=== PATIENT | female | born 1945 | race Caucasian/White ===

== ENCOUNTER 2017-01-17 09:53 | Outpatient (POV) | payer MEDICARE, SELFPAY | END 2017-01-17 15:20 | disposition home or self-care (01) | PROVIDERS: Visit Provider Podiatrist | DX: E11.9 Type 2 diabetes mellitus without complications (principal) | CPT/HCPCS: 99212; G0127 ==

== ENCOUNTER 2017-02-05 14:05 | Emergency (ER) | payer MEDICARE, SELFPAY | END 2017-02-05 15:45 | disposition home or self-care (01) | PROVIDERS: Emergency Provider Emergency Medicine; Family Provider Internal Medicine Adolescent Medicine; Visit Provider Emergency Medicine | DX: S60.222A Contusion of left hand, initial encounter (principal); S51.812A Laceration without foreign body of left forearm, initial encounter; W10.9XXA Fall (on) (from) unspecified stairs and steps, initial encounter; Y93.9 Activity, unspecified; J44.9 Chronic obstructive pulmonary disease, unspecified; E03.9 Hypothyroidism, unspecified; E11.9 Type 2 diabetes mellitus without complications; Y92.9 Unspecified place or not applicable; Z79.01 Long term (current) use of anticoagulants; Z79.02 Long term (current) use of antithrombotics/antiplatelets; Z79.4 Long term (current) use of insulin; Z79.891 Long term (current) use of opiate analgesic; Z79.899 Other long term (current) drug therapy; Z23 Encounter for immunization; Z90.710 Acquired absence of both cervix and uterus; I25.2 Old myocardial infarction; E78.5 Hyperlipidemia, unspecified; Z86.718 Personal history of other venous thrombosis and embolism | CPT/HCPCS: 73090; 73110; 73130; 90471; 90715; 99283 ==

== ENCOUNTER 2017-03-21 20:44 | Observation (INO) | payer MEDICARE, SELFPAY ==
[2017-03-21 20:45] VITALS: BP 171/89; PULSE 81; RESP 18; TEMP 37.1; O2SAT 89; BMI 40.3
--- NOTE | 2017-03-21 20:58 | XR_ITS ---
XR chest AP HISTORY: Shortness of air ITS.REASON: ABD PAIN ORDERING PHYSICIAN: Raj Salamanca MD PATIENT AGE: 71 years COMPARISON: 01/23/2017 FINDINGS: There are low lung volumes. There is cardiomegaly with pulmonary venous congestion consistent with CHF. The appearance of this is likely accentuated by the low lung volumes. Upright PA and lateral chest may be of further value. The right hilum appears prominent. Cannot exclude underlying pneumonia or edema.. Recommend upright PA and lateral chest when patient can tolerate IMPRESSION: Poor inspiration. CHF with possible edema or pneumonia Prominent right hilum. Recommend upright PA and lateral chest with better inspiration when patient can tolerate.
--- NOTE | 2017-03-21 20:58 | CT_ITS ---
CT abdomen pelvis wo con CLINICAL INDICATION: Generalized abdominal pain ITS.REASON: ABD PAIN ORDERING PHYSICIAN: Raj Salamanca MD PATIENT AGE: 71 years COMPARISON: None TECHNIQUE: Axial images obtained with sagittal and coronal reformats. PROCEDURE: Oral Contrast: None IV Contrast: None . FINDINGS: Images of the lung bases show cardiomegaly with coronary artery calcification in the dependent changes in the lung bases. Prior cholecystectomy without ductal dilatation. No focal liver lesion. The spleen, adrenal glands, pancreas and kidneys have an unremarkable unenhanced appearance. There is an IVC filter present with the superior tip below the level the renal veins. There is a small umbilical hernia containing fat. No evidence of appendicitis or diverticulitis. There are some scattered colonic diverticula. There is a moderate amount retained colonic feces in the ascending, transverse, and proximal ascending colon with abrupt transition from the stool filled colon to decompressed colon in the mid descending colon region without obvious lesion. No acute bony anomalies. IMPRESSION: 1. No acute abdomen apparent. 2. There is a moderate amount retained colonic feces in the ascending, transverse, and proximal ascending colon with abrupt transition from the stool filled colon to decompressed colon in the mid descending colon region without obvious lesion. Consider colonoscopy for further evaluation 3. Colonic diverticulosis without diverticulitis. 4. Cardiomegaly with coronary artery disease
[2017-03-21 21:25] LABS: Microscopic, Urine URINE MICROSCOPIC (MICROSCOPIC)
[2017-03-21 21:28] LABS: Appearance,Urine CLEAR (Clear); Bilirubin,Urine Negative (Negative); Blood, Urine Negative (Negative); Color,Urine YELLOW (Yellow); Glucose,Urine (UA) Negative (Negative); Ketones,Urine Negative (Negative); Leukocyte Esterase,Urine Negative (Negative); Nitrate,Urine Negative (Negative); PH,Urine 5.5 (5.0-8.5); Protein,Urine 1+ (Negative); Specific Gravity, Urine 1.025 (1.005-1.030)
[2017-03-21 21:50] LABS: Basophils % 0.4 % (0.1-2.0); Eosinophils # 0.1 K/mm3 (0.0-0.4); Eosinophils % 1.7 % (0.1-12.0); Hematocrit 32.9 % (37.0-47.0); Hemoglobin 10.3 g/dL (12.2-16.2); Lymphocytes # 0.5 K/mm3 (0.7-4.5); Lymphocytes % 6.6 K/mm3 (10-50); Mean Corpuscular HGB Conc 31.3 g/dL (31.8-35.4); Mean Corpuscular Hemoglobin 33.1 pg (27.0-31.2); Mean Corpuscular Volume 105.7 fl (81-99); Mean Platelet Volume 7.8 fl (7.4-10.4); Monocytes # 0.1 K/mm3 (0.1-1.0); Monocytes % 1.6 % (1.7-9.3); Neutrophils # 7.4 K/mm3 (1.8-7.8); Neutrophils % 89.7 % (37.0-80.0); Platelet Count 165 K/mm3 (142-424); Red Blood Count 3.11 M/mm3 (4.20-5.40); Red Cell Distribution Width 14.8 % (11.5-17.5); White Blood Count 8.2 K/mm3 (4.8-10.8)
[2017-03-21 21:57] LABS: MANUAL DIFFERENTIAL MANUAL DIFFERENTIAL (MANUAL DIFF)
[2017-03-21 22:01] LABS: Bacteria,Urine 3+ /lpf; Squamous Epithelial Cell,Urine Occasional #/hpf (0-5)
[2017-03-21 22:05] LABS: Lactic Acid 2.1 mmol/L (0.4-2.0)
[2017-03-21 22:10] VITALS: BP 121/51; PULSE 60; RESP 16; O2SAT 95
--- NOTE | 2017-03-21 22:23 | HMH.EDGENADL ---
ED Disposition Clinical Impression: Abdominal pain in female patient, Renal insufficiency Disposition: Admitted as Observation Condition on Discharge: Good Referrals: Raj Salamanca MD [Primary Care Provider] - - Critical Care Critical Care Time: No Attestation: On 03/21/17, the high probability of a clinically significant, sudden or life threatening deterioration of the following system(s) required my full and direct attention, intervention and personal management. The time I documented below is in addition to time spent performing reported procedures but includes the following listed in this critical care notation. Medical Decision Making Vital Signs: 03/21/17 20:45 03/21/17 22:10 03/21/17 23:02 Temperature 98.8 F Temperature Source Oral Pulse Rate [Right Brachial] 81 60 64 Respiratory Rate 18 16 14 Blood Pressure [Right Arm] 171/89 121/51 119/73 Blood Pressure Mean [Right Arm] 116 74 88 Blood Pressure Source [Right Arm] Automatic Cuff Automatic Cuff Automatic Cuff Blood Pressure Position [Right Arm] Supine Supine Supine 02 Sat by Pulse Oximetry 89 L 95 97 Oxygen Delivery Method Room Air Nasal Cannula Nasal Cannula Oxygen Flow Rate (LPM) 2 - Lab Data Lab results reviewed: Yes: I reviewed the patient's lab results. Lab Results 03/21/17 21:15: Urine Color Yellow, Urine Appearance Clear, Urine pH 5.5, Ur Specific [place] 1.025, Urine Protein 1+, Urine Glucose (UA) Negative, Urine Ketones Negative, Urine Blood Negative, Urine Nitrate Negative, Urine Bilirubin Negative, Urine Urobilinogen 1.0, Ur Leukocyte Esterase Negative, Urine RBC None, Urine WBC 3-5, Ur Squamous Epith Cells Occasional, Urine Bacteria 3+ 03/21/17 21:40: WBC 8.2, RBC 3.11 L, Hgb 10.3 L, Hct 32.9 L, MCV 105.7 H, MCH 33.1 H, MCHC 31.3 L, RDW 14.8, Plt Count 165, MPV 7.8, Neut % (Auto) 89.7 H, Lymph % (Auto) 6.6 L, [place] % (Auto) 1.6 L, Eos % (Auto) 1.7, Baso % (Auto) 0.4, Neut # (Auto) 7.4, Lymph # (Auto) 0.5 L, [place] # (Auto) 0.1, Eos # (Auto) 0.1, Baso # (Auto) 0.0 03/21/17 21:40: Sodium 136, Potassium 4.3, Chloride 102, Carbon Dioxide 26, Anion Gap 12.3, BUN 25 H, Creatinine 1.11 H, Estimated Creat Clear 86, Estimated GFR 49 L, Est GFR ( Amer) 59, Glucose 190 H, Calcium 9.1, Total Bilirubin 1.6 H, AST 26, ALT 36, Alkaline Phosphatase 220 H, Total Creatine Kinase 49, CK-MB (CK-2) < 0.5, CK-MB (CK-2) Rel Index 1.0, Troponin I 0.04, Total Protein 7.4, Albumin 2.8 L, Globulin 4.6 H, Albumin/Globulin Ratio 0.6 L, Amylase 91, Lipase 86 03/21/17 21:40: Lactic Acid 2.1 H Result diagrams: 03/21/17 21:40 03/21/17 21:40 Orders (Tests/Meds): ED MEDICATIONS Discontinued Medications Generic Name Dose Route Start Last Admin Trade Name Freq PRN Reason Stop Dose Admin Butorphanol Tartrate 1 mg 03/21/17 21:18 03/21/17 21:20 Stadol 1mg/1ml Vial IV 03/21/17 21:19 1 mg ONCE ONE Administration ORDERS Category Date Time Status CT abdomen pelvis wo con Stat Cat Scan 03/21/17 20:58 Taken XR chest AP Stat Exams 03/21/17 20:58 Taken Complete Blood Count Auto Diff Stat Lab 03/21/17 21:40 Results Blood Culture Stat Micro 03/21/17 21:10 Received Urine Culture Stat Micro 03/21/17 21:15 Received - Radiology Data #1 Image(s): Chest Image Reviewed: Yes I reviewed the patient's radiology image Preliminary Findings: Abnormal - CT Data CT Scan: Abdomen, Pelvis Time Received: 00:[address] Reviewed: Yes: I have viewed the radiologist's interpretation Preliminary Findings: Abnormal - ECG Data Tracing #1 I reviewed this ECG and interpreted as documented below: Arrhythmias present: afib Ischemic changes: non-specific ST-T wave changes - Physician Consults Physician Consulted: cherelle Reason -: Pt condition - [place]it Inquiry Pt receiving controlled substance: No General Adult HPI - General Chief complaint: PAIN Stated complaint: N/V ABD PAIN Time Seen by Provider: 03/21/17 22:23 Mode of Arrival:
[2017-03-21 22:58] LABS: Alanine Aminotransferase 36 U/L (12-78); Albumin Level 2.8 gm/dL (3.4-5.0); Albumin/Globulin Ratio 0.6 (1.1-1.8); Alkaline Phosphatase 220 U/L (46-116); Amylase 91 U/L (25-125); Anion Gap 12.3 mEq/L (5-15); Aspartate Amino Transferase 26 U/L (15-37); Bilirubin,Total 1.6 mg/dL (0.2-1.0); Blood Urea Nitrogen 25 mg/dL (7-18); Calcium 9.1 mg/dL (8.5-10.1); Carbon Dioxide 26 mmol/L (21.0-32.0); Chloride 102 mmol/L (98-107); Creatine Kinase 49 U/L (26-192); Creatine Kinase MB < 0.5 mg/ml (0.0-3.6); Creatinine Clearance Estimated 86 mL/min (0-300); Creatinine,Serum 1.11 mg/dL (0.55-1.02); Estimated Glomerular Filt Rate 49 ml/min (>60); GFR (African American) 59 ML/MIN (>60); Globulin 4.6 gm/dl (1.3-3.2); Glucose 190 mg/dL (74-106); Lipase 86 u/L (73-393); Potassium 4.3 mmoL/L (3.5-5.1); Sodium 136 mmol/L (136-145); Total Protein,Serum 7.4 gm/dL (6.4-8.2); Troponin I 0.04 ng/ml (0.00-0.06)
[2017-03-21 23:02] VITALS: BP 119/73; PULSE 64; RESP 14; O2SAT 97
--- NOTE | 2017-03-21 23:12 | PC.NURSE ---
ON THE PHONE WITH AT THIS TIME
--- NOTE | 2017-03-21 23:15 | PC.NURSE ---
dr german speaking with dr villarreal
[2017-03-21 23:20] VITALS: BP 134/64; PULSE 72; RESP 16; O2SAT 98
[2017-03-21 23:20] LABS: Anisocytosis 1+; Eosinophils % 3 % (0-3); Hypochromasia 1+; Lymphocytes % 8 % (10-50); Monocytes % 1 % (2-9); Neutrophils % 81 % (42-76); Platelet Estimate Normal; Poikilocytosis 1+; Total Cells Counted 100
--- NOTE | 2017-03-21 23:32 | PC.NURSE ---
REPORT GIVEN TO NIRAJ FOR ADMISSION TO THE MED SURGE UNIT
[2017-03-22 00:37] LABS: Reflex Lactic Add Lactic Reflex
[2017-03-22 00:45] VITALS: BP 148/66; PULSE 79; RESP 22; TEMP 36.8; O2SAT 97; BMI 48.6
[2017-03-22 01:05] VITALS: O2SAT 2
[2017-03-22 01:50] LABS: POC Glucose,Bedside 196 mg/dL
[2017-03-22 02:34] LABS: Lactic Acid Follow Up (RFLX 1) 1.7 (0.4-2.0)
[2017-03-22 04:00] VITALS: BP 135/66; PULSE 76; RESP 20; TEMP 36.7; O2SAT 99
--- NOTE | 2017-03-22 04:56 | PC.NURSE ---
A 71 YEAR OLD WHITE FEMALE ADMITTED THIS SHIFT WITH ABDOMINAL PAIN. WAS LETHARGIC LIKE WHEN ENTERED FLOOR, ONLY MOANED AND GRIMACED. SPOUSE ANSWERED QUESTIONS. ABDOMEN VERY FIRM AND DISTENDED, BOWEL SOUNDS HYPOACTIVE. SPOUSE STATES HAS A BM YESTERDAY, IT WAS HARD, ( WAS ONE BIG BALL). STATES SPOUSE HAS HAD PRESSURE LIKE NEEDS TO HAVE BM. SAYS HAS DONE THIS BEFORE. LUNGS ARE CLEAR, RESP EVEN AND NONLABORED. NO EDEMA. HAS NOT RESPONDED TO STAFF, ONLY TO . NONVERBAL. WILL GIVE PAIN MEDICATION AGAIN SOON ABLE. BED LOCKED IN LOW POSITION, SIDERALES UP X 2. CALL STORM WITHIN REACH. ENCOURAGED TO CALL OUT IF NEEDS.
[2017-03-22 06:59] LABS: POC Glucose,Bedside 225 mg/dL
[2017-03-22 07:02] LABS: Basophils % 0.3 % (0.1-2.0); Eosinophils % 0.3 % (0.1-12.0); Hematocrit 32.7 % (37.0-47.0); Hemoglobin 10.2 g/dL (12.2-16.2); Lymphocytes # 1.5 K/mm3 (0.7-4.5); Lymphocytes % 16.8 K/mm3 (10-50); Mean Corpuscular HGB Conc 31.3 g/dL (31.8-35.4); Mean Corpuscular Hemoglobin 33.7 pg (27.0-31.2); Mean Corpuscular Volume 107.4 fl (81-99); Mean Platelet Volume 8.2 fl (7.4-10.4); Monocytes # 0.3 K/mm3 (0.1-1.0); Monocytes % 3.8 % (1.7-9.3); Neutrophils # 6.8 K/mm3 (1.8-7.8); Neutrophils % 78.7 % (37.0-80.0); Platelet Count 160 K/mm3 (142-424); Red Blood Count 3.04 M/mm3 (4.20-5.40); White Blood Count 8.7 K/mm3 (4.8-10.8)
--- NOTE | 2017-03-22 07:24 | P.CONPHA_ITS ---
[facility] Pharmacy VTE Monitoring - Patient Demographics Admission date: 03/22/17 Report Date: 03/22/17 Time: 07:24 Allergies/Adverse Reactions: Patient Allergies codeine [CODEINE] Allergy (Intermediate, Verified 03/21/17 21:10) I-RASH Height: 1.57 m Weight: 120.684 kg Patient Problems: Current Active Problems Abdominal pain in female patient (Acute) Renal insufficiency (Acute) - VTE Risk Labs: VTE Related Lab Results Hgb 10.2 g/dL (12.2-16.2) L 03/22/17 06:25 Hct 32.7 % (37.0-47.0) L 03/22/17 06:25 Plt Count 160 K/mm3 (142-424) 03/22/17 06:25 BUN 25 mg/dL (7-18) H 03/21/17 21:40 Creatinine 1.11 mg/dL (0.55-1.02) H 03/21/17 21:40 Estimated Creat Clear 86 mL/min (0-300) 03/21/17 21:40 Was VTE Risk Assessment Performed: Yes VTE Score: 7 VTE Risk Level: Moderate Risk Clinical Trial Participant: No - Prophylaxis VTE Prophylaxis Ordered?: Yes Types of VTE Prophylaxis: TEDS Knee High
[2017-03-22 07:44] LABS: Anion Gap 15.1 mEq/L (5-15); Blood Urea Nitrogen 33 mg/dL (7-18); Carbon Dioxide 23 mmol/L (21.0-32.0); Chloride 104 mmol/L (98-107); Creatinine Clearance Estimated 32 mL/min (0-300); Creatinine,Serum 1.33 mg/dL (0.55-1.02); Estimated Glomerular Filt Rate 40 ml/min (>60); GFR (African American) 48 ML/MIN (>60); Glucose 236 mg/dL (74-106); Sodium 137 mmol/L (136-145)
[2017-03-22 07:47] LABS: Potassium 5.1 mmoL/L (3.5-5.1)
[2017-03-22 08:00] VITALS: BP 130/78; PULSE 69; RESP 20; TEMP 36.6; O2SAT 97
--- NOTE | 2017-03-22 08:20 | FL_ITS ---
FL enema w gastrografin CLINICAL INDICATION: Constipation, possible obstructing lesion seen on CT scan ITS.REASON: ? colonic obstruction ORDERING PHYSICIAN: Raj Salamanca MD PATIENT AGE: 71 years COMPARISON: The scan of the same day FINDINGS: Gastrografin enema is performed with some difficulty due to patient inability to be properly positioned. [employer] And Sustainability Manager exam showed mild gaseous distention of the colon. Study is performed on prepped and therefore there is a moderate amount retained colonic feces Gastrografin enema performed without complications. There is diverticulosis of the sigmoid colon. Mild distention of the ascending and transverse colon and proximal descending colon with normal caliber distal descending colon and sigmoid colon. However, no obstructing lesion is evident. No annular constricting lesion apparent. There is a moderate amount retained colonic feces therefore, one cannot exclude an underlying polypoid lesions. Contrast flowed retrograde into the distal ileum. IMPRESSION: 1. No obstructing lesions evident. 2. Sigmoid diverticulosis. 3. Limited study with retained colonic feces. Cannot exclude polyps or other subtle abnormalities
--- NOTE | 2017-03-22 08:23 | HMH.HP ---
*Admission Date: 03/22/17 *Chief complaint: Abdominal Pain *History of present illness: 71-year-old white female with multiple medical problems including chronic atrial fibrillation, coronary atherosclerosis and diastolic CHF who has been fairly well-maintained on her cardiac meds over the past several years. She has had increasing problems with constipation over the past week with bowel movements of hard, small stools every 2-3 days over the past couple of weeks and increasing abdominal swelling that was very noticeable yesterday morning when she woke up. She did not get any relief with drinking water, or attempts to use the restroom, and her pain accelerated. Came to the emergency department for workup revealed essentially normal labs with no leukocytosis, her baseline anemia and a slight renal insufficiency which is really at her baseline. CT scan revealed evidence of colonic obstruction, and she was admitted to hospital for IV fluids and surgical consultation. This morning she has no shortness of air or chest pain but feels like her abdomen is swollen and is in moderate discomfort. [facility] History Medical History: Reports:: Atrial Fibrillation, Chronic Obstructive Pulmonary Disease (COPD), Coronary Artery Disease, Diabetes Mellitus Type 2, Hyperlipidemia, Hypertension, Peripheral Artery Disease Denies:: Cancer, MRSA Other Medical History: Reports: Anemia, Arthritis, Thyroid Disease Laterality Cases: Right: Total Knee Replacement, Bilateral: Cataract Other Surgeries: Yes: EGD, Hysterectomy-Total Amputation: No Fractures: No - *Social History Educational Level: Attended High School Smoking Status: Never smoker Alcohol Intake: never Occupational Status: retired Housing: house Household Members: spouse - Psychiatric History Expresses thoughts of harming self/others: None Suicide Plan Description: No Plan *Family Hx:: Cancer, Coronary Artery Disease, Diabetes, Heart Attack, Hyperlipidemia, Hypertension, Kidney Disease Review of Systems - Review of Systems Review of systems:: unable to obtain, other, pertinent systems reviewed and negative unless documented below - Constitutional Reports fatigue - *Cardiovascular Denies chest pain, Denies chest pain at rest, Denies chest pain with activity, Denies shortness of breath - *Respiratory Denies change in phlegm color, Denies chest congestion, Denies cough - *Gastrointestinal Reports abdominal pain, Reports belching, Reports change in bowel habits, Reports change in stools, Reports constipation, Reports cramping, Reports feeling full early, Reports nausea, Denies coffee ground vomit, Denies loose stools, Denies heartburn, Denies difficulty swallowing, Denies excessive passing of gas, Denies incontinent of stools, Denies vomiting blood, Denies loose stools, Denies black, tarry stools - *Neurologic Denies seizure-like activity Meds Home Medications Medication Instructions Recorded Confirmed Type aspirin 81 mg tablet,delayed 81 mg PO DAILY 02/20/17 03/22/17 History release atorvastatin 40 mg tablet 40 mg PO DAILY 02/20/17 03/22/17 History bimatoprost 0.03 % drops with 1 applic TOPICAL QHS 02/20/17 03/22/17 History applicator, eyelash base budesonide-formoterol HFA 160 2 puff INHALATION Q12H 02/20/17 03/22/17 History mcg-4.5 mcg/actuation aerosol inhaler carvedilol 25 mg tablet 25 mg PO BID 02/20/17 03/22/17 History cholecalciferol (vitamin D3) 1,000 1,000 unit PO DAILY 02/20/17 03/22/17 History unit capsule clopidogrel 75 mg tablet 75 mg PO DAILY 02/20/17 03/22/17 History cyanocobalamin (vit B-12) 1,000 1,000 mcg IM QMONTH 02/20/17 03/22/17 History mcg/mL injection solution ferrous sulfate 325 mg (65 mg 325 mg PO TID tab 02/20/17 03/22/17 History iron) tablet furosemide 40 mg tablet 40 mg PO ONCE 02/20/17 03/22/17 History hydrocodone 5 mg-acetaminophen 325 1 tab PO Q4H PRN 02/20/17 03/22/17 History mg tablet insulin glargine 100 unit/mL (3 24 unit VAZQUEZ
--- NOTE | 2017-03-22 08:26 | P.HP_ITS ---
*Admission Date: 03/22/17 *Chief complaint: Abdominal Pain *History of present illness: 71-year-old white female with multiple medical problems including chronic atrial fibrillation, coronary atherosclerosis and diastolic CHF who has been fairly well-maintained on her cardiac meds over the past several years. She has had increasing problems with constipation over the past week with bowel movements of hard, small stools every 2-3 days over the past couple of weeks and increasing abdominal swelling that was very noticeable yesterday morning when she woke up. She did not get any relief with drinking water, or attempts to use the restroom, and her pain accelerated. Came to the emergency department for workup revealed essentially normal labs with no leukocytosis, her baseline anemia and a slight renal insufficiency which is really at her baseline. CT scan revealed evidence of colonic obstruction, and she was admitted to hospital for IV fluids and surgical consultation. This morning she has no shortness of air or chest pain but feels like her abdomen is swollen and is in moderate discomfort. [facility] History Medical History: Reports:: Atrial Fibrillation, Chronic Obstructive Pulmonary Disease (COPD), Coronary Artery Disease, Diabetes Mellitus Type 2, Hyperlipidemia, Hypertension, Peripheral Artery Disease Denies:: Cancer, MRSA Other Medical History: Reports: Anemia, Arthritis, Thyroid Disease Laterality Cases: Right: Total Knee Replacement, Bilateral: Cataract Other Surgeries: Yes: EGD, Hysterectomy-Total Amputation: No Fractures: No - *Social History Educational Level: Attended High School Smoking Status: Never smoker Alcohol Intake: never Occupational Status: retired Housing: house Household Members: spouse - Psychiatric History Expresses thoughts of harming self/others: None Suicide Plan Description: No Plan *Family Hx:: Cancer, Coronary Artery Disease, Diabetes, Heart Attack, Hyperlipidemia, Hypertension, Kidney Disease Review of Systems - Review of Systems Review of systems:: unable to obtain, other, pertinent systems reviewed and negative unless documented below - Constitutional Reports fatigue - *Cardiovascular Denies chest pain, Denies chest pain at rest, Denies chest pain with activity, Denies shortness of breath - *Respiratory Denies change in phlegm color, Denies chest congestion, Denies cough - *Gastrointestinal Reports abdominal pain, Reports belching, Reports change in bowel habits, Reports change in stools, Reports constipation, Reports cramping, Reports feeling full early, Reports nausea, Denies coffee ground vomit, Denies loose stools, Denies heartburn, Denies difficulty swallowing, Denies excessive passing of gas, Denies incontinent of stools, Denies vomiting blood, Denies loose stools, Denies black, tarry stools - *Neurologic Denies seizure-like activity Meds Home Medications Medication Instructions Recorded Confirmed Type aspirin 81 mg tablet,delayed 81 mg PO DAILY 02/20/17 03/22/17 History release atorvastatin 40 mg tablet 40 mg PO DAILY 02/20/17 03/22/17 History bimatoprost 0.03 % drops with 1 applic TOPICAL QHS 02/20/17 03/22/17 History applicator, eyelash base budesonide-formoterol HFA 160 2 puff INHALATION Q12H 02/20/17 03/22/17 History mcg-4.5 mcg/actuation aerosol inhaler carvedilol 25 mg tablet 25 mg PO BID 02/20/17 03/22/17 History cholecalciferol (vitamin D3) 1,000 1,000 unit PO DAILY 02/20/17 03/22/17 History unit capsule clopidogrel 75 mg tab
--- NOTE | 2017-03-22 10:52 | HMH.GSCON ---
*Admission Date: 03/22/17 *Chief complaint: Abdominal pain *History of present illness: Patient is a 71-year-old white female with numerous medical comorbidities including diabetes, morbid obesity (BMI 49), coronary atherosclerosis, congestive heart failure, history of DVT with vena caval filter. She has had some constipation with passage of large hard stool balls over the past week. Yesterday she had abdominal distention and pain. Due to the severity she presented to the emergency department late yesterday evening. She underwent CT scan which revealed findings suggestive of possible transition point in the descending colon as a possible large bowel obstruction. Patient was admitted for inpatient management and surgical consultation was obtained. Prior to official consultation recommendations based on the imaging were for gastro-enema. Of note, the patient did undergo reportedly normal colonoscopy 2 years ago. Review of Systems - Review of Systems Review of systems:: pertinent systems reviewed and negative unless documented below - *Neurologic Denies seizure-like activity [facility] History Medical History: Reports:: Atrial Fibrillation, Chronic Obstructive Pulmonary Disease (COPD), Coronary Artery Disease, Diabetes Mellitus Type 2, Hyperlipidemia, Hypertension, Peripheral Artery Disease Denies:: Cancer, MRSA Other Medical History: Reports: Anemia, Arthritis, Thyroid Disease Laterality Cases: Right: Total Knee Replacement, Bilateral: Cataract Other Surgeries: Yes: EGD, Hysterectomy-Total Amputation: No Fractures: No - *Social History Educational Level: Attended High School Smoking Status: Never smoker Alcohol Intake: never Occupational Status: retired Housing: house Household Members: spouse - Psychiatric History Expresses thoughts of harming self/others: None Suicide Plan Description: No Plan *Family Hx:: Cancer, Coronary Artery Disease, Diabetes, Heart Attack, Hyperlipidemia, Hypertension, Kidney Disease Meds Home Medications Medication Instructions Recorded Confirmed Type aspirin 81 mg tablet,delayed 81 mg PO DAILY 02/20/17 03/22/17 History release atorvastatin 40 mg tablet 40 mg PO DAILY 02/20/17 03/22/17 History bimatoprost 0.03 % drops with 1 applic TOPICAL QHS 02/20/17 03/22/17 History applicator, eyelash base budesonide-formoterol HFA 160 2 puff INHALATION Q12H 02/20/17 03/22/17 History mcg-4.5 mcg/actuation aerosol inhaler carvedilol 25 mg tablet 25 mg PO BID 02/20/17 03/22/17 History cholecalciferol (vitamin D3) 1,000 1,000 unit PO DAILY 02/20/17 03/22/17 History unit capsule clopidogrel 75 mg tablet 75 mg PO DAILY 02/20/17 03/22/17 History cyanocobalamin (vit B-12) 1,000 1,000 mcg IM QMONTH 02/20/17 03/22/17 History mcg/mL injection solution ferrous sulfate 325 mg (65 mg 325 mg PO TID tab 02/20/17 03/22/17 History iron) tablet furosemide 40 mg tablet 40 mg PO ONCE 02/20/17 03/22/17 History hydrocodone 5 mg-acetaminophen 325 1 tab PO Q4H PRN 02/20/17 03/22/17 History mg tablet insulin glargine 100 unit/mL (3 24 unit SUB-Q QDAY 02/20/17 03/22/17 History mL) subcutaneous pen levothyroxine 88 mcg capsule 88 mg PO DAILY cap 02/20/17 03/22/17 History nitroglycerin 0.4 mg sublingual 0.4 mg SUBLINGUAL Q5M PRN 02/20/17 03/21/17 History tablet omeprazole 40 mg capsule,delayed 40 mg PO DAILY 02/20/17 03/22/17 History release oxybutynin chloride 5 mg tablet 5 mg PO BID 02/20/17 03/22/17 History pyridoxine (vitamin B6) 50 mg 50 mg PO DAILY 02/20/17 03/22/17 History capsule rivaroxaban 15 mg tablet 15 mg PO DAILY 02/20/17 03/22/17 History Lisinopril [Lisinopril 2.5mg Tab] 2.5 each PO DAILY 03/22/17 03/22/17 History Sitagliptin Phosphate [Januvia] 100 each PO DAILY 03/22/17 03/22/17 History dilTIAZem HCl [Cartia Xt] 240 mg PO DAILY 03/22/17 03/22/17 History Allergies Allergy/AdvReac Type Severity Reaction Status Date / Time codeine [CODEINE] Allergy Intermediate I-RASH Verified
--- NOTE | 2017-03-22 10:55 | P.CONS_ITS ---
*Admission Date: 03/22/17 *Chief complaint: Abdominal pain *History of present illness: Patient is a 71-year-old white female with numerous medical comorbidities including diabetes, morbid obesity (BMI 49), coronary atherosclerosis, congestive heart failure, history of DVT with vena caval filter. She has had some constipation with passage of large hard stool balls over the past week. Yesterday she had abdominal distention and pain. Due to the severity she presented to the emergency department late yesterday evening. She underwent CT scan which revealed findings suggestive of possible transition point in the descending colon as a possible large bowel obstruction. Patient was admitted for inpatient management and surgical consultation was obtained. Prior to official consultation recommendations based on the imaging were for gastro- enema. Of note, the patient did undergo reportedly normal colonoscopy 2 years ago. Review of Systems - Review of Systems Review of systems:: pertinent systems reviewed and negative unless documented below - *Neurologic Denies seizure-like activity [facility] History Medical History: Reports:: Atrial Fibrillation, Chronic Obstructive Pulmonary Disease (COPD), Coronary Artery Disease, Diabetes Mellitus Type 2, Hyperlipidemia, Hypertension, Peripheral Artery Disease Denies:: Cancer, MRSA Other Medical History: Reports: Anemia, Arthritis, Thyroid Disease Laterality Cases: Right: Total Knee Replacement, Bilateral: Cataract Other Surgeries: Yes: EGD, Hysterectomy-Total Amputation: No Fractures: No - *Social History Educational Level: Attended High School Smoking Status: Never smoker Alcohol Intake: never Occupational Status: retired Housing: house Household Members: spouse - Psychiatric History Expresses thoughts of harming self/others: None Suicide Plan Description: No Plan *Family Hx:: Cancer, Coronary Artery Disease, Diabetes, Heart Attack, Hyperlipidemia, Hypertension, Kidney Disease Meds Home Medications Medication Instructions Recorded Confirmed Type aspirin 81 mg tablet,delayed 81 mg PO DAILY 02/20/17 03/22/17 History release atorvastatin 40 mg tablet 40 mg PO DAILY 02/20/17 03/22/17 History bimatoprost 0.03 % drops with 1 applic TOPICAL QHS 02/20/17 03/22/17 History applicator, eyelash base budesonide-formoterol HFA 160 2 puff INHALATION Q12H 02/20/17 03/22/17 History mcg-4.5 mcg/actuation aerosol inhaler carvedilol 25 mg tablet 25 mg PO BID 02/20/17 03/22/17 History cholecalciferol (vitamin D3) 1,000 1,000 unit PO DAILY 02/20/17 03/22/17 History unit capsule clopidogrel 75 mg tablet 75 mg PO DAILY 02/20/17 03/22/17 History cyanocobalamin (vit B-12) 1,000 1,000 mcg IM QMONTH 02/20/17 03/22/17 History mcg/mL injection solution ferrous sulfate 325 mg (65 mg 325 mg PO TID tab 02/20/17 03/22/17 History iron) tablet furosemide 40 mg tablet 40 mg PO ONCE 02/20/17 03/22/17 History hydrocodone 5 mg-acetaminophen 325 1 tab PO Q4H PRN 02/20/17 03/22/17 History mg tablet insulin glargine 100 unit/mL (3 24 unit SUB-Q QDAY 02/20/17 03/22/17 History mL) subcutaneous pen levothyroxine 88 mcg capsule 88 mg PO DAILY cap 02/20/17 03/22/17 History nitroglycerin 0.4 mg sublingual 0.4 mg SUBLINGUAL Q5M PRN 02/20/17 03/21/17 History tablet omeprazole 40 mg capsule,delayed 40 mg PO DAILY 02/20/17 03/22/17 History release oxybutynin chloride 5 mg tablet 5 mg PO BID 02/20/17 03/22/17 His
[2017-03-22 13:20] LABS: POC Glucose,Bedside 227 mg/dL
--- NOTE | 2017-03-22 15:10 | HMH.CARDCON2 ---
History of Present Illness Consult date: 03/22/17 Requesting physician: Raj Salamanca Consult reason: pre-op evaluation Chief complaint: Abdominal Pain, Constipation History of present illness: 71-year-old white female with history of coronary disease status post previous multivessel stenting, chronic atrial fibrillation on Xarelto therapy, history of anemia, hypertension, diabetes and carotid artery stenosis was admitted for increasing abdominal pain associated with constipation. Surgery consulted for possible surgical intervention and cardiology asked to see for preop evaluation. Patient denies any recent exertional chest pain or shortness of breath. Her last coronary intervention was in July 2015 with stents placed to her cervix and LAD. Cardiac function at that time was normal. Patient is a non-smoker. She has been a diabetic for more than 20 years. She does have carotid artery stenosis of moderate degree on the left and mild to moderate on the right per ultrasound April 2016. She denies any recent TIA or CVA type symptoms. EKG shows atrial depression with controlled response with poor R-wave progression anteriorly. Review of Systems - Constitutional Reports weight gain - *Cardiovascular Reports shortness of breath with activity, Denies chest pain - *Respiratory Reports shortness of breath with activity - *Gastrointestinal Reports abdominal pain, Reports change in stools, Reports constipation - *Musculoskeletal Reports back pain - *Neurologic Denies seizure-like activity [facility] History Medical History: Reports:: Atrial Fibrillation, Chronic Obstructive Pulmonary Disease (COPD), Coronary Artery Disease, Diabetes Mellitus Type 2, Hyperlipidemia, Hypertension, Peripheral Artery Disease Denies:: Cancer, MRSA Other Medical History: Reports: Anemia, Arthritis, Thyroid Disease Laterality Cases: Right: Total Knee Replacement, Bilateral: Cataract Other Surgeries: Yes: EGD, Hysterectomy-Total Amputation: No Fractures: No - *Social History Educational Level: Attended High School Smoking Status: Never smoker Alcohol Intake: never Occupational Status: retired Housing: house Household Members: spouse - Psychiatric History Expresses thoughts of harming self/others: None Suicide Plan Description: No Plan *Family Hx:: Cancer, Coronary Artery Disease, Diabetes, Heart Attack, Hyperlipidemia, Hypertension, Kidney Disease Meds Home Medications Medication Instructions Recorded Confirmed Type aspirin 81 mg tablet,delayed 81 mg PO DAILY 02/20/17 03/22/17 History release atorvastatin 40 mg tablet 40 mg PO DAILY 02/20/17 03/22/17 History bimatoprost 0.03 % drops with 1 applic TOPICAL QHS 02/20/17 03/22/17 History applicator, eyelash base budesonide-formoterol HFA 160 2 puff INHALATION Q12H 02/20/17 03/22/17 History mcg-4.5 mcg/actuation aerosol inhaler carvedilol 25 mg tablet 25 mg PO BID 02/20/17 03/22/17 History cholecalciferol (vitamin D3) 1,000 1,000 unit PO DAILY 02/20/17 03/22/17 History unit capsule clopidogrel 75 mg tablet 75 mg PO DAILY 02/20/17 03/22/17 History cyanocobalamin (vit B-12) 1,000 1,000 mcg IM QMONTH 02/20/17 03/22/17 History mcg/mL injection solution ferrous sulfate 325 mg (65 mg 325 mg PO TID tab 02/20/17 03/22/17 History iron) tablet furosemide 40 mg tablet 40 mg PO ONCE 02/20/17 03/22/17 History hydrocodone 5 mg-acetaminophen 325 1 tab PO Q4H PRN 02/20/17 03/22/17 History mg tablet insulin glargine 100 unit/mL (3 24 unit SUB-Q QDAY 02/20/17 03/22/17 History mL) subcutaneous pen levothyroxine 88 mcg capsule 88 mg PO DAILY cap 02/20/17 03/22/17 History nitroglycerin 0.4 mg sublingual 0.4 mg SUBLINGUAL Q5M PRN 02/20/17 03/21/17 History tablet omeprazole 40 mg capsule,delayed 40 mg PO DAILY 02/20/17 03/22/17 History release oxybutynin chloride 5 mg tablet 5 mg PO BID 02/20/17 03/22/17 History pyridoxine (vitamin B6) 50 mg 50 mg PO DAILY 02/20/17 03/22/17 History
--- NOTE | 2017-03-22 15:13 | P.CONS_ITS ---
History of Present Illness Consult date: 03/22/17 Requesting physician: Raj Salamanca Consult reason: pre-op evaluation Chief complaint: Abdominal Pain, Constipation History of present illness: 71-year-old white female with history of coronary disease status post previous multivessel stenting, chronic atrial fibrillation on Xarelto therapy, history of anemia, hypertension, diabetes and carotid artery stenosis was admitted for increasing abdominal pain associated with constipation. Surgery consulted for possible surgical intervention and cardiology asked to see for preop evaluation. Patient denies any recent exertional chest pain or shortness of breath. Her last coronary intervention was in July 2015 with stents placed to her cervix and LAD. Cardiac function at that time was normal. Patient is a non -smoker. She has been a diabetic for more than 20 years. She does have carotid artery stenosis of moderate degree on the left and mild to moderate on the right per ultrasound April 2016. She denies any recent TIA or CVA type symptoms. EKG shows atrial depression with controlled response with poor R- wave progression anteriorly. Review of Systems - Constitutional Reports weight gain - *Cardiovascular Reports shortness of breath with activity, Denies chest pain - *Respiratory Reports shortness of breath with activity - *Gastrointestinal Reports abdominal pain, Reports change in stools, Reports constipation - *Musculoskeletal Reports back pain - *Neurologic Denies seizure-like activity [facility] History Medical History: Reports:: Atrial Fibrillation, Chronic Obstructive Pulmonary Disease (COPD), Coronary Artery Disease, Diabetes Mellitus Type 2, Hyperlipidemia, Hypertension, Peripheral Artery Disease Denies:: Cancer, MRSA Other Medical History: Reports: Anemia, Arthritis, Thyroid Disease Laterality Cases: Right: Total Knee Replacement, Bilateral: Cataract Other Surgeries: Yes: EGD, Hysterectomy-Total Amputation: No Fractures: No - *Social History Educational Level: Attended High School Smoking Status: Never smoker Alcohol Intake: never Occupational Status: retired Housing: house Household Members: spouse - Psychiatric History Expresses thoughts of harming self/others: None Suicide Plan Description: No Plan *Family Hx:: Cancer, Coronary Artery Disease, Diabetes, Heart Attack, Hyperlipidemia, Hypertension, Kidney Disease Meds Home Medications Medication Instructions Recorded Confirmed Type aspirin 81 mg tablet,delayed 81 mg PO DAILY 02/20/17 03/22/17 History release atorvastatin 40 mg tablet 40 mg PO DAILY 02/20/17 03/22/17 History bimatoprost 0.03 % drops with 1 applic TOPICAL QHS 02/20/17 03/22/17 History applicator, eyelash base budesonide-formoterol HFA 160 2 puff INHALATION Q12H 02/20/17 03/22/17 History mcg-4.5 mcg/actuation aerosol inhaler carvedilol 25 mg tablet 25 mg PO BID 02/20/17 03/22/17 History cholecalciferol (vitamin D3) 1,000 1,000 unit PO DAILY 02/20/17 03/22/17 History unit capsule clopidogrel 75 mg tablet 75 mg PO DAILY 02/20/17 03/22/17 History cyanocobalamin (vit B-12) 1,000 1,000 mcg IM QMONTH 02/20/17 03/22/17 History mcg/mL injection solution ferrous sulfate 325 mg (65 mg 325 mg PO TID tab 02/20/17 03/22/17 History iron) tablet furosemide 40 mg tablet 40 mg PO ONCE 02/20/17 03/22/17 History hydrocodone 5 mg-acetaminophen 325 1 tab PO Q4H PRN 02/20/17 03/22/17 History mg tablet ins
[2017-03-22 15:25] VITALS: BMI 48.9
[2017-03-22 16:22] VITALS: BP 119/45; PULSE 69; RESP 20; TEMP 36.9; O2SAT 99
--- NOTE | 2017-03-22 18:52 | PC.NURSE ---
pt has had several watery stools this shift. pt ambulated to bathroom this shift. no changes from previous assessment. pt has stated some pain this shift and prn med was given. iv fluids running and iv patent. call light in reach. will continue to monitor pt condition. report to be given to oncoming nurse.
--- NOTE | 2017-03-22 18:54 | PC.NURSE ---
at 1735 md was making rounds and verbally ordered one bottle of mag citrate and fleet enema to be given now. order was placed and meds given.
[2017-03-22 19:13] LABS: POC Glucose,Bedside 216 mg/dL
[2017-03-22 20:00] VITALS: BP 153/58; PULSE 71; RESP 18; TEMP 36.9; O2SAT 99
[2017-03-23 01:23] LABS: POC Glucose,Bedside 198 mg/dL
[2017-03-23 04:00] VITALS: BP 149/69; PULSE 85; RESP 18; TEMP 37.2; O2SAT 96
--- NOTE | 2017-03-23 04:09 | PC.NURSE ---
PT RESTED WELL DURING SHIFT. PT TOLERATED 2L NC VERY WELL. PT BOWEL SOUNDS WERE HYPOACTIVE IN ALL 4 QUADS UPON AUSCULTATION. ABDOMEN DISTENDED/NONTENDER. PT LUNG SOUNDS WERE CLEAR UPON AUSCULTATION. PT REFUSED TEDS. PT HAD A LOOSE, WATERY STOOL OCCURRENCE. PT WAS AT BEDSIDE THROUGHOUT SHIFT. VSS. A&O X3. NO SIGNS OF ACUTE DISTRESS NOTED AT THIS TIME, WILL CONTINUE TO MONITOR.
[2017-03-23 06:36] LABS: POC Glucose,Bedside 222 mg/dL
--- NOTE | 2017-03-23 06:38 | PC.NURSE ---
2 episode of watery stool noted this shift, charted in I&O
[2017-03-23 06:57] LABS: Basophils % 0.3 % (0.1-2.0); Eosinophils # 0.1 K/mm3 (0.0-0.4); Eosinophils % 1.3 % (0.1-12.0); Hematocrit 31.7 % (37.0-47.0); Lymphocytes # 1.4 K/mm3 (0.7-4.5); Lymphocytes % 19.1 K/mm3 (10-50); Mean Corpuscular HGB Conc 31.4 g/dL (31.8-35.4); Mean Corpuscular Hemoglobin 33.6 pg (27.0-31.2); Mean Platelet Volume 8.2 fl (7.4-10.4); Monocytes # 0.3 K/mm3 (0.1-1.0); Monocytes % 4.7 % (1.7-9.3); Neutrophils # 5.4 K/mm3 (1.8-7.8); Neutrophils % 74.6 % (37.0-80.0); Platelet Count 153 K/mm3 (142-424); Red Blood Count 2.97 M/mm3 (4.20-5.40); White Blood Count 7.2 K/mm3 (4.8-10.8)
[2017-03-23 07:22] LABS: Alanine Aminotransferase 141 U/L (12-78); Albumin Level 2.3 gm/dL (3.4-5.0); Albumin/Globulin Ratio 0.6 (1.1-1.8); Alkaline Phosphatase 310 U/L (46-116); Anion Gap 13.6 mEq/L (5-15); Aspartate Amino Transferase 109 U/L (15-37); Bilirubin,Total 1.9 mg/dL (0.2-1.0); Blood Urea Nitrogen 41 mg/dL (7-18); Calcium 8.5 mg/dL (8.5-10.1); Carbon Dioxide 26 mmol/L (21.0-32.0); Chloride 105 mmol/L (98-107); Creatinine Clearance Estimated 29 mL/min (0-300); Estimated Glomerular Filt Rate 37 ml/min (>60); GFR (African American) 45 ML/MIN (>60); Glucose 216 mg/dL (74-106); Potassium 4.6 mmoL/L (3.5-5.1); Sodium 140 mmol/L (136-145); Total Protein,Serum 6.3 gm/dL (6.4-8.2)
--- NOTE | 2017-03-23 07:30 | HMH.DCSUM ---
General - General Admission date: 03/22/17 Discharge date: 03/23/17 HPI HPI: Patient is a 71-year-old white female with numerous medical comorbidities including diabetes, morbid obesity (BMI 49), coronary atherosclerosis, congestive heart failure, history of DVT with vena caval filter. She has had some constipation with passage of large hard stool balls over the past week. Yesterday she had abdominal distention and pain. Due to the severity she presented to the emergency department late yesterday evening. She underwent CT scan which revealed findings suggestive of possible transition point in the descending colon as a possible large bowel obstruction. Patient was admitted for inpatient management and surgical consultation was obtained. Prior to official consultation recommendations based on the imaging were for gastro-enema. Of note, the patient did undergo reportedly normal colonoscopy 2 years ago. Objective Vital signs: Temp Pulse Resp BP Pulse Ox 98.9 F 85 18 149/69 96 03/23/17 04:00 03/23/17 04:00 03/23/17 04:00 03/23/17 04:00 03/23/17 04:00 Narrative: The morning of discharge patient is comfortable, eating liquids well. Has had several voluminous bowel movements of liquid and solid elements. Cardio pulmonary exam unchanged with baseline irregular rhythm but good rate control, lungs are clear. Abdomen is slightly distended but much softer and no tenderness noted except superficial tenderness of the left lower quadrant but no rebound, no guarding, and no CVA tenderness. No edema noted. Hospital Course Hospital Course: Patient was admitted as noted, An enema was done which revealed no evidence of obstruction but significant constipation and was somewhat therapeutic in regards to stool production. She was given magnesium citrate and another fleets enema and had large amounts of stool production. She felt much better this morning she will be discharged home with Linzess tablets daily. She has scheduled follow-up in my office in 5 days. Results Labs on day of discharge: Labs from last 24 hours 03/23/17 03/23/17 03/23/17 06:24 06:20 06:20 WBC 7.2 RBC 2.97 L Hgb 10.0 L Hct 31.7 L MCV 107.0 H MCH 33.6 H MCHC 31.4 L RDW 15.0 Plt Count 153 MPV 8.2 Neut % (Auto) 74.6 Lymph % (Auto) 19.1 Caroline % (Auto) 4.7 Eos % (Auto) 1.3 Baso % (Auto) 0.3 Neut # (Auto) 5.4 Lymph # (Auto) 1.4 Caroline # (Auto) 0.3 Eos # (Auto) 0.1 Baso # (Auto) 0.0 Sodium 140 Potassium 4.6 Chloride 105 Carbon Dioxide 26 Anion Gap 13.6 BUN 41 H Creatinine 1.40 H Estimated Creat Clear 29 Estimated GFR 37 L Est GFR ( Amer) 45 L Glucose 216 H POC Glucose 222 Calcium 8.5 Total Bilirubin 1.9 H AST 109 H D ALT 141 H D Alkaline Phosphatase 310 H Total Protein 6.3 L Albumin 2.3 L D Globulin 4.0 H Albumin/Globulin Ratio 0.6 L 03/23/17 03/22/17 03/22/17 01:01 19:05 13:13 WBC RBC Hgb Hct MCV MCH MCHC RDW Plt Count MPV Neut % (Auto) Lymph % (Auto) Caroline % (Auto) Eos % (Auto) Baso % (Auto) Neut # (Auto) Lymph # (Auto) Caroline # (Auto) Eos # (Auto) Baso # (Auto) Sodium Potassium Chloride Carbon Dioxide Anion Gap BUN Creatinine Estimated Creat Clear Estimated GFR Est GFR ( Amer) Glucose POC Glucose 198 216 227 Calcium Total Bilirubin AST ALT Alkaline Phosphatase Total Protein Albumin Globulin Albumin/Globulin Ratio 03/22/17 06:25 WBC RBC Hgb Hct MCV MCH MCHC RDW Plt Count MPV Neut % (Auto) Lymph % (Auto) Caroline % (Auto) Eos % (Auto) Baso % (Auto) Neut # (Auto) Lymph # (Auto) Caroline # (Auto) Eos # (Auto) Baso # (Auto) Sodium 137 Potassium 5.1 Chloride 104 Carbon Dioxide 23 Anion Gap 15.1 H
--- NOTE | 2017-03-23 07:32 | PC.NURSE ---
report given to mildred allen
--- NOTE | 2017-03-23 07:44 | P.DS_ITS ---
General - General Admission date: 03/22/17 Discharge date: 03/23/17 HPI HPI: Patient is a 71-year-old white female with numerous medical comorbidities including diabetes, morbid obesity (BMI 49), coronary atherosclerosis, congestive heart failure, history of DVT with vena caval filter. She has had some constipation with passage of large hard stool balls over the past week. Yesterday she had abdominal distention and pain. Due to the severity she presented to the emergency department late yesterday evening. She underwent CT scan which revealed findings suggestive of possible transition point in the descending colon as a possible large bowel obstruction. Patient was admitted for inpatient management and surgical consultation was obtained. Prior to official consultation recommendations based on the imaging were for gastro- enema. Of note, the patient did undergo reportedly normal colonoscopy 2 years ago. Objective Vital signs: Temp Pulse Resp BP Pulse Ox 98.9 F 85 18 149/69 96 03/23/17 04:00 03/23/17 04:00 03/23/17 04:00 03/23/17 04:00 03/23/17 04:00 Narrative: The morning of discharge patient is comfortable, eating liquids well. Has had several voluminous bowel movements of liquid and solid elements. Cardio pulmonary exam unchanged with baseline irregular rhythm but good rate control, lungs are clear. Abdomen is slightly distended but much softer and no tenderness noted except superficial tenderness of the left lower quadrant but no rebound, no guarding, and no CVA tenderness. No edema noted. Hospital Course Hospital Course: Patient was admitted as noted, An enema was done which revealed no evidence of obstruction but significant constipation and was somewhat therapeutic in regards to stool production. She was given magnesium citrate and another fleets enema and had large amounts of stool production. She felt much better this morning she will be discharged home with Linzess tablets daily. She has scheduled follow-up in my office in 5 days. Results Labs on day of discharge: Labs from last 24 hours 03/23/17 03/23/17 03/23/17 06:24 06:20 06:20 WBC 7.2 RBC 2.97 L Hgb 10.0 L Hct 31.7 L MCV 107.0 H MCH 33.6 H MCHC 31.4 L RDW 15.0 Plt Count 153 MPV 8.2 Neut % (Auto) 74.6 Lymph % (Auto) 19.1 [place] % (Auto) 4.7 Eos % (Auto) 1.3 Baso % (Auto) 0.3 Neut # (Auto) 5.4 Lymph # (Auto) 1.4 [place] # (Auto) 0.3 Eos # (Auto) 0.1 Baso # (Auto) 0.0 Sodium 140 Potassium 4.6 Chloride 105 Carbon Dioxide 26 Anion Gap 13.6 BUN 41 H Creatinine 1.40 H Estimated Creat Clear 29 Estimated GFR 37 L Est GFR ( Amer) 45 L Glucose 216 H POC Glucose 222 Calcium 8.5 Total Bilirubin 1.9 H AST 109 H D ALT 141 H D Alkaline Phosphatase 310 H Total Protein 6.3 L Albumin 2.3 L D Globulin 4.0 H Albumin/Globulin Ratio 0.6 L 03/23/17 03/22/17 03/22/17 01:01 19:05 13:13 WBC RBC Hgb Hct MCV MCH MCHC RDW Plt Count
--- NOTE | 2017-03-23 07:57 | HMH.GSPN ---
Subjective Patient reports: feels better, pain is less, bowel movement (Patient has had numerous loose bowel movements after gastrograffin enema.) Exam Vital signs and Labs for Last 24 Hours: Temp Pulse Resp BP Pulse Ox 98.9 F 85 18 149/69 96 03/23/17 04:00 03/23/17 04:00 03/23/17 04:00 03/23/17 04:00 03/23/17 04:00 Laboratory Results - last 24 hr 03/22/17 13:13: POC Glucose 227 03/22/17 19:05: POC Glucose 216 03/23/17 01:01: POC Glucose 198 03/23/17 06:20: WBC 7.2, RBC 2.97 L, Hgb 10.0 L, Hct 31.7 L, MCV 107.0 H, MCH 33.6 H, MCHC 31.4 L, RDW 15.0, Plt Count 153, MPV 8.2, Neut % (Auto) 74.6, Lymph % (Auto) 19.1, Dol[place] % (Auto) 4.7, Eos % (Auto) 1.3, Baso % (Auto) 0.3, Neut # (Auto) 5.4, Lymph # (Auto) 1.4, Dol[place] # (Auto) 0.3, Eos # (Auto) 0.1, Baso # (Auto) 0.0 03/23/17 06:20: Sodium 140, Potassium 4.6, Chloride 105, Carbon Dioxide 26, Anion Gap 13.6, BUN 41 H, Creatinine 1.40 H, Estimated Creat Clear 29, Estimated GFR 37 L, Est GFR ( Amer) 45 L, Glucose 216 H, Calcium 8.5, Total Bilirubin 1.9 H, AST 109 H D, ALT 141 H D, Alkaline Phosphatase 310 H, Total Protein 6.3 L, Albumin 2.3 L D, Globulin 4.0 H, Albumin/Globulin Ratio 0.6 L 03/23/17 06:24: POC Glucose 222 I & O for Last 24 hours: Intake & Output 03/20/17 03/21/17 03/22/17 03/23/17 11:59 11:59 11:59 11:59 Intake Total 432 / 432 1542 / 1542 Balance 432 / 432 1542 / 1542 Weight 266 lb 1 oz 266 lb 1.003 oz - *Routine Abdominal Exam Present: distended. Absent: tenderness Comments: Much less tenderness. Progress Note: A&P (1) Chronic atrial fibrillation Status: Chronic Current Visit: Yes (2) Constipation Status: Acute Current Visit: Yes (3) Abdominal pain in female patient Status: Acute Assessment and plan: Okay from surgical standpoint to discharge home on bowel regimen. Current Visit: Yes (4) Renal insufficiency Status: Chronic Current Visit: Yes
[2017-03-23 08:00] VITALS: BP 137/69; PULSE 90; RESP 20; TEMP 36.5; O2SAT 93
== END 2017-03-23 10:15 | disposition home or self-care (01) ==
LOC: ER 20:50 → 2ND 23:28
PROVIDERS: Admitting Provider Emergency Medicine; Emergency Provider Emergency Medicine; Family Provider Internal Medicine Adolescent Medicine; PCP Internal Medicine Adolescent Medicine; Visit Provider Internal Medicine Adolescent Medicine
DX: K59.00 Constipation, unspecified (principal); J44.9 Chronic obstructive pulmonary disease, unspecified; I25.10 Atherosclerotic heart disease of native coronary artery without angina pectoris; E78.5 Hyperlipidemia, unspecified; E07.9 Disorder of thyroid, unspecified; I48.2 Chronic atrial fibrillation; I50.32 Chronic diastolic (congestive) heart failure; D64.9 Anemia, unspecified; N18.2 Chronic kidney disease, stage 2 (mild); E11.22 Type 2 diabetes mellitus with diabetic chronic kidney disease; I13.0 Hypertensive heart and chronic kidney disease with heart failure and stage 1 through stage 4 chronic kidney disease, or unspecified chronic kidney disease; E11.42 Type 2 diabetes mellitus with diabetic polyneuropathy; E66.01 Morbid (severe) obesity due to excess calories; I65.23 Occlusion and stenosis of bilateral carotid arteries; Z68.42 Body mass index [BMI] 45.0-49.9, adult; Z96.651 Presence of right artificial knee joint; Z90.79 Acquired absence of other genital organ(s); Z86.718 Personal history of other venous thrombosis and embolism; Z95.5 Presence of coronary angioplasty implant and graft; Z79.01 Long term (current) use of anticoagulants; Z79.02 Long term (current) use of antithrombotics/antiplatelets; Z79.82 Long term (current) use of aspirin; Z79.891 Long term (current) use of opiate analgesic; Z79.51 Long term (current) use of inhaled steroids; Z79.899 Other long term (current) drug therapy; Z79.4 Long term (current) use of insulin; Z88.5 Allergy status to narcotic agent; Z80.9 Family history of malignant neoplasm, unspecified; Z82.49 Family history of ischemic heart disease and other diseases of the circulatory system; Z83.3 Family history of diabetes mellitus; Z83.49 Family history of other endocrine, nutritional and metabolic diseases; Z84.1 Family history of disorders of kidney and ureter
CPT/HCPCS: 36415; 71045; 74176; 74270; 80048; 80053; 81001; 82150; 82550; 82553; 82962; 83605; 83690; 84484; 85007; 85025; 87040; 87086; 87088; 87186; 93005; 93041; 96374; 96376; 99285; G0378; J0595; J2270; J2405

== ENCOUNTER → 2017-03-28 11:15 | Outpatient (CLI) | payer MEDICARE, SELFPAY ==
[2017-03-28 14:06] LABS: Alanine Aminotransferase 59 U/L (12-78); Albumin Level 2.9 gm/dL (3.4-5.0); Albumin/Globulin Ratio 0.8 (1.1-1.8); Alkaline Phosphatase 204 U/L (46-116); Anion Gap 16.9 mEq/L (5-15); Aspartate Amino Transferase 37 U/L (15-37); Bilirubin,Total 0.9 mg/dL (0.2-1.0); Blood Urea Nitrogen 20 mg/dL (7-18); Calcium 8.6 mg/dL (8.5-10.1); Carbon Dioxide 25 mmol/L (21.0-32.0); Chloride 105 mmol/L (98-107); Creatinine,Serum 1.22 mg/dL (0.55-1.02); Estimated Glomerular Filt Rate 44 ml/min (>60); GFR (African American) 53 ML/MIN (>60); Globulin 3.8 gm/dl (1.3-3.2); Glucose 187 mg/dL (74-106); Magnesium 1.4 mg/dL (1.4-2.2); Potassium 3.9 mmoL/L (3.5-5.1); Sodium 143 mmol/L (136-145); Thyroid Stimulating Hormone 8.62 uIU/ml (0.358-3.740); Total Protein,Serum 6.7 gm/dL (6.4-8.2)
[2017-03-28 14:12] LABS: Basophils % 0.5 % (0.1-2.0); Eosinophils # 0.2 K/mm3 (0.0-0.4); Eosinophils % 2.4 % (0.1-12.0); Hematocrit 33.3 % (37.0-47.0); Hemoglobin 10.3 g/dL (12.2-16.2); Lymphocytes # 1.6 K/mm3 (0.7-4.5); Lymphocytes % 21.1 K/mm3 (10-50); Mean Corpuscular HGB Conc 30.9 g/dL (31.8-35.4); Mean Corpuscular Hemoglobin 33.1 pg (27.0-31.2); Monocytes # 0.4 K/mm3 (0.1-1.0); Monocytes % 4.6 % (1.7-9.3); Neutrophils # 5.3 K/mm3 (1.8-7.8); Neutrophils % 71.4 % (37.0-80.0); Platelet Count 181 K/mm3 (142-424); Red Blood Count 3.11 M/mm3 (4.20-5.40); Red Cell Distribution Width 15.5 % (11.5-17.5); White Blood Count 7.5 K/mm3 (4.8-10.8)
== END ==
PROVIDERS: PCP Internal Medicine Adolescent Medicine; Visit Provider Internal Medicine Adolescent Medicine
DX: K59.01 Slow transit constipation (principal); I25.10 Atherosclerotic heart disease of native coronary artery without angina pectoris
CPT/HCPCS: 36415; 80053; 83735; 84443; 85025

== ENCOUNTER → 2017-05-02 09:47 | Outpatient (CLI) | payer MEDICARE, SELFPAY ==
[2017-05-02 13:21] LABS: Basophils % 0.5 % (0.1-2.0); Eosinophils # 0.2 K/mm3 (0.0-0.4); Hematocrit 30.2 % (37.0-47.0); Hemoglobin 9.3 g/dL (12.2-16.2); Lymphocytes # 1.4 K/mm3 (0.7-4.5); Lymphocytes % 28.9 K/mm3 (10-50); Mean Corpuscular HGB Conc 30.8 g/dL (31.8-35.4); Mean Corpuscular Hemoglobin 34.2 pg (27.0-31.2); Mean Corpuscular Volume 111.2 fl (81-99); Mean Platelet Volume 7.8 fl (7.4-10.4); Monocytes # 0.2 K/mm3 (0.1-1.0); Monocytes % 4.5 % (1.7-9.3); Neutrophils # 3.1 K/mm3 (1.8-7.8); Neutrophils % 62.2 % (37.0-80.0); Platelet Count 160 K/mm3 (142-424); Red Blood Count 2.72 M/mm3 (4.20-5.40); Red Cell Distribution Width 16.2 % (11.5-17.5); White Blood Count 4.9 K/mm3 (4.8-10.8)
[2017-05-02 14:44] LABS: Alanine Aminotransferase 39 U/L (12-78); Albumin/Globulin Ratio 0.8 (1.1-1.8); Alkaline Phosphatase 199 U/L (46-116); Anion Gap 15.8 mEq/L (5-15); Aspartate Amino Transferase 22 U/L (15-37); Bilirubin,Total 0.6 mg/dL (0.2-1.0); Blood Urea Nitrogen 39 mg/dL (7-18); Calcium 8.6 mg/dL (8.5-10.1); Carbon Dioxide 23 mmol/L (21.0-32.0); Chloride 106 mmol/L (98-107); Creatinine,Serum 1.33 mg/dL (0.55-1.02); Estimated Glomerular Filt Rate 40 ml/min (>60); GFR (African American) 48 ML/MIN (>60); Globulin 3.9 gm/dl (1.3-3.2); Glucose 217 mg/dL (74-106); Potassium 4.8 mmoL/L (3.5-5.1); Sodium 140 mmol/L (136-145); Total Protein,Serum 6.9 gm/dL (6.4-8.2)
== END ==
PROVIDERS: Visit Provider Internal Medicine
DX: D46.9 Myelodysplastic syndrome, unspecified (principal)
CPT/HCPCS: 36415; 80053; 85025

== ENCOUNTER → 2017-06-06 08:48 | Outpatient (CLI) | payer MEDICARE, SELFPAY ==
[2017-06-06 14:22] LABS: Ferritin 391 ng/mL (8-388)
[2017-06-06 14:40] LABS: Basophils % 0.4 % (0.1-2.0); Eosinophils # 0.1 K/mm3 (0.0-0.4); Eosinophils % 2.9 % (0.1-12.0); Hematocrit 34.2 % (37.0-47.0); Hemoglobin 10.4 g/dL (12.2-16.2); Lymphocytes # 1.7 K/mm3 (0.7-4.5); Lymphocytes % 40.8 K/mm3 (10-50); Mean Corpuscular HGB Conc 30.4 g/dL (31.8-35.4); Mean Corpuscular Hemoglobin 33.7 pg (27.0-31.2); Mean Corpuscular Volume 110.8 fl (81-99); Mean Platelet Volume 8.3 fl (7.4-10.4); Monocytes # 0.2 K/mm3 (0.1-1.0); Monocytes % 4.1 % (1.7-9.3); Neutrophils # 2.2 K/mm3 (1.8-7.8); Neutrophils % 51.9 % (37.0-80.0); Platelet Count 162 K/mm3 (142-424); Red Blood Count 3.09 M/mm3 (4.20-5.40); Red Cell Distribution Width 15.1 % (11.5-17.5); Reticulocyte % (Auto) 2.6 % (0.9-3.2); White Blood Count 4.2 K/mm3 (4.8-10.8)
[2017-06-07 09:20] LABS: Iron 97 ug/dL (27-139); UIBC 178 ug/dL (118-369)
[2017-06-07 16:18] LABS: Iron Saturation 35 % (15-55); Vitamin B12 1402 pg/mL (232-1245)
== END ==
PROVIDERS: PCP Internal Medicine Adolescent Medicine; Visit Provider Nurse Practitioner
DX: D46.9 Myelodysplastic syndrome, unspecified (principal)
CPT/HCPCS: 36415; 82607; 82728; 83550; 85025; 85044

== ENCOUNTER → 2017-07-05 10:33 | Outpatient (CLI) | payer MEDICARE, SELFPAY ==
--- NOTE | 2017-07-05 | MM_ITS ---
MM Dig screening mamm BI w/CAD CAD Screening INDICATION: Screening for breast cancer ORDERING PHYSICIAN: Raj Salamanca MD PATIENT AGE: 72 years COMPARISON: 06/20/2016, 06/01/2015, 05/28/2014 TECHNIQUE: Standard CC and MLO images were obtained. R2 CAD reviewed. FINDINGS: There is average fibroglandular tissue. Scattered benign-appearing calcifications are present. No malignant appearing mass or malignant appearing microcalcification. IMPRESSION: No change with no evidence of malignancy BI-RADS Category: 2 Benign Finding(s) RECOMMENDED FOLLOW-UP: 1YR - 1 YEAR FOLLOW-UP (A letter has been sent to the patient regarding results of the study.)
== END ==
PROVIDERS: Family Provider Internal Medicine Adolescent Medicine; PCP Internal Medicine Adolescent Medicine; Visit Provider Internal Medicine Adolescent Medicine
DX: Z12.31 Encounter for screening mammogram for malignant neoplasm of breast (principal)
CPT/HCPCS: 77067

== ENCOUNTER → 2017-07-11 08:16 | Outpatient (CLI) | payer MEDICARE, SELFPAY ==
--- NOTE | 2017-07-11 08:21 | CI_ITS ---
Cerebrovascular Exam Indications: 780.4 Dizziness and giddiness. IMPRESSIONS 1. The bilateral vertebral arteries are patent with normal antegrade flow. 2. Study suggests 50-69% stenosis involving the left internal carotid artery. No change from the study of 06-May-2016. 3. Study suggests 20-49% stenosis involving the right internal carotid artery. No change from the study of 06-May-2016. History: A bruit of the left carotid artery. A bruit of the right carotid artery. Risk factors: Hypertension. Diabetes mellitus. Hyperlipidemia. Carotid duplex study. Complete study and Doppler flow study including spectral analysis, color and benitez scale imaging. Height: Height: 152.4cm. Height: 60in. Weight: Weight: 113.4kg. Weight: 249.5lb. Body mass index: BMI: 48.8kg/m^2. Body surface area: BSA: 2.27m^2. Location: Vascular laboratory. Patient status: Outpatient. Tables: Arterial flow: + +--------+--------+ Location V sys V ed + +--------+--------+ Right CCA - proximal 108cm/s 22.8cm/s + +--------+--------+ Right CCA - distal 102cm/s 21.2cm/s + +--------+--------+ Right ECA 80.5cm/s -------- + +--------+--------+ Right ICA - proximal 102cm/s 31.8cm/s + +--------+--------+ Right ICA - mid 106cm/s 20.4cm/s + +--------+--------+ Right ICA - distal 109cm/s 25.9cm/s + +--------+--------+ Right vertebral 62cm/s -------- + +--------+--------+ Left CCA - proximal 96.9cm/s 22.7cm/s + +--------+--------+ Left CCA - distal 62.9cm/s 19.6cm/s + +--------+--------+ Left ECA 88cm/s -------- + +--------+--------+ Left ICA - proximal 151cm/s 31.4cm/s + +--------+--------+ Left ICA - mid 176cm/s 42.7cm/s + +--------+--------+ Left ICA - distal 169cm/s 50.5cm/s + +--------+--------+ Left vertebral 104cm/s -------- + +--------+--------+ Velocity ratios: + + + + + + Right, V sys Right, V ed Left, V sys Left, V ed + + + + + + Max ICA/dist CCA 1.07 1.5 2.8 2.58 + + + + + + (Report amended ) Electronically signed by: Mervin Rockwell [id number]
== END ==
PROVIDERS: Family Provider Internal Medicine Adolescent Medicine; PCP Internal Medicine Adolescent Medicine; Visit Provider Internal Medicine
DX: R42 Dizziness and giddiness (principal)
CPT/HCPCS: 93880

== ENCOUNTER → 2017-08-14 10:09 | Outpatient (CLI) | payer MEDICARE, SELFPAY ==
[2017-08-14 14:51] LABS: Alanine Aminotransferase 58 U/L (12-78); Alkaline Phosphatase 152 U/L (46-116); Aspartate Amino Transferase 56 U/L (15-37); Bilirubin,Direct 0.3 mg/dL (0.0-0.2); Bilirubin,Indirect 0.4 mg/dL (0.0-0.9); Bilirubin,Total 0.7 mg/dL (0.2-1.0); Chol/HDL Ratio 2.2 (1-3.5); Cholesterol 137 mg/dL (140-200); HDL Cholesterol 62 mg/dL (29-89); LDL Cholesterol 56 mg/dL (0-130); Total Protein,Serum 6.6 gm/dL (6.4-8.2); Triglycerides 95 mg/dL (30-200); VLDL Cholesterol 19 mg/dL (0-40)
== END ==
PROVIDERS: Visit Provider Internal Medicine
DX: I48.91 Unspecified atrial fibrillation (principal); I10 Essential (primary) hypertension; E78.5 Hyperlipidemia, unspecified
CPT/HCPCS: 36415; 80061; 80076

== ENCOUNTER → 2017-08-30 10:04 | Outpatient (CLI) | payer MEDICARE, SELFPAY ==
[2017-08-30 13:52] LABS: Alanine Aminotransferase 27 U/L (12-78); Albumin Level 3.2 gm/dL (3.4-5.0); Albumin/Globulin Ratio 0.9 (1.1-1.8); Alkaline Phosphatase 129 U/L (46-116); Anion Gap 12.5 mEq/L (5-15); Aspartate Amino Transferase 18 U/L (15-37); Bilirubin,Total 0.6 mg/dL (0.2-1.0); Blood Urea Nitrogen 34 mg/dL (7-18); Calcium 9.1 mg/dL (8.5-10.1); Carbon Dioxide 26 mmol/L (21.0-32.0); Chloride 106 mmol/L (98-107); Creatinine,Serum 1.26 mg/dL (0.55-1.02); Estimated Glomerular Filt Rate 42 ml/min (>60); GFR (African American) 51 ML/MIN (>60); Globulin 3.5 gm/dl (1.3-3.2); Glucose 283 mg/dL (74-106); Potassium 4.5 mmoL/L (3.5-5.1); Sodium 140 mmol/L (136-145); Total Protein,Serum 6.7 gm/dL (6.4-8.2)
[2017-08-30 14:01] LABS: Basophils % 0.5 % (0.1-2.0); Eosinophils # 0.1 K/mm3 (0.0-0.4); Eosinophils % 2.9 % (0.1-12.0); Hematocrit 33.8 % (37.0-47.0); Hemoglobin 10.3 g/dL (12.2-16.2); Lymphocytes # 1.2 K/mm3 (0.7-4.5); Lymphocytes % 26.3 K/mm3 (10-50); Mean Corpuscular HGB Conc 30.4 g/dL (31.8-35.4); Mean Corpuscular Hemoglobin 32.7 pg (27.0-31.2); Mean Corpuscular Volume 107.7 fl (81-99); Mean Platelet Volume 7.9 fl (7.4-10.4); Monocytes # 0.2 K/mm3 (0.1-1.0); Monocytes % 4.2 % (1.7-9.3); Platelet Count 154 K/mm3 (142-424); Red Blood Count 3.14 M/mm3 (4.20-5.40); Red Cell Distribution Width 14.9 % (11.5-17.5); White Blood Count 4.5 K/mm3 (4.8-10.8)
== END ==
PROVIDERS: Visit Provider Internal Medicine
DX: D46.9 Myelodysplastic syndrome, unspecified (principal)
CPT/HCPCS: 36415; 80053; 85025

== ENCOUNTER → 2017-10-10 09:47 | Outpatient (CLI) | payer MEDICARE, SELFPAY ==
[2017-10-10 13:23] LABS: Basophils % 0.3 % (0.1-2.0); Eosinophils # 0.2 K/mm3 (0.0-0.4); Eosinophils % 3.3 % (0.1-12.0); Hematocrit 32.2 % (37.0-47.0); Hemoglobin 10.1 g/dL (12.2-16.2); Lymphocytes # 1.5 K/mm3 (0.7-4.5); Mean Corpuscular HGB Conc 31.3 g/dL (31.8-35.4); Mean Corpuscular Hemoglobin 32.4 pg (27.0-31.2); Mean Corpuscular Volume 103.6 fl (81-99); Mean Platelet Volume 7.6 fl (7.4-10.4); Monocytes # 0.2 K/mm3 (0.1-1.0); Neutrophils # 3.6 K/mm3 (1.8-7.8); Neutrophils % 65.4 % (37.0-80.0); Platelet Count 158 K/mm3 (142-424); Red Blood Count 3.11 M/mm3 (4.20-5.40); Red Cell Distribution Width 15.3 % (11.5-17.5); White Blood Count 5.5 K/mm3 (4.8-10.8)
[2017-10-10 13:44] LABS: Hemoglobin A1C 8.9 % (0.0-7.0)
[2017-10-10 14:28] LABS: Alanine Aminotransferase 25 U/L (12-78); Albumin Level 3.1 gm/dL (3.4-5.0); Albumin/Globulin Ratio 0.8 (1.1-1.8); Alkaline Phosphatase 133 U/L (46-116); Anion Gap 15.6 mEq/L (5-15); Aspartate Amino Transferase 15 U/L (15-37); Bilirubin,Total 0.5 mg/dL (0.2-1.0); Blood Urea Nitrogen 46 mg/dL (7-18); Calcium 8.9 mg/dL (8.5-10.1); Carbon Dioxide 24 mmol/L (21.0-32.0); Chloride 104 mmol/L (98-107); Chol/HDL Ratio 2.1 (1-3.5); Cholesterol 141 mg/dL (140-200); Creatinine,Serum 1.42 mg/dL (0.55-1.02); Estimated Glomerular Filt Rate 37 ml/min (>60); Free Thyroxine Index 3.6 ug/dL (5.93-13.13); GFR (African American) 44 ML/MIN (>60); Globulin 3.7 gm/dl (1.3-3.2); Glucose 219 mg/dL (74-106); HDL Cholesterol 68 mg/dL (29-89); LDL Cholesterol 50 mg/dL (0-130); Potassium 4.6 mmoL/L (3.5-5.1); Sodium 139 mmol/L (136-145); T4 (Thyroxine) 10.1 ug/dl (4.7-13.3); Thyroid Stimulating Hormone 1.91 uIU/ml (0.358-3.740); Total Protein,Serum 6.8 gm/dL (6.4-8.2); Triglycerides 117 mg/dL (30-200); Triiodothryronine (T3) Uptake 36 % (31-39); VLDL Cholesterol 23 mg/dL (0-40)
== END ==
PROVIDERS: Visit Provider Internal Medicine Adolescent Medicine
DX: E11.9 Type 2 diabetes mellitus without complications (principal); E03.9 Hypothyroidism, unspecified; I25.10 Atherosclerotic heart disease of native coronary artery without angina pectoris; I48.2 Chronic atrial fibrillation
CPT/HCPCS: 36415; 80053; 80061; 83036; 84436; 84443; 84479; 85025

== ENCOUNTER → 2017-10-13 13:03 | Outpatient (POV) | payer MEDICARE, SELFPAY | PROVIDERS: Family Provider Internal Medicine Adolescent Medicine; PCP Internal Medicine Adolescent Medicine; Visit Provider Podiatrist | DX: Z00.00 Encounter for general adult medical examination without abnormal findings (principal) ==

== ENCOUNTER 2017-10-30 15:01 | Observation (INO) ==
--- NOTE | 2017-10-30 15:31 | History & Physical Report ---
*Admission Date: 10/30/17 *Chief complaint: Short of air *History of present illness: Mrs. Mcmahon is a 72 yo F with Hx of CHF, Afib, COPD on Night time O2, and obesity who presents with 2 weeks of worsening SOA with exertion. She denies Fever, sick contacts, N/V, syncope, VERA, leg pain. She reports that 2 weeks ago she began to have worsening swelling in her legs in conjunction with her SOA. She is not able to walk across the house without getting winded. She reports mild increase in cough with some sputum. Has had a mild runny nose and scratchy throat. Reports legs feeling "heavy". She is not sleeping well. Started to wear her O2 around the clock yesterday with improvement in SOA. Not using her Albuterol nebs as she did not think to do that. Continues to use her maintenance inhalers. No bleeding, rashes, chest pain. Of note, saw cards last week and they mentioned to her they would pursue an outpatient cath? She has not heard back in regard to this. Does take lasix on occasion for volume overload, has not taken in several months. [facility] History Medical History: Reports:: Atrial Fibrillation, Chronic Obstructive Pulmonary Disease (COPD), Coronary Artery Disease, Diabetes Mellitus Type 2, Hyperlipidemia, Hypertension, Peripheral Artery Disease Denies:: Cancer, MRSA Other Medical History: Reports: Anemia, Arthritis, Thyroid Disease Other Surgeries: Yes: Cardiac Catheterization, EGD, Hysterectomy-Total Amputation: No Fractures: No - *Social History Smoking Status: Never smoker Alcohol Intake: never Alcohol Intake Frequency:: other Substance Use Type: denies use Occupational Status: retired Housing: house Household Members: spouse *Family Hx:: Cancer, Coronary Artery Disease, Diabetes, Heart Attack, Hyperlipidemia, Hypertension, Kidney Disease Review of Systems - Review of Systems Review of systems:: pertinent systems reviewed and negative unless documented below Meds Home Medications Medication Instructions Recorded Confirmed Type aspirin 81 mg tablet,delayed 81 mg PO DAILY 02/20/17 10/30/17 History release atorvastatin 40 mg tablet 40 mg PO DAILY 02/20/17 10/30/17 History bimatoprost 0.03 % drops with 1 applic TOPICAL QHS 02/20/17 03/22/17 History applicator, eyelash base budesonide-formoterol HFA 160 2 puff INHALATION Q12H 02/20/17 03/22/17 History mcg-4.5 mcg/actuation aerosol inhaler carvedilol 25 mg tablet 25 mg PO BID 02/20/17 10/30/17 History cholecalciferol (vitamin D3) 1,000 1,000 unit PO DAILY 02/20/17 10/30/17 History unit capsule clopidogrel 75 mg tablet 75 mg PO DAILY 02/20/17 10/30/17 History cyanocobalamin (vit B-12) 1,000 1,000 mcg IM QMONTH 02/20/17 10/30/17 History mcg/mL injection solution insulin glargine (U-100) 100 24 unit SUB-Q QDAY 02/20/17 03/22/17 History unit/mL (3 mL) subcutaneous pen nitroglycerin 0.4 mg sublingual 0.4 mg SUBLINGUAL Q5M PRN 02/20/17 10/30/17 History tablet pyridoxine (vitamin B6) 50 mg 50 mg PO DAILY 02/20/17 03/22/17 History capsule Sitagliptin Phosphate [Januvia 100 each PO DAILY 03/22/17 10/30/17 History 100mg tablet] furosemide 40 mg tablet 40 mg PO DAILY tab 07/04/17 History levothyroxine 100 mcg capsule 100 mcg PO DAILY cap 07/04/17 10/30/17 History lisinopril 5 mg tablet 5 mg PO DAILY tab 07/04/17 10/30/17 History Docusate Sodium 100 mg PO QHS 10/30/17 10/30/17 History dilTIAZem HCl [Cartia Xt] 240 mg PO DAILY 10/30/17 10/30/17 History Allergies Allergy/AdvReac Type Severity Reaction Status Date / Time codeine [CODEINE] Allergy Intermediate I-RASH Verified 10/24/17 08:38 Exam - *Routine HEENT Exam Head: Present: normocephalic, atraumatic Eye: Present: EOMI, PERRL ENT: Present: mucous membranes moist, nares patent, TM's clear bilaterally - *Routine Neck Exam Present: supple, full ROM. Absent: JVD, lymphadenopathy, thyromegaly - *Routine Respiratory Exam Present: accessory muscle use, prolonged expiratory phase, distant breath sounds, diminished air movement. Absent: CTA bilaterally, rales, wheezes, crackles - *Routine Cardiovascular Exam Present: irregularly irregular. Absent: murmur - *Routine Abdominal Exam Present: soft, normoactive bowel sounds. Absent: tenderness - *Routine Rectal Exam Patient deferred: visual exam - *Routine Exam Patient deferred: external exam - *Routine Extremities Exam Present: edema (2+ to knees). Absent: cyanosis, clubbing, palpable cord, Kelly's sign - *Routine Skin Exam Present: intact. Absent: cyanosis, erythema - *Routine Neurological Exam Present: alert, oriented X3, CN II-XII intact. Absent: altered mental status - Routine Psychiatric Exam Present: normal affect, normal thought process, cooperative Assessment and Plan (1) Acute and chronic respiratory failure Current visit: No Status: Acute Qualifiers: Respiratory failure complication: hypoxia Qualified Code(s): J96.21 - Acute and chronic respiratory failure with hypoxia Category: Medical Code(s): J96.20 - Acute and chronic respiratory failure, unspecified whether with hypoxia or hypercapnia Patient has COPD at baseline, new oxygen requirement, suspected secondary to CHF exacerbation in the setting of edema, orthopnea, and elevated BNP. -Terminal oxygen as needed -Goal O2 sats greater than 92 while awake, greater than 88 while asleep -Wean as tolerated (2) CKD stage 2 due to type 2 diabetes mellitus Current visit: No Status: Chronic Category: Medical Code(s): E11.22 - Type 2 diabetes mellitus with diabetic chronic kidney disease; N18.2 - Chronic kidney disease, stage 2 (mild) (3) Dyspnea Current visit: No Status: Acute Qualifiers: Dyspnea type: dyspnea on exertion Qualified Code(s): R06.09 - Other forms of dyspnea Category: Medical Code(s): R06.00 - Dyspnea, unspecified (4) Edema Current visit: No Status: Acute Qualifiers: Edema type: generalized Qualified Code(s): R60.1 - Generalized edema Category: Medical Code(s): R60.9 - Edema, unspecified (5) Obesity Current visit: No Status: Acute Qualifiers: Obesity type: due to excess calories Obesity classification: adult class 3 (BMI >= 40) Serious obesity comorbidity presence: with serious comorbidity Body mass index: BMI 50.0-59.9 Qualified Code(s): E66.01 - Morbid (severe) obesity due to excess calories; Z68.43 - Body mass index (BMI) 50-59.9 , adult Category: Medical Code(s): E66.9 - Obesity, unspecified Complicates all aspects of care (6) Atrial fibrillation, chronic Current visit: No Status: Chronic Category: Medical Code(s): I48.2 - Chronic atrial fibrillation Continue beta-salvador and diltiazem -Continue Xarelto - EKG obtained on admission showing adequate rate control and persistent A. fib (7) Acute on chronic anemia Current visit: Yes Status: Acute Category: Medical Code(s): D64.9 - Anemia, unspecified Hemoglobin 8.8 on admission -No active signs of bleeding -Continue to monitor for bleeding -P labs in the morning, transfusion goal greater than 7 (8) Acute kidney injury Current visit: Yes Status: Acute Category: Medical Code(s): N17.9 - Acute kidney failure, unspecified In the setting of chronic kidney disease -Suspect due to cardiorenal pathology in the setting of volume overload -Monitor with morning labs -Avoid nephrotoxic (9) Type 2 diabetes mellitus treated with insulin Current visit: Yes Status: Chronic Category: Medical Code(s): E11.9 - Type 2 diabetes mellitus without complications; Z79.4 - intermediate frame tender (current) use of insulin On insulin at home both short acting and basal regimen -Continue home Lantus -Sliding scale insulin with fingersticks before meals at bedtime -Diabetic diet (10) CHF exacerbation Current visit: Yes Status: Acute Qualifiers: Heart failure type: systolic Qualified Code(s): I50.23 - Acute on chronic systolic (congestive) heart failure Category: Medical Code(s): I50.9 - Heart failure, unspecified Continue Coreg and diltiazem -Lasix 80 on admission -Echo obtained with reduced ejection fraction LVEF 45%, recommended echo with Definity contrast, ordered, pending -cardiology consult in the morning - Assessment and plan all Dx Assessment and Plan for all problems:: 72-year-old female with presentation consistent with CHF exacerbation. Responding well to diuresis. Repeat labs in the morning. Continues to require inpatient medical management
--- NOTE | 2017-10-30 16:22 | Pharmacy Consult Notes ---
[facility] Pharmacy VTE Monitoring - Patient Demographics Admission date: 10/30/17 Report Date: 10/30/17 Time: 16:22 Allergies/Adverse Reactions: Patient Allergies codeine [CODEINE] Allergy (Intermediate, Verified 10/24/17 08:38) I-RASH - VTE Risk Clinical Trial Participant: No - Prophylaxis VTE Prophylaxis Ordered?: Yes Types of VTE Prophylaxis: TEDS Knee High
[2017-10-30 17:13] LABS: Basophils % 0.5 % (0.1-2.0); Eosinophils # 0.1 K/mm3 (0.0-0.4); Eosinophils % 2.1 % (0.1-12.0); Hematocrit 28.4 % (37.0-47.0); Hemoglobin 8.8 g/dL (12.2-16.2); Lymphocytes # 1.3 K/mm3 (0.7-4.5); Lymphocytes % 25.1 K/mm3 (10-50); Mean Corpuscular HGB Conc 30.9 g/dL (31.8-35.4); Mean Corpuscular Hemoglobin 32.8 pg (27.0-31.2); Mean Corpuscular Volume 106.2 fl (81-99); Mean Platelet Volume 7.9 fl (7.4-10.4); Monocytes # 0.2 K/mm3 (0.1-1.0); Neutrophils # 3.7 K/mm3 (1.8-7.8); Neutrophils % 68.3 % (37.0-80.0); Platelet Count 164 K/mm3 (142-424); Red Blood Count 2.68 M/mm3 (4.20-5.40); Red Cell Distribution Width 16.3 % (11.5-17.5); White Blood Count 5.4 K/mm3 (4.8-10.8)
[2017-10-30 17:17] LABS: INR 1.29 (0.9-1.1); Prothrombin Time 13.2 seconds (9.4-11.8)
[2017-10-30 17:22] LABS: Albumin Level 3.2 gm/dL (3.4-5.0); Albumin/Globulin Ratio 0.7 (1.1-1.8); Anion Gap 13.4 mEq/L (5-15); Bilirubin,Total 0.6 mg/dL (0.2-1.0); Calcium 9.3 mg/dL (8.5-10.1); Globulin 4.3 gm/dl (1.3-3.2); Potassium 4.4 mmoL/L (3.5-5.1); Total Protein,Serum 7.5 gm/dL (6.4-8.2)
--- NOTE | 2017-10-30 21:45 | Cardiology Report ---
PROCEDURE: Limited study INDICATIONS FOR THE TEST: Chest pain COPD+ Heart Murmur Tobacco Smoking Palpitations Fatigue Syncope Edema+ Hypertension+Diabetes Mellitus+ Rheumatic Fever SOB+ALEXANDER Obesity+Hyperlipidemia+ Family History HD Additional History O2 AT NIGHT, CAD, PAD PATIENT INFORMATION HEIGHT: 60 WEIGHT:270 GENDER: Female B/P:145/59 2-D/M-MODE INTERPRETATION: 2-D MEASUREMENTS OBSERVED VALUES IN CMS Right Ventricular Dimension (RVDd) 2.8 Interventricular Septum (Thickness)(IVsd) 1.2 Left Ventricular Internal Dimensions(LVIDd) 3.6 Left Ventricular Posterior Wall (Thickness)(LVPWd) 1.6 Aortic Root 2.6 Aortic Cusp Separation 1.3 Left Atrial Dimensions (LAD) 4.3 2D 1. Left atrium is mildly enlarged, left ventricle is normal size, mild concentric left ventricular hypertrophy, visually estimated ejection fraction approximately 45%, there appears to be moderate hypokinesis involving the basal septum and inferobasal wall, endocardial surfaces are poorly visualized, a repeat study with Definity contrast is recommended. 2. The right atrium and right ventricle are relatively normal size and function. 3. The aortic valve morphology is not well visualized. 4. The mitral valve leaflets are minimally thickened. 5. The tricuspid valve is grossly normal. 6. The pulmonic valve is poorly visualized. 7. No significant pericardial effusion noted DOPPLER INTERROGATION: The color flow mapping reveals presence of mild mitral and tricuspid regurgitation, there is no spectral Doppler performed. CONCLUSION: 1. Technically difficult and limited study performed, repeat study with definitely contrast is recommended. 2. Mildly enlarged left atrium, normal left ventricular size, mild concentric left ventricular hypertrophy, visually estimated ejection fraction is probably 45% with segmental wall motion abnormality described above, repeat study with Definity contrast is recommended. 3. There is no spectral Doppler performed. 4. No significant pericardial effusion noted.
[2017-10-31 06:15] LABS: Basophils % 0.5 % (0.1-2.0); Eosinophils # 0.2 K/mm3 (0.0-0.4); Eosinophils % 3.7 % (0.1-12.0); Hematocrit 27.2 % (37.0-47.0); Hemoglobin 8.4 g/dL (12.2-16.2); Lymphocytes # 1.2 K/mm3 (0.7-4.5); Lymphocytes % 24.2 K/mm3 (10-50); Mean Corpuscular HGB Conc 31.1 g/dL (31.8-35.4); Mean Corpuscular Hemoglobin 32.5 pg (27.0-31.2); Mean Corpuscular Volume 104.8 fl (81-99); Mean Platelet Volume 7.6 fl (7.4-10.4); Monocytes # 0.2 K/mm3 (0.1-1.0); Monocytes % 4.9 % (1.7-9.3); Neutrophils # 3.3 K/mm3 (1.8-7.8); Neutrophils % 66.7 % (37.0-80.0); Platelet Count 144 K/mm3 (142-424); Red Blood Count 2.59 M/mm3 (4.20-5.40); Red Cell Distribution Width 16.5 % (11.5-17.5); White Blood Count 4.9 K/mm3 (4.8-10.8)
[2017-10-31 06:20] LABS: Albumin Level 2.9 gm/dL (3.4-5.0); Albumin/Globulin Ratio 0.7 (1.1-1.8); Anion Gap 12.8 mEq/L (5-15); Bilirubin,Total 0.8 mg/dL (0.2-1.0); Calcium 8.8 mg/dL (8.5-10.1); Potassium 3.8 mmoL/L (3.5-5.1); Total Protein,Serum 6.9 gm/dL (6.4-8.2)
--- NOTE | 2017-10-31 12:07 | Consult Report ---
History of Present Illness Consult date: 10/31/17 Requesting physician: Ramos Snow Consult reason: shortness of breath Chief complaint: SOA Additional Medical History:: 1. Coronary artery disease A. History of non-STEMI with subsequent drug-eluting stenting of the circumflex and left anterior descending arteries, 08/2015. 2. Atrial fibrillation, chronic A. Xarelto therapy 3. Recurrent anemia A. History of bone marrow biopsy with no evidence of cancer, per patient B. Followed by Dr. Montejo C. History of IV iron therapy and intermittent blood transfusions 4. Diabetes mellitus, treated for >20 yrs 5. History of peripheral arterial disease 6. Hypertension 7. Chronic obstructive pulmonary disease 8. Hyperlipidemia History of present illness: 72-year-old white female with history of coronary artery disease, diabetes mellitus and chronic atrial fibrillation was admitted to the hospital yesterday for 2 week history of increasing shortness of breath. Elevated BNP and evidence of CHF on chest x-ray noted. Patient was recently seen in our office last week with recommendation for left heart catheterization due to increasing shortness of breath which she related as consistent with previous angina pectoris. Insurance approval for cardiac catheterization was still pending as of yesterday. Patient relates after receiving IV Lasix yesterday her breathing has significantly improved as well as her lower extremity edema. Cardiac enzyme was normal on admission. Of note patient's anemia is chronic but down into the 8.4 range. Patient relates that Dr. Montejo would previously transfuse her when her hemoglobin was below 9. She has previously tried iron supplementation orally which caused significant constipation. She would receive IV iron from time to time per Dr. Montejo. Since his assisted, she has not been in to see the new oncologist. Cardiology consulted for evaluation and recommendations. [facility] History Medical History: Reports:: Atrial Fibrillation, Chronic Obstructive Pulmonary Disease (COPD), Coronary Artery Disease, Diabetes Mellitus Type 2, Hyperlipidemia, Hypertension, Peripheral Artery Disease Denies:: Cancer, MRSA Other Medical History: Reports: Anemia, Arthritis, Thyroid Disease Other Surgeries: Yes: Cardiac Catheterization, EGD, Hysterectomy-Total Amputation: No Fractures: No - *Social History Educational Level: Completed High School Smoking Status: Never smoker Alcohol Intake: never Alcohol Intake Frequency:: other Substance Use Type: denies use Occupational Status: retired Housing: house Household Members: spouse - Psychiatric History Expresses thoughts of harming self/others: None Suicide Plan Description: No Plan *Family Hx:: Cancer, Coronary Artery Disease, Diabetes, Heart Attack, Hyperlipidemia, Hypertension, Kidney Disease Meds Home Medications Medication Instructions Recorded Confirmed Type aspirin 81 mg tablet,delayed 81 mg PO DAILY 02/20/17 10/30/17 History release bimatoprost 0.03 % drops with 1 applic TOPICAL QHS 02/20/17 03/22/17 History applicator, eyelash base budesonide-formoterol HFA 160 2 puff INHALATION Q12H 02/20/17 10/31/17 History mcg-4.5 mcg/actuation aerosol inhaler carvedilol 25 mg tablet 25 mg PO BID 02/20/17 10/30/17 History cholecalciferol (vitamin D3) 1,000 1,000 unit PO DAILY 02/20/17 10/30/17 History unit capsule clopidogrel 75 mg tablet 75 mg PO DAILY 02/20/17 10/30/17 History cyanocobalamin (vit B-12) 1,000 1,000 mcg IM QMONTH 02/20/17 10/30/17 History mcg/mL injection solution insulin glargine (U-100) 100 24 unit SUB-Q DAILY 02/20/17 10/31/17 History unit/mL (3 mL) subcutaneous pen nitroglycerin 0.4 mg sublingual 0.4 mg SUBLINGUAL Q5M PRN 02/20/17 10/30/17 Hist ory tablet pyridoxine (vitamin B6) 50 mg 50 mg PO DAILY 02/20/17 10/31/17 History capsule Sitagliptin Phosphate [Januvia 100 each PO DAILY 03/22/17 10/30/17 History 100mg tablet] furosemide 40 mg tablet 40 mg PO DAILYP PRN tab 07/04/17 10/31/17 History levothyroxine 100 mcg capsule 100 mcg PO DAILY cap 07/04/17 10/30/17 History lisinopril 5 mg tablet 5 mg PO DAILY tab 07/04/17 10/30/17 History Docusate Sodium 100 mg PO QHS 10/30/17 10/30/17 History dilTIAZem HCl [Cartia Xt] 240 mg PO DAILY 10/30/17 10/30/17 History Atorvastatin Calcium [Atorvastatin 40 mg PO HS 10/31/17 10/31/17 History 40mg Tab] Allergies Allergy/AdvReac Type Severity Reaction Status Date / Time codeine [CODEINE] Allergy Intermediate I-RASH Verified 10/24/17 08:38 Review of Systems - *Cardiovascular Reports shortness of breath, Reports shortness of breath with activity, Reports leg swelling, Denies chest pain - *Respiratory Reports shortness of breath, Reports shortness of breath with activity - *Gastrointestinal Denies abdominal pain, Denies bright, red blood in stools, Denies black, tarry stools - *Genitourinary Denies blood in urine - *Musculoskeletal Reports joint pain - *Neurologic Denies abnormal movements, Denies abnormal speech, Denies loss of vision Exam Vital signs and Labs for Last 24 Hours: Temp Pulse Resp BP Pulse Ox 97.0 F L 68 20 140/51 100 10/31/17 08:00 10/31/17 08:00 10/31/17 08:00 10/31/17 08:00 10/31/17 08:30 Laboratory Results - last 24 hr 10/30/17 17:02: WBC 5.4, RBC 2.68 L, Hgb 8.8 L, Hct 28.4 L, MCV 106.2 H, MCH 32.8 H, MCHC 30.9 L, RDW 16.3, Plt Count 164, MPV 7.9, Neut % (Auto) 68.3, Lymph % (Auto) 25.1, Mcmullen % (Auto) 4.0, Eos % (Auto) 2.1, Baso % (Auto) 0.5, Neut # (Auto) 3.7, Lymph # (Auto) 1.3, Mcmullen # (Auto) 0.2, Eos # (Auto) 0.1, Baso # (Auto) 0.0 10/30/17 17:02: PT 13.2 H, INR 1.29 H 10/30/17 17:02: Sodium 143, Potassium 4.4, Chloride 108 H, Carbon Dioxide 26, Anion Gap 13.4, BUN 36 H, Creatinine 1.34 H, Estimated Creat Clear 28, Estimated GFR 39 L, Est GFR ( Amer) 47 L, Glucose 221 H, Calcium 9.3, Magnesium 1.6, Total Bilirubin 0.6, AST 11 L, ALT 24, Alkaline Phosphatase 126 H, Total Protein 7.5, Albumin 3.2 L, Globulin 4.3 H, Albumin/Globulin Ratio 0.7 L 10/30/17 17:02: Troponin I < 0.02 10/30/17 17:02: B-Natriuretic Peptide 285 H 10/30/17 18:30: POC Glucose 242 H 10/30/17 19:45: POC Glucose 239 H 10/31/17 05:35: WBC 4.9, RBC 2.59 L, Hgb 8.4 L, Hct 27.2 L, MCV 104.8 H, MCH 32.5 H, MCHC 31.1 L, RDW 16.5, Plt Count 144, MPV 7.6, Neut % (Auto) 66.7, Lymph % (Auto) 24.2, Mcmullen % (Auto) 4.9, Eos % (Auto) 3.7, Baso % (Auto) 0.5, Neut # (Auto) 3.3, Lymph # (Auto) 1.2, Mcmullen # (Auto) 0.2, Eos # (Auto) 0.2, Baso # (Auto) 0.0 10/31/17 05:35: Sodium 146 H, Potassium 3.8, Chloride 109 H, Carbon Dioxide 28, Anion Gap 12.8, BUN 34 H, Creatinine 1.26 H, Estimated Creat Clear 30, Estimated GFR 42 L, Est GFR ( Amer) 51 L, Glucose 130 H D, Calcium 8.8, Magnesium 1.5, Total Bilirubin 0.8, AST 10 L, ALT 21, Alkaline Phosphatase 116, Total Protein 6.9, Albumin 2.9 L, Globulin 4.0 H, Albumin/Globulin Ratio 0.7 L 10/31/17 07:06: POC Glucose 129 H 10/31/17 11:14: POC Glucose 221 H I & O for Last 24 hours: Intake & Output 10/29/17 10/30/17 10/31/17 11/01/17 11:59 11:59 11:59 11:59 Intake Total 660 / 660 Output Total 1550 / 1550 Balance -890 / -890 Weight 257 lb 9 oz - *Routine Neck Exam Present: supple. Absent: JVD, carotid bruit - *Routine Respiratory Exam Present: CTA bilaterally. Absent: accessory muscle use, rales, rhonchi, wheezes - *Routine Cardiovascular Exam Present: murmur, irregular rhythm, irregularly irregular. Absent: gallop, rubs - *Routine Abdominal Exam Present: soft. Absent: tenderness, distended, guarding - *Routine Extremities Exam Present: edema. Absent: calf tenderness - *Routine Neurological Exam Present: alert, oriented X3, moving all extremities Assessment and Plan (1) Acute and chronic respiratory failure Current visit: No Status: Acute Qualifiers: Respiratory failure complication: hypoxia Qualified Code(s): J96.21 - Acute and chronic respiratory failure with hypoxia Category: Medical Code(s): J96.20 - Acute and chronic respiratory failure, unspecified whether with hypoxia or hypercapnia (2) CKD stage 2 due to type 2 diabetes mellitus Current visit: No Status: Chronic Category: Medical Code(s): E11.22 - Type 2 diabetes mellitus with diabetic chronic kidney disease; N18.2 - Chronic kidney disease, stage 2 (mild) (3) Dyspnea Current visit: No Status: Acute Qualifiers: Dyspnea type: dyspnea on exertion Qualified Code(s): R06.09 - Other forms of dyspnea Category: Medical Code(s): R06.00 - Dyspnea, unspecified (4) Edema Current visit: No Status: Acute Qualifiers: Edema type: generalized Qualified Code(s): R60.1 - Generalized edema Category: Medical Code(s): R60.9 - Edema, unspecified (5) Obesity Current visit: No Status: Acute Qualifiers: Obesity type: due to excess calories Obesity classification: adult class 3 (BMI >= 40) Serious obesity comorbidity presence: with serious comorbidity Body mass index: BMI 50.0-59.9 Qualified Code(s): E66.01 - Morbid (severe) obesity due to excess calories; Z68.43 - Body mass index (BMI) 50-59.9 , adult Category: Medical Code(s): E66.9 - Obesity, unspecified (6) Atrial fibrillation, chronic Current visit: No Status: Chronic Category: Medical Code(s): I48.2 - Chronic atrial fibrillation (7) Acute on chronic anemia Current visit: Yes Status: Acute Category: Medical Code(s): D64.9 - Anemia, unspecified (8) Acute kidney injury Current visit: Yes Status: Acute Category: Medical Code(s): N17.9 - Acute kidney failure, unspecified (9) Type 2 diabetes mellitus treated with insulin Current visit: Yes Status: Chronic Category: Medical Code(s): E11.9 - Type 2 diabetes mellitus without complications; Z79.4 - FDC (current) use of insulin (10) CHF exacerbation Current visit: Yes Status: Acute Qualifiers: Heart failure type: systolic Qualified Code(s): I50.23 - Acute on chronic systolic (congestive) heart failure Category: Medical Code(s): I50.9 - Heart failure, unspecified - Assessment and plan all Dx Assessment and Plan for all problems:: 1. Patient likely sustained congestive heart failure due to acute on chronic anemia. Recommend transfusing to hemoglobin greater than 10. 2. Mild cardiomyopathy with echocardiogram being repeated today with Definity contrast for further evaluation. Patient is already on carvedilol and lisinopril therapy. We will add low-dose Lasix and spironolactone along with digoxin. If cardiomyopathy confirmed then will discontinue diltiazem and titrate up Coreg and lisinopril therapy. 3. Chronic atrial fibrillation for which the patient is on Xarelto therapy. She did receive a dose this morning. 4. Coronary artery disease with last coronary stenting in 2016, therefore will discontinue aspirin and discontinue Plavix therapy in conjunction with the patient's Xarelto therapy. Will reassess need for cardiac testing (stress testing versus cardiac catheterization) after transfusion.
--- NOTE | 2017-10-31 14:39 | Progress Note ---
Internal Medicine - PN: Subj *Date: 10/31/17 *Time: 08:50 Interval history: Continued improvement overnight with respiratory status breathing more comfortably this morning. Responded aggressively to diuresis. Hemoglobin remains low this morning on labs. Kidney function slightly improved. Able to tolerate morning to 1 with continued O2 sats in the high 90s. Reports feeling more comfortable with breathing and able to ambulate around the room without shortness of breath that she had prior to diuresis. Denies nausea, vomiting, syncope, chest pain. Reports improved lower extremity edema Exam Vital signs and Labs for Last 24 Hours: Temp Pulse Resp BP Pulse Ox 97.0 F L 62 20 140/51 100 10/31/17 08:00 10/31/17 14:08 10/31/17 08:00 10/31/17 08:00 10/31/17 08:30 Laboratory Results - last 24 hr 10/30/17 17:02: WBC 5.4, RBC 2.68 L, Hgb 8.8 L, Hct 28.4 L, MCV 106.2 H, MCH 32.8 H, MCHC 30.9 L, RDW 16.3, Plt Count 164, MPV 7.9, Neut % (Auto) 68.3, Lymph % (Auto) 25.1, [place] % (Auto) 4.0, Eos % (Auto) 2.1, Baso % (Auto) 0.5, Neut # (Auto) 3.7, Lymph # (Auto) 1.3, [place] # (Auto) 0.2, Eos # (Auto) 0.1, Baso # (Auto) 0.0 10/30/17 17:02: PT 13.2 H, INR 1.29 H 10/30/17 17:02: Sodium 143, Potassium 4.4, Chloride 108 H, Carbon Dioxide 26, Anion Gap 13.4, BUN 36 H, Creatinine 1.34 H, Estimated Creat Clear 28, Estimated GFR 39 L, Est GFR ( Amer) 47 L, Glucose 221 H, Calcium 9.3, Magnesium 1.6, Total Bilirubin 0.6, AST 11 L, ALT 24, Alkaline Phosphatase 126 H, Total Protein 7.5, Albumin 3.2 L, Globulin 4.3 H, Albumin/Globulin Ratio 0.7 L 10/30/17 17:02: Troponin I < 0.02 10/30/17 17:02: B-Natriuretic Peptide 285 H 10/30/17 18:30: POC Glucose 242 H 10/30/17 19:45: POC Glucose 239 H 10/31/17 05:35: WBC 4.9, RBC 2.59 L, Hgb 8.4 L, Hct 27.2 L, MCV 104.8 H, MCH 32.5 H, MCHC 31.1 L, RDW 16.5, Plt Count 144, MPV 7.6, Neut % (Auto) 66.7, Lymph % (Auto) 24.2, [place] % (Auto) 4.9, Eos % (Auto) 3.7, Baso % (Auto) 0.5, Neut # (Auto) 3.3, Lymph # (Auto) 1.2, [place] # (Auto) 0.2, Eos # (Auto) 0.2, Baso # (Auto) 0.0 10/31/17 05:35: Sodium 146 H, Potassium 3.8, Chloride 109 H, Carbon Dioxide 28, Anion Gap 12.8, BUN 34 H, Creatinine 1.26 H, Estimated Creat Clear 30, Estimated GFR 42 L, Est GFR ( Amer) 51 L, Glucose 130 H D, Calcium 8.8, Magnesium 1.5, Total Bilirubin 0.8, AST 10 L, ALT 21, Alkaline Phosphatase 116, Total Protein 6.9, Albumin 2.9 L, Globulin 4.0 H, Albumin/Globulin Ratio 0.7 L 10/31/17 07:06: POC Glucose 129 H 10/31/17 11:14: POC Glucose 221 H 10/31/17 12:38: Blood Type A Positive, Antibody Screen Negative, Crossmatch (AHG) See Detail I & O for Last 24 hours: Intake & Output 10/28/17 10/29/17 10/30/17 10/31/17 23:59 23:59 23:59 23:59 Intake Total 300 / 300 600 / 600 Output Total 350 / 350 2200 / 2200 Balance -50 / -50 -1600 / -1600 Weight 122.215 kg 116.828 kg Assessment and Plan (1) Acute and chronic respiratory failure Current visit: No Status: Acute Qualifiers: Respiratory failure complication: hypoxia Qualified Code(s): J96.21 - Acute and chronic respiratory failure with hypoxia Category: Medical Code(s): J96.20 - Acute and chronic respiratory failure, unspecified whether with hypoxia or hypercapnia (2) CKD stage 2 due to type 2 diabetes mellitus Current visit: No Status: Chronic Category: Medical Code(s): E11.22 - Type 2 diabetes mellitus with diabetic chronic kidney disease; N18.2 - Chronic kidney disease, stage 2 (mild) (3) Dyspnea Current visit: No Status: Acute Qualifiers: Dyspnea type: dyspnea on exertion Qualified Code(s): R06.09 - Other forms of dyspnea Category: Medical Code(s): R06.00 - Dyspnea, unspecified (4) Edema Current visit: No Status: Acute Qualifiers: Edema type: generalized Qualified Code(s): R60.1 - Generalized edema Category: Medical Code(s): R60.9 - Edema, unspecified (5) Obesity Current visit: No Status: Acute Qualifiers: Obesity type: due to excess calories Obesity classification: adult class 3 (BMI >= 40) Serious obesity comorbidity presence: with serious comorbidity Body mass index: BMI 50.0-59.9 Qualified Code(s): E66.01 - Morbid (severe) obesity due to excess calories; Z68.43 - Body mass index (BMI) 50-59.9 , adult Category: Medical Code(s): E66.9 - Obesity, unspecified (6) Atrial fibrillation, chronic Current visit: No Status: Chronic Category: Medical Code(s): I48.2 - Chronic atrial fibrillation (7) Acute on chronic anemia Current visit: Yes Status: Acute Category: Medical Code(s): D64.9 - Anemia, unspecified Patient has multiple antibodies therefore needing referral to [facility] for crossmatch blood. Goal hemoglobin greater than 10 per cardiology recommendations. Pending transfusion (8) Acute kidney injury Current visit: Yes Status: Acute Category: Medical Code(s): N17.9 - Acute kidney failure, unspecified (9) Type 2 diabetes mellitus treated with insulin Current visit: Yes Status: Chronic Category: Medical Code(s): E11.9 - Type 2 diabetes mellitus without complications; Z79.4 - hypo splasher (current) use of insulin (10) CHF exacerbation Current visit: Yes Status: Acute Qualifiers: Heart failure type: systolic Qualified Code(s): I50.23 - Acute on chronic systolic (congestive) heart failure Category: Medical Code(s): I50.9 - Heart failure, unspecified Cardiology consulted Echo performed showing heart failure with reduced ejection fraction -Responded well to diuresis repeat diuresis this morning 1 -Able to wean off oxygen today -Cardiology recommendations as follow: 1. Patient likely sustained congestive heart failure due to acute on chronic anemia. Recommend transfusing to hemoglobin greater than 10. 2. Mild cardiomyopathy with echocardiogram being repeated today with Definity contrast for further evaluation. Patient is already on carvedilol and lisinopril therapy. We will add low-dose Lasix and spironolactone along with digoxin. If cardiomyopathy confirmed then will discontinue diltiazem and titrate up Coreg and lisinopril therapy. 3. Chronic atrial fibrillation for which the patient is on Xarelto therapy. She did receive a dose this morning. 4. Coronary artery disease with last coronary stenting in 2016, therefore will discontinue aspirin and discontinue Plavix therapy in conjunction with the patient's Xarelto therapy. Will reassess need for cardiac testing (stress testing versus cardiac catheterization) after transfusion. - Assessment and plan all Dx Assessment and Plan for all problems:: Patient clinically is improving with diuresis however still has exacerbation. Transfusion pending, difficult due to presence of antibodies. Continues to require inpatient management for CHF exacerbation.
--- NOTE | 2017-10-31 22:19 | Cardiology Report ---
2D 1. despite definitely contrast endocardial surface of poorly visualized, visually estimated ejection fraction approximately 45%, the basal septum is dyskinetic, there is moderate hypokinesis involving the inferobasal and posterolateral wall. There is no left ventricular thrombus seen.
--- NOTE | 2017-11-01 08:11 | Progress Note ---
Internal Medicine - PN: Subj *Date: 11/01/17 *Time: 08:10 Interval history: Overall feels good, is off oxygen. Feels well, related about the room with no pain or shortness of air other than her baseline. Exam Vital signs and Labs for Last 24 Hours: Temp Pulse Resp BP Pulse Ox 98.1 F 86 20 125/63 94 L 11/01/17 07:37 11/01/17 07:37 11/01/17 07:37 11/01/17 07:37 11/01/17 07:37 Laboratory Results - last 24 hr 10/31/17 11:14: POC Glucose 221 H 10/31/17 12:38: Blood Type A Positive, Antibody Screen Negative, Crossmatch (AHG) See Detail 10/31/17 12:38: Antibody Identification Cold Antibody 10/31/17 16:16: POC Glucose 233 H 10/31/17 20:11: POC Glucose 231 H 11/01/17 06:17: POC Glucose 187 H I & O for Last 24 hours: Intake & Output 10/29/17 10/30/17 10/31/17 11/01/17 11:59 11:59 11:59 11:59 Intake Total 660 / 660 600 / 600 Output Total 1550 / 1550 2800 / 2800 Balance -890 / -890 -2200 / -2200 Weight 257 lb 9 oz 255 lb 3 oz Narrative: Oropharynx clear, no JVD. Lungs have good air movement, minimal rhonchi in the bases. Heart rate with normal rate. Previously noted murmur. Trace ankle edema Assessment and Plan (1) Acute and chronic respiratory failure Current visit: No Status: Acute Qualifiers: Respiratory failure complication: hypoxia Qualified Code(s): J96.21 - Acute and chronic respiratory failure with hypoxia Category: Medical Code(s): J96.20 - Acute and chronic respiratory failure, unspecified whether with hypoxia or hypercapnia (2) CKD stage 2 due to type 2 diabetes mellitus Current visit: No Status: Chronic Category: Medical Code(s): E11.22 - Type 2 diabetes mellitus with diabetic chronic kidney disease; N18.2 - Chronic kidney disease, stage 2 (mild) (3) Dyspnea Current visit: No Status: Acute Qualifiers: Dyspnea type: dyspnea on exertion Qualified Code(s): R06.09 - Other forms of dyspnea Category: Medical Code(s): R06.00 - Dyspnea, unspecified (4) Edema Current visit: No Status: Acute Qualifiers: Edema type: generalized Qualified Code(s): R60.1 - Generalized edema Category: Medical Code(s): R60.9 - Edema, unspecified (5) Obesity Current visit: No Status: Acute Qualifiers: Obesity type: due to excess calories Obesity classification: adult class 3 (BMI >= 40) Serious obesity comorbidity presence: with serious comorbidity Body mass index: BMI 50.0-59.9 Qualified Code(s): E66.01 - Morbid (severe) obesity due to excess calories; Z68.43 - Body mass index (BMI) 50-59.9 , adult Category: Medical Code(s): E66.9 - Obesity, unspecified (6) Atrial fibrillation, chronic Current visit: No Status: Chronic Category: Medical Code(s): I48.2 - C hronic atrial fibrillation (7) Acute on chronic anemia Current visit: Yes Status: Acute Category: Medical Code(s): D64.9 - Anemia, unspecified (8) Acute kidney injury Current visit: Yes Status: Acute Category: Medical Code(s): N17.9 - Acute kidney failure, unspecified (9) Type 2 diabetes mellitus treated with insulin Current visit: Yes Status: Chronic Category: Medical Code(s): E11.9 - Type 2 diabetes mellitus without complications; Z79.4 - residential (current) use of insulin (10) CHF exacerbation Current visit: Yes Status: Acute Qualifiers: Heart failure type: systolic Qualified Code(s): I50.23 - Acute on chronic systolic (congestive) heart failure Category: Medical Code(s): I50.9 - Heart failure, unspecified - Assessment and plan all Dx Assessment and Plan for all problems:: Cardiology plan reviewed. Patient has responded well to diuresis. Blood transfusion today. Watch echo result carefully. Cautiously diurese after blood products.
[2017-11-01 08:31] LABS: Basophils % 0.5 % (0.1-2.0); Eosinophils # 0.1 K/mm3 (0.0-0.4); Eosinophils % 2.4 % (0.1-12.0); Hematocrit 30.3 % (37.0-47.0); Hemoglobin 9.4 g/dL (12.2-16.2); Lymphocytes # 1.5 K/mm3 (0.7-4.5); Lymphocytes % 25.2 K/mm3 (10-50); Mean Corpuscular HGB Conc 31.1 g/dL (31.8-35.4); Mean Corpuscular Hemoglobin 32.7 pg (27.0-31.2); Mean Corpuscular Volume 105.1 fl (81-99); Monocytes # 0.3 K/mm3 (0.1-1.0); Monocytes % 4.6 % (1.7-9.3); Neutrophils % 67.4 % (37.0-80.0); Platelet Count 175 K/mm3 (142-424); Red Blood Count 2.88 M/mm3 (4.20-5.40); Red Cell Distribution Width 16.5 % (11.5-17.5); White Blood Count 5.9 K/mm3 (4.8-10.8)
[2017-11-01 08:36] LABS: Anion Gap 13.7 mEq/L (5-15); Potassium 3.7 mmoL/L (3.5-5.1)
--- NOTE | 2017-11-01 09:19 | Progress Note ---
Subjective Date: 11/01/17 Time: 09:13 Principal diagnosis: Anemia, SOA Interval history: 72-year-old white female walking around the room in no acute distress. Denies any chest pain. Breathing has improved with diuresis. Blood transfusion is pending due to multiple antibodies. Blood should arrive later today. Exam Vital signs and Labs for Last 24 Hours: Temp Pulse Resp BP Pulse Ox 98.1 F 86 20 125/63 94 L 11/01/17 07:37 11/01/17 07:37 11/01/17 07:37 11/01/17 07:37 11/01/17 07:37 Laboratory Results - last 24 hr 10/31/17 11:14: POC Glucose 221 H 10/31/17 12:38: Blood Type A Positive, Antibody Screen Negative, Crossmatch (AHG) See Detail 10/31/17 12:38: Antibody Identification Cold Antibody 10/31/17 16:16: POC Glucose 233 H 10/31/17 20:11: POC Glucose 231 H 11/01/17 06:17: POC Glucose 187 H 11/01/17 08:13: WBC 5.9, RBC 2.88 L, Hgb 9.4 L, Hct 30.3 L, MCV 105.1 H, MCH 32.7 H, MCHC 31.1 L, RDW 16.5, Plt Count 175, MPV 8.0, Neut % (Auto) 67.4, Lymph % (Auto) 25.2, [place] % (Auto) 4.6, Eos % (Auto) 2.4, Baso % (Auto) 0.5, Neut # (Auto) 4.0, Lymph # (Auto) 1.5, [place] # (Auto) 0.3, Eos # (Auto) 0.1, Baso # (Auto) 0.0 11/01/17 08:13: Sodium 144, Potassium 3.7, Chloride 106, Carbon Dioxide 28, Anion Gap 13.7, BUN 44 H D, Creatinine 1.62 H D, Estimated Creat Clear 23, Estimated GFR 31 L, Est GFR ( Amer) 38 L D, Glucose 238 H, Calcium 9.0, Magnesium 1.4 I & O for Last 24 hours: Intake & Output 09/09/18 09/10/18 09/11/18 09/12/18 11:59 11:59 11:59 11:59 Intake Total 660 / 660 600 / 600 Output Total 1550 / 1550 2800 / 2800 Balance -890 / -890 -2200 / -2200 Weight 257 lb 9 oz 255 lb 3 oz - *Routine Respiratory Exam Present: CTA bilaterally. Absent: accessory muscle use, rales, rhonchi, wheezes - *Routine Cardiovascular Exam Present: irregularly irregular. Absent: murmur, gallop, rubs - *Routine Extremities Exam Absent: edema, calf tenderness Progress Note: A&P (1) Acute and chronic respiratory failure Status: Acute Current Visit: No (2) CKD stage 2 due to type 2 diabetes mellitus Status: Chronic Current Visit: No (3) Dyspnea Status: Acute Current Visit: No (4) Edema Status: Acute Current Visit: No (5) Obesity Status: Acute Current Visit: No (6) Atrial fibrillation, chronic Status: Chronic Current Visit: No (7) Acute on chronic anemia Status: Acute Current Visit: Yes (8) Acute kidney injury Status: Acute Current Visit: Yes (9) Type 2 diabetes mellitus treated with insulin Status: Chronic Current Visit: Yes (10) CHF exacerbation Status: Acute Current Visit: Yes Assessment and Plan for All Diagnoses:: Limited echo with Definity contrast confirmed cardiomyopathy with ejection fraction of 45% with segmental wall motion abnormalities. Lisinopril has been stopped with plans to start Entresto in the near future. In light of the patient's cardiomyopathy, we will discontinue diltiazem and increase carvedilol to 37.5 mg twice daily. Anticipate patient receiving blood transfusion later today. Recommend outpatient lexiscan myoview.
[2017-11-01 19:34] LABS: Hemoglobin 11.6 g/dL (12.2-16.2)
--- NOTE | 2017-11-02 07:56 | Progress Note ---
Subjective Date: 11/02/17 Time: 07:53 Principal diagnosis: Anemia, SOA Interval history: 72-year-old white female in chair in no acute distress. States she feels much better after the blood transfusions with no chest pain or significant shortness of breath. Patient feels that she is ready to go home today. Exam Vital signs and Labs for Last 24 Hours: Temp Pulse Resp BP Pulse Ox 98.2 F 68 14 120/53 97 11/02/17 04:00 11/02/17 04:00 11/02/17 04:00 11/02/17 04:00 11/02/17 06:46 Laboratory Results - last 24 hr 10/31/17 12:38: Blood Type A Positive, Antibody Screen Negative, Crossmatch (AHG) See Detail 11/01/17 08:13: WBC 5.9, RBC 2.88 L, Hgb 9.4 L, Hct 30.3 L, MCV 105.1 H, MCH 32.7 H, MCHC 31.1 L, RDW 16.5, Plt Count 175, MPV 8.0, Neut % (Auto) 67.4, Lymph % (Auto) 25.2, [place] % (Auto) 4.6, Eos % (Auto) 2.4, Baso % (Auto) 0.5, Neut # (Auto) 4.0, Lymph # (Auto) 1.5, [place] # (Auto) 0.3, Eos # (Auto) 0.1, Baso # (Auto) 0.0 11/01/17 08:13: Sodium 144, Potassium 3.7, Chloride 106, Carbon Dioxide 28, Anion Gap 13.7, BUN 44 H D, Creatinine 1.62 H D, Estimated Creat Clear 23, Estimated GFR 31 L, Est GFR ( Amer) 38 L D, Glucose 238 H, Calcium 9.0, Magnesium 1.4 11/01/17 11:16: POC Glucose 264 H 11/01/17 16:58: POC Glucose 176 H 11/01/17 19:10: Hgb 11.6 L D, Hct 37.0 11/01/17 20:44: POC Glucose 218 H 11/02/17 06:07: POC Glucose 194 H I & O for Last 24 hours: Intake & Output 10/30/17 10/31/17 11/01/17 11/02/17 11:59 11:59 11:59 11:59 Intake Total 660 / 660 960 / 960 660 / 660 Output Total 1550 / 1550 3100 / 3100 1200 / 1200 Balance -890 / -890 -2140 / -2140 -540 / -540 Weight 257 lb 9 oz 255 lb 3 oz 246 lb 9.816 oz - *Routine Respiratory Exam Present: CTA bilaterally. Absent: accessory muscle use, rales, rhonchi, wheezes - *Routine Cardiovascular Exam Present: irregularly irregular. Absent: murmur, gallop, rubs - *Routine Extremities Exam Absent: edema, calf tenderness Progress Note: A&P (1) Acute and chronic respiratory failure Status: Acute Current Visit: No (2) CKD stage 2 due to type 2 diabetes mellitus Status: Chronic Current Visit: No (3) Dyspnea Status: Acute Current Visit: No (4) Edema Status: Acute Current Visit: No (5) Obesity Status: Acute Current Visit: No (6) Atrial fibrillation, chronic Status: Chronic Current Visit: No (7) Acute on chronic anemia Status: Acute Current Visit: Yes (8) Acute kidney injury Status: Acute Current Visit: Yes (9) Type 2 diabetes mellitus treated with insulin Status: Chronic Current Visit: Yes (10) CHF exacerbation Status: Acute Current Visit: Yes (11) Cardiomyopathy Status: Acute Current Visit: Yes Assessment and Plan for All Diagnoses:: Okay from cardiology standpoint to discharge home. Patient is being transitioned to Entresto therapy. Continue Xarelto therapy for atrial fibrillation. Discontinue aspirin but continue Plavix for coronary artery disease. Patient will follow up with us in 2 weeks or sooner if needed.
--- NOTE | 2017-11-03 08:26 | Discharge Summary ---
General - General Admission date:: 10/30/17 Discharge date: 11/02/17 HPI HPI: Mrs. Mcmahon is a 72 yo F with Hx of CHF, Afib, COPD on Night time O2, and obesity who presents with 2 weeks of worsening SOA with exertion. She denies Fever, sick contacts, N/V, syncope, VERA, leg pain. She reports that 2 weeks ago she began to have worsening swelling in her legs in conjunction with her SOA. She is not able to walk across the house without getting winded. She reports mild increase in cough with some sputum. Has had a mild runny nose and scratchy throat. Reports legs feeling "heavy". She is not sleeping well. Started to wear her O2 around the clock yesterday with improvement in SOA. Not using her Albuterol nebs as she did not think to do that. Continues to use her maintenance inhalers. No bleeding, rashes, chest pain. Of note, saw cards last week and they mentioned to her they would pursue an outpatient cath? She has not heard back in regard to this. Does take lasix on occasion for volume overload, has not taken in several months. Hospital Course Hospital Course: Patient was admitted for further evaluation. She was aggressively diuresed with improvement in shortness of breath. Spironolactone was added for daily maintenance. Cardiology was consulted who recommended transfusion to HGB >10 as her anemia is likely the cause of her CHF exacerbation. Presence of antibodies in her blood resulted in delay in transfusion, but she was transfused with 2 units PRBC's yesterday. Echo with definity contrast showed wall motion abnormality with EF 45%. Beta salvador was increased and lisinopril was stopped in order to transition to Entresto therapy. Cardizem was discontinued and digoxin was added. Plan to pursue outpatient LHC pending insurance approval. Shortness of breath has returned to baseline and hemoglobin has remained stable, noted around 11 this morning. She feels significantly better and is ready to go home. Discharge home on Entresto. See medication reconciliation for complete list. FU with Dr. Salamanca on Monday. CBC and CMP prior to appointment. FU with cardiology in one week. Objective Vital signs: Temp Pulse Resp BP Pulse Ox 97.0 F L 80 22 123/71 96 11/02/17 08:00 11/02/17 08:00 11/02/17 08:00 11/02/17 08:00 11/02/17 08:00 Narrative: Alert and oriented x3. Rate and rhythm regular. No murmur. Lung sounds clear and equal. Abdomen soft and nontender. SKin pink, warm and dry Results Labs on day of discharge: Labs from last 24 hours 11/02/17 11/01/17 11/01/17 06:07 20:44 19:10 WBC RBC Hgb 11.6 L D Hct 37.0 MCV MCH MCHC RDW Plt Count MPV Neut % (Auto) Lymph % (Auto) [place] % (Auto) Eos % (Auto) Baso % (Auto) Neut # (Auto) Lymph # (Auto) [place] # (Auto) Eos # (Auto) Baso # (Auto) Sodium Potassium Chloride Carbon Dioxide Anion Gap BUN Creatinine Estimated Creat Clear Estimated GFR Est GFR ( Amer) Glucose POC Glucose 194 H 218 H Calcium Magnesium Blood Type Antibody Screen Crossmatch ([facility]) 11/01/17 11/01/17 11/01/17 16:58 11:16 08:13 WBC RBC Hgb Hct MCV MCH MCHC RDW Plt Count MPV Neut % (Auto) Lymph % (Auto) [place] % (Auto) Eos % (Auto) Baso % (Auto) Neut # (Auto) Lymph # (Auto) [place] # (Auto) Eos # (Auto) Baso # (Auto) Sodium 144 Potassium 3.7 Chloride 106 Carbon Dioxide 28 Anion Gap 13.7 BUN 44 H D Creatinine 1.62 H D Estimated Creat Clear 23 Estimated GFR 31 L Est GFR ( Amer) 38 L D Glucose 238 H POC Glucose 176 H 264 H Calcium 9.0 Magnesium 1.4 Blood Type Antibody Screen Crossmatch ([facility]) 11/01/17 10/31/17 08:13 12:38 WBC 5.9 RBC 2.88 L Hgb 9.4 L Hct 30.3 L MCV 105.1 H MCH 32.7 H MCHC 31.1 L RDW 16.5 Plt Count 175 MPV 8.0 Neut % (Auto) 67.4 Lymph % (Auto) 25.2 [place] % (Auto) 4.6 Eos % (Auto) 2.4 Baso % (Auto) 0.5 Neut # (Auto) 4.0 Lymph # (Auto) 1.5 [place] # (Auto) 0.3 Eos # (Auto) 0.1 Baso # (Auto) 0.0 Sodium Potassium Chloride Carbon Dioxide Anion Gap BUN Creatinine Estimated Creat Clear Estimated GFR Est GFR ( Amer) Glucose POC Glucose Calcium Magnesium Blood Type A Positive Antibody Screen Negative Crossmatch ([facility]) See Detail DS: Diagnosis - Discharge Diagnosis (1) Acute and chronic respiratory failure Status: Acute (2) CKD stage 2 due to type 2 diabetes mellitus Status: Chronic (3) Dyspnea Status: Acute (4) Edema Status: Acute (5) Obesity Status: Acute (6) Atrial fibrillation, chronic Status: Chronic (7) Acute on chronic anemia Status: Acute (8) Acute kidney injury Status: Acute (9) Type 2 diabetes mellitus treated with insulin Status: Chronic (10) CHF exacerbation Status: Acute (11) Cardiomyopathy Status: Acute Discharge Plan - Patient Discharge Instructions ACTIVITY: Continue current activity DIET: continue same diet Patient Instructions: Low-Sodium Diet - Follow up Plan Follow up with: Raj Salamanca MD [Family Provider] - Ramos Snow MD [Primary Care Provider] - 11/06/17 Madi Segundo MD [Staff Physician] - 1 week Disposition: Home, Self-Halfway Medications: Home Medications Medication Instructions Recorded Confirmed Type aspirin 81 mg tablet,delayed 81 mg PO DAILY 02/20/17 10/30/17 History release bimatoprost 0.03 % drops with 1 applic TOPICAL QHS 02/20/17 03/22/17 History applicator, eyelash base budesonide-formoterol HFA 160 2 puff INHALATION Q12H 02/20/17 10/31/17 History mcg-4.5 mcg/actuation aerosol inhaler cholecalciferol (vitamin D3) 1,000 1,000 unit PO DAILY 02/20/17 10/30/17 History unit capsule clopidogrel 75 mg tablet 75 mg PO DAILY 02/20/17 10/30/17 History cyanocobalamin (vit B-12) 1,000 1,000 mcg IM QMONTH 02/20/17 10/30/17 History mcg/mL injection solution insulin glargine (U-100) 100 24 unit SUB-Q DAILY 02/20/17 10/31/17 History unit/mL (3 mL) subcutaneous pen nitroglycerin 0.4 mg sublingual 0.4 mg SUBLINGUAL Q5M PRN 02/20/17 10/30/17 History tablet pyridoxine (vitamin B6) 50 mg 50 mg PO DAILY 02/20/17 10/31/17 History capsule Sitagliptin Phosphate [Januvia 100 each PO DAILY 03/22/17 10/30/17 History 100mg tablet] furosemide 40 mg tablet 40 mg PO DAILYP PRN tab 07/04/17 10/31/17 History levothyroxine 100 mcg capsule 100 mcg PO DAILY cap 07/04/17 10/30/17 History lisinopril 5 mg tablet 5 mg PO DAILY tab 07/04/17 10/30/17 History Docusate Sodium 100 mg PO QHS 10/30/17 10/30/17 History dilTIAZem HCl [Cartia Xt] 240 mg PO DAILY 10/30/17 10/30/17 History Atorvastatin Calcium [Atorvastatin 40 mg PO HS 10/31/17 10/31/17 History 40mg Tab] Prescriptions/Medication Reconciliation: New Digoxin [Digoxin 0.125mg Tablet] 125 mcg PO DAILY #30 tablet Sacubitril/Valsartan [Entresto 24 mg-26 mg Tablet] 1 each PO BID #60 tablet Spironolactone [Aldactone 25mg Tab] 25 mg PO DAILY #30 tablet Continue clopidogrel 75 mg tablet 75 mg PO DAILY cyanocobalamin (vit B-12) 1,000 mcg/mL injection solution 1,000 mcg IM QMONTH insulin glargine (U-100) 100 unit/mL (3 mL) subcutaneous pen 24 unit SUB-Q DAILY bimatoprost 0.03 % drops with applicator, eyelash base 1 applic TOPICAL QHS nitroglycerin 0.4 mg sublingual tablet 0.4 mg SUBLINGUAL Q5M PRN PRN Reason: Chest Pain pyridoxine (vitamin B6) 50 mg capsule 50 mg PO DAILY budesonide-formoterol HFA 160 mcg-4.5 mcg/actuation aerosol inhaler 2 puff INHALATION Q12H cholecalciferol (vitamin D3) 1,000 unit capsule 1,000 unit PO DAILY rivaroxaban 15 mg tablet 15 mg PO DAILY #30 tab furosemide 40 mg tablet 40 mg PO DAILYP PRN tab PRN Reason: SWELLING OF FEET levothyroxine 100 mcg capsule 100 mcg PO DAILY cap Sitagliptin Phosphate [Januvia 100mg tablet] 100 each PO DAILY Docusate Sodium 100 mg PO QHS Atorvastatin Calcium [Atorvastatin 40mg Tab] 40 mg PO HS Changed Carvedilol [Carvedilol 25mg Tab] 37.5 mg PO BID #60 tablet Discontinued aspirin 81 mg tablet,delayed release 81 mg PO DAILY lisinopril 5 mg tablet 5 mg PO DAILY tab dilTIAZem HCl [Cartia Xt] 240 mg PO DAILY Other Amb Orders: Complete Blood Count Auto Diff Location: None Selected Comprehensive Metabolic Panel Time Frame: 11/06/17, Location: None Selected
== END 2017-11-02 10:20 | disposition home or self-care (01) ==
LOC: 2ND
PROVIDERS: ADMIT Internal Medicine Adolescent Medicine; ATTEND Internal Medicine Adolescent Medicine
CPT/HCPCS: 36415; 71020; 71046; 80048; 80053; 82962; 83735; 83880; 84484; 85014; 85018; 85025; 85610; 86850; 86870; 93005; 93306; 93308; 94640; 94761; G0378; P9016; Q9957

== ENCOUNTER 2017-11-03 13:35 | Observation (INO) ==
--- NOTE | 2017-11-03 15:12 | History & Physical Report ---
*Admission Date: 11/03/17 *Chief complaint: weakness, dizziness *History of present illness: 72 year old white female who was discharged from [facility] yesterday following an admission for anemia and CHF exacerbation presented to PCP office with weakness and dizziness. Patient had multiple medication changes during her previous admission and transitioned to Entresto last evening. She took her first dose around 2000 yesterday and second dose at 0800 this morning. Approximately 2 hours later she became weak and dizzy, states "I can hardly keep my eyes open." In PCP office she was found to be hypotensive, unable to auscultate blood pressure. Patient was stumbling when she walked in and repeatedly dozed off during exam. EMS was called and patient was direct admitted to [facility] for further evaluation. [facility] History I have reviewed the patient's past medical history: Yes Medical History: Reports:: Atrial Fibrillation, Chronic Obstructive Pulmonary Disease (COPD), Coronary Artery Disease, Diabetes Mellitus Type 2, Hyperlipidemia, Hypertension, Peripheral Artery Disease Denies:: Cancer, MRSA Other Medical History: Reports: Anemia, Arthritis, Thyroid Disease Other Surgeries: Yes: Cardiac Catheterization, EGD, Hysterectomy-Total Amputation: No Fractures: No - *Social History Educational Level: Completed High School Smoking Status: Never smoker Alcohol Intake: never Alcohol Intake Frequency:: other Substance Use Type: denies use Occupational Status: retired Housing: house Household Members: spouse - Psychiatric History Expresses thoughts of harming self/others: None Suicide Plan Description: No Plan *Family Hx:: Cancer, Coronary Artery Disease, Diabetes, Heart Attack, Hyperlipidemia, Hypertension, Kidney Disease Review of Systems - Review of Systems Review of systems:: pertinent systems reviewed and negative unless documented below - Constitutional Reports weakness - *Neurologic Reports dizziness Meds Home Medications Medication Instructions Recorded Confirmed Type bimatoprost 0.03 % drops with 1 applic TOPICAL QHS 02/20/17 11/03/17 History applicator, eyelash base budesonide-formoterol HFA 160 2 puff INHALATION Q12H 02/20/17 11/03/17 History mcg-4.5 mcg/actuation aerosol inhaler cholecalciferol (vitamin D3) 1,000 1,000 unit PO DAILY 02/20/17 11/03/17 History unit capsule clopidogrel 75 mg tablet 75 mg PO DAILY 02/20/17 11/03/17 History cyanocobalamin (vit B-12) 1,000 1,000 mcg IM QMONTH 02/20/17 11/03/17 History mcg/mL injection solution insulin glargine (U-100) 100 24 unit SUB-Q DAILY 02/20/17 11/03/17 History unit/mL (3 mL) subcutaneous pen nitroglycerin 0.4 mg sublingual 0.4 mg SUBLINGUAL Q5M PRN 02/20/17 11/03/17 History tablet pyridoxine (vitamin B6) 50 mg 50 mg PO DAILY 02/20/17 11/03/17 History capsule Sitagliptin Phosphate [Januvia 100 each PO DAILY 03/22/17 11/03/17 History 100mg tablet] furosemide 40 mg tablet 40 mg PO DAILYP PRN tab 07/04/17 11/03/17 History levothyroxine 100 mcg capsule 100 mcg PO DAILY cap 07/04/17 11/03/17 History Docusate Sodium 100 mg PO QHS 10/30/17 11/03/17 History Atorvastatin Calcium [Atorvastatin 40 mg PO HS 10/31/17 11/03/17 History 40mg Tab] Digoxin [Digoxin 0.125mg Tablet] 125 mcg PO DAILY 11/03/17 11/03/17 History Sacubitril/Valsartan [Entresto 24 1 each PO BID 11/03/17 11/03/17 History mg-26 mg Tablet] Spironolactone [Aldactone 25mg 25 mg PO DAILY 11/03/17 11/03/17 History Tab] Allergies Allergy/AdvReac Type Severity Reaction Status Date / Time codeine [CODEINE] Allergy Intermediate I-RASH Verified 10/24/17 08:38 Exam Narrative: Alert and oriented x3. Drowsy, awakens easily to touch. Rate and rhythm regular. No LE edema. Skin pale, warm and dry. Lung sound clear anteriorly. Abdomen soft and non-tender. Cranial nerves intact. ENT exam unremarkable. Assessment and Plan (1) Hypotension Current visit: Yes Status: Acute Category: Medical Code(s): I95.9 - Hypotension, unspecified (2) Dizziness Current visit: Yes Status: Acute Category: Medical Code(s): R42 - Dizziness and giddiness (3) CHF (congestive heart failure) Current visit: Yes Status: Chronic Category: Medical Code(s): I50.9 - Heart failure, unspecified - Assessment and plan all Dx Assessment and Plan for all problems:: Admitted for observation and medication regulation. Cardiology consulted for recommendations.
[2017-11-03 16:39] LABS: Basophils % 0.3 % (0.1-2.0); Eosinophils # 0.1 K/mm3 (0.0-0.4); Eosinophils % 1.5 % (0.1-12.0); Hematocrit 38.5 % (37.0-47.0); Lymphocytes # 1.8 K/mm3 (0.7-4.5); Mean Corpuscular HGB Conc 31.1 g/dL (31.8-35.4); Mean Corpuscular Hemoglobin 31.5 pg (27.0-31.2); Mean Corpuscular Volume 101.2 fl (81-99); Mean Platelet Volume 8.2 fl (7.4-10.4); Monocytes # 0.3 K/mm3 (0.1-1.0); Neutrophils # 3.3 K/mm3 (1.8-7.8); Neutrophils % 60.1 % (37.0-80.0); Platelet Count 144 K/mm3 (142-424); Red Cell Distribution Width 17.1 % (11.5-17.5); White Blood Count 5.5 K/mm3 (4.8-10.8)
[2017-11-03 16:58] LABS: Albumin/Globulin Ratio 0.7 (1.1-1.8); Anion Gap 15.3 mEq/L (5-15); Bilirubin,Total 0.9 mg/dL (0.2-1.0); Globulin 4.3 gm/dl (1.3-3.2); Potassium 4.3 mmoL/L (3.5-5.1); Total Protein,Serum 7.3 gm/dL (6.4-8.2)
--- NOTE | 2017-11-04 07:25 | Discharge Summary ---
General - General Admission date:: 11/03/17 Discharge date: 11/04/17 HPI HPI: 72 year old white female who was discharged from [facility] yesterday following an admission for anemia and CHF exacerbation presented to PCP office with weakness and dizziness. Patient had multiple medication changes during her previous admission and transitioned to Entresto last evening. She took her first dose around 2000 yesterday and second dose at 0800 this morning. Approximately 2 hours later she became weak and dizzy, states "I can hardly keep my eyes open." In PCP office she was found to be hypotensive, unable to auscultate blood pressure. Patient was stumbling when she walked in and repeatedly dozed off during exam. EMS was called and patient was direct admitted to [facility] for further evaluation. Hospital Course Hospital Course: Patient was admitted to the hospital. Initial laboratory studies were unremarkable compared to baseline labs. She was given a small fluid bolus, but interestingly by the time she had arrived at the hospital via EMS her blood pressure had improved to the 130 systolic range spontaneously. Given fluids as noted through the night. She had no further episodes of hypotension and this morning she feels good. Overnight I had held Entresto and lowered her dose of beta-salvador and she felt very well this morning although blood pressure crept up slightly. Plan will be to discharge home. I will continue her Entresto but we will discontinue Spironolactone and reduce her dose of beta-salvador to 12.5 mg twice daily. She will follow-up on Monday as previously scheduled. Objective Vital signs: Temp Pulse Resp BP Pulse Ox 97.8 F 62 22 139/66 94 L 11/04/17 04:00 11/04/17 04:00 11/04/17 04:00 11/04/17 04:00 11/04/17 04:00 Narrative: Patient is awake, alert, ENT exam with clear oropharynx and no JVD. Heart rate regular. Previously noted murmur. Anterior lung holt have some rhonchi, at baseline. Abdomen soft and nontender. No edema over her adiposity baseline. Results Labs on day of discharge: Labs from last 24 hours 11/03/17 11/03/17 11/03/17 21:00 16:27 16:27 WBC 5.5 RBC 3.80 L D Hgb 12.0 L Hct 38.5 MCV 101.2 H MCH 31.5 H MCHC 31.1 L RDW 17.1 Plt Count 144 MPV 8.2 Neut % (Auto) 60.1 Lymph % (Auto) 33.0 [place] % (Auto) 5.0 Eos % (Auto) 1.5 Baso % (Auto) 0.3 Neut # (Auto) 3.3 Lymph # (Auto) 1.8 [place] # (Auto) 0.3 Eos # (Auto) 0.1 Baso # (Auto) 0.0 Sodium 141 Potassium 4.3 Chloride 103 Carbon Dioxide 27 Anion Gap 15.3 H BUN 56 H D Creatinine 1.78 H Estimated Creat Clear 21 Estimated GFR 28 L Est GFR ( Amer) 34 L Glucose 340 H POC Glucose 282 H Calcium 9.0 Total Bilirubin 0.9 AST 13 L ALT 24 Alkaline Phosphatase 116 Total Protein 7.3 Albumin 3.0 L Globulin 4.3 H Albumin/Globulin Ratio 0.7 L DS: Diagnosis - Discharge Diagnosis (1) Hypotension Status: Resolved (2) Dizziness Status: Resolved (3) CHF (congestive heart failure) Status: Chronic (4) Morbid obesity Status: Acute Discharge Plan - Patient Discharge Instructions ACTIVITY: Continue current activity DIET: continue same diet - Follow up Plan Follow up with: Raj Salamanca MD [Primary Care Provider] - 11/07/17 2:30 pm Disposition: Home, Self-Longterm Medications: Home Medications Medication Instructions Recorded Confirmed Type bimatoprost 0.03 % drops with 1 applic TOPICAL QHS 02/20/17 11/03/17 History applicator, eyelash base budesonide-formoterol HFA 160 2 puff INHALATION Q12H 02/20/17 11/03/17 History mcg-4.5 mcg/actuation aerosol inhaler cholecalciferol (vitamin D3) 1,000 1,000 unit PO DAILY 02/20/17 11/03/17 History unit capsule clopidogrel 75 mg tablet 75 mg PO DAILY 02/20/17 11/03/17 History cyanocobalamin (vit B-12) 1,000 1,000 mcg IM QMONTH 02/20/17 11/03/17 History mcg/mL injection solution insulin glargine (U-100) 100 24 unit SUB-Q DAILY 02/20/17 11/03/17 History unit/mL (3 mL) subcutaneous pen nitroglycerin 0.4 mg sublingual 0.4 mg SUBLINGUAL Q5M PRN 02/20/17 11/03/17 History tablet pyridoxine (vitamin B6) 50 mg 50 mg PO DAILY 02/20/17 11/03/17 History capsule Sitagliptin Phosphate [Januvia 100 each PO DAILY 03/22/17 11/03/17 History 100mg tablet] furosemide 40 mg tablet 40 mg PO DAILYP PRN tab 07/04/17 11/03/17 History levothyroxine 100 mcg capsule 100 mcg PO DAILY cap 07/04/17 11/03/17 History Docusate Sodium 100 mg PO QHS 10/30/17 11/03/17 History Atorvastatin Calcium [Atorvastatin 40 mg PO HS 10/31/17 11/03/17 History 40mg Tab] Digoxin [Digoxin 0.125mg Tablet] 125 mcg PO DAILY 11/03/17 11/03/17 History Sacubitril/Valsartan [Entresto 24 1 each PO BID 11/03/17 11/03/17 History mg-26 mg Tablet] Spironolactone [Aldactone 25mg 25 mg PO DAILY 11/03/17 11/03/17 History Tab] Prescriptions/Medication Reconciliation: Continue clopidogrel 75 mg tablet 75 mg PO DAILY cyanocobalamin (vit B-12) 1,000 mcg/mL injection solution 1,000 mcg IM QMONTH insulin glargine (U-100) 100 unit/mL (3 mL) subcutaneous pen 24 unit SUB-Q DAILY bimatoprost 0.03 % drops with applicator, eyelash base 1 applic TOPICAL QHS nitroglycerin 0.4 mg sublingual tablet 0.4 mg SUBLINGUAL Q5M PRN PRN Reason: Chest Pain pyridoxine (vitamin B6) 50 mg capsule 50 mg PO DAILY budesonide-formoterol HFA 160 mcg-4.5 mcg/actuation aerosol inhaler 2 puff INHALATION Q12H cholecalciferol (vitamin D3) 1,000 unit capsule 1,000 unit PO DAILY rivaroxaban 15 mg tablet 15 mg PO DAILY #30 tab levothyroxine 100 mcg capsule 100 mcg PO DAILY cap Sitagliptin Phosphate [Januvia 100mg tablet] 100 each PO DAILY Docusate Sodium 100 mg PO QHS Sacubitril/Valsartan [Entresto 24 mg-26 mg Tablet] 1 each PO BID Atorvastatin Calcium [Atorvastatin 40mg Tab] 40 mg PO HS Digoxin [Digoxin 0.125mg Tablet] 125 mcg PO DAILY Changed Carvedilol [Carvedilol 25mg Tab] 12.5 mg PO BID #60 tablet Discontinued furosemide 40 mg tablet 40 mg PO DAILYP PRN tab PRN Reason: SWELLING OF FEET Spironolactone [Aldactone 25mg Tab] 25 mg PO DAILY
== END 2017-11-04 08:30 | disposition home or self-care (01) ==
LOC: 2ND 14:30 → INTOOBSV 14:30 → 2ND 14:48
PROVIDERS: ADMIT Internal Medicine Adolescent Medicine; ATTEND Internal Medicine Adolescent Medicine
CPT/HCPCS: 71020; 71046; 80053; 82962; 85025; G0378

== ENCOUNTER → 2017-11-16 06:37 | Outpatient (CLI) | payer MEDICARE, SELFPAY ==
--- NOTE | 2017-11-16 06:46 | NM_ITS ---
History and Indications: Coronary artery disease, previous [place], hypertension, diabetes, hyperlipidemia, family history, shortness of breath, palpitations and fatigue. Procedure: Patient received a 0.4 mg of intravenous Lexiscan, resting heart rate was 76 bpm, resting blood pressure 190/83, with Lexiscan maximum heart rate achieved was 87 bpm which is less than 85% of the maximum predicted heart rate and a blood pressure was 146/58. With intravenous Lexiscan patient complained of nausea vomiting requiring intravenous Aminophyllin to reverse symptoms. Electrocardiogram: Resting electrocardiogram atrial fibrillation controlled ventricular response, with Lexiscan there is less than 1.[address] segment depression noted from the baseline EKG. The EKG portion of the Lexiscan Myoview is nondiagnostic due to baseline abnormal EKG. Cardiac stress and resting SPECT images: Cardiac stress and resting SPECT images were obtained using technetium 99 Myoview 31.3 mCi at stress and 10.6 mCi at rest. Gated SPECT further analysis of segmental wall motion and calculation of the ejection fraction also done. Cardiac stress and rest images show mild reversible ischemia involving the anterolateral wall, in addition there is a fixed defect in the inferior wall with normal contractility in the gated SPECT is likely secondary to soft tissue attenuation. Computer derived ejection fraction is 56% with no regional wall motion abnormality, right ventricle is normal size and contractility. This study is technically limited due to patient's body habitus Conclusion: 1. The EKG portion of the Lexiscan Myoview is nondiagnostic. 2. Scintigraphic evidence of mild reversible ischemia involving the anterolateral wall. Computer derived ejection fraction is 56% with no regional wall motion abnormality, right ventricle is normal size and contractility. This study is technically limited due to patient's body habitus.
--- NOTE | 2017-11-16 10:21 | HMH.ITSHM ---
atorvastatin digoxin carvedilol januvia levothyroxin
== END ==
PROVIDERS: PCP Internal Medicine Adolescent Medicine; Visit Provider Internal Medicine
DX: E11.69 Type 2 diabetes mellitus with other specified complication (principal); E66.01 Morbid (severe) obesity due to excess calories; E66.9 Obesity, unspecified; I10 Essential (primary) hypertension; I25.10 Atherosclerotic heart disease of native coronary artery without angina pectoris; I42.9 Cardiomyopathy, unspecified; I48.2 Chronic atrial fibrillation; I50.9 Heart failure, unspecified; I95.9 Hypotension, unspecified; R06.09 Other forms of dyspnea; R42 Dizziness and giddiness; R60.1 Generalized edema
CPT/HCPCS: 78452; 93017; A9502; J2785

== ENCOUNTER → 2017-11-17 10:03 | Outpatient (POV) | payer MEDICARE, SELFPAY | PROVIDERS: Visit Provider Podiatrist | DX: Z00.00 Encounter for general adult medical examination without abnormal findings (principal) ==

== ENCOUNTER 2017-11-18 14:27 | Inpatient (IN) ==
--- NOTE | 2017-11-18 14:45 | Emergency Department Note ---
ED Disposition Clinical Impression: Chest pain, CAD (coronary artery disease), Hypertension, Obesity, Chronic atrial fibrillation, NSTEMI (non-ST elevated myocardial infarction), Hypertensive urgency Disposition: Still a Patient Condition on Discharge: Fair Referrals: Raj Salamanca MD [Primary Care Provider] - - Critical Care Critical Care Time: No Attestation: On 11/18/17, the high probability of a clinically significant, sudden or life threatening deterioration of the following system(s) required my full and direct attention, intervention and personal management. The time I documented below is in addition to time spent performing reported procedures but includes the following listed in this critical care notation. Medical Decision Making - Kermit Inquiry Pt receiving controlled substance: No [place]ermit was queried for this patient: No Vital Signs: 11/18/17 14:28 11/18/17 14:57 11/18/17 16:00 Temperature 98.0 F Temperature Source Oral Pulse Rate [Apical] 79 72 70 Respiratory Rate 20 18 Blood Pressure [Left Arm] 153/80 H 174/92 H Blood Pressure [Right Arm] 208/79 H Blood Pressure Mean [Left Arm] 104 119 Blood Pressure Mean [Right Arm] 122 Blood Pressure Source [Left Arm] Automatic Cuff Automatic Cuff Blood Pressure Source [Right Arm] Automatic Cuff Blood Pressure Position [Left Arm] Sitting Supine Blood Pressure Position [Right Arm] Sitting 02 Sat by Pulse Oximetry 95 96 96 Oxygen Delivery Method Room Air Room Air Room Air 11/18/17 16:48 Temperature Temperature Source Pulse Rate [Apical] 67 Respiratory Rate Blood Pressure [Left Arm] 189/75 H Blood Pressure [Right Arm] Blood Pressure Mean [Left Arm] 113 Blood Pressure Mean [Right Arm] Blood Pressure Source [Left Arm] Automatic Cuff Blood Pressure Source [Right Arm] Blood Pressure Position [Left Arm] Sitting Blood Pressure Position [Right Arm] 02 Sat by Pulse Oximetry 100 Oxygen Delivery Method Room Air - Lab Data Lab Results 11/18/17 15:45: WBC 4.3 L, RBC 3.27 L, Hgb 11.6 L, Hct 34.2 L, MCV 104.6 H, MCH 35.5 H, MCHC 34.0, RDW 16.6, Plt Count 122 L, MPV 8.0, Neut % (Auto) 62.0, Lymph % (Auto) 30.8, [place] % (Auto) 4.3, Eos % (Auto) 2.4, Baso % (Auto) 0.4, Neut # (Auto) 2.7, Lymph # (Auto) 1.3, [place] # (Auto) 0.2, Eos # (Auto) 0.1, Baso # (Auto) 0.0 11/18/17 15:45: Sodium 138, Potassium 5.0, Chloride 104, Carbon Dioxide 24, Anion Gap 10.3, BUN 26 H, Creatinine 1.36 H, Estimated Creat Clear 29, Estimated GFR 38 L, Est GFR ( Amer) 47 L, Glucose 340 H, Calcium 9.3, Total Bilirubin 0.8, AST 28, ALT 39, Alkaline Phosphatase 101, Total Creatine Kinase 148, CK-MB (CK-2) 3.3 D, CK-MB (CK-2) Rel Index 2.2, Troponin I 0.25 H, Total Protein 6.6, Albumin 3.1 L, Globulin 3.5 H, Albumin/Globulin Ratio 0.9 L Result diagrams: 11/18/17 15:45 11/18/17 15:45 Orders (Tests/Meds): ED MEDICATIONS Discontinued Medications Generic Name Dose Route Start Last Admin Trade Name Freq PRN Reason Stop Dose Admin Nitroglycerin/Dextrose 250 mls @ 1.5 mls/hr 11/18/17 15:00 Nitroglycerin 50mg/250ml D5w IV 12/18/17 14:59 .Q24H RAUL Protocol 5 MCG/MIN Nitroglycerin 1 gm 11/18/17 15:01 11/18/17 15:02 Nitroglycerin 1 Inch Oint Udp TD 11/18/17 15:02 1 gm ONCE ONE Administration ORDERS Category Date Time Status ECG Request by /Nse Stat Y 11/18/17 14:50 Ordered - ECG Data Tracing #1 Atrial fibrillation controlled rate 71/min low voltage baseline artifact old anterior wall PA no acute finding. ECG initial impression date: 11/18/17 ECG initial impression time: 14:30 Medical Decision Narrative: Patient blood pressure was decreased with nitro paste 180/90 mmhg. She was chest pain-free but her troponin was elevated. 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 Segundo who recommended nitroglycerin drip and as needed morphine. [address] Snow to admit the patient for Dr. Salamanca. Chest Pain HPI - General Chief Complaint: Chest Pain Stated Complaint: chest pain Time Seen by Provider: 11/18/17 14:30 Mode of Arrival: Wheelchair Limitations: No Limitations Description of Symptoms (Recalled from ER Triage Doc. by RN): Pt reports that approx 2 hours ago she began feeling "dizzy headed and sweaty" and then began having squeezing intermittent pain on in center and on R side of chest. Pt reports she had a stress test done Monday of this week and is scheduled to have a heart cath Monday of next week - History of Present Illness HPI narrative: 9 years old white female with history of coronary artery disease status post 7 stents and atrial fibrillation she is on anticoagulations by xalerto. Also, she has an ongoing hypertension. 2 hours before presentation she started experiencing chest pressure with no palpitations or dysonea. She admits for nausea with no vomiting hematemesis coffee-ground emesis melanotic stool or bleeding per rectum. Time: 13:00 Duration: intermittent Activity at onset: during rest Pain location: substernal Severity: moderate Quality: tightness Pain radiation: none Relieving factors: nothing Exacerbating factors: nothing Associated symptoms: nausea Treatments prior to or on arrival for Cardiac Chest Pain: other (Her medication list. ) - Related Data Home Medications Medication Instructions Recorded Confirmed bimatoprost 0.03 % drops with 1 applic TOPICAL QHS 02/20/17 11/18/17 applicator, eyelash base budesonide-formoterol HFA 160 2 puff INHALATION Q12H 02/20/17 11/18/17 mcg-4.5 mcg/actuation aerosol inhaler cholecalciferol (vitamin D3) 1,000 1,000 unit PO DAILY 02/20/17 11/03/17 unit capsule clopidogrel 75 mg tablet 75 mg PO DAILY 02/20/17 11/18/17 cyanocobalamin (vit B-12) 1,000 1,000 mcg IM QMONTH 02/20/17 11/03/17 mcg/mL injection solution insulin glargine (U-100) 100 24 unit SUB-Q DAILY 02/20/17 11/18/17 unit/mL (3 mL) subcutaneous pen nitroglycerin 0.4 mg sublingual 0.4 mg SUBLINGUAL Q5M PRN 02/20/17 11/18/17 tablet pyridoxine (vitamin B6) 50 mg 50 mg PO DAILY 02/20/17 11/18/17 capsule Sitagliptin Phosphate [Januvia 100 each PO DAILY 03/22/17 11/18/17 100mg tablet] levothyroxine 100 mcg capsule 100 mcg PO DAILY cap 07/04/17 11/18/17 Docusate Sodium 100 mg PO QHS 10/30/17 11/03/17 Atorvastatin Calcium [Atorvastatin 40 mg PO HS 10/31/17 11/18/17 40mg Tab] Digoxin [Digoxin 0.125mg Tablet] 125 mcg PO DAILY 11/03/17 11/18/17 Sacubitril/Valsartan [Entresto 24 1 each PO BID 11/03/17 11/18/17 mg-26 mg Tablet] Hydrocod/Acet 5/325 mg [[place] 1 tab PO TID PRN 11/18/17 11/18/17 5/325mg tablet] Previous Rx's Medication Instructions Recorded rivaroxaban 15 mg tablet 15 mg PO DAILY #30 tab 04/04/17 Carvedilol [Carvedilol 25mg Tab] 12.5 mg PO BID #60 tab 11/04/17 Allergies Allergy/AdvReac Type Severity Reaction Status Date / Time codeine [CODEINE] Allergy Intermediate I-RASH Verified 10/24/17 08:38 [facility] History I have reviewed the patient's past medical history: Yes Medical History: Reports:: Atrial Fibrillation, Chronic Obstructive Pulmonary Disease (COPD), Coronary Artery Disease, Diabetes Mellitus Type 2, Hyperlipidemia, Hypertension, Peripheral Artery Disease Denies:: Cancer, MRSA Other Medical History: Reports: Anemia, Arthritis, Thyroid Disease Other Surgeries: Yes: Cardiac Catheterization, EGD, Hysterectomy-Total Amputation: No Fractures: No - Social History Smoking Status: Never smoker Alcohol Intake: never Alcohol Intake Frequency:: other Substance Use Type: denies use Occupational Status: retired Housing: house Household Members: spouse - Psychiatric History Expresses thoughts of harming self/others: None Suicide Plan Description: No Plan Family Hx:: Cancer, Coronary Artery Disease, Diabetes, Heart Attack, Hyperlipidemia, Hypertension, Kidney Disease ROS Obtained: Yes All systems reviewed & no additional complaints Physical Exam - General General appearance: alert, in no apparent distress - Head Head exam: atraumatic, normocephalic, normal inspection - Eye Eye exam: Present: normal appearance, PERRL, EOMI. Absent: scleral icterus, nystagmus - ENT ENT exam: Present: normal exam, normal oropharynx, mucous membranes moist, TM's normal bilaterally, normal external ear exam - Neck Neck exam: Present: normal inspection, full ROM, trachea midline. Absent: tenderness, meningismus, lymphadenopathy - Chest Chest inspection: Present: normal inspection, symmetric chest wall rise. Absent: tenderness - Respiratory Respiratory exam: Present: normal lung sounds bilaterally. Absent: respiratory distress, wheezes - Cardiovascular Cardiovascular exam: Present: regular rate, normal rhythm, normal heart sounds. Absent: JVD - Abdominal Exam Abdominal exam: Present: soft, normal bowel sounds. Absent: distention, tenderness, guarding, rebound, rigidity - Extremities Exam Extremities exam: Present: normal inspection, full ROM, normal capillary refill. Absent: tenderness, pedal edema, calf tenderness - Back Exam Back exam: Present: normal inspection. Absent: tenderness, CVA tenderness (R), CVA tenderness (L) - Neurological Exam Neurological exam: Present: alert, oriented X3, CN II-XII intact, motor sensory deficit, reflexes normal - Psychiatric Psychiatric exam: Present: normal affect, normal mood - Skin Skin exam: Present: warm, dry, intact, normal color - Lymphatic Lymphatic Findings: no adenopathy
[2017-11-18 16:03] LABS: Basophils % 0.4 % (0.1-2.0); Eosinophils # 0.1 K/mm3 (0.0-0.4); Eosinophils % 2.4 % (0.1-12.0); Hematocrit 34.2 % (37.0-47.0); Hemoglobin 11.6 g/dL (12.2-16.2); Lymphocytes # 1.3 K/mm3 (0.7-4.5); Lymphocytes % 30.8 K/mm3 (10-50); Mean Corpuscular Hemoglobin 35.5 pg (27.0-31.2); Mean Corpuscular Volume 104.6 fl (81-99); Monocytes # 0.2 K/mm3 (0.1-1.0); Monocytes % 4.3 % (1.7-9.3); Neutrophils # 2.7 K/mm3 (1.8-7.8); Platelet Count 122 K/mm3 (142-424); Red Blood Count 3.27 M/mm3 (4.20-5.40); Red Cell Distribution Width 16.6 % (11.5-17.5); White Blood Count 4.3 K/mm3 (4.8-10.8)
[2017-11-18 16:39] LABS: Albumin Level 3.1 gm/dL (3.4-5.0); Albumin/Globulin Ratio 0.9 (1.1-1.8); Anion Gap 10.3 mEq/L (5-15); Bilirubin,Total 0.8 mg/dL (0.2-1.0); Calcium 9.3 mg/dL (8.5-10.1); Globulin 3.5 gm/dl (1.3-3.2); Total Protein,Serum 6.6 gm/dL (6.4-8.2)
[2017-11-19 05:08] LABS: Basophils % 0.6 % (0.1-2.0); Eosinophils # 0.1 K/mm3 (0.0-0.4); Hematocrit 32.7 % (37.0-47.0); Lymphocytes # 1.4 K/mm3 (0.7-4.5); Lymphocytes % 43.6 K/mm3 (10-50); Mean Corpuscular HGB Conc 31.2 g/dL (31.8-35.4); Mean Corpuscular Hemoglobin 32.1 pg (27.0-31.2); Mean Corpuscular Volume 102.9 fl (81-99); Monocytes # 0.2 K/mm3 (0.1-1.0); Monocytes % 4.7 % (1.7-9.3); Neutrophils # 1.5 K/mm3 (1.8-7.8); Platelet Count 119 K/mm3 (142-424); Red Blood Count 3.17 M/mm3 (4.20-5.40); Red Cell Distribution Width 16.7 % (11.5-17.5); White Blood Count 3.2 K/mm3 (4.8-10.8)
[2017-11-19 05:12] LABS: Hemoglobin 10.2 g/dL (12.2-16.2)
[2017-11-19 06:07] LABS: Albumin Level 2.6 gm/dL (3.4-5.0); Albumin/Globulin Ratio 0.9 (1.1-1.8); Anion Gap 14.2 mEq/L (5-15); Bilirubin,Total 0.7 mg/dL (0.2-1.0); Calcium 8.6 mg/dL (8.5-10.1); Chol/HDL Ratio 2.3 (1-3.5); Globulin 2.9 gm/dl (1.3-3.2); Potassium 4.2 mmoL/L (3.5-5.1); Total Protein,Serum 5.5 gm/dL (6.4-8.2)
--- NOTE | 2017-11-19 08:24 | History & Physical Report ---
*Admission Date: 11/18/17 *Chief complaint: Chest pain and hypertension *History of present illness: Ms. Mcmahon is a 72-year-old female with difficult to control hypertension, coronary artery disease (s/p 7 stents), A. fib on Xarelto, diabetes, chronic kidney disease, and hyperlipidemia who presented to the emergency room with chest pain and headache for 2 hours. She described feeling diaphoretic and a little dizzy with a squeezing sensation intermittently in her chest. She was found to have hypertensive emergency with elevated troponins. Cardiology was contacted who initiated a glycerin drip. She was admitted to medicine for further management. Additional cardiac history: Pt reports she had a stress test done Monday of this week and is scheduled to have a heart cath Monday of next week. Was recently started on Entresto for her hypertension and heart failure. 10 days ago was increased from 24/26 dosage to the 49/51 dose. She reports that she has been taking the 24/26 dose twice a day with no further episode of hypotension Ms. Mcmahon denies any emesis, diarrhea, fevers, syncope, confusion, changes in vision. She did have some mild nausea associated with her chest discomfort and diaphoresis. Additionally her legs have felt more heavy and she has had some intermittent back pain with radiation down her left leg. [facility] History I have reviewed the patient's past medical history: Yes Medical History: Reports:: Atrial Fibrillation, Chronic Obstructive Pulmonary Disease (COPD), Coronary Artery Disease, Diabetes Mellitus Type 2, Hyperlipidemia, Hypertension, Peripheral Artery Disease Denies:: Cancer, MRSA Other Medical History: Reports: Anemia, Arthritis, Hypothyroidism, Thyroid Disease Other Surgeries: Yes: Appendectomy, Cardiac Catheterization, Cholecystectomy, EGD, Hysterectomy-Total Amputation: No Fractures: No - *Social History Smoking Status: Never smoker Alcohol Intake: never Alcohol Intake Frequency:: other Substance Use Type: denies use Occupational Status: retired Housing: house Household Members: spouse - Psychiatric History Expresses thoughts of harming self/others: None Suicide Plan Description: No Plan *Family Hx:: Cancer, Coronary Artery Disease, Diabetes, Heart Attack, Hyperlipidemia, Hypertension, Kidney Disease Review of Systems - Review of Systems Review of systems:: pertinent systems reviewed and negative unless documented below Meds Home Medications Medication Instructions Recorded Confirmed Type bimatoprost 0.03 % drops with 1 applic TOPICAL QHS 02/20/17 11/18/17 History applicator, eyelash base budesonide-formoterol HFA 160 2 puff INHALATION Q12H 02/20/17 11/18/17 History mcg-4.5 mcg/actuation aerosol inhaler cholecalciferol (vitamin D3) 1,000 1,000 unit PO DAILY 02/20/17 11/18/17 History unit capsule clopidogrel 75 mg tablet 75 mg PO DAILY 02/20/17 11/18/17 History cyanocobalamin (vit B-12) 1,000 1,000 mcg IM QMONTH 02/20/17 11/18/17 History mcg/mL injection solution insulin glargine (U-100) 100 30 unit SUB-Q DAILY 02/20/17 11/18/17 History unit/mL (3 mL) subcutaneous pen nitroglycerin 0.4 mg sublingual 0.4 mg SUBLINGUAL Q5M PRN 02/20/17 11/18/17 History tablet pyridoxine (vitamin B6) 50 mg 50 mg PO DAILY 02/20/17 11/18/17 History capsule Sitagliptin Phosphate [Januvia 100 each PO DAILY 03/22/17 11/18/17 History 100mg tablet] levothyroxine 100 mcg capsule 100 mcg PO DAILY cap 07/04/17 11/18/17 History Docusate Sodium 100 mg PO QHS 10/30/17 11/18/17 History Atorvastatin Calcium [Atorvastatin 40 mg PO HS 10/31/17 11/18/17 History 40mg Tab] Digoxin [Digoxin 0.125mg Tablet] 125 mcg PO DAILY 11/03/17 11/18/17 History Sacubitril/Valsartan [Entresto 24 1 each PO BID 11/03/17 11/18/17 History mg-26 mg Tablet] Hydrocod/Acet 5/325 mg [[place] 1 tab PO TID PRN 11/18/17 11/18/17 History 5/325mg tablet] Allergies Allergy/AdvReac Type Severity Reaction Status Date / Time codeine [CODEINE] Allergy Intermediate I-RASH Verified 10/24/17 08:38 Exam Vital signs and Labs for Last 24 Hours: Temp Pulse Resp BP Pulse Ox 97.4 F L 65 18 166/55 H 97 11/19/17 08:00 11/19/17 08:00 11/19/17 08:00 11/19/17 08:00 11/19/17 08:00 Laboratory Results - last 24 hr 11/18/17 15:45: WBC 4.3 L, RBC 3.27 L, Hgb 11.6 L, Hct 34.2 L, MCV 104.6 H, MCH 35.5 H, MCHC 34.0, RDW 16.6, Plt Count 122 L, MPV 8.0, Neut % (Auto) 62.0, Lymph % (Auto) 30.8, [place] % (Auto) 4.3, Eos % (Auto) 2.4, Baso % (Auto) 0.4, Neut # (Auto) 2.7, Lymph # (Auto) 1.3, [place] # (Auto) 0.2, Eos # (Auto) 0.1, Baso # (Auto) 0.0 11/18/17 15:45: Sodium 138, Potassium 5.0, Chloride 104, Carbon Dioxide 24, Anion Gap 10.3, BUN 26 H, Creatinine 1.36 H, Estimated Creat Clear 29, Estimated GFR 38 L, Est GFR ( Amer) 47 L, Glucose 340 H, Calcium 9.3, Total Bilirubin 0.8, AST 28, ALT 39, Alkaline Phosphatase 101, Total Creatine Kinase 148, CK-MB (CK-2) 3.3 D, CK-MB (CK-2) Rel Index 2.2, Troponin I 0.25 H, Total Protein 6.6, Albumin 3.1 L, Globulin 3.5 H, Albumin/Globulin Ratio 0.9 L 11/18/17 18:00: Troponin I 0.07 H 11/18/17 23:14: POC Glucose 301 H* 11/18/17 23:45: Troponin I 0.08 H 11/19/17 04:55: Sodium 143, Potassium 4.2, Chloride 108 H, Carbon Dioxide 25, Anion Gap 14.2, BUN 27 H, Creatinine 1.18 H, Estimated Creat Clear 33, Estimated GFR 45 L, Est GFR ( Amer) 55 L, Glucose 230 H D, Calcium 8.6, Total Bilirubin 0.7, AST 28, ALT 33, Alkaline Phosphatase 87, Total Protein 5.5 L, Albumin 2.6 L D, Globulin 2.9, Albumin/Globulin Ratio 0.9 L, Triglycerides 139, Cholesterol 120 L, LDL Cholesterol 39, VLDL Cholesterol 28, HDL Cholesterol 53, Cholesterol/HDL Ratio 2.3 11/19/17 04:55: WBC 3.2 L D, RBC 3.17 L, Hgb 10.2 L D, Hct 32.7 L, MCV 102.9 H, MCH 32.1 H, MCHC 31.2 L, RDW 16.7, Plt Count 119 L, MPV 8.0, Neut % (Auto) 48.0, Lymph % (Auto) 43.6, [place] % (Auto) 4.7, Eos % (Auto) 3.0, Baso % (Auto) 0.6, Neut # (Auto) 1.5 L, Lymph # (Auto) 1.4, [place] # (Auto) 0.2, Eos # (Auto) 0.1, Baso # (Auto) 0.0 11/19/17 06:37: POC Glucose 222 H I & O for Last 24 hours: Intake & Output 11/16/17 11/17/17 11/18/17 11/19/17 23:59 23:59 23:59 23:59 Intake Total 892 / 892 Balance 892 / 892 Weight 119.55 kg 120.259 kg - Constitutional no acute distress, morbidly obese - *Routine HEENT Exam Head: Present: normocephalic, atraumatic Eye: Present: EOMI, PERRL ENT: Present: mucous membranes moist - *Routine Neck Exam Present: supple, full ROM. Absent: JVD, lymphadenopathy - *Routine Respiratory Exam Present: CTA bilaterally. Absent: prolonged expiratory phase, rales, wheezes - *Routine Cardiovascular Exam Present: RRR, murmur - *Routine Abdominal Exam Present: soft, normoactive bowel sounds Comments: Protuberant - *Routine Rectal Exam Patient deferred: visual exam - *Routine Exam Patient deferred: external exam - *Routine Extremities Exam Absent: cyanosis, clubbing, edema - *Routine Skin Exam Present: intact. Absent: cyanosis, erythema - *Routine Neurological Exam Present: alert, oriented X3, CN II-XII intact. Absent: altered mental status Assessment and Plan (1) [id number] kidney injury Current visit: Yes Status: Acute Category: Medical Code(s): N17.9 - Acute kidney failure, unspecified; N18.9 - Chronic kidney disease, unspecified Patient has CKD 3 at baseline -AVEL present on admission suspect related to hypertensive emergency -Improvement on morning labs with improvement in blood pressure control -Repeat labs in the morning, avoid nephrotoxic's (2) CAD (coronary artery disease) Current visit: Yes Status: Chronic Qualifiers: Coronary Disease-Associated Artery/Lesion type: [place] artery [place] vs. transplanted heart: [place] heart Associated angina: with unstable angina Qualified Code(s): I25.110 - Atherosclerotic heart disease of [place] coronary artery with unstable angina pectoris Category: Medical Code(s): I25.10 - Atherosclerotic heart disease of [place] coronary artery without angina pectoris (3) Chest pain Current visit: Yes Status: Acute Category: Medical Code(s): R07.9 - Chest pain, unspecified Due to hypertensive emergency (4) NSTEMI (non-ST elevated myocardial infarction) Current visit: Yes Status: Acute Category: Medical Code(s): I21.4 - Non-ST elevation (NSTEMI) myocardial infarction Type II and NSTEMI likely due to hypertensive emergency -Troponins trended down -EKG with no ST elevations -Initiated nitroglycerin drip, wean as tolerated -Cardiology consult placed, appreciate recommendations (5) Atrial fibrillation, chronic Current visit: Yes Status: Chronic Category: Medical Code(s): I48.2 - Chronic atrial fibrillation Continue Xarelto as ordered -Continue home rate control regimen (6) Type 2 diabetes mellitus treated with insulin Current visit: No Status: Chronic Category: Medical Code(s): E11.9 - Type 2 diabetes mellitus without complications; Z79.4 - termite control servicer (current) use of insulin Long-standing poorly controlled -Complications of microvascular disease present -Continue insulin as ordered -Fingerstick glucose before meals and at bedtime (7) Class 3 obesity due to excess calories with body mass index (BMI) of 50.0 to 59.9 in adult Current visit: Yes Status: Acute Category: Medical Code(s): E66.09 - Other obesity due to excess calories; Z68.43 - Body mass index (BMI) 50-59.9 , adult Complicates all aspects of care (8) Hypertensive emergency Current visit: Yes Status: Acute Category: Medical Code(s): I16.1 - Hypertensive emergency In setting of CHF -Initiated nitroglycerin drip overnight -Cardiology contacted while patient was in the emergency room -Increased patient's Entresto and wean nitroglycerin drip
--- NOTE | 2017-11-19 12:57 | Pharmacy Consult Notes ---
[facility] Pharmacy VTE Monitoring - Patient Demographics Admission date: 11/18/17 Report Date: 11/19/17 Time: 12:57 Allergies/Adverse Reactions: Patient Allergies codeine [CODEINE] Allergy (Intermediate, Verified 10/24/17 08:38) I-RASH Height: 1.55 m Weight: 120.259 kg Patient Problems: Current Active Problems Chest pain (Acute) CAD (coronary artery disease) (Chronic) NSTEMI (non-ST elevated myocardial infarction) (Acute) Hypertensive urgency (Acute) [id number] kidney injury (Acute) Class 3 obesity due to excess calories with body mass index (BMI) of 50.0 to 59.9 in adult (Acute) Hypertensive emergency (Acute) Obesity (Acute) Atrial fibrillation, chronic (Chronic) Hypertension (Chronic) - VTE Risk Labs: VTE Related Lab Results Hgb 10.2 g/dL (12.2-16.2) L D 11/19/17 04:55 Hct 32.7 % (37.0-47.0) L 11/19/17 04:55 Plt Count 119 K/mm3 (142-424) L 11/19/17 04:55 BUN 27 mg/dL (7-18) H 11/19/17 04:55 Creatinine 1.18 mg/dL (0.55-1.02) H 11/19/17 04:55 Estimated Creat Clear 33 mL/min (0-300) 11/19/17 04:55 - Prophylaxis VTE Prophylaxis Ordered?: Yes Types of VTE Prophylaxis: Pharmacological Pharmacologic Type: Other (XARELTO)
[2017-11-20 05:37] LABS: Basophils % 0.5 % (0.1-2.0); Eosinophils # 0.1 K/mm3 (0.0-0.4); Eosinophils % 3.5 % (0.1-12.0); Hematocrit 32.6 % (37.0-47.0); Hemoglobin 9.9 g/dL (12.2-16.2); Lymphocytes # 1.2 K/mm3 (0.7-4.5); Lymphocytes % 34.6 K/mm3 (10-50); Mean Corpuscular HGB Conc 30.3 g/dL (31.8-35.4); Mean Corpuscular Hemoglobin 32.4 pg (27.0-31.2); Mean Corpuscular Volume 106.9 fl (81-99); Mean Platelet Volume 7.8 fl (7.4-10.4); Monocytes # 0.2 K/mm3 (0.1-1.0); Monocytes % 4.8 % (1.7-9.3); Neutrophils # 1.9 K/mm3 (1.8-7.8); Neutrophils % 56.7 % (37.0-80.0); Platelet Count 123 K/mm3 (142-424); Red Blood Count 3.05 M/mm3 (4.20-5.40); Red Cell Distribution Width 16.7 % (11.5-17.5); White Blood Count 3.4 K/mm3 (4.8-10.8)
[2017-11-20 05:48] LABS: Albumin Level 2.5 gm/dL (3.4-5.0); Albumin/Globulin Ratio 0.9 (1.1-1.8); Anion Gap 13.5 mEq/L (5-15); Bilirubin,Total 0.6 mg/dL (0.2-1.0); Calcium 8.3 mg/dL (8.5-10.1); Globulin 2.9 gm/dl (1.3-3.2); Potassium 4.5 mmoL/L (3.5-5.1); Total Protein,Serum 5.4 gm/dL (6.4-8.2)
--- NOTE | 2017-11-20 07:59 | Consult Report ---
History of Present Illness Consult date: 11/20/17 Requesting physician: Ramos Snow Consult reason: chest pain Chief complaint: chest pain, SOA Additional Medical History:: 1. Coronary artery disease A. History of non-STEMI with subsequent drug-eluting stenting of the circumflex and left anterior descending arteries, 08/2015. B. Abnormal lexiscan myoview, 10/2017, with anterolateral ischemia. EF 56%. 2. Atrial fibrillation, chronic A. Xarelto therapy 3. Recurrent anemia A. History of bone marrow biopsy with no evidence of cancer, per patient B. Followed by Dr. Montejo C. History of IV iron therapy and intermittent blood transfusions 4. Diabetes mellitus, treated for >20 yrs 5. History of peripheral arterial disease A. Carotid U/S, 06/2017, 50-69% LICA, 20-49% LYNSEY. Stable compared with 04/2017 study. 6. Hypertension 7. Chronic obstructive pulmonary disease 8. Hyperlipidemia History of present illness: Ms. Mcmahon is a 72-year-old female with difficult to control hypertension, coronary artery disease (s/p 7 stents), A. fib on Xarelto, diabetes, chronic kidney disease, and hyperlipidemia who presented to the emergency room with chest pain and headache for 2 hours. She described feeling diaphoretic and a little dizzy with a squeezing sensation intermittently in her chest. She was found to have hypertensive emergency with elevated troponins. Cardiology was co ntacted who initiated a nitroglycerin drip. She was admitted to medicine for further management. Additional cardiac history: Pt reports she had a stress test done Monday of this week and is scheduled to have a heart cath Monday of next week. Was recently started on Entresto for her hypertension and heart failure. 10 days ago was increased from 24/26 dosage to the 49/51 dose. She reports that she has been taking the 24/26 dose twice a day with no further episode of hypotension Ms. Mcmahon denies any emesis, diarrhea, fevers, syncope, confusion, changes in vision. She did have some mild nausea associated with her chest discomfort and diaphoresis. Additionally her legs have felt more heavy and she has had some intermittent back pain with radiation down her left leg. The above per Dr. Snow. [facility] History Medical History: Reports:: Atrial Fibrillation, Chronic Obstructive Pulmonary Disease (COPD), Coronary Artery Disease, Diabetes Mellitus Type 2, Hyperlipidemia, Hypertension, Peripheral Artery Disease Denies:: Cancer, MRSA Other Medical History: Reports: Anemia, Arthritis, Hypothyroidism, Thyroid Disease Other Surgeries: Yes: Appendectomy, Cardiac Catheterization, Cholecystectomy, EGD, Hysterectomy-Total Amputation: No Fractures: No - *Social History Smoking Status: Never smoker Alcohol Intake: never Alcohol Intake Frequency:: other Substance Use Type: denies use Occupational Status: retired Housing: house Household Members: spouse - Psychiatric History Expresses thoughts of harming self/others: None Suicide Plan Description: No Plan *Family Hx:: Cancer, Coronary Artery Disease, Diabetes, Heart Attack, Hyperlipidemia, Hypertension, Kidney Disease Meds Home Medications Medication Instructions Recorded Confirmed Type bimatoprost 0.03 % drops with 1 applic TOPICAL HS 02/20/17 11/19/17 History applicator, eyelash base budesonide-formoterol HFA 160 2 puff INHALATION BID 02/20/17 11/19/17 History mcg-4.5 mcg/actuation aerosol inhaler cholecalciferol (vitamin D3) 1,000 1,000 unit PO DAILY 02/20/17 11/18/17 History unit capsule clopidogrel 75 mg tablet 75 mg PO DAILY 02/20/17 11/18/17 History cyanocobalamin (vit B-12) 1,000 1,000 mcg IM MONTHLY 02/20/17 11/19/17 History mcg/mL injection solution insulin glargine (U-100) 100 30 unit SUB-Q HS 02/20/17 11/19/17 History unit/mL (3 mL) subcutaneous pen nitroglycerin 0.4 mg sublingual 0.4 mg SUBLINGUAL Q5M PRN 02/20/17 11/18/17 History tablet pyridoxine (vitamin B6) 50 mg 50 mg PO DAILY 02/20/17 11/18/17 History capsule Sitagliptin Phosphate [Januvia 100 each PO DAILY 03/22/17 11/18/17 History 100mg tablet] levothyroxine 100 mcg capsule 100 mcg PO DAILY cap 07/04/17 11/18/17 History Docusate Sodium 100 mg PO HS 10/30/17 11/19/17 History Atorvastatin Calcium [Atorvastatin 40 mg PO HS 10/31/17 11/18/17 History 40mg Tab] Digoxin [Digoxin 0.125mg Tablet] 125 mcg PO DAILY 11/03/17 11/18/17 History Sacubitril/Valsartan [Entresto 24 1 each PO BID 11/03/17 11/18/17 History mg-26 mg Tablet] Hydrocod/Acet 5/325 mg [[place] 1 tab PO TID PRN 11/18/17 11/18/17 History 5/325mg tablet] Allergies Allergy/AdvReac Type Severity Reaction Status Date / Time codeine [CODEINE] Allergy Intermediate I-RASH Verified 10/24/17 08:38 Review of Systems - *Cardiovascular Reports chest pain, Reports shortness of breath with activity - *Respiratory Reports shortness of breath with activity - *Gastrointestinal Denies abdominal pain, Denies loose stools - *Genitourinary Denies blood in urine - *Musculoskeletal Denies back pain - *Neurologic Reports dizziness Exam Vital signs and Labs for Last 24 Hours: Temp Pulse Resp BP Pulse Ox 98.1 F 58 L 18 147/41 H 94 L 11/19/17 19:30 11/20/17 06:28 11/20/17 03:28 11/20/17 06:28 11/20/17 06:28 Laboratory Results - last 24 hr 11/19/17 11:06: POC Glucose 244 H 11/19/17 17:13: POC Glucose 268 H 11/19/17 20:43: POC Glucose 324 H* 11/20/17 05:11: WBC 3.4 L, RBC 3.05 L, Hgb 9.9 L, Hct 32.6 L, MCV 106.9 H, MCH 32.4 H, MCHC 30.3 L, RDW 16.7, Plt Count 123 L, MPV 7.8, Neut % (Auto) 56.7, Lymph % (Auto) 34.6, [place] % (Auto) 4.8, Eos % (Auto) 3.5, Baso % (Auto) 0.5, Neut # (Auto) 1.9, Lymph # (Auto) 1.2, [place] # (Auto) 0.2, Eos # (Auto) 0.1, Baso # (Auto) 0.0 11/20/17 05:11: Sodium 144, Potassium 4.5, Chloride 110 H, Carbon Dioxide 25, Anion Gap 13.5, BUN 25 H, Creatinine 1.12 H, Estimated Creat Clear 35, Estimated GFR 48 L, Est GFR ( Amer) 58 L, Glucose 212 H, Calcium 8.3 L, Magnesium 1.2 L, Total Bilirubin 0.6, AST 20 D, ALT 32, Alkaline Phosphatase 85, Total Protein 5.4 L, Albumin 2.5 L, Globulin 2.9, Albumin/Globulin Ratio 0.9 L 11/20/17 05:19: POC Glucose 217 H I & O for Last 24 hours: Intake & Output 11/17/17 11/18/17 11/19/17 11/20/17 11:59 11:59 11:59 11:59 Intake Total 892 / 892 1813 / 1813 Output Total 250 / 250 Balance 892 / 892 1563 / 1563 Weight 265 lb 2 oz 269 lb 2 oz - *Routine Neck Exam Present: supple. Absent: JVD, carotid bruit - *Routine Respiratory Exam Present: CTA bilaterally. Absent: accessory muscle use, rales, rhonchi, wheezes - *Routine Cardiovascular Exam Present: murmur, irregularly irregular. Absent: gallop, rubs - *Routine Abdominal Exam Present: soft. Absent: tenderness, distended, guarding - *Routine Extremities Exam Absent: edema, calf tenderness - *Routine Neurological Exam Present: alert, oriented X3, moving all extremities Assessment and Plan (1) Bqnwq-pj-nweospu kidney injury Current visit: Yes Status: Acute Category: Medical Code(s): N17.9 - Acute kidney failure, unspecified; N18.9 - Chronic kidney disease, unspecified (2) CAD (coronary artery disease) Current visit: Yes Status: Chronic Qualifiers: Coronary Disease-Associated Artery/Lesion type: [place] artery [place] vs. transplanted heart: [place] heart Associated angina: with unstable angina Qualified Code(s): I25.110 - Atherosclerotic heart disease of [place] coronary artery with unstable angina pectoris Category: Medical Code(s): I25.10 - Atherosclerotic heart disease of [place] coronary artery without angina pectoris (3) Chest pain Current visit: Yes Status: Acute Category: Medical Code(s): R07.9 - Chest pain, unspecified (4) NSTEMI (non-ST elevated myocardial infarction) Current visit: Yes Status: Acute Category: Medical Code(s): I21.4 - Non-ST elevation (NSTEMI) myocardial infarction (5) Atrial fibrillation, chronic Current visit: Yes Status: Chronic Category: Medical Code(s): I48.2 - Chronic atrial fibrillation (6) Type 2 diabetes mellitus treated with insulin Current visit: No Status: Chronic Category: Medical Code(s): E11.9 - Type 2 diabetes mellitus without complications; 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 Proceed with C today in setting of abnormal stress test with chest pain and elevated troponins consistent with NSTEMI related to elevated BP. 2. Will also obtain renal angiogram due to labile BP. 3. Further recommendations to follow.
--- NOTE | 2017-11-20 08:35 | Progress Note ---
Internal Medicine - PN: Subj *Date: 11/20/17 *Time: 08:34 Interval history: Patient did well through the night. Is comfortable, has no shortness of air or chest pain. Blood pressures have been well controlled. Is minimally bradycardic in the mid 50s. Exam Vital signs and Labs for Last 24 Hours: Temp Pulse Resp BP Pulse Ox 98.1 F 73 18 147/41 H 94 L 11/19/17 19:30 11/20/17 08:21 11/20/17 03:28 11/20/17 06:28 11/20/17 06:28 Laboratory Results - last 24 hr 11/19/17 11:06: POC Glucose 244 H 11/19/17 17:13: POC Glucose 268 H 11/19/17 20:43: POC Glucose 324 H* 11/20/17 05:11: WBC 3.4 L, RBC 3.05 L, Hgb 9.9 L, Hct 32.6 L, MCV 106.9 H, MCH 32.4 H, MCHC 30.3 L, RDW 16.7, Plt Count 123 L, MPV 7.8, Neut % (Auto) 56.7, Lymph % (Auto) 34.6, [place] % (Auto) 4.8, Eos % (Auto) 3.5, Baso % (Auto) 0.5, Neut # (Auto) 1.9, Lymph # (Auto) 1.2, [place] # (Auto) 0.2, Eos # (Auto) 0.1, Baso # (Auto) 0.0 11/20/17 05:11: Sodium 144, Potassium 4.5, Chloride 110 H, Carbon Dioxide 25, Anion Gap 13.5, BUN 25 H, Creatinine 1.12 H, Estimated Creat Clear 35, Estimated GFR 48 L, Est GFR ( Amer) 58 L, Glucose 212 H, Calcium 8.3 L, Magnesium 1.2 L, Total Bilirubin 0.6, AST 20 D, ALT 32, Alkaline Phosphatase 85, Total Protein 5.4 L, Albumin 2.5 L, Globulin 2.9, Albumin/Globulin Ratio 0.9 L 11/20/17 05:19: POC Glucose 217 H I & O for Last 24 hours: Intake & Output 11/17/17 11/18/17 11/19/17 11/20/17 11:59 11:59 11:59 11:59 Intake Total 892 / 892 2052 Output Total 250 / 250 Balance 892 / 892 180 / 180 Weight 265 lb 2 oz 269 lb 2 oz Narrative: Oropharynx is clear. No JVD but her morbid obesity with BMI of 50 makes this exam difficult. Anterior lung holt are clear, heart rate bradycardic but regular. No peripheral edema. Abdomen soft and nontender Assessment and Plan (1) Vaazy-fh-dkxsvhp kidney injury Current visit: Yes Status: Acute Category: Medical Code(s): N17.9 - Acute kidney failure, unspecified; N18.9 - Chronic kidney disease, unspecified (2) CAD (coronary artery disease) Current visit: Yes Status: Chronic Qualifiers: Coronary Disease-Associated Artery/Lesion type: [place] artery [place] vs. transplanted heart: [place] heart Associated angina: with unstable angina Qualified Code(s): I25.110 - Atherosclerotic heart disease of [place] coronary artery with unstable angina pectoris Category: Medical Code(s): I25.10 - Atherosclerotic heart disease of [place] coronary artery without angina pectoris (3) Chest pain Current visit: Yes Status: Acute Category: Medical Code(s): R07.9 - Chest pain, unspecified (4) NSTEMI (non-ST elevated myocardial infarction) Current visit: Yes Status: Acute Category: Medical Code(s): I21.4 - Non-ST elevation (NSTEMI) myocardial infarction (5) Atrial fibrillation, chronic Current visit: Yes Status: Chronic Category: Medical Code(s): I48.2 - Chronic atrial fibrillation (6) Type 2 diabetes mellitus treated with insulin Current visit: No Status: Chronic Category: Medical Code(s): E11.9 - Type 2 diabetes mellitus without complications; Z79.4 - rn long term care (current) use of insulin (7) Class 3 obesity due to excess calories with body mass index (BMI) of 50.0 to 59.9 in adult Current visit: Yes Status: Acute Category: Medical Code(s): E66.09 - Other obesity due to excess calories; Z68.43 - Body mass index (BMI) 50-59.9 , adult (8) Hypertensive emergency Current visit: Yes Status: Acute Category: Medical Code(s): I16.1 - Hypertensive emergency - Assessment and plan all Dx Assessment and Plan for all problems:: Stable overnight. Agree with left heart cath. Follow-up after procedure.
--- NOTE | 2017-11-20 14:24 | Discharge Summary ---
General - General Admission date:: 11/18/17 Discharge date: 11/20/17 HPI HPI: Ms. Mcmahon is a 72-year-old female with difficult to control hypertension, coronary artery disease (s/p 7 stents), A. fib on Xarelto, diabetes, chronic kidney disease, and hyperlipidemia who presented to the emergency room with chest pain and headache for 2 hours. She described feeling diaphoretic and a little dizzy with a squeezing sensation intermittently in her chest. She was found to have hypertensive emergency with elevated troponins. Cardiology was contacted who initiated a glycerin drip. She was admitted to medicine for further management. Additional cardiac history: Pt reports she had a stress test done Monday of this week and is scheduled to have a heart cath Monday of next week. Was recently started on Entresto for her hypertension and heart failure. 10 days ago was increased from 24/26 dosage to the 49/51 dose. She reports that she has been taking the 24/26 dose twice a day with no further episode of hypotension Ms. Mcmahon denies any emesis, diarrhea, fevers, syncope, confusion, changes in vision. She did have some mild nausea associated with her chest discomfort and diaphoresis. Additionally her legs have felt more heavy and she has had some intermittent back pain with radiation down her left leg. Hospital Course Hospital Course: Patient was admitted to hospital, enzymes were unremarkable, blood pressure was controlled with nitroglycerin drip. Patient was taken for left heart catheterization which showed the results noted below from cardiology: ANGIOGRAPHIC RESULTS: 1. The left main artery normal 2. The left anterior descending artery has an ostial 70% stenosis followed by an additional mid vessel 30% stenoses 3. The circumflex artery is dominant and has an ostial 60-70% stenosis 4. The right coronary artery is nondominant and has an ostial 70-80% stenosis 5. The MCLAIN ventriculogram reveals hyperdynamic estimated at 75-80% 6. The left ventricular end-diastolic pressure 30 to 35 mmHg 7. Left renal artery singular and has an ostial proximal 30% stenosis 8. Right renal artery singular and has an ostial 80% stenosis IMPRESSION: 1. Severe coronary artery disease as described above 2. Dynamic left ventricle consistent with hypertensive heart disease 3. Elevated LVEDP consistent with hypertensive heart disease 4. Mild nonflow limiting left renal artery stenosis 5. Severe left renal artery stenosis PLAN: 1. I recommend coronary artery bypass surgery 2. For the time being recommend medical management for renal artery stenosis. Consideration will be given to stent the right renal artery after patient has recovered from bypass surgery providing her hypertension continues to fluctuate 3. Patient would benefit from diuretics and better blood pressure control As a result of markedly abnormal cardiac catheterization patient will be transferred to [facility] for evaluation for CABG. Objective Vital signs: Temp Pulse Resp BP Pulse Ox 97.0 F L 57 L 20 141/49 H 97 11/20/17 13:30 11/20/17 14:00 11/20/17 14:00 11/20/17 14:00 11/20/17 14:00 Narrative: See notes from this morning regarding her physical exam for today. Results Labs on day of discharge: Labs from last 24 hours 11/20/17 11/20/17 11/20/17 05:19 05:11 05:11 WBC 3.4 L RBC 3.05 L Hgb 9.9 L Hct 32.6 L MCV 106.9 H MCH 32.4 H MCHC 30.3 L RDW 16.7 Plt Count 123 L MPV 7.8 Neut % (Auto) 56.7 Lymph % (Auto) 34.6 [place] % (Auto) 4.8 Eos % (Auto) 3.5 Baso % (Auto) 0.5 Neut # (Auto) 1.9 Lymph # (Auto) 1.2 [place] # (Auto) 0.2 Eos # (Auto) 0.1 Baso # (Auto) 0.0 Sodium 144 Potassium 4.5 Chloride 110 H Carbon Dioxide 25 Anion Gap 13.5 BUN 25 H Creatinine 1.12 H Estimated Creat Clear 35 Estimated GFR 48 L Est GFR ( Amer) 58 L Glucose 212 H POC Glucose 217 H Calcium 8.3 L Magnesium 1.2 L Total Bilirubin 0.6 AST 20 D ALT 32 Alkaline Phosphatase 85 Total Protein 5.4 L Albumin 2.5 L Globulin 2.9 Albumin/Globulin Ratio 0.9 L 11/19/17 11/19/17 20:43 17:13 WBC RBC Hgb Hct MCV MCH MCHC RDW Plt Count MPV Neut % (Auto) Lymph % (Auto) [place] % (Auto) Eos % (Auto) Baso % (Auto) Neut # (Auto) Lymph # (Auto) [place] # (Auto) Eos # (Auto) Baso # (Auto) Sodium Potassium Chloride Carbon Dioxide Anion Gap BUN Creatinine Estimated Creat Clear Estimated GFR Est GFR ( Amer) Glucose POC Glucose 324 H* 268 H Calcium Magnesium Total Bilirubin AST ALT Alkaline Phosphatase Total Protein Albumin Globulin Albumin/Globulin Ratio DS: Diagnosis - Discharge Diagnosis (1) Dfbbb-rl-bnonplr kidney injury Status: Acute (2) CAD (coronary artery disease) Status: Chronic (3) Chest pain Status: Acute (4) NSTEMI (non-ST elevated myocardial infarction) Status: Acute (5) Atrial fibrillation, chronic Status: Chronic (6) Type 2 diabetes mellitus treated with insulin Status: Chronic (7) Class 3 obesity due to excess calories with body mass index (BMI) of 50.0 to 59.9 in adult Status: Acute (8) Hypertensive emergency Status: Acute Discharge Plan - Patient Discharge Instructions ACTIVITY: Continue current activity DIET: continue same diet Patient Instructions: Overweight in Adults, Heart Attack, Coronary Artery Disease, Atrial Fibrillation, Cardiac Catheterization, High Blood Pressure, Acute Renal Failure, DI for Chest Pain, Surgical Site Infection - Follow up Plan Follow up with: Filiberto Singleton [Referring] - Disposition: Xfer Short-Term Hosp Home Medications: Home Medications Medication Instructions Recorded Confirmed Type bimatoprost 0.03 % drops with 1 applic TOPICAL HS 02/20/17 11/19/17 History applicator, eyelash base budesonide-formoterol HFA 160 2 puff INHALATION BID 02/20/17 11/19/17 History mcg-4.5 mcg/actuation aerosol inhaler cholecalciferol (vitamin D3) 1,000 1,000 unit PO DAILY 02/20/17 11/18/17 History unit capsule clopidogrel 75 mg tablet 75 mg PO DAILY 02/20/17 11/18/17 History cyanocobalamin (vit B-12) 1,000 1,000 mcg IM MONTHLY 02/20/17 11/19/17 History mcg/mL injection solution insulin glargine (U-100) 100 30 unit SUB-Q HS 02/20/17 11/19/17 History unit/mL (3 mL) subcutaneous pen nitroglycerin 0.4 mg sublingual 0.4 mg SUBLINGUAL Q5M PRN 02/20/17 11/18/17 History tablet pyridoxine (vitamin B6) 50 mg 50 mg PO DAILY 02/20/17 11/18/17 History capsule Sitagliptin Phosphate [Januvia 100 each PO DAILY 03/22/17 11/18/17 History 100mg tablet] levothyroxine 100 mcg capsule 100 mcg PO DAILY cap 07/04/17 11/18/17 History Docusate Sodium 100 mg PO HS 10/30/17 11/19/17 History Atorvastatin Calcium [Atorvastatin 40 mg PO HS 10/31/17 11/18/17 History 40mg Tab] Digoxin [Digoxin 0.125mg Tablet] 125 mcg PO DAILY 11/03/17 11/18/17 History Sacubitril/Valsartan [Entresto 24 1 each PO BID 11/03/17 11/18/17 History mg-26 mg Tablet] Hydrocod/Acet 5/325 mg [[place] 1 tab PO TID PRN 11/18/17 11/18/17 History 5/325mg tablet] Prescriptions/Medication Reconciliation: Continue clopidogrel 75 mg tablet 75 mg PO DAILY cyanocobalamin (vit B-12) 1,000 mcg/mL injection solution 1,000 mcg IM MONTHLY insulin glargine (U-100) 100 unit/mL (3 mL) subcutaneous pen 30 unit SUB-Q HS bimatoprost 0.03 % drops with applicator, eyelash base 1 applic TOPICAL HS nitroglycerin 0.4 mg sublingual tablet 0.4 mg SUBLINGUAL Q5M PRN PRN Reason: Chest Pain pyridoxine (vitamin B6) 50 mg capsule 50 mg PO DAILY budesonide-formoterol HFA 160 mcg-4.5 mcg/actuation aerosol inhaler 2 puff INHALATION BID cholecalciferol (vitamin D3) 1,000 unit capsule 1,000 unit PO DAILY rivaroxaban 15 mg tablet 15 mg PO DAILY #30 tab levothyroxine 100 mcg capsule 100 mcg PO DAILY cap Sitagliptin Phosphate [Januvia 100mg tablet] 100 each PO DAILY Docusate Sodium 100 mg PO HS Sacubitril/Valsartan [Entresto 24 mg-26 mg Tablet] 1 each PO BID Atorvastatin Calcium [Atorvastatin 40mg Tab] 40 mg PO HS Digoxin [Digoxin 0.125mg Tablet] 125 mcg PO DAILY Carvedilol [Carvedilol 25mg Tab] 12.5 mg PO BID #60 tab Hydrocod/Acet 5/325 mg [[place] 5/325mg tablet] 1 tab PO TID PRN PRN Reason: leg pain
== END 2017-11-21 00:15 | disposition short-term general hospital (02) ==
LOC: ER 14:27 → 2ND 17:11
PROVIDERS: ADMIT Internal Medicine Adolescent Medicine; ATTEND Internal Medicine Adolescent Medicine

== ENCOUNTER → 2018-02-02 12:07 | Outpatient (CLI) | payer MEDICARE, SELFPAY ==
[2018-02-02 13:17] LABS: Basophils % 0.4 % (0.1-2.0); Eosinophils # 0.2 K/mm3 (0.0-0.4); Eosinophils % 3.5 % (0.1-12.0); Lymphocytes # 2.6 K/mm3 (0.7-4.5); Lymphocytes % 44.8 % (10-50); Mean Corpuscular HGB Conc 31.8 g/dL (31.8-35.4); Mean Corpuscular Hemoglobin 34.3 pg (27.0-31.2); Mean Corpuscular Volume 108.1 fl (81-99); Monocytes # 0.2 K/mm3 (0.1-1.0); Monocytes % 3.4 % (1.7-9.3); Neutrophils # 2.8 K/mm3 (1.8-7.8); Neutrophils % 47.9 % (37.0-80.0); Platelet Count 119 K/mm3 (142-424); Red Blood Count 2.07 M/mm3 (4.20-5.40); Red Cell Distribution Width 22.4 % (11.5-17.5); White Blood Count 5.9 K/mm3 (4.8-10.8)
[2018-02-02 13:24] LABS: Anion Gap 15.6 mEq/L (5-15); Blood Urea Nitrogen 19 mg/dL (7-18); Calcium 9.1 mg/dL (8.5-10.1); Carbon Dioxide 26 mmol/L (21.0-32.0); Chloride 102 mmol/L (98-107); Creatinine,Serum 1.25 mg/dL (0.55-1.02); Estimated Glomerular Filt Rate 42 ml/min (>60); GFR (African American) 51 ML/MIN (>60); Glucose 230 mg/dL (74-106); Potassium 4.6 mmoL/L (3.5-5.1); Sodium 139 mmol/L (136-145)
[2018-02-02 14:44] LABS: Hematocrit 22.4 % (37.0-47.0); Hemoglobin 7.1 g/dL (12.2-16.2)
== END ==
PROVIDERS: Internal Medicine Cardiovascular Disease; PCP Internal Medicine Adolescent Medicine; Visit Provider Internal Medicine
DX: E11.69 Type 2 diabetes mellitus with other specified complication (principal); E66.9 Obesity, unspecified; I10 Essential (primary) hypertension; I25.10 Atherosclerotic heart disease of native coronary artery without angina pectoris; I48.2 Chronic atrial fibrillation; Z95.1 Presence of aortocoronary bypass graft
CPT/HCPCS: 36415; 80048; 85025

== ENCOUNTER → 2018-02-03 07:33 | Outpatient (CLI) | payer MEDICARE, SELFPAY ==
[2018-02-03] VITALS (11 sets, daily range): BP systolic 111–170; BP diastolic 48–89; PULSE 63–110; RESP 16–20; TEMP 36.6–37.3; O2SAT 93–100; BMI 29.0
--- NOTE | 2018-02-03 11:56 | PC.NURSE ---
LATE ENTRY .11:00 CARE ROUNDING. PT RESTING IN BED. PT VOICED NO NEEDS AT THIS TIME.
--- NOTE | 2018-02-03 13:15 | PC.NURSE ---
PT WAS ASSISTED TO BATHROOM.
--- NOTE | 2018-02-03 13:52 | PC.NURSE ---
LATE ENTRY SHENG IN LAB CALLED TO LET ME KNOW PATIENT BLOOD HAS AN ANTIBODY AND WILL NEED TO BE SENT OUT. NOTIFIED DR WALSH AND PATIENT. PATIENT STATES SHE DOESNT WANT TO LEAVE AND COME BACK. PER DR WALSH PATIENT CAN STAY HERE UNTIL BLOOD ARRIVES AND SHE WILL MAINTAIN HER OUTPATIENT STATUS
--- NOTE | 2018-02-03 17:25 | PC.NURSE ---
PT WAS SITITNG UP IN CHAIR. NO NEEDS AT THIS TIME VOICED.
[2018-02-04] VITALS (15 sets, daily range): BP systolic 147–180; BP diastolic 61–89; PULSE 102–115; RESP 16–20; TEMP 36.3–37.2; O2SAT 95–100
[2018-02-04 07:24] LABS: Hematocrit 28.9 % (37.0-47.0); Hemoglobin 9.2 g/dL (12.2-16.2)
--- NOTE | 2018-02-04 07:51 | PC.NURSE ---
Pt. received 2 units of blood this shift. Pt. tolerated well. Pt. was noted to have slight crackles on the left side which pt. stated she already takes Lasix at home. Pt. discharged by am shift after post H and H was finished.
--- NOTE | 2018-02-04 08:35 | PC.NURSE ---
Late entry: 01:30 Pt. resting well during transfusion with no complaints at this time.
== END ==
LOC: OUTP 07:35 → INF 08:13
PROVIDERS: PCP Internal Medicine Adolescent Medicine; Visit Provider Internal Medicine Adolescent Medicine
DX: D64.9 Anemia, unspecified (principal)
CPT/HCPCS: 36415; 36430; 85014; 85018; 86850; P9016

== ENCOUNTER → 2018-02-07 13:37 | Outpatient (CLI) | payer MEDICARE, SELFPAY | PROVIDERS: PCP Internal Medicine Adolescent Medicine; Visit Provider Internal Medicine Cardiovascular Disease | DX: I25.110 Atherosclerotic heart disease of native coronary artery with unstable angina pectoris (principal) | CPT/HCPCS: 93306 ==

== ENCOUNTER → 2018-02-15 12:43 | Outpatient (CLI) | payer MEDICARE, SELFPAY ==
[2018-02-15 13:49] LABS: Basophils % 0.3 % (0.1-2.0); Eosinophils # 0.1 K/mm3 (0.0-0.4); Eosinophils % 2.3 % (0.1-12.0); Hemoglobin 9.9 g/dL (12.2-16.2); Lymphocytes # 2.1 K/mm3 (0.7-4.5); Lymphocytes % 34.4 % (10-50); Mean Corpuscular HGB Conc 30.9 g/dL (31.8-35.4); Mean Corpuscular Hemoglobin 32.6 pg (27.0-31.2); Mean Corpuscular Volume 105.7 fl (81-99); Mean Platelet Volume 7.9 fl (7.4-10.4); Monocytes # 0.2 K/mm3 (0.1-1.0); Monocytes % 3.5 % (1.7-9.3); Neutrophils # 3.7 K/mm3 (1.8-7.8); Neutrophils % 59.4 % (37.0-80.0); Platelet Count 166 K/mm3 (142-424); Red Blood Count 3.03 M/mm3 (4.20-5.40); Red Cell Distribution Width 21.4 % (11.5-17.5); White Blood Count 6.2 K/mm3 (4.8-10.8)
[2018-02-15 14:36] LABS: Ferritin 458 ng/mL (8-388)
[2018-02-16 08:19] LABS: Iron 53 ug/dL (27-139); UIBC 236 ug/dL (118-369)
[2018-02-17 10:56] LABS: Iron Saturation 18 % (15-55)
== END ==
PROVIDERS: Visit Provider Internal Medicine Medical Oncology
DX: D64.9 Anemia, unspecified (principal)
CPT/HCPCS: 36415; 82728; 83540; 83550; 85025

== ENCOUNTER → 2018-03-26 09:23 | Outpatient (CLI) | payer MEDICARE, SELFPAY ==
[2018-03-26 13:44] LABS: Basophils % 0.4 % (0.1-2.0); Eosinophils # 0.2 K/mm3 (0.0-0.4); Eosinophils % 4.2 % (0.1-12.0); Hematocrit 31.9 % (37.0-47.0); Hemoglobin 10.2 g/dL (12.2-16.2); Lymphocytes # 1.8 K/mm3 (0.7-4.5); Lymphocytes % 36.8 % (10-50); Mean Corpuscular HGB Conc 32.1 g/dL (31.8-35.4); Mean Corpuscular Hemoglobin 33.6 pg (27.0-31.2); Mean Corpuscular Volume 104.8 fl (81-99); Monocytes # 0.2 K/mm3 (0.1-1.0); Monocytes % 3.4 % (1.7-9.3); Neutrophils # 2.7 K/mm3 (1.8-7.8); Neutrophils % 55.3 % (37.0-80.0); Platelet Count 129 K/mm3 (142-424); Red Blood Count 3.04 M/mm3 (4.20-5.40); Red Cell Distribution Width 17.9 % (11.5-17.5); Reticulocyte % (Auto) 2.5 % (0.9-3.2); White Blood Count 4.8 K/mm3 (4.8-10.8)
== END ==
PROVIDERS: PCP Internal Medicine Adolescent Medicine; Visit Provider Nurse Practitioner
DX: R53.83 Other fatigue; D46.9 Myelodysplastic syndrome, unspecified
CPT/HCPCS: 36415; 85025; 85044

== ENCOUNTER 2018-04-25 07:19 | Inpatient (IN) ==
[2018-04-25 08:01] LABS: Basophils % 0.1 % (0.1-2.0); Eosinophils % 0.3 % (0.1-12.0); Hematocrit 30.9 % (37.0-47.0); Hemoglobin 9.9 g/dL (12.2-16.2); Lymphocytes # 1.6 K/mm3 (0.7-4.5); Lymphocytes % 13.7 % (10-50); Mean Corpuscular HGB Conc 31.9 g/dL (31.8-35.4); Mean Corpuscular Hemoglobin 32.3 pg (27.0-31.2); Mean Corpuscular Volume 101.3 fl (81-99); Monocytes # 0.4 K/mm3 (0.1-1.0); Monocytes % 3.3 % (1.7-9.3); Neutrophils # 9.7 K/mm3 (1.8-7.8); Neutrophils % 82.5 % (37.0-80.0); Platelet Count 137 K/mm3 (142-424); Red Blood Count 3.05 M/mm3 (4.20-5.40); Red Cell Distribution Width 15.6 % (11.5-17.5); White Blood Count 11.8 K/mm3 (4.8-10.8)
--- NOTE | 2018-04-25 08:08 | Emergency Department Note ---
ED Disposition Clinical Impression: Rapid atrial fibrillation, Hyperthyroidism Bilateral pneumonia Qualifiers: Pneumonia type: due to unspecified organism Lung location: lower lobe of lung Qualified Code(s): J18.1 - Lobar pneumonia, unspecified organism Disposition: Admitted As Inpatient Condition on Discharge: Serious - Critical Care Critical Care Time: Yes Attestation: On 04/25/18, the high probability of a clinically significant, sudden or life threatening deterioration of the following system(s) required my full and direct attention, intervention and personal management. The time I documented below is in addition to time spent performing reported procedures but includes the following listed in this critical care notation. Total Critical Care Time: 40 Vital system(s) involved:: Circulatory Failure My critical care processes included: Assessment & monitoring of V/S, Initial and Re-exams, Data Review/Interpretation, Coordinating Care, Medication Orders and management, Documentation Medical Decision Making - [place] Inquiry Pt receiving controlled substance: No Vital Signs: 04/25/18 07:21 04/25/18 07:53 04/25/18 08:28 Temperature 98.9 F Temperature Source Oral Pulse Rate Pulse Rate [Right Radial] 80 144 H 130 H Respiratory Rate 22 Blood Pressure Blood Pressure [Left Arm] Blood Pressure [Right Arm] 137/103 H 134/59 L 135/67 Blood Pressure Mean [Left Arm] Blood Pressure Mean [Right Arm] 114 84 89 Blood Pressure Source Blood Pressure Source [Left Arm] Blood Pressure Source [Right Arm] Automatic Cuff Automatic Cuff Blood Pressure Position Blood Pressure Position [Left Arm] Blood Pressure Position [Right Arm] Sitting Sitting 02 Sat by Pulse Oximetry 95 92 L 95 Oxygen Delivery Method Room Air Room Air Room Air Oxygen Flow Rate (LPM) 04/25/18 09:16 04/25/18 09:30 04/25/18 09:38 Temperature Temperature Source Pulse Rate Pulse Rate [Right Radial] 118 H 113 H 115 H Respiratory Rate 18 Blood Pressure Blood Pressure [Left Arm] 143/62 H Blood Pressure [Right Arm] 119/84 143/62 H Blood Pressure Mean [Left Arm] 89 Blood Pressure Mean [Right Arm] 95 89 Blood Pressure Source Blood Pressure Source [Left Arm] Automatic Cuff Blood Pressure Source [Right Arm] Automatic Cuff Automatic Cuff Blood Pressure Position Blood Pressure Position [Left Arm] Supine Blood Pressure Position [Right Arm] Sitting Sitting 02 Sat by Pulse Oximetry 92 L 88 L 95 Oxygen Delivery Method Room Air Room Air Nasal Cannula Room Air Oxygen Flow Rate (LPM) 2 04/25/18 10:04 04/25/18 10:39 04/25/18 10:50 Temperature 100.1 F H Temperature Source Oral Pulse Rate 108 H Pulse Rate [Right Radial] 115 H 106 H Respiratory Rate 20 Blood Pressure 149/53 H Blood Pressure [Left Arm] 141/62 H 149/53 H Blood Pressure [Right Arm] Blood Pressure Mean [Left Arm] 88 85 Blood Pressure Mean [Right Arm] Blood Pressure Source Automatic Cuff Blood Pressure Source [Left Arm] Automatic Cuff Automatic Cuff Blood Pressure Source [Right Arm] Blood Pressure Position Sitting Blood Pressure Position [Left Arm] Sitting Sitting Blood Pressure Position [Right Arm] 02 Sat by Pulse Oximetry 97 98 Oxygen Delivery Method Nasal Cannula Nasal Cannula Nasal Cannula Oxygen Flow Rate (LPM) 2 2 2 - Lab Data Lab Results 04/25/18 07:35: WBC 11.8 H, RBC 3.05 L, Hgb 9.9 L, Hct 30.9 L, MCV 101.3 H, MCH 32.3 H, MCHC 31.9, RDW 15.6, Plt Count 137 L, MPV 8.0, Neut % (Auto) 82.5 H, Lymph % (Auto) 13.7, [place] % (Auto) 3.3, Eos % (Auto) 0.3, Baso % (Auto) 0.1, Neut # (Auto) 9.7 H, Lymph # (Auto) 1.6, [place] # (Auto) 0.4, Eos # (Auto) 0.0, Baso # (Auto) 0.0 04/25/18 07:35: Sodium 137, Potassium 4.5, Chloride 102, Carbon Dioxide 23, Anion Gap 16.5 H, BUN 26 H, Creatinine 1.03 H, Estimated Creat Clear 37, Estimated GFR 53 L, Est GFR ( Amer) 64, Glucose 262 H, Calcium 10.0, Total Bilirubin 1.5 H, AST 63 H, ALT 67, Alkaline Phosphatase 261 H, Total Protein 7.7 D, Albumin 3.1 L, Globulin 4.6 H, Albumin/Globulin Ratio 0.7 L 04/25/18 07:35: Amylase 22 L 04/25/18 07:35: Troponin I 0.06, Lipase 72 L, TSH < 0.01 L D 04/25/18 07:50: Lactate 1.7 04/25/18 07:50: Influenza Type A Ag Negative, Influenza Type B Ag Negative Result diagrams: 04/25/18 07:35 04/25/18 07:35 Orders (Tests/Meds): ED MEDICATIONS Generic Name Dose Route Start Last Admin Trade Name Freq PRN Reason Stop Dose Admin Hydrocodone Bitart/Acetaminophen 1 tab 04/25/18 10:43 [place] 5/325mg Tablet PO 05/25/18 10:42 TIDP PRN leg pain Atorvastatin Calcium 40 mg 04/25/18 21:00 Lipitor 40mg Tablet PO 05/25/18 20:59 HS RAUL Docusate Sodium 100 mg 04/25/18 21:00 Docusate Sodium 100mg Cap PO 05/25/18 20:59 HS [facility] Furosemide 40 mg 04/25/18 11:00 Lasix 40mg Tablet PO 05/25/18 10:59 Q48H RAUL Azithromycin 500 mg/ Sodium 250 mls @ 250 mls/hr 04/25/18 11:00 Chloride IV 05/09/18 10:59 Q24H RAUL Protocol Ceftriaxone Sodium 1 gm/ 50 mls @ 100 mls/hr 04/26/18 10:30 Sodium Chloride IV 05/09/18 10:29 Q24H RAUL Protocol Diltiazem HCl 125 mg/ Sodium 125 mls @ 5 mls/hr 04/25/18 10:43 Chloride IV 05/25/18 08:29 .Q25H RAUL Protocol Insulin Human Lispro 0 unit 04/25/18 11:00 Humalog 100 Units/Ml 3ml Vial (Ssi) SQ 05/25/18 10:59 ACHS RAUL Protocol Lisinopril 5 mg 04/26/18 09:00 Zestril 5mg Tablet PO 05/26/18 08:59 DAILY RAUL Metoclopramide HCl 5 mg 04/26/18 09:00 Reglan 5mg Tablet PO 05/26/18 08:59 DAILY [facility] Metoprolol Tartrate 50 mg 04/25/18 21:00 Lopressor 50mg Tablet PO 05/25/18 20:59 BID [facility] Non-Formulary Medication 1 applic 04/25/18 21:00 Bimatoprost [Bimatoprost] TOPICAL 05/25/18 20:59 HS [facility] Non-Formulary Medication 2 puff 04/25/18 21:00 Budesonide/Formoterol Fumarate [Symbicort 160-4.5 Mcg Inhaler] INHALATION 05/25/18 20:59 BID RAUL Non-Formulary Medication 50 mg 04/26/18 09:00 Pyridoxine Hcl (Vitamin B6) [Vitamin B-6] PO 05/26/18 08:59 DAILY RAUL Ondansetron HCl 4 mg 04/25/18 10:43 Zofran 4mg/2ml Vial IV 05/25/18 10:42 Q8HP PRN Nausea Pantoprazole Sodium 40 mg 04/26/18 09:00 Protonix 40mg Tablet PO 05/26/18 08:59 DAILY RAUL Sodium Chloride 10 ml 04/25/18 10:43 Saline Flush 10ml Syringe IV 05/25/18 07:42 NEEDED PRN Maintain IV Site Sodium Chloride 3 ml 04/25/18 10:48 Sodium Chloride 3% 15ml Neb IH 05/25/18 10:47 ONCE PRN [employer] Spironolactone 25 mg 04/26/18 09:00 Aldactone 25mg Tablet PO 05/26/18 08:59 DAILY RAUL Discontinued Medications Generic Name Dose Route Start Last Admin Trade Name Freq PRN Reason Stop Dose Admin Diltiazem HCl 10 mg 04/25/18 08:21 04/25/18 08:31 Cardizem 25mg/5ml Vial IV 04/25/18 08:22 10 mg ONCE ONE Administration Sodium Chloride 1,000 mls @ 999 mls/hr 04/25/18 08:00 04/25/18 07:56 Sod Chlor 0.9% 1000ml Bag IV 04/25/18 09:00 999 mls/hr .Q1H1M RAUL Administration Diltiazem HCl 125 mg/ Sodium 125 mls @ 5 mls/hr 04/25/18 08:30 04/25/18 08:50 Chloride IV 05/25/18 08:29 5 mls/hr .Q25H RAUL Administration Protocol Azithromycin 500 mg/ Sodium 250 mls @ 250 mls/hr 04/25/18 10:15 Chloride IV 05/09/18 10:14 Q24H RAUL Protocol Ceftriaxone Sodium 1 gm/ 50 mls @ 100 mls/hr 04/25/18 10:15 04/25/18 10:38 Sodium Chloride IV 05/09/18 10:14 100 mls/hr Q24H RAUL Administration Protocol Ondansetron HCl 4 mg 04/25/18 08:37 04/25/18 10:31 Zofran 4mg/2ml Vial IV 04/25/18 08:38 Not Given ONCE ONE Sodium Chloride 10 ml 04/25/18 07:43 Saline Flush 10ml Syringe IV 05/25/18 07:42 NEEDED PRN Maintain IV Site ORDERS Category Date Time Status Blood Culture Stat Micro 04/25/18 07:35 Received - Radiology Data #1 Image(s): Chest Image Reviewed: Yes I have reviewed radiologist's interpretation IMPRESSION: Bilateral lower lobe pneumonia. Nodular density in the right midlung which may be due to pneumonia or developing nodule. Chest CT may confirm Dictated By: Mervin Rockwell MD Signed By: <Electronically signed by Mervin Rockwell MD in [place]> 04/25/18 0944 - CT Data CT Scan: Abdomen, Pelvis Time Received: 09:[address] Reviewed: Yes: I have viewed the radiologist's interpretation Findings Narrative: IMPRESSION: 1. Bilateral lower lobe pneumonia with small loculated effusion in the left lower lobe laterally 2. Extensive coronary artery disease/calcification. 3. No acute abdominal or pelvic findings. 4. Sigmoid diverticulosis Dictated By: Mervin Rockwell MD Signed By: <Electronically signed by Mervin Rockwell MD in [place]> 04/25/18 0933 - ECG Data Tracing #1 EKG interpreted by Ulysses East MD: Rhythm: Atrial fibrillation with rapid response Rate: 143 [place]: normal Ectopy: none Conduction: Right bundle branch block ST Segment Changes: none T Wave Changes: Nonspecific Q Waves: none No evidence of acute ischemia or injury - Physician Consults Physician Consulted: Jadyn Time: 10:20 Reason -: Admission Comment/Response: Agrees to admit the patient to the hospital. We discussed the patient's clinical information, including history, exam, laboratory and radiology results and ED course. Per hospital procedure, I will write temporary bridge inpatient orders on the patient. Specific orders requested by the admitting physician: Continue Rocephin and Zithromax. Hold Synthroid. Continue Cardizem drip. General Adult HPI - General Chief complaint: Nausea/Vomiting/Diarrhea Stated complaint: nausea/vomiting Time Seen by Provider: 04/25/18 08:05 Mode of Arrival: EMS Limitations: No Limitations Description of Symptoms (Recalled from ER Triage Doc. by RN): pt states she has been nauseous,vomiting, and stomach pain. pt reports she took 2 zofran today. pt states she has been nauseous since her cabg in november. - History of Present Illness HPI narrative: Brought in by ambulance for generalized weakness and nausea and gagging. She has not felt well since she had bypass surgery in November, nauseated and gagging ever since then. She is on medications for the nausea from Dr. Salamanca. Last night she felt profoundly weak and was gagging all night long. She currently denies any pain including chest pain or abdominal pain. She complains of excessive thirst this morning. says she had low blood pressure when EMS arrived. states that she had received 4 units of blood a couple of months ago. S he sees Dr. Calvert for hematology. Last hemoglobin recently was over 10. However, he says that this is how she acted when she had to receive blood before. - Related Data Home Medications Medication Instructions Recorded Confirmed bimatoprost 0.03 % drops with 1 applic TOPICAL HS 02/20/17 04/25/18 applicator, eyelash base cyanocobalamin (vit B-12) 1,000 1,000 mcg IM MONTHLY 02/20/17 04/25/18 mcg/mL injection solution nitroglycerin 0.4 mg sublingual 0.4 mg SUBLINGUAL Q5M PRN 02/20/17 04/25/18 tablet levothyroxine 100 mcg capsule 100 mcg PO DAILY cap 07/04/17 04/25/18 Atorvastatin Calcium [Atorvastatin 40 mg PO HS 10/31/17 04/25/18 40mg Tab] Hydrocod/Acet 5/325 mg [[place] 1 tab PO TIDP PRN 11/18/17 04/25/18 5/325mg tablet] lisinopril 5 mg tablet 5 mg PO DAILY 02/02/18 04/25/18 ondansetron HCl 4 mg tablet 4 mg PO QID PRN 02/02/18 04/25/18 pantoprazole 40 mg tablet,delayed 40 mg PO DAILY 02/02/18 04/25/18 release budesonide-formoterol HFA 160 2 puff INHALATION BID 02/15/18 04/25/18 mcg-4.5 mcg/actuation aerosol inhaler insulin glargine (U-100) 100 20 unit SQ DAILY 02/15/18 04/25/18 unit/mL (3 mL) subcutaneous pen pyridoxine (vitamin B6) 50 mg 50 mg PO DAILY 02/15/18 04/25/18 capsule spironolactone 25 mg tablet 25 mg PO DAILY 02/15/18 04/25/18 furosemide 40 mg tablet 40 mg PO Q48H tab 02/23/18 04/25/18 metoclopramide 5 mg tablet 5 mg PO DAILY 04/12/18 04/25/18 Metoprolol Tartrate 50 mg PO BID 04/25/18 04/25/18 Previous Rx's Medication Instructions Recorded docusate sodium 100 mg capsule 100 mg PO HS #90 cap 04/02/18 Allergies Allergy/AdvReac Type Severity Reaction Status Date / Time codeine [CODEINE] Allergy Intermediate I-RASH Verified 04/25/18 07:32 sulfisoxazole Allergy Verified 04/25/18 07:32 [facility] History - Hepatitis A Screen Drug use history?: No High risk sexual behaviors?: No History of sexually transmitted infection?: No Currently employed?: No Childcare worker?: No Do you have indoor plumbing?: Yes Do you have electricity?: Yes Attestation statement:: This patient has been screened for Hepatitis A risk factors. I have reviewed the patient's past medical history: Yes Medical History: Reports:: Atrial Fibrillation, Chronic Obstructive Pulmonary Disease (COPD), Coronary Artery Disease, Diabetes Mellitus Type 2, Hyperlipidemia, Hypertension, Peripheral Artery Disease Denies:: Cancer, MRSA Other Medical History: Reports: Anemia, Arthritis, Hypothyroidism, Thyroid Disease Laterality Cases: Right: Total Knee Replacement Other Surgeries: Yes: Appendectomy, CABG, Cardiac Catheterization, Ch olecystectomy, EGD, Hysterectomy-Total Amputation: No Fractures: No - Social History Smoking Status: Never smoker Alcohol Intake: never Alcohol Intake Frequency:: other Substance Use Type: denies use Occupational Status: retired Housing: house Household Members: spouse - Psychiatric History Expresses thoughts of harming self/others: None Suicide Plan Description: No Plan Family Hx:: Cancer, Coronary Artery Disease, Diabetes, Heart Attack, Hyperlipidemia, Hypertension, Kidney Disease ROS Obtained: Yes All systems reviewed & no additional complaints - Constitutional Constitutional: Reports fatigue, Reports weakness, Reports other (States eating and drinking well at home, but complains of severe thirst) - Cardiovascular Cardiovascular: Denies chest pain - Respiratory Respiratory: No dyspnea Physical Exam - General General appearance: alert, in distress (Moaning, complaining of thirst) - Head Head exam: atraumatic, normocephalic - Eye Eye exam: Present: normal appearance, PERRL, EOMI - ENT ENT exam: Present: mucous membranes dry - Neck Neck exam: Present: normal inspection, trachea midline - Chest Chest inspection: Present: normal inspection, symmetric chest wall rise - Respiratory Respiratory exam: Present: normal lung sounds bilaterally. Absent: respiratory distress - Cardiovascular Cardiovascular exam: Present: tachycardia, irregular rhythm - Abdominal Exam Abdominal exam: Present: soft, distention, tenderness, guarding. Absent: rebound, rigidity - Extremities Exam Extremities exam: Present: other (Superficial skin ulcer right lower leg with bandage in place) - Neurological Exam Neurological exam: Present: alert, other (No focal deficits) - Psychiatric Psychiatric exam: Present: anxious - Skin Skin exam: Present: warm, dry
[2018-04-25 08:13] LABS: Albumin Level 3.1 gm/dL (3.4-5.0); Albumin/Globulin Ratio 0.7 (1.1-1.8); Anion Gap 16.5 mEq/L (5-15); Bilirubin,Total 1.5 mg/dL (0.2-1.0); Globulin 4.6 gm/dl (1.3-3.2); Potassium 4.5 mmoL/L (3.5-5.1); Total Protein,Serum 7.7 gm/dL (6.4-8.2)
[2018-04-25 09:00] LABS: Lipase 72 u/L (73-393)
[2018-04-25 09:04] LABS: Thyroid Stimulating Hormone < 0.01 uIU/ml (0.358-3.740)
--- NOTE | 2018-04-25 10:46 | Pharmacy Consult Notes ---
[facility] Pharmacy VTE Monitoring - Patient Demographics Admission date: 04/25/18 Report Date: 04/25/18 Time: 10:45 Allergies/Adverse Reactions: Patient Allergies codeine [CODEINE] Allergy (Intermediate, Verified 04/25/18 07:32) I-RASH sulfisoxazole Allergy (Verified 04/25/18 07:32) Height: 1.52 m Weight: 104.78 kg Patient Problems: Current Active Problems Rapid atrial fibrillation (Acute) Bilateral pneumonia (Acute) Hyperthyroidism (Acute) - VTE Risk Labs: VTE Related Lab Results Hgb 9.9 g/dL (12.2-16.2) L 04/25/18 07:35 Hct 30.9 % (37.0-47.0) L 04/25/18 07:35 Plt Count 137 K/mm3 (142-424) L 04/25/18 07:35 BUN 26 mg/dL (7-18) H 04/25/18 07:35 Creatinine 1.03 mg/dL (0.55-1.02) H 04/25/18 07:35 Estimated Creat Clear 37 mL/min (50-200) 04/25/18 07:35 - Prophylaxis VTE Prophylaxis Ordered?: Yes Types of VTE Prophylaxis: TEDS Knee High Location of Applied Device: Bilateral Lower Extremeties - VTE Diagnosis Confirmed Treatment or plan recommended: Continue Current Treatment
--- NOTE | 2018-04-25 18:08 | History & Physical Report ---
*Admission Date: 04/25/18 *Chief complaint: Shortness of air and cough *History of present illness: 72-year-old white female with multiple medical problems including chronic atrial fibrillation, coronary disease status post CABG in November 2017, morbid obesity with pickwickian syndrome and chronic ventilatory insufficiency, who came to the emergency department this morning because of a 12-hour history of progressive shortness of air with coughing. In the emergency department was found to be in rapid atrial fibrillation and Cardizem drip was started. She was also found to have infiltrates on chest x- ray. CT scan of abdomen was done because of abdominal tenderness and a history of dry heaves since the CABG was performed in 2018 which was essentially nondiagnostic. Baseline renal insufficiency and anemia were noted on her laboratory studies. She was admitted to hospital for IV antibiotics, Cardizem drip and further evaluation of her chronic medical problems. [facility] History I have reviewed the patient's past medical history: Yes Medical History: Reports:: Atherosclerotic Heart Disease, Atrial Fibrillation, Chronic Obstructive Pulmonary Disease (COPD), Coronary Artery Disease, Diabetes Mellitus Type 2, Hyperlipidemia, Hypertension, Peripheral Artery Disease Denies:: Cancer, MRSA *Have you ever received a pneumonia vaccine?: Yes *Have you received a flu vaccine this season?: Yes Other Medical History: Reports: Anemia, Arthritis, Hypothyroidism, Thyroid Disease Laterality Cases: Left: Total Knee Replacement Other Surgeries: Yes: Appendectomy, CABG, Cardiac Catheterization, Cholecystectomy, EGD, Hysterectomy-Total Amputation: No Fractures: No - *Social History Educational Level: Attended High School Smoking Status: Never smoker Alcohol Intake: never Alcohol Intake Frequency:: other Substance Use Type: denies use *Occupational Status:: retired Housing: house Household Members: spouse *Travel in the last 8 weeks: None - Psychiatric History Expresses thoughts of harming self/others: None Suicide Plan Description: No Plan Family Hx:: Cancer, Coronary Artery Disease, Diabetes, Heart Attack, Hyperlipidemia, Hypertension, Kidney Disease Review of Systems - Review of Systems Review of systems:: pertinent systems reviewed and negative unless documented below - Constitutional Reports anorexia, Reports body ache(s), Reports daytime sleepiness, Reports lack of energy, Reports malaise, Reports weakness, Reports weight loss, Denies chills, Denies night sweats Comments: Patient reports markedly reduced oral intake since discharge from hospital for CABG because of daily a.m. dry heaves - Eyes Denies blind spots, Denies blurry vision - ENT Denies abnormal hearing, Denies bleeding gums - *Cardiovascular Reports shortness of breath, Reports shortness of breath with activity, Reports irregular heart rhythm, Reports rapid, pounding, or irregular heartbeat, Denies chest pain, Denies chest pain at rest, Denies generalized swelling, Denies leg swelling, Denies leg sores, Denies shortness of breath when lying down - *Respiratory Reports chest congestion, Reports cough, Reports shortness of breath, Reports shortness of breath with activity, Reports excessive phlegm production, Denies coughing up blood, Denies pain with cough - *Gastrointestinal Reports abdominal pain, Reports feeling full early, Reports nausea, Denies belching, Denies bloating, Denies change in bowel habits, Denies constipation, Denies cramping, Denies incontinent of stools, Denies black, tarry stools - *Genitourinary Denies abnormal vaginal bleeding - *Musculoskeletal Reports abnormal walking, Reports decreased muscle mass - Integumentary/Breasts Denies hair loss, Denies change in skin color, Denies excessive hair growth, Denies yellowing of the skin - *Neurologic Reports weakness, Denies dizziness, Denies localized weakness - Endocrine Denies cold intolerance, Denies excessive sweating Meds Home Medications Medication Instructions Recorded Confirmed Type bimatoprost 0.03 % drops with 1 applic TOPICAL HS 02/20/17 04/25/18 History applicator, eyelash base cyanocobalamin (vit B-12) 1,000 1,000 mcg IM MONTHLY 02/20/17 04/25/18 History mcg/mL injection solution nitroglycerin 0.4 mg sublingual 0.4 mg SUBLINGUAL Q5M PRN 02/20/17 04/25/18 History tablet Atorvastatin Calcium [Atorvastatin 40 mg PO HS 10/31/17 04/25/18 History 40mg Tab] Hydrocod/Acet 5/325 mg [[place] 1 tab PO TIDP PRN 11/18/17 04/25/18 History 5/325mg tablet] ondansetron HCl 4 mg tablet 4 mg PO QID PRN 02/02/18 04/25/18 History pantoprazole 40 mg tablet,delayed 40 mg PO DAILY 02/02/18 04/25/18 History release budesonide-formoterol HFA 160 2 puff INHALATION BID 02/15/18 04/25/18 History mcg-4.5 mcg/actuation aerosol inhaler insulin glargine (U-100) 100 20 unit SQ DAILY 02/15/18 04/25/18 History unit/mL (3 mL) subcutaneous pen pyridoxine (vitamin B6) 50 mg 50 mg PO DAILY 02/15/18 04/25/18 History capsule spironolactone 25 mg tablet 25 mg PO DAILY 02/15/18 04/25/18 History furosemide 40 mg tablet 40 mg PO Q48H tab 02/23/18 04/25/18 History docusate sodium 100 mg capsule 100 mg PO HS #90 cap 04/02/18 04/25/18 Rx metoclopramide 5 mg tablet 5 mg PO DAILY 04/12/18 04/25/18 History Levothyroxine Sodium 88 mcg PO DAILY 04/25/18 04/25/18 History [Levothyroxine 88mcg (0.088mg) Tab] Lisinopril [Lisinopril 20mg Tab] 20 mg PO DAILY 04/25/18 04/25/18 History Metoprolol Tartrate 50 mg PO BID 04/25/18 04/25/18 History Allergies Allergy/AdvReac Type Severity Reaction Status Date / Time codeine [CODEINE] Allergy Intermediate I-RASH Verified 04/25/18 07:32 sulfisoxazole Allergy Verified 04/25/18 07:32 Exam Vital signs and Labs for Last 24 Hours: Temp Pulse Resp BP Pulse Ox 98.2 F 81 20 131/62 98 04/25/18 11:25 04/25/18 14:00 04/25/18 14:00 04/25/18 14:00 04/25/18 14:00 Laboratory Results - last 24 hr 04/25/18 07:35: WBC 11.8 H, RBC 3.05 L, Hgb 9.9 L, Hct 30.9 L, MCV 101.3 H, MCH 32.3 H, MCHC 31.9, RDW 15.6, Plt Count 137 L, MPV 8.0, Neut % (Auto) 82.5 H, Lymph % (Auto) 13.7, [place] % (Auto) 3.3, Eos % (Auto) 0.3, Baso % (Auto) 0.1, Neut # (Auto) 9.7 H, Lymph # (Auto) 1.6, [place] # (Auto) 0.4, Eos # (Auto) 0.0, Baso # (Auto) 0.0 04/25/18 07:35: Sodium 137, Potassium 4.5, Chloride 102, Carbon Dioxide 23, Anion Gap 16.5 H, BUN 26 H, Creatinine 1.03 H, Estimated Creat Clear 37, Estimated GFR 53 L, Est GFR ( Amer) 64, Glucose 262 H, Calcium 10.0, Total Bilirubin 1.5 H, AST 63 H, ALT 67, Alkaline Phosphatase 261 H, Total Protein 7.7 D, Albumin 3.1 L, Globulin 4.6 H, Albumin/Globulin Ratio 0.7 L 04/25/18 07:35: Amylase 22 L 04/25/18 07:35: Troponin I 0.06, Lipase 72 L, TSH < 0.01 L D 04/25/18 07:50: Lactate 1.7 04/25/18 07:50: Influenza Type A Ag Negative, Influenza Type B Ag Negative 04/25/18 11:52: POC Glucose 285 H 04/25/18 13:49: Troponin I 0.10 H 04/25/18 16:55: POC Glucose 237 H I & O for Last 24 hours: Intake & Output 04/23/18 04/24/18 04/25/18 04/26/18 11:59 11:59 11:59 11:59 Intake Total 350 / 350 480 / 480 Output Total 1000 / 1000 Balance 350 / 350 -520 / -520 Weight 230 lb 229 lb 15.991 oz Microbiology Reports for the Last 24 Hours: Microbiology 04/25/18 12:35 Sputum - Expectorated Sputum Gram Stain - Final Narrative: Patient is awake, alert, oriented x3. Rhonchi in both lower lung holt. Heart rate irregular, when examined it was in the low 90s in atrial fibrillation monitor. Improved over ER admission data. Abdomen soft, diffuse tenderness. Morbid obesity limits exam accuracy. No significant ankle or wrist edema. Good distal perfusion. Globally weak but no cranial nerve deficits. No JVD. No oral lesions. Assessment and Plan (1) Morbid obesity Current visit: Yes Status: Chronic Category: Medical Code(s): E66.01 - Morbid (severe) obesity due to excess calories Complicates all aspects of patient care (2) Bilateral pneumonia Current visit: Yes Status: Acute Qualifiers: Pneumonia type: due to unspecified organism Lung location: lower lobe of lung Qualified Code(s): J18.1 - Lobar pneumonia, unspecified organism Category: Medical Code(s): J18.9 - Pneumonia, unspecified organism Patient has not been hospitalized since November. We will treat with community- acquired pneumonia agents (3) Hyperthyroidism Current visit: Yes Status: Acute Category: Medical Code(s): E05.90 - Thyrotoxicosis, unspecified without thyrotoxic crisis or storm TSH is suppressed. Hold thyroid dose. (4) Rapid atrial fibrillation Current visit: Yes Status: Acute Category: Medical Code(s): I48.91 - Unspecified atrial fibrillation Improved after Cardizem drip. Will transfer to p.o. Cardizem overnight. Reassess tomorrow morning (5) Acute on chronic anemia Current visit: No Status: Acute Category: Medical Code(s): D64.9 - Anemia, unspecified At baseline. (6) Nyinc-sy-nffjqja kidney injury Current visit: No Status: Acute Category: Medical Code(s): N17.9 - Acute kidney failure, unspecified; N18.9 - Chronic kidney disease, unspecified At baseline. Kidney disease complicates her care (7) Type 2 diabetes mellitus treated with insulin Current visit: No Status: Chronic Category: Medical Code(s): E11.9 - Type 2 diabetes mellitus without complications; Z79.4 - emt intermediate (current) use of insulin Watch carefully. Sliding scale insulin while in hospital
[2018-04-26 06:39] LABS: Basophils % 0.3 % (0.1-2.0); Eosinophils # 0.1 K/mm3 (0.0-0.4); Eosinophils % 2.5 % (0.1-12.0); Hematocrit 27.1 % (37.0-47.0); Lymphocytes # 1.8 K/mm3 (0.7-4.5); Lymphocytes % 30.5 % (10-50); Mean Corpuscular HGB Conc 31.8 g/dL (31.8-35.4); Mean Corpuscular Hemoglobin 32.6 pg (27.0-31.2); Mean Corpuscular Volume 102.6 fl (81-99); Mean Platelet Volume 8.3 fl (7.4-10.4); Monocytes # 0.2 K/mm3 (0.1-1.0); Monocytes % 3.6 % (1.7-9.3); Neutrophils # 3.7 K/mm3 (1.8-7.8); Neutrophils % 63.1 % (37.0-80.0); Platelet Count 115 K/mm3 (142-424); Red Blood Count 2.64 M/mm3 (4.20-5.40); Red Cell Distribution Width 15.8 % (11.5-17.5); White Blood Count 5.8 K/mm3 (4.8-10.8)
[2018-04-26 06:45] LABS: Anion Gap 13.9 mEq/L (5-15); Calcium 9.4 mg/dL (8.5-10.1); Potassium 3.9 mmoL/L (3.5-5.1)
[2018-04-26 07:01] LABS: Hemoglobin 8.7 g/dL (12.2-16.2)
--- NOTE | 2018-04-26 08:24 | Progress Note ---
Internal Medicine - PN: Subj *Date: 04/26/18 *Time: 08:00 Interval history: Patient states "I can't stay awake." Continues to c/o fatigue, malaise and nausea. She took Hydrocodone last night for leg pain, states "I just couldn't stand it" although she was instructed to try tylenol first as hydrocodone may be the cause of her nausea. Alert and oriented x3. Rate and rhythm reguar, rate controlled. Lung sounds with scattered wheezes,rhonchi/crackles bilat bases. Abdomen soft, nontender. Trace LE edema. Dressing intact right lower legl Exam Vital signs and Labs for Last 24 Hours: Temp Pulse Resp BP Pulse Ox 97.3 F L 84 18 131/62 99 04/26/18 07:54 04/26/18 06:00 04/26/18 06:00 04/26/18 06:00 04/26/18 06:00 Laboratory Results - last 24 hr 04/25/18 07:35: Amylase 22 L 04/25/18 07:35: Troponin I 0.06, Lipase 72 L, TSH < 0.01 L D 04/25/18 07:50: Lactate 1.7 04/25/18 07:50: Influenza Type A Ag Negative, Influenza Type B Ag Negative 04/25/18 11:52: POC Glucose 285 H 04/25/18 13:49: Troponin I 0.10 H 04/25/18 16:55: POC Glucose 237 H 04/25/18 20:39: POC Glucose 205 H 04/26/18 05:41: POC Glucose 192 H 04/26/18 06:03: WBC 5.8 D, RBC 2.64 L, Hgb 8.7 L D, Hct 27.1 L, MCV 102.6 H, MCH 32.6 H, MCHC 31.8, RDW 15.8, Plt Count 115 L, MPV 8.3, Neut % (Auto) 63.1, Lymph % (Auto) 30.5, [place] % (Auto) 3.6, Eos % (Auto) 2.5, Baso % (Auto) 0.3, Neut # (Auto) 3.7, Lymph # (Auto) 1.8, [place] # (Auto) 0.2, Eos # (Auto) 0.1, Baso # (Auto) 0.0 04/26/18 06:03: Sodium 138, Potassium 3.9, Chloride 105, Carbon Dioxide 23, Anion Gap 13.9, BUN 29 H, Creatinine 1.07 H, Estimated Creat Clear 33, Estimated GFR 51 L, Est GFR ( Amer) 61, Glucose 193 H D, Calcium 9.4 I & O for Last 24 hours: Intake & Output 04/23/18 04/24/18 04/25/18 04/26/18 11:59 11:59 11:59 11:59 Intake Total 350 / 350 1390 / 1390 Output Total 1000 / 1000 Balance 350 / 350 390 / 390 Weight 230 lb 232 lb 4 oz Microbiology Reports for the Last 24 Hours: Microbiology 04/25/18 07:35 Blood Blood Culture - Preliminary 04/25/18 12:35 Sputum - Expectorated Sputum Gram Stain - Final Assessment and Plan (1) Morbid obesity Current visit: Yes Status: Chronic Category: Medical Code(s): E66.01 - Morbid (severe) obesity due to excess calories (2) Bilateral pneumonia Current visit: Yes Status: Acute Qualifiers: Pneumonia type: due to unspecified organism Lung location: lower lobe of lung Qualified Code(s): J18.1 - Lobar pneumonia, unspecified organism Category: Medical Code(s): J18.9 - Pneumonia, unspecified organism (3) Hyperthyroidism Current visit: Yes Status: Acute Category: Medical Code(s): E05.90 - Thyrotoxicosis, unspecified without thyrotoxic crisis or storm (4) Rapid atrial fibrillation Current visit: Yes Status: Acute Category: Medical Code(s): I48.91 - Unspecified atrial fibrillation (5) Acute on chronic anemia Current visit: No Status: Acute Category: Medical Code(s): D64.9 - Anemia, unspecified (6) Mnaoa-zl-lsbpxpm kidney injury Current visit: No Status: Acute Category: Medical Code(s): N17.9 - Acute kidney failure, unspecified; N18.9 - Chronic kidney disease, unspecified (7) Type 2 diabetes mellitus treated with insulin Current visit: No Status: Chronic Category: Medical Code(s): E11.9 - Type 2 diabetes mellitus without complications; Z79.4 - termite treater (current) use of insulin - Assessment and plan all Dx Assessment and Plan for all problems:: Preliminary blood cultures show growth, add Vancomycin. PT/OT consult today. Instructed to try tylenol for pain tonight instead of hydrocodone
--- NOTE | 2018-04-26 08:47 | Pharmacy Consult Notes ---
- Pharmacy Consult Date: 04/26/18 Time: 08:46 Referring provider: DR. WALSH Reason for Consult:: VANCOMYCIN DOSING Allergies and ADEs:: Allergies Allergy/AdvReac Type Severity Reaction Status Date / Time codeine [CODEINE] Allergy Intermediate I-RASH Verified 04/25/18 07:32 sulfisoxazole Allergy Verified 04/25/18 07:32 Home Medications:: Home Medications Medication Instructions Recorded Confirmed Type bimatoprost 0.03 % drops with 1 applic TOPICAL HS 02/20/17 04/25/18 History applicator, eyelash base cyanocobalamin (vit B-12) 1,000 1,000 mcg IM MONTHLY 02/20/17 04/25/18 History mcg/mL injection solution nitroglycerin 0.4 mg sublingual 0.4 mg SUBLINGUAL Q5M PRN 02/20/17 04/25/18 History tablet Atorvastatin Calcium [Atorvastatin 40 mg PO HS 10/31/17 04/25/18 History 40mg Tab] Hydrocod/Acet 5/325 mg [[place] 1 tab PO TIDP PRN 11/18/17 04/25/18 History 5/325mg tablet] ondansetron HCl 4 mg tablet 4 mg PO QID PRN 02/02/18 04/25/18 History pantoprazole 40 mg tablet,delayed 40 mg PO DAILY 02/02/18 04/25/18 History release budesonide-formoterol HFA 160 2 puff INHALATION BID 02/15/18 04/25/18 History mcg-4.5 mcg/actuation aerosol inhaler insulin glargine (U-100) 100 20 unit SQ DAILY 02/15/18 04/25/18 History unit/mL (3 mL) subcutaneous pen pyridoxine (vitamin B6) 50 mg 50 mg PO DAILY 02/15/18 04/25/18 History capsule spironolactone 25 mg tablet 25 mg PO DAILY 02/15/18 04/25/18 History furosemide 40 mg tablet 40 mg PO Q48H tab 02/23/18 04/25/18 History docusate sodium 100 mg capsule 100 mg PO HS #90 cap 04/02/18 04/25/18 Rx metoclopramide 5 mg tablet 5 mg PO DAILY 04/12/18 04/25/18 History Levothyroxine Sodium 88 mcg PO DAILY 04/25/18 04/25/18 History [Levothyroxine 88mcg (0.088mg) Tab] Lisinopril [Lisinopril 20mg Tab] 20 mg PO DAILY 04/25/18 04/25/18 History Metoprolol Tartrate 50 mg PO BID 04/25/18 04/25/18 History Height: 1.52 m Weight: 105.347 kg Laboratory Results:: Laboratory Results - last 24 hr 04/25/18 07:35: Amylase 22 L 04/25/18 07:35: Troponin I 0.06, Lipase 72 L, TSH < 0.01 L D 04/25/18 11:52: POC Glucose 285 H 04/25/18 13:49: Troponin I 0.10 H 04/25/18 16:55: POC Glucose 237 H 04/25/18 20:39: POC Glucose 205 H 04/26/18 05:41: POC Glucose 192 H 04/26/18 06:03: WBC 5.8 D, RBC 2.64 L, Hgb 8.7 L D, Hct 27.1 L, MCV 102.6 H, MCH 32.6 H, MCHC 31.8, RDW 15.8, Plt Count 115 L, MPV 8.3, Neut % (Auto) 63.1, Lymph % (Auto) 30.5, [place] % (Auto) 3.6, Eos % (Auto) 2.5, Baso % (Auto) 0.3, Neut # (Auto) 3.7, Lymph # (Auto) 1.8, [place] # (Auto) 0.2, Eos # (Auto) 0.1, Baso # (Auto) 0.0 04/26/18 06:03: Sodium 138, Potassium 3.9, Chloride 105, Carbon Dioxide 23, Anion Gap 13.9, BUN 29 H, Creatinine 1.07 H, Estimated Creat Clear 33, Estimated GFR 51 L, Est GFR ( Amer) 61, Glucose 193 H D, Calcium 9.4 Medical History: Reports:: Atherosclerotic Heart Disease, Atrial Fibrillation, Chronic Obstructive Pulmonary Disease (COPD), Coronary Artery Disease, Diabetes Mellitus Type 2, Hyperlipidemia, Hypertension, Peripheral Artery Disease Denies:: Cancer, MRSA Assessment and Plan (1) Morbid obesity Current visit: Yes Status: Chronic Category: Medical Code(s): E66.01 - Morbid (severe) obesity due to excess calories (2) Bilateral pneumonia Current visit: Yes Status: Acute Qualifiers: Pneumonia type: due to unspecified organism Lung location: lower lobe of lung Qualified Code(s): J18.1 - Lobar pneumonia, unspecified organism Category: Medical Code(s): J18.9 - Pneumonia, unspecified organism (3) Hyperthyroidism Current visit: Yes Status: Acute Category: Medical Code(s): E05.90 - Thyrotoxicosis, unspecified without thyrotoxic crisis or storm (4) Rapid atrial fibrillation Current visit: Yes Status: Acute Category: Medical Code(s): I48.91 - Unsp ecified atrial fibrillation (5) Acute on chronic anemia Current visit: No Status: Acute Category: Medical Code(s): D64.9 - Anemia, unspecified (6) [id number] kidney injury Current visit: No Status: Acute Category: Medical Code(s): N17.9 - Acute kidney failure, unspecified; N18.9 - Chronic kidney disease, unspecified (7) Type 2 diabetes mellitus treated with insulin Current visit: No Status: Chronic Category: Medical Code(s): E11.9 - Type 2 diabetes mellitus without complications; Z79.4 - half-way (current) use of insulin - Assessment and plan all Dx Assessment and Plan for all problems:: BASED ON PATIENT CULTURES AND FACTORS, RECOMMEND INITIATING VANCOMYCIN IV AT 1,750MG EVERY 24 HOURS. PHARMACY WILL CONTINUE TO MONITOR AND WILL ADJUST DOSE APPROPRIATE. -JORGE ALBERTO WEINER PHARMD
[2018-04-26 17:01] LABS: Hemoglobin 9.3 g/dL (12.2-16.2)
[2018-04-26 17:20] LABS: Creatine Kinase 19 U/L (26-192)
--- NOTE | 2018-04-27 09:38 | Consult Report ---
History of Present Illness Consult date: 04/27/18 Requesting physician: Ramos Snow Consult reason: atrial fibrillation Chief complaint: Pneumonia, Atrial fibrillation Additional Medical History:: 1. Coronary artery disease A. History of ALEYDA 01/2007. B. Non-STEMI with subsequent drug-eluting stenting of the circumflex and left anterior descending arteries, 08/2015 C. NSTEMI, 10/2017 D. C revealing multivessel disease and right renal artery stenosis with recommendation for CABG and consideration for right renal artery stenting after recovery from CABG. E. 3 vessel CABG with DELGADO clip, 11/2017, [place], [place] 2. Atrial fibrillation, chronic A. Xarelto therapy 3. Recurrent anemia A. History of bone marrow biopsy with no evidence of cancer, per patient B. Followed by Dr. Montejo C. History of IV iron therapy and intermittent blood transfusions 4. Diabetes mellitus, treated for >20 yrs 5. History of peripheral arterial disease A. Carotid U/S, 06/2017, 50-69% LICA, 20-49% LYNSEY. Stable compared with 04/2017 study. 6. Hypertension A. Echocardiogram, 01/2018, ejection fraction 45-55% with mild to moderate apical hypokinesis. Left atrial enlargement at 4.6 cm and a loculated pericardial effusion noted. 7. Chronic obstructive pulmonary disease 8. Hyperlipidemia 9. History of IVC filter, 2010 10. Carotid artery stenosis A. CNI, 06/2017, 50-69% LICA, 20-49% LYNSEY. No change from 2017. History of present illness: 72-year-old white female with history as noted above was admitted for pneumonia. Patient also noted to have rapid atrial fibrillation which has since been controlled with additional IV Cardizem, now on oral Cardizem. Patient is on multiple antibiotics for her pneumonia and possible positive blood culture. She denies any chest pain, pressure or tightness at this time. States she is feeling better but still not back to her normal self. Cardiology was asked to evaluate and make medication adjustment if needed in light of extensive cardiac history. Patient was recently seen in the office with known chronic atrial fibrillation with a slightly tachycardic rate for which metoprolol was increa sed. [facility] History Medical History: Reports:: Atherosclerotic Heart Disease, Atrial Fibrillation, Chronic Obstructive Pulmonary Disease (COPD), Coronary Artery Disease, Diabetes Mellitus Type 2, Hyperlipidemia, Hypertension, Peripheral Artery Disease Denies:: Cancer, MRSA *Have you ever received a pneumonia vaccine?: Yes *Have you received a flu vaccine this season?: Yes Other Medical History: Reports: Anemia, Arthritis, Hypothyroidism, Thyroid Disease Laterality Cases: Left: Total Knee Replacement Other Surgeries: Yes: Appendectomy, CABG, Cardiac Catheterization, Cholecystectomy, EGD, Hysterectomy-Total Amputation: No Fractures: No - *Social History Educational Level: Attended High School Smoking Status: Never smoker Alcohol Intake: never Alcohol Intake Frequency:: other Substance Use Type: denies use *Occupational Status:: retired Housing: house Household Members: spouse *Travel in the last 8 weeks: None - Psychiatric History Expresses thoughts of harming self/others: None Suicide Plan Description: No Plan Family Hx:: Cancer, Coronary Artery Disease, Diabetes, Heart Attack, Hyperlipidemia, Hypertension, Kidney Disease Meds Home Medications Medication Instructions Recorded Confirmed Type bimatoprost 0.03 % drops with 1 applic TOPICAL HS 02/20/17 04/25/18 History applicator, eyelash base cyanocobalamin (vit B-12) 1,000 1,000 mcg IM MONTHLY 02/20/17 04/25/18 History mcg/mL injection solution nitroglycerin 0.4 mg sublingual 0.4 mg SUBLINGUAL Q5MINP PRN 02/20/17 04/26/18 History tablet Atorvastatin Calcium [Atorvastatin 40 mg PO HS 10/31/17 04/25/18 History 40mg Tab] Hydrocod/Acet 5/325 mg [[place] 1 tab PO BIDP PRN 11/18/17 04/26/18 History 5/325mg tablet] ondansetron HCl 4 mg tablet 4 mg PO QIDP PRN 02/02/18 04/26/18 History pantoprazole 40 mg tablet,delayed 40 mg PO DAILY 02/02/18 04/25/18 History release budesonide-formoterol HFA 160 2 puff INHALATION BID 02/15/18 04/25/18 History mcg-4.5 mcg/actuation aerosol inhaler insulin glargine (U-100) 100 20 unit SQ DAILY 02/15/18 04/25/18 History unit/mL (3 mL) subcutaneous pen pyridoxine (vitamin B6) 50 mg 50 mg PO DAILY 02/15/18 04/25/18 History capsule spironolactone 25 mg tablet 25 mg PO DAILY 02/15/18 04/25/18 History furosemide 40 mg tablet 40 mg PO Q48H tab 02/23/18 04/25/18 History docusate sodium 100 mg capsule 100 mg PO HS #90 cap 04/02/18 04/25/18 Rx metoclopramide 5 mg tablet 5 mg PO DAILYP PRN 04/12/18 04/26/18 History Levothyroxine Sodium 88 mcg PO DAILY 04/25/18 04/25/18 History [Levothyroxine 88mcg (0.088mg) Tab] Lisinopril [Lisinopril 20mg Tab] 20 mg PO DAILY 04/25/18 04/25/18 History Metoprolol Tartrate 50 mg PO BID 04/25/18 04/25/18 History Allergies Allergy/AdvReac Type Severity Reaction Status Date / Time codeine [CODEINE] Allergy Intermediate I-RASH Verified 04/25/18 07:32 sulfisoxazole Allergy Verified 04/25/18 07:32 Review of Systems - *Cardiovascular Reports shortness of breath with activity, Denies chest pain - *Respiratory Reports cough, Reports shortness of breath with activity - *Gastrointestinal Denies abdominal pain, Denies loose stools - *Genitourinary Denies blood in urine - *Musculoskeletal Reports back pain, Denies joint pain - *Neurologic Reports abnormal walking, Reports weakness, Denies abnormal hearing, Denies dizziness, Denies localized weakness Exam Vital signs and Labs for Last 24 Hours: Temp Pulse Resp BP Pulse Ox 98.1 F 84 16 127/84 99 04/27/18 04:00 04/27/18 04:00 04/27/18 04:00 04/27/18 04:00 04/27/18 04:00 Laboratory Results - last 24 hr 04/26/18 11:34: POC Glucose 230 H 04/26/18 16:40: Hgb 9.3 L, Hct 28.0 L 04/26/18 16:40: Total Creatine Kinase 19 L, CK-MB (CK-2) < 0.5 D, CK-MB (CK-2) Rel Index 2.6, Troponin I 0.12 H 04/26/18 17:03: POC Glucose 192 H 04/26/18 19:41: POC Glucose 216 H 04/27/18 05:55: POC Glucose 183 H I & O for Last 24 hours: Intake & Output 04/24/18 04/25/18 04/26/18 04/27/18 11:59 11:59 11:59 11:59 Intake Total 350 / 350 1630 / 1630 1736 / 1736 Output Total 1000 / 1000 100 / 100 Balance 350 / 350 630 / 630 1636 / 1636 Weight 230 lb 232 lb 4 oz 230 lb 2 oz Microbiology Reports for the Last 24 Hours: Microbiology 04/25/18 07:35 Blood Blood Culture - Preliminary Gram Positive Cocci 04/25/18 07:35 Blood Blood Culture - Preliminary NO GROWTH AFTER 48 HOURS 04/25/18 12:35 Sputum - Expectorated Sputum Gram Stain - Final 04/25/18 12:35 Sputum - Expectorated Sputum Sputum Culture - Preliminary - *Routine HEENT Exam Head: Present: normocephalic Eye: Present: EOMI, PERRL ENT: Present: mucous membranes moist - *Routine Neck Exam Present: supple, carotid bruit. Absent: JVD - *Routine Respiratory Exam Present: decreased breath sounds, rales. Absent: accessory muscle use, rhonchi, wheezes - *Routine Cardiovascular Exam Present: irregularly irregular. Absent: murmur, gallop, rubs - *Routine Abdominal Exam Present: soft. Absent: tenderness, distended, guarding - *Routine Extremities Exam Absent: edema, calf tenderness - *Routine Neurological Exam Present: alert, oriented X3, moving all extremities Assessment and Plan (1) Morbid obesity Current visit: Yes Status: Chronic Category: Medical Code(s): E66.01 - Morbid (severe) obesity due to excess calories (2) Bilateral pneumonia Current visit: Yes Status: Acute Qualifiers: Pneumonia type: due to unspecified organism Lung location: lower lobe of lung Qualified Code(s): J18.1 - Lobar pneumonia, unspecified organism Category: Medical Code(s): J18.9 - Pneumonia, unspecified organism (3) Hyperthyroidism Current visit: Yes Status: Acute Category: Medical Code(s): E05.90 - Thyrotoxicosis, unspecified without thyrotoxic crisis or storm (4) Rapid atrial fibrillation Current visit: Yes Status: Acute Category: Medical Code(s): I48.91 - Unspecified atrial fibrillation (5) Acute on chronic anemia Current visit: No Status: Acute Category: Medical Code(s): D64.9 - Anemia, unspecified (6) Jquic-og-uzvkvcy kidney injury Current visit: No Status: Acute Category: Medical Code(s): N17.9 - Acute kidney failure, unspecified; N18.9 - Chronic kidney disease, unspecified (7) Type 2 diabetes mellitus treated with insulin Current visit: No Status: Chronic Category: Medical Code(s): E11.9 - Type 2 diabetes mellitus without complications; Z79.4 - shelter (current) use of insulin - Assessment and plan all Dx Assessment and Plan for all problems:: 1. Mildly elevated troponins likely secondary to atrial fibrillation with a rapid ventricular response in combination with pneumonia creating cardiac strain. Would not pursue further workup at this time in light of recent CABG. 2. Echocardiogram from January 2018 reviewed with ejection fraction felt to be in the normal range. Patient has no clinical signs of congestive heart failure at this time so therefore will not repeat echocardiogram. 3. Regarding atrial fibrillation patient is known to have chronic atrial fibrillation. Rate is now controlled but in light of coronary artery disease and previous bypass surgery would recommend increasing beta-salvador therapy and discontinuing Cardizem. We will increase metoprolol tartrate to 50 mg 3 times daily but may need 100 mg twice daily for BP and HR control. Continue Xarelto therapy. 4. Continue lisinopril 20 mg daily along with spironolactone 25 mg daily 5. We would like to see the patient in follow-up 1-2 weeks after discharge.
--- NOTE | 2018-04-27 17:52 | Progress Note ---
Internal Medicine - PN: Subj *Date: 04/27/18 *Time: 08:45 Interval history: Overnight [place] states she feels improvement. Denies any episodes of chest pain, heart palpitations, heart rate racing. Denies any fevers, productive cough. Continues to complain of fatigue, easy falling asleep. However, she also ambulates independently, is getting up with physical therapy. Alert and oriented during exam and interview. at bedside and updated of plan Exam Vital signs and Labs for Last 24 Hours: Temp Pulse Resp BP Pulse Ox 97.8 F 88 22 140/65 91 L 04/27/18 16:00 04/27/18 16:00 04/27/18 16:00 04/27/18 16:00 04/27/18 16:00 Laboratory Results - last 24 hr 04/26/18 19:41: POC Glucose 216 H 04/27/18 05:55: POC Glucose 183 H 04/27/18 11:33: POC Glucose 185 H 04/27/18 16:27: POC Glucose 220 H I & O for Last 24 hours: Intake & Output 04/24/18 04/25/18 04/26/18 04/27/18 23:59 23:59 23:59 23:59 Intake Total 1197 / 1197 2499 / 2499 1530 / 1530 Output Total 1000 / 1000 100 / 100 Balance 197 / 197 2399 / 2399 1530 / 1530 Weight 104.326 kg 105.347 kg 104.383 kg Microbiology Reports for the Last 24 Hours: Microbiology 04/25/18 12:35 Sputum - Expectorated Sputum Gram Stain - Final 04/25/18 12:35 Sputum - Expectorated Sputum Sputum Culture - Preliminary 04/25/18 07:35 Blood Blood Culture - Preliminary Gram Positive Cocci 04/25/18 07:35 Blood Blood Culture - Preliminary NO GROWTH AFTER 48 HOURS Narrative: Alert and oriented x3, no acute distress on room air Heart rate and rhythm regular, rate controlled Lung sounds with interval improvement. No wheeze, minimal rhonchi and crackles at bilateral bases Abdomen soft, nontender Trace LE edema. Dressing intact right lower leg with slow healing ulcer from vein graft harvest performed during her CABG several months ago., No surrounding erythema or purulent drainage Assessment and Plan (1) Morbid obesity Current visit: Yes Status: Chronic Category: Medical Code(s): E66.01 - Morbid (severe) obesity due to excess calories (2) Bilateral pneumonia Current visit: Yes Status: Acute Qualifiers: Pneumonia type: due to unspecified organism Lung location: lower lobe of lung Qualified Code(s): J18.1 - Lobar pneumonia, unspecified organism Category: Medical Code(s): J18.9 - Pneumonia, unspecified organism (3) Hyperthyroidism Current visit: Yes Status: Acute Category: Medical Code(s): E05.90 - Thyrotoxicosis, unspecified without thyrotoxic crisis or storm (4) Rapid atrial fibrillation Current visit: Yes Status: Acute Category: Medical Code(s): I48.91 - Unspecified atrial fibrillation (5) Acute on chronic anemia Current visit: No Status: Acute Category: Medical Code(s): D64.9 - Anemia, unspecified (6) Jqtmx-xf-ktzxuyb kidney injury Current visit: No Status: Acute Category: Medical Code(s): N17.9 - Acute kidney failure, unspecified; N18.9 - Chronic kidney disease, unspecified (7) Type 2 diabetes mellitus treated with insulin Current visit: No Status: Chronic Category: Medical Code(s): E11.9 - Type 2 diabetes mellitus without complications; Z79.4 - ocean transportation intermediary (current) use of insulin - Assessment and plan all Dx Assessment and Plan for all problems:: Ms. Mcmahon is a 72-year-old female status post CABG several months ago with chronic A. fib, hyperthyroidism, diabetes, hypertension. She presented with uncontrolled heart rate (A. fib with RVR) and concern for pneumonia. Currently being treated with IV antibiotics. Rate at goal with oral beta-blockers. -Etiology consulted to optimize cardiac management, appreciate recommendations which are as follows: 1. Mildly elevated troponins likely secondary to atrial fibrillation with a rapid ventricular response in combination with pneumonia creating cardiac strain. Would not pursue further workup at this time in light of recent CABG. 2. Echocardiogram from January 2018 reviewed with ejection fraction felt to be in the normal range. Patient has no clinical signs of congestive heart failure at this time so therefore will not repeat echocardiogram. 3. Regarding atrial fibrillation patient is known to have chronic atrial fibrillation. Rate is now controlled but in light of coronary artery disease and previous bypass surgery would recommend increasing beta-salvador therapy and discontinuing Cardizem. We will increase metoprolol tartrate to 50 mg 3 times daily but may need 100 mg twice daily for BP and HR control. Continue Xarelto therapy. 4. Continue lisinopril 20 mg daily along with spironolactone 25 mg daily 5. We would like to see the patient in follow-up 1-2 weeks after discharge. Additionally patient found to have positive blood culture x1. At this time speciation and sensitivity still pending. Repeat cultures obtained. Appears to be clinically improved with no fever, respiratory distress, oxygen requirement. Continuing levofloxacin. Suspect blood culture may be contaminant however we will not discontinue antibiotics or de-escalate until sensitivity and repeat cultures are back. Additionally will continue antibiotics at this time for concern for pneumonia. -Patient continues to require inpatient management with goals for discharge home including negative blood culture, definitive therapy for antibiotics, transition oral therapy. And stable cardiovascular management.
[2018-04-28 06:33] LABS: Basophils % 0.5 % (0.1-2.0); Eosinophils # 0.2 K/mm3 (0.0-0.4); Eosinophils % 4.1 % (0.1-12.0); Hematocrit 26.3 % (37.0-47.0); Hemoglobin 8.1 g/dL (12.2-16.2); Lymphocytes # 1.4 K/mm3 (0.7-4.5); Lymphocytes % 35.4 % (10-50); Mean Corpuscular Hemoglobin 31.6 pg (27.0-31.2); Mean Platelet Volume 8.8 fl (7.4-10.4); Monocytes # 0.2 K/mm3 (0.1-1.0); Monocytes % 4.6 % (1.7-9.3); Neutrophils # 2.2 K/mm3 (1.8-7.8); Neutrophils % 55.4 % (37.0-80.0); Platelet Count 119 K/mm3 (142-424); Red Blood Count 2.58 M/mm3 (4.20-5.40); Red Cell Distribution Width 15.3 % (11.5-17.5)
[2018-04-28 07:35] LABS: Anion Gap 16.2 mEq/L (5-15); Calcium 9.3 mg/dL (8.5-10.1); Potassium 4.2 mmoL/L (3.5-5.1)
--- NOTE | 2018-04-28 08:32 | Discharge Summary ---
General - General Admission date:: 04/25/18 Discharge date: 04/28/18 HPI HPI: 72-year-old white female with multiple medical problems including chronic atrial fibrillation, coronary disease status post CABG in November 2017, morbid obesity with pickwickian syndrome and chronic ventilatory insufficiency, who came to the emergency department this morning because of a 12-hour history of progressive shortness of air with coughing. In the emergency department was found to be in rapid atrial fibrillation and Cardizem drip was started. She was also found to have infiltrates on chest x- ray. CT scan of abdomen was done because of abdominal tenderness and a history of dry heaves since the CABG was performed in 2018 which was essentially nondiagnostic. Baseline renal insufficiency and anemia were noted on her laboratory studies. She was admitted to hospital for IV antibiotics, Cardizem drip and further evaluation of her chronic medical problems. Hospital Course Hospital Course: Patient was admitted on IV antibiotics and did well with no further fevers. Her heart rate resolved from rapid rates with Cardizem drip and she was transitioned over to p.o. Cardizem. She actually became bradycardic on this, cardiology who follows her on a regular basis recommended increasing beta salvador and stopping Cardizem given her recent history of coronary disease and normal ejection fraction. Please see note for details. Patient had one bottle of blood culture specimens positive for staph epidermidis, but this was considered a contaminant given the lack of growth and other bottles and her prompt response to antibiotics. She had been given a dose of vancomycin when initial culture results show gram-positive cocci but this was discontinued on discharge. This morning patient feels better, heart rate noted in the mid 90 range in atrial fibrillation which is chronic for her. Energy levels were improved. Cough was improved and her exam had improved. She felt able to go home, and she will be discharged home with antibiotic therapy, increased dose of beta-salvador as noted and close follow-up with me and with cardiology service. Objective Vital signs: Temp Pulse Resp BP Pulse Ox 98.4 F 90 20 131/95 H 98 04/28/18 04:00 04/28/18 04:00 04/28/18 04:00 04/28/18 04:00 04/28/18 04:00 Narrative: Patient sitting up in a chair. Alert. Oriented x3. Oropharynx moist and clear. No JVD. Lungs with good air movement bilaterally. Some rhonchi but improved exam. Heart rate controlled but irregular. Murmur noted as previously. Abdomen obese but soft. No edema or clubbing. Weak but able to move all extremities symmetrically and cranial nerves are symmetric. Results Labs on day of discharge: Labs from last 24 hours 04/28/18 04/28/18 04/28/18 05:50 05:50 05:24 WBC 4.0 L D RBC 2.58 L Hgb 8.1 L Hct 26.3 L MCV 102.0 H MCH 31.6 H MCHC 31.0 L RDW 15.3 Plt Count 119 L MPV 8.8 Neut % (Auto) 55.4 Lymph % (Auto) 35.4 [place] % (Auto) 4.6 Eos % (Auto) 4.1 Baso % (Auto) 0.5 Neut # (Auto) 2.2 Lymph # (Auto) 1.4 [place] # (Auto) 0.2 Eos # (Auto) 0.2 Baso # (Auto) 0.0 Sodium 141 Potassium 4.2 Chloride 106 Carbon Dioxide 23 Anion Gap 16.2 H BUN 27 H Creatinine 0.88 Estimated Creat Clear 36 Estimated GFR 64 Est GFR ( Amer) 77 D Glucose 167 H POC Glucose 160 H Calcium 9.3 Phosphorus 4.0 Magnesium 1.3 L 04/27/18 04/27/18 04/27/18 21:41 16:27 11:33 WBC RBC Hgb Hct MCV MCH MCHC RDW Plt Count MPV Neut % (Auto) Lymph % (Auto) [place] % (Auto) Eos % (Auto) Baso % (Auto) Neut # (Auto) Lymph # (Auto) [place] # (Auto) Eos # (Auto) Baso # (Auto) Sodium Potassium Chloride Carbon Dioxide Anion Gap BUN Creatinine Estimated Creat Clear Estimated GFR Est GFR ( Amer) Glucose POC Glucose 193 H 220 H 185 H Calcium Phosphorus Magnesium Preliminary micro results at discharge 04/25/18 07:35 Blood Culture - Preliminary Blood Staphylococcus epidermidis 04/25/18 12:35 Sputum Culture - Preliminary Sputum - Expectorated Sputum 04/25/18 07:35 Blood Culture - Preliminary Blood NO GROWTH AFTER 48 HOURS DS: Diagnosis - Discharge Diagnosis (1) Morbid obesity Status: Chronic (2) Bilateral pneumonia Status: Acute (3) Hyperthyroidism Status: Acute Problem details: Of note we will hold thyroid supplementation given suppressed TSH on discharge (4) Rapid atrial fibrillation Status: Resolved (5) Acute on chronic anemia Status: Resolved (6) Jzmzq-mf-kcqacoj kidney injury Status: Resolved (7) Type 2 diabetes mellitus treated with insulin Status: Chronic Discharge Plan - Patient Discharge Instructions ACTIVITY: Continue current activity DIET: continue same diet Patient Instructions: Pneumonia-Adult, Atrial Fibrillation, DI for Heart Failure, DI for Pneumonia -- Adult, DI for Atrial Fibrillation - Follow up Plan Follow up with: Raj Salamanca MD [Primary Care Provider] - 05/01/18 Gómez Kunz MD [Staff Physician] - 05/03/18 Disposition: Home, Self-Long Term Medications: Home Medications Medication Instructions Recorded Confirmed Type bimatoprost 0.03 % drops with 1 applic TOPICAL HS 02/20/17 04/25/18 History applicator, eyelash base cyanocobalamin (vit B-12) 1,000 1,000 mcg IM MONTHLY 02/20/17 04/25/18 History mcg/mL injection solution nitroglycerin 0.4 mg sublingual 0.4 mg SUBLINGUAL Q5MINP PRN 02/20/17 04/26/18 History tablet Atorvastatin Calcium [Atorvastatin 40 mg PO HS 10/31/17 04/25/18 History 40mg Tab] Hydrocod/Acet 5/325 mg [[place] 1 tab PO BIDP PRN 11/18/17 04/26/18 History 5/325mg tablet] ondansetron HCl 4 mg tablet 4 mg PO QIDP PRN 02/02/18 04/26/18 History pantoprazole 40 mg tablet,delayed 40 mg PO DAILY 02/02/18 04/25/18 History release budesonide-formoterol HFA 160 2 puff INHALATION BID 02/15/18 04/25/18 History mcg-4.5 mcg/actuation aerosol inhaler insulin glargine (U-100) 100 20 unit SQ DAILY 02/15/18 04/25/18 History unit/mL (3 mL) subcutaneous pen pyridoxine (vitamin B6) 50 mg 50 mg PO DAILY 02/15/18 04/25/18 History capsule spironolactone 25 mg tablet 25 mg PO DAILY 02/15/18 04/25/18 History furosemide 40 mg tablet 40 mg PO Q48H tab 02/23/18 04/25/18 History docusate sodium 100 mg capsule 100 mg PO HS #90 cap 04/02/18 04/25/18 Rx metoclopramide 5 mg tablet 5 mg PO DAILYP PRN 04/12/18 04/26/18 History Levothyroxine Sodium 88 mcg PO DAILY 04/25/18 04/25/18 History [Levothyroxine 88mcg (0.088mg) Tab] Lisinopril [Lisinopril 20mg Tab] 20 mg PO DAILY 04/25/18 04/25/18 History Cefdinir [Omnicef 300mg Capsule] 300 mg PO BID #14 cap 04/28/18 Rx Metoprolol Tartrate 50 mg PO TID #90 tablet 04/28/18 Rx Prescriptions/Medication Reconciliation: New Cefdinir [Omnicef 300mg Capsule] 300 mg PO BID #14 cap Continue cyanocobalamin (vit B-12) 1,000 mcg/mL injection solution 1,000 mcg IM MONTHLY bimatoprost 0.03 % drops with applicator, eyelash base 1 applic TOPICAL HS nitroglycerin 0.4 mg sublingual tablet 0.4 mg SUBLINGUAL Q5MINP PRN PRN Reason: Chest Pain ondansetron HCl 4 mg tablet 4 mg PO QIDP PRN PRN Reason: Nausea pantoprazole 40 mg tablet,delayed release 40 mg PO DAILY spironolactone 25 mg tablet 25 mg PO DAILY budesonide-formoterol HFA 160 mcg-4.5 mcg/actuation aerosol inhaler 2 puff INHALATION BID insulin glargine (U-100) 100 unit/mL (3 mL) subcutaneous pen 20 unit SQ DAILY pyridoxine (vitamin B6) 50 mg capsule 50 mg PO DAILY furosemide 40 mg tablet 40 mg PO Q48H tab docusate sodium 100 mg capsule 100 mg PO HS #90 cap Atorvastatin Calcium [Atorvastatin 40mg Tab] 40 mg PO HS Hydrocod/Acet 5/325 mg [[place] 5/325mg tablet] 1 tab PO BIDP PRN PRN Reason: leg pain Lisinopril [Lisinopril 20mg Tab] 20 mg PO DAILY Changed Metoprolol Tartrate 50 mg PO TID #90 tablet Discontinued metoclopramide 5 mg tablet 5 mg PO DAILYP PRN PRN Reason: STOMACH Levothyroxine Sodium [Levothyroxine 88mcg (0.088mg) Tab] 88 mcg PO DAILY
--- NOTE | 2018-04-28 12:49 | Progress Note ---
Internal Medicine - PN: Subj *Date: 04/28/18 *Time: 10:00 Exam Vital signs and Labs for Last 24 Hours: Temp Pulse Resp BP Pulse Ox 98.0 F 95 H 22 125/69 94 L 04/28/18 08:00 04/28/18 08:00 04/28/18 08:00 04/28/18 08:00 04/28/18 08:00 Laboratory Results - last 24 hr 04/27/18 16:27: POC Glucose 220 H 04/27/18 21:41: POC Glucose 193 H 04/28/18 05:24: POC Glucose 160 H 04/28/18 05:50: WBC 4.0 L D, RBC 2.58 L, Hgb 8.1 L, Hct 26.3 L, MCV 102.0 H, MCH 31.6 H, MCHC 31.0 L, RDW 15.3, Plt Count 119 L, MPV 8.8, Neut % (Auto) 55.4, Lymph % (Auto) 35.4, [place] % (Auto) 4.6, Eos % (Auto) 4.1, Baso % (Auto) 0.5, Neut # (Auto) 2.2, Lymph # (Auto) 1.4, [place] # (Auto) 0.2, Eos # (Auto) 0.2, Baso # (Auto) 0.0 04/28/18 05:50: Sodium 141, Potassium 4.2, Chloride 106, Carbon Dioxide 23, Anion Gap 16.2 H, BUN 27 H, Creatinine 0.88, Estimated Creat Clear 36, Estimated GFR 64, Est GFR ( Amer) 77 D, Glucose 167 H, Calcium 9.3, Phosphorus 4.0, Magnesium 1.3 L I & O for Last 24 hours: Intake & Output 04/25/18 04/26/18 04/27/18 04/28/18 23:59 23:59 23:59 23:59 Intake Total 1197 / 1197 2499 / 2499 2009 440 / 440 Output Total 1000 / 1000 100 / 100 Balance 197 / 197 2399 / 2399 2009 440 / 440 Weight 104.326 kg 105.347 kg 104.383 kg 104.128 kg Microbiology Reports for the Last 24 Hours: Microbiology 04/25/18 12:35 Sputum - Expectorated Sputum Gram Stain - Final 04/25/18 12:35 Sputum - Expectorated Sputum Sputum Culture - Preliminary 04/25/18 07:35 Blood Blood Culture - Preliminary Staphylococcus epidermidis 04/25/18 07:35 Blood Blood Culture - Preliminary NO GROWTH AFTER 48 HOURS Assessment and Plan (1) Morbid obesity Status: Chronic Category: Medical Code(s): E66.01 - Morbid (severe) obesity due to excess calories (2) Bilateral pneumonia Status: Acute Qualifiers: Pneumonia type: due to unspecified organism Lung location: lower lobe of lung Qualified Code(s): J18.1 - Lobar pneumonia, unspecified organism Category: Medical Code(s): J18.9 - Pneumonia, unspecified organism (3) Hyperthyroidism Problem details: Of note we will hold thyroid supplementation given suppressed TSH on discharge Status: Acute Category: Medical Code(s): E05.90 - Thyrotoxicosis, unspecified without thyrotoxic crisis or storm (4) Rapid atrial fibrillation Status: Resolved Category: Medical Code(s): I48.91 - Unspecified atrial fibrillation (5) Acute on chronic anemia Status: Resolved Category: Medical Code(s): D64.9 - Anemia, unspecified (6) [id number] kidney injury Status: Resolved Category: Medical Code(s): N17.9 - Acute kidney failure, unspecified; N18.9 - Chronic kidney disease, unspecified (7) Type 2 diabetes mellitus treated with insulin Status: Chronic Category: Medical Code(s): E11.9 - Type 2 diabetes mellitus without complications; Z79.4 - long-term (current) use of insulin The patient's infection will respond to the chosen ABx?: Yes Is the patient receiving the right drug, dose, and route?: Yes Could a more targeted ABx be ordered?: No (PATIENT D/C ON OMNICEF)
== END 2018-04-28 11:09 | disposition home or self-care (01) | DRG 194 ==
LOC: ER 07:19 → 2ND 10:21
PROVIDERS: ADMIT Internal Medicine Adolescent Medicine; ATTEND Internal Medicine Adolescent Medicine
CPT/HCPCS: 36415; 71010; 71045; 74176; 80048; 80053; 82150; 82550; 82553; 82962; 83605; 83690; 83735; 84100; 84443; 84484; 85014; 85018; 85025; 87040; 87070; 87077; 87186; 87205; 87275; 87276; 93005; 94640; 94761; 96365; 96366; 96367; 97116; 97163; 99285; J0456; J3370

== ENCOUNTER 2018-06-10 10:03 | Observation (INO) ==
--- NOTE | 2018-06-10 10:14 | Emergency Department Note ---
ED Disposition Clinical Impression: Troponin I above reference range Syncope Qualifiers: Syncope type: unspecified Qualified Code(s): R55 - Syncope and collapse Disposition: Admitted as Observation Condition on Discharge: Good - Critical Care Critical Care Time: No Attestation: On , the high probability of a clinically significant, sudden or life thr eatening deterioration of the following system(s) required my full and direct attention, intervention and personal management. The time I documented below is in addition to time spent performing reported procedures but includes the following listed in this critical care notation. Medical Decision Making - Medical Records Medical records reviewed: Yes: I reviewed the patient's medical records. - [place]erm[place] Inquiry Pt receiving controlled substance: No Vital Signs: 06/10/18 10:19 06/10/18 11:04 Temperature 97.6 F Temperature Source Oral Pulse Rate [Right Apical] 85 85 Respiratory Rate 18 18 Blood Pressure [Left Arm] 185/101 H 166/77 H Blood Pressure Mean [Left Arm] 129 106 Blood Pressure Source [Left Arm] Automatic Cuff Blood Pressure Position [Left Arm] Sitting 02 Sat by Pulse Oximetry 96 98 Oxygen Delivery Method Room Air Room Air - Lab Data Lab results reviewed: Yes: I reviewed the patient's lab results. Lab Results 06/10/18 10:15: WBC 4.7 L, RBC 3.15 L, Hgb 9.9 L, Hct 32.1 L, MCV 102.0 H, MCH 31.4 H, MCHC 30.7 L, RDW 16.0, Plt Count 109 L, MPV 8.2, Neut % (Auto) 52.2, Lymph % (Auto) 41.0, [place] % (Auto) 3.7, Eos % (Auto) 2.7, Baso % (Auto) 0.4, Neut # (Auto) 2.4, Lymph # (Auto) 1.9, [place] # (Auto) 0.2, Eos # (Auto) 0.1, Baso # (Auto) 0.0 06/10/18 10:15: Sodium 139, Potassium 4.6, Chloride 105, Carbon Dioxide 21, Anion Gap 17.6 H, BUN 35 H, Creatinine 1.16 H, Estimated Creat Clear 32, Estimated GFR 46 L, Est GFR ( Amer) 56 L, Glucose 260 H, Calcium 9.8, Total Bilirubin 1.0, AST 39 H, ALT 42, Alkaline Phosphatase 250 H, Troponin I 0.07 H, Total Protein 7.9, Albumin 3.2 L, Globulin 4.7 H, Albumin/Globulin Ratio 0.7 L, Lipase 97 06/10/18 10:15: Lactate 2.9 H Result diagrams: 06/10/18 10:15 06/10/18 10:15 Orders (Tests/Meds): ED MEDICATIONS Generic Name Dose Route Start Last Admin Trade Name Freq PRN Reason Stop Dose Admin Sodium Chloride 500 mls @ 999 mls/hr 06/10/18 11:45 06/10/18 11:38 Sod Chlor 0.9% 1000ml Bag IV 06/10/18 12:15 999 mls/hr .Q31M RAUL Administration Discontinued Medications Generic Name Dose Route Start Last Admin Trade Name Freq PRN Reason Stop Dose Admin Aspirin 324 mg 06/10/18 11:32 06/10/18 11:38 Aspirin 81mg Chewable Tablet PO 06/10/18 11:33 324 mg ONCE ONE Administration Ondansetron HCl 4 mg 06/10/18 10:11 06/10/18 10:23 Zofran 4mg/2ml Vial IV 06/10/18 10:12 4 mg ONCE ONE Administration ORDERS Category Date Time Status CT head/brain wo con Stat Cat Scan 06/10/18 10:11 Taken XR chest portable Stat Exams 06/10/18 10:11 Taken 12-lead EKG Request [ECG Request by /Thor] Stat Y 06/10/18 10:05 Ordered ECG Request by /Thor Stat Y 06/10/18 10:11 Stop Req - CT Data CT Scan: Head Time Received: 11:[address] Reviewed: Yes: I have viewed the radiologist's interpretation - ECG Data Tracing #1 I reviewed this ECG and interpreted as documented below: Normal Sinus Rhythm: No (atrial fib 98, rbbb, pvc's, no stemi) Medical Decision Narrative: BP improved, pt continues to deny chest pain, troponin elevated, admit d/w Dr Salinas, aspirin given after neg head ct General Adult HPI - General Stated complaint: Syncope Time Seen by Provider: 06/10/18 10:12 Source of Information: Patient - History of Present Illness HPI narrative: syncope today, +nausea, no injury, no pain, no fever - Related Data Home Medications Medication Instructions Recorded Confirmed bimatoprost 0.03 % drops with 1 applic TOPICAL HS 02/20/17 05/03/18 applicator, eyelash base nitroglycerin 0.4 mg sublingual 0.4 mg SUBLINGUAL Q5MINP PRN 02/20/17 05/03/18 tablet Atorvastatin Calcium [Atorvastatin 40 mg PO HS 10/31/17 05/03/18 40mg Tab] Hydrocod/Acet 5/325 mg [[place] 1 tab PO BIDP PRN 11/18/17 05/03/18 5/325mg tablet] ondansetron HCl 4 mg tablet 4 mg PO QIDP PRN 02/02/18 05/03/18 budesonide-formoterol HFA 160 2 puff INHALATION BID 02/15/18 05/03/18 mcg-4.5 mcg/actuation aerosol inhaler insulin glargine (U-100) 100 20 unit SQ DAILY 02/15/18 05/03/18 unit/mL (3 mL) subcutaneous pen pyridoxine (vitamin B6) 50 mg 50 mg PO DAILY 02/15/18 05/03/18 capsule spironolactone 25 mg tablet 25 mg PO DAILY 02/15/18 05/03/18 Lisinopril [Lisinopril 20mg Tab] 20 mg PO DAILY 04/25/18 05/03/18 aspirin 81 mg tablet,delayed 81 mg PO DAILY 05/03/18 05/03/18 release furosemide 40 mg tablet 40 mg PO .every other day tab 05/03/18 05/03/18 Previous Rx's Medication Instructions Recorded docusate sodium 100 mg capsule 100 mg PO HS #90 cap 04/02/18 Cefdinir [Omnicef 300mg Capsule] 300 mg PO BID #14 cap 04/28/18 Metoprolol Tartrate 50 mg PO TID #90 tab 04/28/18 Allergies Allergy/AdvReac Type Severity Reaction Status Date / Time codeine [CODEINE] Allergy Intermediate I-RASH Verified 05/03/18 10:40 sulfisoxazole Allergy Verified 05/03/18 10:40 [facility] History - Hepatitis A Screen Attestation statement:: This patient has been screened for Hepatitis A risk factors. Medical History: Reports:: Atherosclerotic Heart Disease, Atrial Fibrillation, Chronic Obstructive Pulmonary Disease (COPD), Coronary Artery Disease, Diabetes Mellitus Type 2, Hyperlipidemia, Hypertension, Peripheral Artery Disease Denies:: Cancer, MRSA Other Medical History: Reports: Anemia, Arthritis, Hypothyroidism, Thyroid Disease Other Surgeries: Yes: Appendectomy, CABG, Cardiac Catheterization, Cholecystect hillary, EGD, Hysterectomy-Total Amputation: No Fractures: No - Social History Smoking Status: Never smoker Alcohol Intake: never Alcohol Intake Frequency:: other Substance Use Type: denies use Occupational Status: retired Housing: house Household Members: spouse Family Hx:: Cancer, Coronary Artery Disease, Diabetes, Heart Attack, Hyperli pidemia, Hypertension, Kidney Disease ROS Obtained: Yes Systems reviewed as appropriate & no additional complaints - Constitutional Constitutional: Denies fever(s) - Eyes Eyes: Denies change in vision - ENT Ears, Nose, Mouth, and Throat: Denies headache(s) - Cardiovascular Cardiovascular: Denies chest pain - Respiratory Respiratory: No dyspnea - Gastrointestinal Gastrointestingal: Denies: abdominal pain - Musculoskeletal Musculoskeletal: Denies neck pain - Integumentary/Breasts Skin/Breast: Denies rash - Neurologic Neurologic: Reports dizziness, Denies focal weakness, Reports syncope Physical Exam - General General appearance: alert, in no apparent distress - Head Head exam: atraumatic - Eye Eye exam: Present: normal appearance, PERRL, EOMI - ENT ENT exam: Present: normal exam - Neck Neck exam: Present: normal inspection - Chest Chest inspection: Present: normal inspection - Respiratory Respiratory exam: Present: normal lung sounds bilaterally - Cardiovascular Cardiovascular exam: Present: irregular rhythm - Abdominal Exam Abdominal exam: Present: soft. Absent: tenderness - Extremities Exam Extremities exam: Present: normal inspection. Absent: pedal edema - Back Exam Back exam: Absent: vertebral tenderness - Neurological Exam Neurological exam: Present: alert, oriented X3, other (customer contact specialist equal) - Psychiatric Psychiatric exam: Present: normal affect, normal mood - Skin Skin exam: Present: warm, dry
[2018-06-10 10:31] LABS: Basophils % 0.4 % (0.1-2.0); Eosinophils # 0.1 K/mm3 (0.0-0.4); Eosinophils % 2.7 % (0.1-12.0); Hematocrit 32.1 % (37.0-47.0); Hemoglobin 9.9 g/dL (12.2-16.2); Lymphocytes # 1.9 K/mm3 (0.7-4.5); Mean Corpuscular HGB Conc 30.7 g/dL (31.8-35.4); Mean Corpuscular Hemoglobin 31.4 pg (27.0-31.2); Mean Platelet Volume 8.2 fl (7.4-10.4); Monocytes # 0.2 K/mm3 (0.1-1.0); Monocytes % 3.7 % (1.7-9.3); Neutrophils # 2.4 K/mm3 (1.8-7.8); Neutrophils % 52.2 % (37.0-80.0); Platelet Count 109 K/mm3 (142-424); Red Blood Count 3.15 M/mm3 (4.20-5.40); White Blood Count 4.7 K/mm3 (4.8-10.8)
[2018-06-10 10:42] LABS: Albumin Level 3.2 gm/dL (3.4-5.0); Albumin/Globulin Ratio 0.7 (1.1-1.8); Anion Gap 17.6 mEq/L (5-15); Calcium 9.8 mg/dL (8.5-10.1); Globulin 4.7 gm/dl (1.3-3.2); Total Protein,Serum 7.9 gm/dL (6.4-8.2)
[2018-06-10 10:44] LABS: Potassium 4.6 mmoL/L (3.5-5.1)
--- NOTE | 2018-06-11 08:28 | History & Physical Report ---
*Admission Date: 06/10/18 *Chief complaint: Syncope *History of present illness: 73-year-old white female with multiple cardiac medical problems including atherosclerotic heart disease status post bypass surgery in November, recurrent atrial fibrillation, bradycardia with pacemaker in situ, who yesterday was [place] ready to go to [facility] when after walking out to her 's truck and climbing into the truck as they were leaving the driveway had an episode of jovan syncope that lasted for 10 to 15 minutes while the was driving her to the emergency department he states "I thought she was ." She revived coming into the parking lot of [facility] where she was and was able to answer questions. In the emergency department her troponin was slightly elevated and she was admitted to hospital for further evaluation. [facility] History I have reviewed the patient's past medical history: Yes Medical History: Reports:: Atherosclerotic Heart Disease, Atrial Fibrillation, Congestive Heart Failure, Chronic Obstructive Pulmonary Disease (COPD), Coronary Artery Disease, Diabetes Mellitus Type 2, Hyperlipidemia, Hypertension, Peripheral Artery Disease Denies:: Cancer, Diabetes Mellitus Type 1, MRSA *Have you ever received a pneumonia vaccine?: Yes *Have you received a flu vaccine this season?: Yes Other Medical History: Reports: Anemia, Arthritis, Cataracts, Hypothyroidism, Sinus Problems, Thyroid Disease Laterality Cases: Left: Total Knee Replacement Other Surgeries: Yes: Appendectomy, CABG, Cardiac Catheterization, Cholecystectomy, Colonoscopy, Coronary Stent, EGD, Hysterectomy-Total, Open Heart Surgery Amputation: No Fractures: No - *Social History Educational Level: Attended High School Smoking Status: Former smoker # Packs/Day (cigarettes): 1 Alcohol Intake: never Alcohol Intake Frequency:: other Substance Use Type: denies use *Occupational Status:: retired Housing: house Household Members: spouse *Travel in the last 8 weeks: None - Psychiatric History Expresses thoughts of harming self/others: None Suicide Plan Description: No Plan Family Hx:: Cancer, Coronary Artery Disease, Diabetes, Heart Attack, Hyperlipidemia, Hypertension, Thyroid Disorder Review of Systems - Review of Systems Review of systems:: pertinent systems reviewed and negative unless documented below - *Neurologic Reports dizziness, Reports fainting, Denies localized weakness, Denies headache(s) Meds Home Medications Medication Instructions Recorded Confirmed Type nitroglycerin 0.4 mg sublingual 0.4 mg SUBLINGUAL Q5MINP PRN 02/20/17 06/10/18 History tablet Atorvastatin Calcium [Atorvastatin 40 mg PO DAILY 10/31/17 06/10/18 History 40mg Tab] Hydrocod/Acet 5/325 mg [[place] 1 tab PO DAILYP PRN 11/18/17 06/10/18 History 5/325mg tablet] budesonide-formoterol HFA 160 2 puff INHALATION BID 02/15/18 06/10/18 History mcg-4.5 mcg/actuation aerosol inhaler insulin glargine (U-100) 100 20 unit SQ HS 02/15/18 06/10/18 History unit/mL (3 mL) subcutaneous pen pyridoxine (vitamin B6) 50 mg 50 mg PO DAILY 02/15/18 06/10/18 History capsule spironolactone 25 mg tablet 25 mg PO DAILY 02/15/18 06/10/18 History docusate sodium 100 mg capsule 100 mg PO HS #90 cap 04/02/18 06/10/18 Rx Lisinopril [Lisinopril 20mg Tab] 20 mg PO DAILY 04/25/18 06/10/18 History Metoprolol Tartrate 50 mg PO TID #90 tab 04/28/18 06/10/18 Rx aspirin 81 mg tablet,delayed 81 mg PO DAILY 05/03/18 06/10/18 History release furosemide 40 mg tablet 40 mg PO DIRECTED PRN tab 05/03/18 06/10/18 History Acetaminophen [Acetaminophen 8 650 mg PO DAILYP PRN 06/10/18 06/10/18 History Hour] Pantoprazole Sodium [Protonix 40mg 40 mg PO DAILY 06/10/18 06/10/18 History tablet] Allergies Allergy/AdvReac Type Severity Reaction Status Date / Time codeine [CODEINE] Allergy Intermediate I-RASH Verified 05/03/18 10:40 sulfisoxazole Allergy Verified 05/03/18 10:40 Exam Vital signs and Labs for Last 24 Hours: Temp Pulse Resp BP Pulse Ox 98.4 F 102 H 18 142/65 H 93 L 06/11/18 08:00 06/11/18 08:00 06/11/18 08:00 06/11/18 08:00 06/11/18 08:00 Laboratory Results - last 24 hr 06/10/18 10:15: WBC 4.7 L, RBC 3.15 L, Hgb 9.9 L, Hct 32.1 L, MCV 102.0 H, MCH 31.4 H, MCHC 30.7 L, RDW 16.0, Plt Count 109 L, MPV 8.2, Neut % (Auto) 52.2, Lymph % (Auto) 41.0, [place] % (Auto) 3.7, Eos % (Auto) 2.7, Baso % (Auto) 0.4, Neut # (Auto) 2.4, Lymph # (Auto) 1.9, [place] # (Auto) 0.2, Eos # (Auto) 0.1, Baso # (Auto) 0.0 06/10/18 10:15: Sodium 139, Potassium 4.6, Chloride 105, Carbon Dioxide 21, Anion Gap 17.6 H, BUN 35 H, Creatinine 1.16 H, Estimated Creat Clear 32, Estimated GFR 46 L, Est GFR ( Amer) 56 L, Glucose 260 H, Calcium 9.8, T otal Bilirubin 1.0, AST 39 H, ALT 42, Alkaline Phosphatase 250 H, Troponin I 0.07 H, Total Protein 7.9, Albumin 3.2 L, Globulin 4.7 H, Albumin/Globulin Ratio 0.7 L, Lipase 97 06/10/18 10:15: Lactate 2.9 H 06/10/18 12:19: Troponin I 0.07 H 06/10/18 14:30: Lactate 1.3 06/10/18 16:12: POC Glucose 255 H 06/10/18 22:16: POC Glucose 233 H 06/11/18 06:02: POC Glucose 150 H I & O for Last 24 hours: Intake & Output 06/08/18 06/09/18 06/10/18 06/11/18 11:59 11:59 11:59 11:59 Intake Total 1200 / 1200 Balance 1200 / 1200 Weight 223 lb 222 lb Narrative: Patient is morbidly obese, pleasant, alert, oriented x3. Cranial nerves intact, able to member all recent events. Able to move all extremities well. Heart rate regular. Abdomen soft, lungs clear. Oropharynx clear. No JVD. Assessment and Plan (1) Syncope Current visit: Yes Status: Acute Qualifiers: Syncope type: unspecified Qualified Code(s): R55 - Syncope and collapse Category: Medical Code(s): R55 - Syncope and collapse In talking to patient, she had quite an emotional birthday with some family upset incidence, and I think this may be some emotional syncope issues. However I do think is reasonable to have cardiology evaluate patient. Interrogate pacemaker, etc. I anticipate discharge today. (2) Troponin I above reference range Current visit: Yes Status: Acute Category: Medical Code(s): R74.8 - Abnormal levels of other serum enzymes Troponin levels are always elevated. I do not believe this represents any kind of myocardial ischemia
--- NOTE | 2018-06-11 10:10 | Consult Report ---
History of Present Illness Consult date: 06/11/18 Requesting physician: Raj Salamanca Chief complaint: Syncope Additional Medical History:: 1. Coronary artery disease A. History of ALEYDA 01/2007. B. Non-STEMI with subsequent drug-eluting stenting of the circumflex and left anterior descending arteries, 08/2015 C. NSTEMI, 10/2017 D. [facility] revealing multivessel disease and right renal artery stenosis with recommendation for CABG and consideration for right renal artery stenting after recovery from CABG. E. 3 vessel CABG with DELGADO clip, 11/2017, [place], [place] 2. Atrial fibrillation, chronic A. Xarelto therapy 3. Recurrent anemia A. History of bone marrow biopsy with no evidence of cancer, per patient B. Followed by Dr. Calvert C. History of IV iron therapy and intermittent blood transfusions D. Pancytopenia, 05/2018 4. Diabetes mellitus, treated for >20 yrs 5. History of peripheral arterial disease A. Carotid U/S, 06/2017, 50-69% LICA, 20-49% LYNSEY. Stable compared with 04/2017 study. 6. Hypertension A. Echocardiogram, 01/2018, ejection fraction 45-55% with mild to moderate apical hypokinesis. Left atrial enlargement at 4.6 cm and a loculated pericardial effusion noted. 7. Chronic obstructive pulmonary disease 8. Hyperlipidemia 9. History of IVC filter, 2010 10. Carotid artery stenosis A. CNI, 06/2017, 50-69% LICA, 20-49% LYNSEY. No change from 2017 History of present illness: 73-year-old white female with history of multivessel coronary bypass surgery in November 2017, diabetes mellitus, COPD and chronic stable anemia presented to the hospital by private vehicle for evaluation of syncope. Patient had gotten ready to go to [facility] yesterday when she walked out to her 's truck. Patient denies chest pain but does relate a lower abdominal discomfort which she has been intermittent without episodes of vomiting or diarrhea. Patient was able to pull herself up into her 's truck and then after sitting down, lost consciousness. She does not remember any chest pain, pressure or tightness. Her states that she fell over onto him and at that point he decided to drive her to the emergency department for further evaluation. In route she did begin to regain consciousness although not to the level of her normal state of consciousness. They live approximately 25-30 minutes from the hospital and by the time she got to the hospital she was back to herself and able to exit the truck to the wheelchair waiting for her. Workup in the hospital included CT of the head with no acute changes noted. Patient does have chronically mildly elevated troponin. Telemetry shows chronic atrial fibrillation with controlled rate with a right bundle branch block. Cardiology was consulted for evaluation and recommendations. [facility] History Medical History: Reports:: Atherosclerotic Heart Disease, Atrial Fibrillation, Congestive Heart Failure, Chronic Obstructive Pulmonary Disease (COPD), Coronary Artery Disease, Diabetes Mellitus Type 2, Hyperlipidemia, Hypertension, Peripheral Artery Disease Denies:: Cancer, Diabetes Mellitus Type 1, MRSA *Have you ever received a pneumonia vaccine?: Yes *Have you received a flu vaccine this season?: Yes Other Medical History: Reports: Anemia, Arthritis, Cataracts, Hypothyroidism, Sinus Problems, Thyroid Disease Laterality Cases: Left: Total Knee Replacement Other Surgeries: Yes: Appendectomy, CABG, Cardiac Catheterization, Cholecystectomy, Colonoscopy, Coronary Stent, EGD, Hysterectomy-Total, Open Heart Surgery Amputation: No Fractures: No - *Social History Educational Level: Attended High School Smoking Status: Former smoker # Packs/Day (cigarettes): 1 Alcohol Intake: never Alcohol Intake Frequency:: other Substance Use Type: denies use *Occupational Status:: retired Housing: house Household Members: spouse *Travel in the last 8 weeks: None - Psychiatric History Expresses thoughts of harming self/others: None Suicide Plan Description: No Plan Family Hx:: Cancer, Coronary Artery Disease, Diabetes, Heart Attack, Hyperlipidemia, Hypertension, Thyroid Disorder Meds Home Medications Medication Instructions Recorded Confirmed Type nitroglycerin 0.4 mg sublingual 0.4 mg SUBLINGUAL Q5MINP PRN 02/20/17 06/10/18 History tablet Atorvastatin Calcium [Atorvastatin 40 mg PO HS 10/31/17 06/11/18 History 40mg Tab] Hydrocod/Acet 5/325 mg [[place] 1 tab PO DAILYP PRN 11/18/17 06/10/18 History 5/325mg tablet] budesonide-formoterol HFA 160 2 puff INHALATION BID 02/15/18 06/10/18 History mcg-4.5 mcg/actuation aerosol inhaler insulin glargine (U-100) 100 20 unit SQ HS 02/15/18 06/10/18 History unit/mL (3 mL) subcutaneous pen pyridoxine (vitamin B6) 50 mg 50 mg PO DAILY 02/15/18 06/10/18 History capsule spironolactone 25 mg tablet 25 mg PO DAILY 02/15/18 06/10/18 History docusate sodium 100 mg capsule 100 mg PO HS #90 cap 04/02/18 06/10/18 Rx Lisinopril [Lisinopril 20mg Tab] 20 mg PO DAILY 04/25/18 06/10/18 History Metoprolol Tartrate 50 mg PO TID #90 tab 04/28/18 06/10/18 Rx aspirin 81 mg tablet,delayed 81 mg PO DAILY 05/03/18 06/10/18 History release furosemide 40 mg tablet 40 mg PO DIRECTED PRN tab 05/03/18 06/10/18 History Acetaminophen [Acetaminophen 8 650 mg PO DAILYP PRN 06/10/18 06/10/18 History Hour] Pantoprazole Sodium [Protonix 40mg 40 mg PO DAILY 06/10/18 06/10/18 History tablet] Allergies Allergy/AdvReac Type Severity Reaction Status Date / Time codeine [CODEINE] Allergy Intermediate I-RASH Verified 05/03/18 10:40 sulfisoxazole Allergy Verified 05/03/18 10:40 Review of Systems - *Cardiovascular Reports shortness of breath with activity, Denies chest pain - *Respiratory Reports shortness of breath with activity, Denies cough - *Gastrointestinal Reports abdominal pain, Denies nausea, Denies vomiting - *Genitourinary Denies difficulty urinating, Denies blood in urine - *Musculoskeletal Denies joint pain, Denies back pain - *Neurologic Reports dizziness, Reports fainting, Denies localized weakness, Denies headache(s) Exam Vital signs and Labs for Last 24 Hours: Temp Pulse Resp BP Pulse Ox 98.4 F 102 H 18 142/65 H 93 L 06/11/18 08:00 06/11/18 08:00 06/11/18 08:00 06/11/18 08:00 06/11/18 08:20 Laboratory Results - last 24 hr 06/10/18 10:15: WBC 4.7 L, RBC 3.15 L, Hgb 9.9 L, Hct 32.1 L, MCV 102.0 H, MCH 31.4 H, MCHC 30.7 L, RDW 16.0, Plt Count 109 L, MPV 8.2, Neut % (Auto) 52.2, Lymph % (Auto) 41.0, [place] % (Auto) 3.7, Eos % (Auto) 2.7, Baso % (Auto) 0.4, Neut # (Auto) 2.4, Lymph # (Auto) 1.9, [place] # (Auto) 0.2, Eos # (Auto) 0.1, Baso # (Auto) 0.0 06/10/18 10:15: Sodium 139, Potassium 4.6, Chloride 105, Carbon Dioxide 21, Anion Gap 17.6 H, BUN 35 H, Creatinine 1.16 H, Estimated Creat Clear 32, Estimated GFR 46 L, Est GFR ( Amer) 56 L, Glucose 260 H, Calcium 9.8, Total Bilirubin 1.0, AST 39 H, ALT 42, Alkaline Phosphatase 250 H, Troponin I 0.07 H, Total Protein 7.9, Albumin 3.2 L, Globulin 4.7 H, Albumin/Globulin Ratio 0.7 L, Lipase 97 06/10/18 10:15: Lactate 2.9 H 06/10/18 12:19: Troponin I 0.07 H 06/10/18 14:30: Lactate 1.3 06/10/18 16:12: POC Glucose 255 H 06/10/18 22:16: POC Glucose 233 H 06/11/18 06:02: POC Glucose 150 H I & O for Last 24 hours: Intake & Output 06/08/18 06/09/18 06/10/18 06/11/18 11:59 11:59 11:59 11:59 Intake Total 1200 / 1200 Balance 1200 / 1200 Weight 223 lb 222 lb - *Routine HEENT Exam Head: Present: normocephalic Eye: Present: EOMI, PERRL ENT: Present: mucous membranes moist - *Routine Neck Exam Present: supple. Absent: JVD, carotid bruit - *Routine Respiratory Exam Present: CTA bilaterally. Absent: accessory muscle use, rales, rhonchi, wheezes - *Routine Cardiovascular Exam Present: irregularly irregular. Absent: murmur, gallop, rubs - *Routine Abdominal Exam Present: soft. Absent: tenderness, distended, guarding - *Routine Extremities Exam Absent: edema, calf tenderness - *Routine Neurological Exam Present: alert, oriented X3, moving all extremities Assessment and Plan (1) Syncope Current visit: Yes Status: Acute Qualifiers: Syncope type: unspecified Qualified Code(s): R55 - Syncope and collapse Category: Medical Code(s): R55 - Syncope and collapse (2) Troponin I above reference range Current visit: Yes Status: Acute Category: Medical Code(s): R74.8 - Abnormal levels of other serum enzymes (3) Atrial fibrillation, chronic Current visit: No Status: Chronic Category: Medical Code(s): I48.2 - Chronic atrial fibrillation (4) CAD (coronary artery disease) Current visit: No Status: Chronic Qualifiers: Coronary Disease-Associated Artery/Lesion type: [place] artery [place] vs. transplanted heart: [place] heart Associated angina: with unstable angina Qualified Code(s): I25.110 - Atherosclerotic heart disease of [place] coronary artery with unstable angina pectoris Category: Medical Code(s): I25.10 - Atherosclerotic heart disease of [place] coronary artery without angina pectoris (5) Diabetes mellitus type 2 in obese Current visit: No Status: Chronic Category: Medical Code(s): E11.69 - Type 2 diabetes mellitus with other specified complication; E66.9 - Obesity, unspecified (6) Hypertension Current visit: No Status: Chronic Qualifiers: Hypertension type: essential hypertension Qualified Code(s): I10 - Essential (primary) hypertension Category: Medical Code(s): I10 - Essential (primary) hypertension (7) Renal insufficiency Current visit: No Status: Chronic Category: Medical Code(s): N28.9 - Disorder of kidney and ureter, unspecified - Assessment and plan all Dx Assessment and Plan for all problems:: 1. I suspect that the patient had vasovagal syncope related to abdominal pain and bearing down to pull herself up into the truck. She has had no significant bradycardic episodes during her hospitalization. Will have her ambulate with assistance this AM and if no episodes of bradycardia, then she could be discharged home later today. Would recommend prolonged Holter monitor upon discharge or consideration for implantable loop recorder to evaluate for tachybradycardia syndrome and possible need for pacemaker implantation. 2. Follow-up in our office in 1-2 weeks. We will need to consider repeating renal angiogram due to history of renal artery stenosis
--- NOTE | 2018-06-11 17:39 | Discharge Summary ---
General - General Admission date:: 06/10/18 Discharge date: 06/11/18 HPI HPI: 73-year-old white female with multiple cardiac medical problems including atherosclerotic heart disease status post bypass surgery in November, recurrent atrial fibrillation, bradycardia with pacemaker in situ, who yesterday was getting ready to go to [facility] when after walking out to her 's truck and climbing into the truck as they were leaving the driveway had an episode of jovan syncope that lasted for 10 to 15 minutes while the was driving her to the emergency department he states "I thought she was ." She revived coming into the parking lot of [place] where she was and was able to answer questions. In the emergency department her troponin was slightly elevated and she was admitted to hospital for further evaluation. Hospital Course Hospital Course: Patient was admitted, troponin elevation was noted but at her baseline. She felt fine through the rest of the evening and into the morning. Cardiology evaluated her. She had no episodes of bradycardia on ekg monitor and felt fine through the morning and early afternoon. Plan will be to discharge home, Holter monitoring and follow-up with cardiology. Assess for possible bradycardia episodes versus vasovagal syncope versus need for renal stenosis evaluation. Objective Vital signs: Temp Pulse Resp BP Pulse Ox 98.1 F 80 18 156/83 H 97 06/11/18 15:11 06/11/18 15:11 06/11/18 15:11 06/11/18 15:11 06/11/18 15:11 Narrative: See exam from this morning's H&P notes Results Labs on day of discharge: Labs from last 24 hours 06/11/18 06/11/18 06/11/18 16:32 11:13 06:02 POC Glucose 247 H 173 H 150 H 06/10/18 22:16 POC Glucose 233 H DS: Diagnosis - Discharge Diagnosis (1) Syncope Status: Acute (2) Troponin I above reference range Status: Acute (3) Atrial fibrillation, chronic Status: Chronic (4) CAD (coronary artery disease) Status: Chronic (5) Diabetes mellitus type 2 in obese Status: Chronic (6) Hypertension Status: Chronic (7) Renal insufficiency Status: Chronic Discharge Plan - Patient Discharge Instructions ACTIVITY: Continue current activity DIET: continue same diet Patient Instructions: DI for Syncope in Adults (Fainting) - Follow up Plan Follow up with: Madi Segundo MD [Staff Physician] - 06/14/18 Disposition: Home, Self-Longterm Medications: Home Medications Medication Instructions Recorded Confirmed Type nitroglycerin 0.4 mg sublingual 0.4 mg SUBLINGUAL Q5MINP PRN 02/20/17 06/10/18 History tablet Atorvastatin Calcium [Atorvastatin 40 mg PO HS 10/31/17 06/11/18 History 40mg Tab] Hydrocod/Acet 5/325 mg [[place] 1 tab PO DAILYP PRN 11/18/17 06/10/18 History 5/325mg tablet] budesonide-formoterol HFA 160 2 puff INHALATION BID 02/15/18 06/10/18 History mcg-4.5 mcg/actuation aerosol inhaler insulin glargine (U-100) 100 20 unit SQ HS 02/15/18 06/10/18 History unit/mL (3 mL) subcutaneous pen pyridoxine (vitamin B6) 50 mg 50 mg PO DAILY 02/15/18 06/10/18 History capsule spironolactone 25 mg tablet 25 mg PO DAILY 02/15/18 06/10/18 History docusate sodium 100 mg capsule 100 mg PO HS #90 cap 04/02/18 06/10/18 Rx Lisinopril [Lisinopril 20mg Tab] 20 mg PO DAILY 04/25/18 06/10/18 History Metoprolol Tartrate 50 mg PO TID #90 tab 04/28/18 06/10/18 Rx aspirin 81 mg tablet,delayed 81 mg PO DAILY 05/03/18 06/10/18 History release furosemide 40 mg tablet 40 mg PO DIRECTED PRN tab 05/03/18 06/10/18 History Acetaminophen [Acetaminophen 8 650 mg PO DAILYP PRN 06/10/18 06/10/18 History Hour] Pantoprazole Sodium [Protonix 40mg 40 mg PO DAILY 06/10/18 06/10/18 History tablet] Prescriptions/Medication Reconciliation: Continued nitroglycerin 0.4 mg sublingual tablet 0.4 mg SUBLINGUAL Q5MINP PRN PRN Reason: Chest Pain spironolactone 25 mg tablet 25 mg PO DAILY budesonide-formoterol HFA 160 mcg-4.5 mcg/actuation aerosol inhaler 2 puff INHALATION BID insulin glargine (U-100) 100 unit/mL (3 mL) subcutaneous pen 20 unit SQ HS aspirin 81 mg tablet,delayed release 81 mg PO DAILY pyridoxine (vitamin B6) 50 mg capsule 50 mg PO DAILY docusate sodium 100 mg capsule 100 mg PO HS #90 cap furosemide 40 mg tablet 40 mg PO DIRECTED PRN tab PRN Reason: swelling Metoprolol Tartrate 50 mg PO TID #90 tab Acetaminophen [Acetaminophen 8 Hour] 650 mg PO DAILYP PRN PRN Reason: Moderate pain Atorvastatin Calcium [Atorvastatin 40mg Tab] 40 mg PO HS Hydrocod/Acet 5/325 mg [[place] 5/325mg tablet] 1 tab PO DAILYP PRN PRN Reason: leg pain Lisinopril [Lisinopril 20mg Tab] 20 mg PO DAILY Pantoprazole Sodium [Protonix 40mg tablet] 40 mg PO DAILY
--- NOTE | 2018-06-11 21:25 | Cardiology Report ---
PROCEDURE: 2-D M-mode and color Doppler study INDICATIONS FOR THE TEST: Chest pain COPD+ Heart Murmur Tobacco Smoking Palpitations Fatigue Syncope Edema Hypertension+Diabetes Mellitus+ Rheumatic Fever SOB+ALEXANDER Obesity+Hyperlipidemia+ Family History HD Additional History CAD, AFIB, COPD, PAD, CABG PATIENT INFORMATION HEIGHT: 60 WEIGHT:223 GENDER: Female B/P:166/77 2-D/M-MODE INTERPRETATION: 2-D MEASUREMENTS OBSERVED VALUES IN CMS Right Ventricular Dimension (RVDd) 2.9 Interventricular Septum (Thickness)(IVsd) 1.2 Left Ventricular Internal Dimensions(LVIDd) 5.1 Left Ventricular Posterior Wall (Thickness)(LVPWd) 0.6 Aortic Root 3.3 Aortic Cusp Separation 1.3 Left Atrial Dimensions (LAD) 4.4 2D 1. Left atrium is moderately enlarged, left ventricle is normal size, mild concentric left ventricular hypertrophy, visually estimated ejection fraction 50%, there is abnormal septal motion. 2. The right atrium and right ventricle are moderately enlarged, contractility of the right ventricle is mildly reduced. 3. The aortic valve is thickened and gastritis leaflet continue to display mobility. 4. The mitral and tricuspid valve leaflets are minimally thickened. 5. The pulmonic valve is poorly visualized. 6. No significant pericardial effusion noted. DOPPLER INTERROGATION: Doppler interrogation of the aortic, mitral and tricuspid valvular presence of moderate mitral and mild tricuspid regurgitation, calculated right ventricular systolic pressure is 68 mmHg consistent with moderate pulmonary hypertension, diastolic parameters are inconclusive. CONCLUSION: 1. Moderate biatrial enlargement, normal left ventricular size, mild concentric left ventricular hypertrophy, visually estimated ejection fraction 50%, there is abnormal septal motion. 2. Moderately enlarged right ventricle with mild reduced contractility. 3. Thickened and calcified aortic valve without significant aortic stenosis aortic insufficiency 4. Moderate mitral and mild tricuspid regurgitation, calculated right ventricular systolic pressure 68 mmHg consistent with moderate pulmonary hypertension. 5. No significant pericardial effusion noted.
== END 2018-06-11 17:30 | disposition home or self-care (01) ==
LOC: ER 10:03 → 2ND 10:03
PROVIDERS: ADMIT Emergency Medicine; ATTEND Internal Medicine Adolescent Medicine
DX: E78.5 Hyperlipidemia, unspecified; N28.9 Disorder of kidney and ureter, unspecified; Z79.899 Other long term (current) drug therapy; R55 Syncope and collapse; Z88.6 Allergy status to analgesic agent; E11.9 Type 2 diabetes mellitus without complications; D64.9 Anemia, unspecified; I10 Essential (primary) hypertension; Z88.2 Allergy status to sulfonamides; J44.9 Chronic obstructive pulmonary disease, unspecified; I73.9 Peripheral vascular disease, unspecified; Z79.4 Long term (current) use of insulin; R74.8 Abnormal levels of other serum enzymes; I48.2 Chronic atrial fibrillation; I25.10 Atherosclerotic heart disease of native coronary artery without angina pectoris; Z79.82 Long term (current) use of aspirin
CPT/HCPCS: 36415; 70450; 71010; 71045; 80053; 82962; 83605; 83690; 84484; 85025; 93005; 93306; 94640; 96365; 96375; 99284; G0378; J2405

== ENCOUNTER → 2018-06-26 09:42 | Outpatient (CLI) | payer MEDICARE, SELFPAY ==
[2018-06-26 14:25] LABS: Basophils % 0.3 % (0.1-2.0); Eosinophils # 0.1 K/mm3 (0.0-0.4); Eosinophils % 3.1 % (0.1-12.0); Hematocrit 30.6 % (37.0-47.0); Hemoglobin 9.6 g/dL (12.2-16.2); Lymphocytes # 1.1 K/mm3 (0.7-4.5); Lymphocytes % 27.3 % (10-50); Mean Corpuscular HGB Conc 31.3 g/dL (31.8-35.4); Mean Corpuscular Hemoglobin 31.6 pg (27.0-31.2); Mean Corpuscular Volume 100.8 fl (81-99); Mean Platelet Volume 8.7 fl (7.4-10.4); Monocytes # 0.2 K/mm3 (0.1-1.0); Monocytes % 4.4 % (1.7-9.3); Neutrophils # 2.6 K/mm3 (1.8-7.8); Neutrophils % 64.8 % (37.0-80.0); Platelet Count 109 K/mm3 (142-424); Red Blood Count 3.04 M/mm3 (4.20-5.40); Red Cell Distribution Width 16.1 % (11.5-17.5)
[2018-06-26 14:37] LABS: Blood Urea Nitrogen 20 mg/dL (7-18); Calcium 9.2 mg/dL (8.5-10.1); Carbon Dioxide 24 mmol/L (21.0-32.0); Chloride 105 mmol/L (98-107); Estimated Glomerular Filt Rate 55 ml/min (>60); GFR (African American) 66 ML/MIN (>60); Glucose 206 mg/dL (74-106); Sodium 141 mmol/L (136-145)
== END ==
PROVIDERS: PCP Internal Medicine Adolescent Medicine; Visit Provider Internal Medicine
DX: Z96.0 Presence of urogenital implants (principal)
CPT/HCPCS: 36415; 80048; 85025

== ENCOUNTER → 2018-07-02 08:06 | Outpatient (CLI) | payer MEDICARE, SELFPAY ==
[2018-07-02 08:38] LABS: Basophils % 0.6 % (0.1-2.0); Eosinophils # 0.2 K/mm3 (0.0-0.4); Eosinophils % 3.3 % (0.1-12.0); Hematocrit 32.3 % (37.0-47.0); Hemoglobin 10.1 g/dL (12.2-16.2); Lymphocytes # 1.7 K/mm3 (0.7-4.5); Lymphocytes % 35.8 % (10-50); Mean Corpuscular HGB Conc 31.3 g/dL (31.8-35.4); Mean Corpuscular Volume 102.1 fl (81-99); Mean Platelet Volume 8.7 fl (7.4-10.4); Monocytes # 0.2 K/mm3 (0.1-1.0); Monocytes % 3.2 % (1.7-9.3); Neutrophils # 2.6 K/mm3 (1.8-7.8); Platelet Count 139 K/mm3 (142-424); Red Blood Count 3.17 M/mm3 (4.20-5.40); Red Cell Distribution Width 16.4 % (11.5-17.5); White Blood Count 4.6 K/mm3 (4.8-10.8)
[2018-07-02 10:04] LABS: Anion Gap 16.9 mEq/L (5-15); Blood Urea Nitrogen 28 mg/dL (7-18); Calcium 9.4 mg/dL (8.5-10.1); Carbon Dioxide 24 mmol/L (21.0-32.0); Chloride 104 mmol/L (98-107); Creatinine,Serum 1.14 mg/dL (0.55-1.02); Estimated Glomerular Filt Rate 47 ml/min (>60); GFR (African American) 57 ML/MIN (>60); Glucose 262 mg/dL (74-106); Potassium 3.9 mmoL/L (3.5-5.1); Sodium 141 mmol/L (136-145)
== END ==
PROVIDERS: Nurse Practitioner Family; Visit Provider Internal Medicine
DX: D64.9 Anemia, unspecified (principal); R10.9 Unspecified abdominal pain; E66.01 Morbid (severe) obesity due to excess calories; E78.5 Hyperlipidemia, unspecified; I15.0 Renovascular hypertension; I25.10 Atherosclerotic heart disease of native coronary artery without angina pectoris; I48.2 Chronic atrial fibrillation; I65.23 Occlusion and stenosis of bilateral carotid arteries; I70.1 Atherosclerosis of renal artery; N28.9 Disorder of kidney and ureter, unspecified; R06.09 Other forms of dyspnea; R60.1 Generalized edema; Z98.890 Other specified postprocedural states
CPT/HCPCS: 36415; 80048; 85025

== ENCOUNTER → 2018-07-05 09:44 | Outpatient (CLI) | payer MEDICARE, SELFPAY ==
[2018-07-05 10:41] LABS: Basophils % 0.6 % (0.1-2.0); Eosinophils # 0.1 K/mm3 (0.0-0.4); Eosinophils % 2.3 % (0.1-12.0); Hematocrit 32.6 % (37.0-47.0); Hemoglobin 10.6 g/dL (12.2-16.2); Lymphocytes # 1.2 K/mm3 (0.7-4.5); Mean Corpuscular HGB Conc 32.4 g/dL (31.8-35.4); Mean Corpuscular Hemoglobin 32.4 pg (27.0-31.2); Mean Platelet Volume 8.2 fl (7.4-10.4); Monocytes # 0.2 K/mm3 (0.1-1.0); Monocytes % 4.3 % (1.7-9.3); Neutrophils # 2.5 K/mm3 (1.8-7.8); Neutrophils % 62.9 % (37.0-80.0); Platelet Count 128 K/mm3 (142-424); Red Blood Count 3.26 M/mm3 (4.20-5.40); Red Cell Distribution Width 16.1 % (11.5-17.5); White Blood Count 4.1 K/mm3 (4.8-10.8)
== END ==
PROVIDERS: Visit Provider Internal Medicine Medical Oncology
DX: D64.9 Anemia, unspecified (principal)
CPT/HCPCS: 36415; 85025

== ENCOUNTER → 2018-08-06 12:22 | Outpatient (CLI) | payer MEDICARE, SELFPAY ==
--- NOTE | 2018-08-06 12:33 | CI_ITS ---
Cerebrovascular Exam Indications: Follow-up carotid 433.10. IMPRESSIONS 1. The bilateral vertebral arteries are patent with normal antegrade flow. 2. Study suggests 20-49% stenosis involving the right internal carotid artery. No change from the study of 11-Jul-2017. 3. Study suggests 50-69% stenosis involving the left internal carotid artery. No change from the study of 11-Jul-2017. History: Coronary artery disease. Risk factors: Hypertension. Carotid duplex study. Complete study and Doppler flow study including spectral analysis, color and benitez scale imaging. Height: Height: 152.4cm. Height: 60in. Weight: Weight: 98kg. Weight: 215.6lb. Body mass index: BMI: 42.2kg/m^2. Body surface area: BSA: 2.09m^2. Location: Vascular laboratory. Patient status: Outpatient. Tables: Arterial flow: + +--------+--------+ Location V sys V ed + +--------+--------+ Right CCA - proximal 85.7cm/s 19cm/s + +--------+--------+ Right CCA - distal 78.2cm/s 16.9cm/s + +--------+--------+ Right ECA 94.3cm/s 9.8cm/s + +--------+--------+ Right ICA - proximal 86.6cm/s 15.6cm/s + +--------+--------+ Right ICA - mid 106cm/s 22.1cm/s + +--------+--------+ Right ICA - distal 68.7cm/s 14.9cm/s + +--------+--------+ Right vertebral 53.4cm/s 12.9cm/s + +--------+--------+ Left CCA - proximal 75.3cm/s 14.2cm/s + +--------+--------+ Left CCA - mid 83.7cm/s 15.9cm/s + +--------+--------+ Left CCA - distal 74.5cm/s 15.1cm/s + +--------+--------+ Left ECA 71.7cm/s 6.3cm/s + +--------+--------+ Left ICA - proximal 147cm/s 33.5cm/s + +--------+--------+ Left ICA - mid 160cm/s 31.9cm/s + +--------+--------+ Left ICA - distal 135cm/s 36.7cm/s + +--------+--------+ Left vertebral 103cm/s 23cm/s + +--------+--------+ (Report amended ) Electronically signed by: Mervin Rockwell [id number]
== END ==
PROVIDERS: PCP Internal Medicine Adolescent Medicine; Visit Provider Internal Medicine Cardiovascular Disease
DX: I65.23 Occlusion and stenosis of bilateral carotid arteries (principal)
CPT/HCPCS: 93880

== ENCOUNTER 2018-08-14 08:46 | Outpatient (RCR) | payer MEDICARE, SELFPAY | END 2018-11-12 13:51 | disposition home or self-care (01) | LOC: PT 08:46 | PROVIDERS: Visit Provider Internal Medicine Cardiovascular Disease | DX: Z95.1 Presence of aortocoronary bypass graft (principal); I25.10 Atherosclerotic heart disease of native coronary artery without angina pectoris | CPT/HCPCS: 93798 ==

== ENCOUNTER → 2018-08-29 09:26 | Outpatient (CLI) | payer MEDICARE, SELFPAY ==
--- NOTE | 2018-08-29 09:28 | MM_ITS ---
MM Dig screening mamm BI w/CAD CAD Screening COMPARISON: Digital mammograms with CAD 07/05/2017 and 06/20/2016 INDICATION: There is a history of breast cancer in patient's niece diagnosed in her 30s TECHNIQUE: Standard CC and MLO images were obtained. R2 CAD reviewed. FINDINGS: Scattered fiber glandular densities are seen throughout both breasts. There is prominent arterial calcification in each breast. There are few scattered benign-appearing microcalcifications in each breast as well. There is no suspicious lesion and no suspicious microcalcifications. IMPRESSION: Fibrofatty parenchyma with no suspicious lesion seen BI-RADS Category: 2 Benign Finding(s) RECOMMENDED FOLLOW-UP: 1YR - 1 YEAR FOLLOW-UP (A letter has been sent to the patient regarding results of the study.)
== END ==
PROVIDERS: PCP Internal Medicine Adolescent Medicine; Visit Provider Internal Medicine Adolescent Medicine
DX: Z12.31 Encounter for screening mammogram for malignant neoplasm of breast (principal)
CPT/HCPCS: 77067

== ENCOUNTER → 2019-02-19 10:18 | Outpatient (CLI) | payer MEDICARE, SELFPAY ==
[2019-02-19 14:01] LABS: Alanine Aminotransferase 35 U/L (12-78); Albumin/Globulin Ratio 0.8 (1.1-1.8); Alkaline Phosphatase 309 U/L (46-116); Anion Gap 16.2 mEq/L (5-15); Aspartate Amino Transferase 26 U/L (15-37); Blood Urea Nitrogen 38 mg/dL (7-18); Calcium 8.6 mg/dL (8.5-10.1); Carbon Dioxide 25 mmol/L (21.0-32.0); Chloride 102 mmol/L (98-107); Chol/HDL Ratio 2.2 (1-3.5); Cholesterol 175 mg/dL (140-200); Creatinine,Serum 1.39 mg/dL (0.55-1.02); Estimated Glomerular Filt Rate 37 ml/min (>60); GFR (African American) 45 ML/MIN (>60); Glucose 215 mg/dL (74-106); HDL Cholesterol 79 mg/dL (29-89); LDL Cholesterol 78 mg/dL (0-130); Potassium 4.2 mmoL/L (3.5-5.1); Sodium 139 mmol/L (136-145); Thyroid Stimulating Hormone 3.57 uIU/ml (0.358-3.740); Triglycerides 90 mg/dL (30-200); VLDL Cholesterol 18 mg/dL (0-40)
[2019-02-19 14:06] LABS: Basophils % 0.2 % (0.1-2.0); Eosinophils # 0.2 K/mm3 (0.0-0.4); Eosinophils % 2.2 % (0.1-12.0); Hematocrit 35.4 % (37.0-47.0); Hemoglobin 11.2 g/dL (12.2-16.2); Lymphocytes # 1.7 K/mm3 (0.7-4.5); Lymphocytes % 22.1 % (10-50); Mean Corpuscular HGB Conc 31.6 g/dL (31.8-35.4); Mean Corpuscular Hemoglobin 32.7 pg (27.0-31.2); Mean Corpuscular Volume 103.4 fl (81-99); Mean Platelet Volume 8.6 fl (7.4-10.4); Monocytes # 0.3 K/mm3 (0.1-1.0); Monocytes % 3.4 % (1.7-9.3); Neutrophils # 5.6 K/mm3 (1.8-7.8); Neutrophils % 72.1 % (37.0-80.0); Platelet Count 154 K/mm3 (142-424); Red Blood Count 3.42 M/mm3 (4.20-5.40); Red Cell Distribution Width 15.1 % (11.5-17.5); White Blood Count 7.7 K/mm3 (4.8-10.8)
== END ==
PROVIDERS: PCP Internal Medicine Adolescent Medicine; Visit Provider Internal Medicine Adolescent Medicine
DX: E11.9 Type 2 diabetes mellitus without complications (principal); E03.9 Hypothyroidism, unspecified; D50.9 Iron deficiency anemia, unspecified; Z79.4 Long term (current) use of insulin
CPT/HCPCS: 36415; 80053; 80061; 83036; 84443; 85025

== ENCOUNTER 2019-02-24 07:48 | Observation (INO) ==
--- NOTE | 2019-02-24 08:05 | Emergency Department Note ---
ED Disposition Clinical Impression: Pain of left lower extremity Deep vein thrombosis (DVT) of left lower extremity Qualifiers: Affected thrombotic vein of extremity: unspecified vein of extremity Chronicity: acute Qualified Code(s): I82.402 - Acute embolism and thrombosis of unspecified deep veins of left lower extremity Disposition: Admitted as Observation Condition on Discharge: Good (Stable) Time of Disposition: 12:07 - Critical Care Critical Care Time: No Attestation: On 02/24/19, the high probability of a clinically significant, sudden or life threatening deterioration of the following system(s) required my full and direct attention, intervention and personal management. The time I documented below is in addition to time spent performing reported procedures but includes the following listed in this critical care notation. Medical Decision Making - Medical Records Medical records reviewed: Yes: I reviewed the patient's medical records. - [place] Inquiry Pt receiving controlled substance: No [place] was queried for this patient: No Vital Signs: 02/24/19 08:00 02/24/19 09:43 Temperature 99 F Temperature Source Oral Pulse Rate [Left Radial] 110 H 102 H Respiratory Rate 20 Blood Pressure [Right Radial Artery] 159/79 H 165/81 H Blood Pressure Mean [Right Radial Artery] 105 109 Blood Pressure Position [Right Radial Artery] Sitting 02 Sat by Pulse Oximetry 96 96 Oxygen Delivery Method Room Air Room Air - Lab Data Lab results reviewed: Yes: I reviewed the patient's lab results. Lab Results 02/24/19 08:10: WBC 14.1 H, RBC 3.57 L, Hgb 11.6 L, Hct 35.3 L, MCV 99.1 H, MCH 32.4 H, MCHC 32.7, RDW 14.7, Plt Count 153, MPV 8.4, Neut % (Auto) 82.7 H, Lymph % (Auto) 13.0, [place] % (Auto) 2.8, Eos % (Auto) 1.2, Baso % (Auto) 0.3, Neut # (Auto) 11.7 H, Lymph # (Auto) 1.8, [place] # (Auto) 0.4, Eos # (Auto) 0.2, Baso # (Auto) 0.1 02/24/19 08:10: Sodium 136, Potassium 4.5, Chloride 101, Carbon Dioxide 22, Anion Gap 17.5 H, BUN 38 H, Creatinine 1.28 H, Estimated Creat Clear 29, Estimated GFR 41 L, Est GFR ( Amer) 50 L, Glucose 316 H, Calcium 9.2, Total Bilirubin 0.8, AST 24, ALT 27, Alkaline Phosphatase 287 H, Total Protein 8.0, Albumin 2.9 L, Globulin 5.1 H, Albumin/Globulin Ratio 0.6 L 02/24/19 08:10: Lactate 1.6 02/24/19 08:10: PT 10.3, INR 0.99, APTT 25.4 Result diagrams: 02/24/19 08:10 02/24/19 08:10 Orders (Tests/Meds): ED MEDICATIONS Discontinued Medications Generic Name Dose Route Start Last Admin Trade Name Freq PRN Reason Stop Dose Admin Hydrocodone Bitart/Acetaminophen 1 tab 02/24/19 08:38 02/24/19 08:45 [place] 5/325mg Tablet PO 02/24/19 08:39 1 tab ONCE ONE Administration ORDERS Category Date Time Status Blood Culture Stat Micro 02/24/19 08:14 Received - Radiology Data #1 Image(s): Pelvis, Hip (Left) [address] [facility] [place] [address] XRay Report Signed Patient: La Nena Mcmahon MR#: [id number] : 1945 Acct:[id number] Age/Sex: 73 / F ADM Date: 02/24/19 Loc: ER Attending Dr: Ordering Physician: Dinora Ireland III, DO Date of Service: 02/24/19 Procedure(s): XR hip LT 2-3V w/pelvis Accession Number(s): [id number] cc: Raj Salamanca MD; Juan Palencia PROCEDURE: XR HIP LT 2-3V W/PELVIS Patient Age:73Y CLINICAL INDICATION: Left hip pain started at 2 a.m. this morning. No known trauma or injury. COMPARISON: BONE3 BONE DENSITOMETRY(HIP:LT SPINE from 04/15/[address] abdomen pelvis wo con from 03/21/[address] abdomen pelvis wo con from 04/25/2018 FINDINGS: LEFT HIP: AP frog-leg view Left hip intact with no fracture nor dislocation. No acute findings. Left hip joint spaces fairly well maintained. Mild hypertrophic lipping about the margin of acetabulum femoral head and neck intact on left AP pelvis: No acute findings at the of pelvis. No fracture or the dislocation is evident.. No lytic or blastic change The sacrum and SI joints satisfactory. The hip joint spaces are fairly well maintained with only perhaps borderline narrowing superiorly. Mild osseous irregularity and dystrophic calcifications about myotendinous insertion sites upon the greater tuberosity on the right proximal femur more so than left. The there is also additional area of calcification projected along the along the right lateral margin of the iliac bone a which reflects some stable hypertrophic enthesopathy likely along with a generous injection granuloma posterior to this projected over this region.. Similar appearance to studies dating back to 2018.. . Prominent diffuse vascular calcification throughout the common and superficial femoral arteries.. Faint calcification at the internal iliac arteries. Degenerative changes are seen at the lower L-spine... IVC filter noted. IMPRESSION: No acute findings.. No significant new findings . The a stable appearance to the osseous pelvis and hips compared to april [address] pelvis Degenerative changes lower L-spine noted Dictated by: Jose Palencia MD 02/24/2019 10:19 Electronically signed by Jose Palencia MD in [place] 02/24/2019 10:19 - US Data US Images: Lower Extremity Findings Narrative: LLE Doppler confirmed DVT at popliteal and posterior tibial veins. Medical Decision Narrative: 08:45 Pt evaluated. Screening labs ordered. Left hip with pelvis x-rays ordered. Left lower extremity Doppler ordered to rule out DVT. We will not be able to get here in the ER for at least 2 hours. Patient is in are aware of the delay in having her Doppler performed. 12:[address] Beal who is on-call for Dr. Salamanca. Agreed to accept admission/care of this patient. I gone ahead and order Lovenox and Xarelto on the patient. I discussed results of work-up, diagnosis and care plan with patient and . They understand all questions answered. General Adult HPI - General Chief complaint: PAIN Stated complaint: pain in left leg, no accident Time Seen by Provider: 02/24/19 08:05 Mode of Arrival: Ambulatory Limitations: No Limitations Description of Symptoms (Recalled from ER Triage Doc. by RN): to ed per pvt car with c/o lt leg pain "from ankle up to hip" starting lastnight. redness noted to lower lt leg. pt denies any injury, fever, chills, nausea, vomiting, or increase in sob. - History of Present Illness HPI narrative: Emergency room via private vehicle from home with complaining having pain in the left lower extremity. Patient states she began having pain from her hip all the way to her foot as well as swelling to the left lower extremity. Patient has had DVTs in the past. No injury to the left hip or lower extremity. Patient states she has increased pain upon standing or ambulating. No shortness of breath. No chest pain. Patient is been compliant with her home medications. She did sustain an abrasion to the anterior aspect of her left leg a couple days ago. - Related Data Home Medications Medication Instructions Recorded Confirmed nitroglycerin 0.4 mg sublingual 0.4 mg SUBLINGUAL Q5MINP PRN 02/20/17 02/24/19 tablet Atorvastatin Calcium [Atorvastatin 40 mg PO HS 10/31/17 02/24/19 40mg Tab] budesonide-formoterol HFA 160 2 puff INHALATION BID 02/15/18 02/24/19 mcg-4.5 mcg/actuation aerosol inhaler insulin glargine 100 unit/mL (3 20 unit SQ HS 02/15/18 02/24/19 mL) subcutaneous pen pyridoxine (vitamin B6) 50 mg 50 mg PO DAILY 02/15/18 02/24/19 capsule lisinopriL [Lisinopril 20mg Tab] 20 mg PO DAILY 04/25/18 02/24/19 furosemide 40 mg tablet 40 mg PO DIRECTED PRN tab 05/03/18 02/24/19 Acetaminophen [Acetaminophen 8 650 mg PO DAILYP PRN 06/10/18 02/24/19 Hour] Pantoprazole Sodium [Protonix 40mg 40 mg PO DAILY 06/10/18 02/24/19 tablet] clopidogrel 75 mg tablet 75 mg PO DAILY 06/25/18 02/24/19 Isosorbide Mononitrate [Imdur 60mg 60 mg PO DAILY 02/24/19 02/24/19 ER tablet] Spironolactone 100 mg PO DAILY 02/24/19 02/24/19 dilTIAZem HCl [Diltiazem 24Hr ER 120 mg PO DAILY 02/24/19 02/24/19 (Cd)] hydroCHLOROthiazide 50 mg PO DAILY 02/24/19 02/24/19 [Hydrochlorothiazide 50mg Tab] Previous Rx's Medication Instructions Recorded docusate sodium 100 mg capsule 100 mg PO HS #90 cap 04/02/18 metoprolol tartrate 50 mg tablet 50 mg PO BID #60 tab 06/27/18 Allergies Allergy/AdvReac Type Severity Reaction Status Date / Time codeine [CODEINE] Allergy Intermediate I-RASH Verified 08/09/18 09:56 sulfisoxazole Allergy Verified 08/09/18 09:56 [facility] History - Hepatitis A Screen Drug use history?: No High risk sexual behaviors?: No History of sexually transmitted infection?: No Currently employed?: No Childcare worker?: No Do you have indoor plumbing?: Yes Do you have electricity?: Yes Attestation statement:: This patient has been screened for Hepatitis A risk factors. I have reviewed the patient's past medical history: Yes Medical History: Reports:: Atherosclerotic Heart Disease, Atrial Fibrillation, C ongestive Heart Failure, Chronic Obstructive Pulmonary Disease (COPD), Coronary Artery Disease, Diabetes Mellitus Type 2, Hyperlipidemia, Hypertension, Peripheral Artery Disease Denies:: Cancer, Diabetes Mellitus Type 1, MRSA, Seizures Other Medical History: Reports: Anemia, Arthritis, Cataracts, Hypothyroidism, Sinus Problems, Thyroid Disease Other Surgeries: Yes: Appendectomy, CABG, Cardiac Catheterization, Cholecystectomy, Colonoscopy, Coronary Stent, EGD, Hysterectomy-Total, Open Heart Surgery Amputation: No Fractures: No - Social History Smoking Status: Former smoker # Packs/Day (cigarettes): 1 Alcohol Intake: never Alcohol Intake Frequency:: other Substance Use Type: denies use Occupational Status: retired Housing: house Household Members: spouse Family Hx:: Cancer, Coronary Artery Disease, Diabetes, Heart Attack, Hyperlipidemia, Hypertension, Thyroid Disorder ROS Obtained: Yes All systems reviewed & no additional complaints - Constitutional Constitutional: Reports system reviewed and no additional complaints, except as docu - Eyes Eyes: Reports system reviewed and no additional complaints, except as docu - ENT Ears, Nose, Mouth, and Throat: Reports system reviewed and no additional complaints, except as docu - Cardiovascular Cardiovascular: Reports system reviewed and no additional complaints, except as docu - Respiratory Respiratory: Yes system reviewed and no additional complaints, except as docu - Gastrointestinal Gastrointestingal: Reports: system reviewed and no additional complaints, except as docu - Genitourinary Female Genitourinary: Reports system reviewed and no additional complaints, except as docu - Musculoskeletal Musculoskeletal: Reports system reviewed and no additional complaints, except as docu, Reports as per HPI, Reports other (Left lower extremity pain from hip to ankle. Swelling of LLE) - Integumentary/Breasts Skin/Breast: Reports system reviewed and no additional complaints, except as docu, Reports as per HPI, Reports other (Mild redness to the anterior aspect of her left leg. Abrasion to left leg.) - Neurologic Neurologic: Reports system reviewed and no additional complaints, except as docu - Endocrine Endocrine: Reports system reviewed and no additional complaints, except as docu - Hematologic/Lymphatic Henatologic/Lymphatic: Reports system reviewed and no additional complaints, except as docu - Allergic/Immunologic Allergic/Immunologic: Reports system reviewed and no additional complaints, except as docu Physical Exam - General General appearance: alert, in no apparent distress - Head Head exam: atraumatic, normocephalic - Eye Eye exam: Present: normal appearance, PERRL, EOMI - ENT ENT exam: Present: mucous membranes moist - Neck Neck exam: Present: full ROM, trachea midline - Chest Chest inspection: Present: normal inspection, symmetric chest wall rise - Respiratory Respiratory exam: Present: normal lung sounds bilaterally. Absent: respiratory distress, wheezes - Cardiovascular Cardiovascular exam: Present: regular rate, normal heart sounds - Abdominal Exam Abdominal exam: Present: soft, normal bowel sounds, other (obese). Absent: tenderness, guarding, rebound, rigidity, Quintero's sign, tenderness at McBurney's Point - Extremities Exam Extremities exam: Present: full ROM, normal capillary refill, other (She complains of pain on palpation of her left lower extremity from her hip to her lower leg. She appears to have some mild generalized swelling that is nonpitting to the left lower extremity compared to the right. Patient also has focal pain on palpation to the lateral aspect of the left hip without crepitus .). Absent: pedal edema - Back Exam Back exam: Present: normal inspection - Neurological Exam Neurological exam: Present: alert, oriented X3, CN II-XII intact - Psychiatric Psychiatric exam: Present: normal affect, normal mood - Skin Skin exam: Present: warm, dry, other (Professional abrasion to anterior aspect of left leg midportion. Mild erythema to the anterior and mid aspect of her left leg.)
[2019-02-24 08:32] LABS: Activated Partial Thrombo Time 25.4 seconds (23.6-34.0); Basophils # 0.1 K/mm3 (0-0.2); Basophils % 0.3 % (0.1-2.0); Eosinophils # 0.2 K/mm3 (0.0-0.4); Eosinophils % 1.2 % (0.1-12.0); Hematocrit 35.3 % (37.0-47.0); Hemoglobin 11.6 g/dL (12.2-16.2); INR 0.99 (0.9-1.1); Lymphocytes # 1.8 K/mm3 (0.7-4.5); Mean Corpuscular HGB Conc 32.7 g/dL (31.8-35.4); Mean Corpuscular Volume 99.1 fl (81-99); Mean Platelet Volume 8.4 fl (7.4-10.4); Monocytes # 0.4 K/mm3 (0.1-1.0); Monocytes % 2.8 % (1.7-9.3); Neutrophils # 11.7 K/mm3 (1.8-7.8); Neutrophils % 82.7 % (37.0-80.0); Platelet Count 153 K/mm3 (142-424); Prothrombin Time 10.3 seconds (9.4-11.8); Red Blood Count 3.57 M/mm3 (4.20-5.40); Red Cell Distribution Width 14.7 % (11.5-17.5); White Blood Count 14.1 K/mm3 (4.8-10.8)
[2019-02-24 08:35] LABS: Albumin Level 2.9 gm/dL (3.4-5.0); Albumin/Globulin Ratio 0.6 (1.1-1.8); Anion Gap 17.5 mEq/L (5-15); Bilirubin,Total 0.8 mg/dL (0.2-1.0); Calcium 9.2 mg/dL (8.5-10.1); Globulin 5.1 gm/dl (1.3-3.2)
--- NOTE | 2019-02-24 13:57 | Pharmacy Consult Notes ---
[facility] Pharmacy VTE Monitoring - Patient Demographics Admission date: 02/24/19 Report Date: 02/24/19 Time: 13:56 Allergies/Adverse Reactions: Patient Allergies codeine [CODEINE] Allergy (Intermediate, Verified 08/09/18 09:56) I-RASH sulfisoxazole Allergy (Verified 08/09/18 09:56) Height: 1.52 m Weight: 96.218 kg Patient Problems: Current Active Problems Deep vein thrombosis (DVT) of left lower extremity (Acute) Pain of left lower extremity (Acute) - VTE Risk Labs: VTE Related Lab Results Hgb 11.6 g/dL (12.2-16.2) L 02/24/19 08:10 Hct 35.3 % (37.0-47.0) L 02/24/19 08:10 Plt Count 153 K/mm3 (142-424) 02/24/19 08:10 PT 10.3 seconds (9.4-11.8) 02/24/19 08:10 INR 0.99 (0.9-1.1) 02/24/19 08:10 APTT 25.4 seconds (23.6-34.0) 02/24/19 08:10 BUN 38 mg/dL (7-18) H 02/24/19 08:10 Creatinine 1.28 mg/dL (0.55-1.02) H 02/24/19 08:10 Estimated Creat Clear 29 mL/min (50-200) 02/24/19 08:10 - Prophylaxis VTE Prophylaxis Ordered?: Yes Types of VTE Prophylaxis: Pharmacological Pharmacologic Type: Other (XARELTO) - VTE Diagnosis Confirmed Treatment or plan recommended: Continue Current Treatment
[2019-02-25 07:15] LABS: Anion Gap 14.2 mEq/L (5-15); Calcium 8.5 mg/dL (8.5-10.1)
[2019-02-25 07:18] LABS: Basophils % 0.2 % (0.1-2.0); Eosinophils # 0.1 K/mm3 (0.0-0.4); Eosinophils % 0.6 % (0.1-12.0); Hematocrit 34.2 % (37.0-47.0); Hemoglobin 11.3 g/dL (12.2-16.2); Lymphocytes % 18.5 % (10-50); Mean Corpuscular HGB Conc 33.2 g/dL (31.8-35.4); Mean Corpuscular Volume 98.7 fl (81-99); Mean Platelet Volume 7.9 fl (7.4-10.4); Monocytes # 0.3 K/mm3 (0.1-1.0); Monocytes % 2.6 % (1.7-9.3); Neutrophils # 8.2 K/mm3 (1.8-7.8); Neutrophils % 78.1 % (37.0-80.0); Platelet Count 151 K/mm3 (142-424); Red Blood Count 3.46 M/mm3 (4.20-5.40); Red Cell Distribution Width 14.9 % (11.5-17.5); White Blood Count 10.5 K/mm3 (4.8-10.8)
--- NOTE | 2019-02-25 08:55 | H&P/Discharge Summary ---
General - General Admission date:: 02/24/19 Discharge date: 02/25/19 *Admission Date: 02/24/19 *Chief complaint: Left leg pain *History of present illness: 73-year-old white female with multiple medical problems, considerable immobility and history of A. fib in the past who recently had her anticoagulation stopped cardiology clinic services. She is been doing well until a couple of days ago when she had sharp left-sided lower leg pain and swelling. Came to the emergency department last night. DVT was diagnosed. Vital signs were stable. Because of her leg pain she was admitted overnight. [facility] History I have reviewed the patient's past medical history: Yes Medical History: Reports:: Atherosclerotic Heart Disease, Atrial Fibrillation, Congestive Heart Failure, Chronic Obstructive Pulmonary Disease (COPD), Coronary Artery Disease, Diabetes Mellitus Type 2, Hyperlipidemia, Hypertension, Peripheral Artery Disease Denies:: Cancer, Diabetes Mellitus Type 1, MRSA, Seizures *Have you ever received a pneumonia vaccine?: No *Have you received a flu vaccine this season?: Yes Other Medical History: Reports: Anemia, Arthritis, Cataracts, Hypothyroidism, Sinus Problems, Thyroid Disease Laterality Cases: Left: Total Knee Replacement Other Surgeries: Yes: Angioplasty, Appendectomy, CABG, Cardiac Catheterization, Cholecystectomy, Colonoscopy, Coronary Stent, EGD, Hysterectomy-Total, Open Heart Surgery Amputation: No Fractures: No - *Social History Educational Level: Attended High School Smoking Status: Former smoker # Packs/Day (cigarettes): 1 Alcohol Intake: never Alcohol Intake Frequency:: other Substance Use Type: denies use *Occupational Status:: retired Housing: house Household Members: spouse *Travel in the last 8 weeks: None Family Hx:: Coronary Artery Disease, Heart Attack, Hyperlipidemia, Hypertension Review of Systems - Review of Systems Review of systems:: pertinent systems reviewed and negative unless documented below Exam Vital signs and Labs for Last 24 Hours: Temp Pulse Resp BP Pulse Ox 98.5 F 88 18 163/73 H 98 02/25/19 08:00 02/25/19 08:00 02/25/19 08:00 02/25/19 08:00 02/25/19 08:00 Laboratory Results - last 24 hr 02/24/19 08:10: Sodium 136, Potassium 4.5, Chloride 101, Carbon Dioxide 22, Anion Gap 17.5 H, BUN 38 H, Creatinine 1.28 H, Estimated Creat Clear 29, Estimated GFR 41 L, Est GFR ( Amer) 50 L, Glucose 316 H, Calcium 9.2, Total Bilirubin 0.8, AST 24, ALT 27, Alkaline Phosphatase 287 H, Total Protein 8.0, Albumin 2.9 L, Globulin 5.1 H, Albumin/Globulin Ratio 0.6 L 02/24/19 21:05: POC Glucose 375 H* 02/25/19 06:42: WBC 10.5 D, RBC 3.46 L, Hgb 11.3 L, Hct 34.2 L, MCV 98.7, MCH 32.7 H, MCHC 33.2, RDW 14.9, Plt Count 151, MPV 7.9, Neut % (Auto) 78.1, Lymph % (Auto) 18.5, [place] % (Auto) 2.6, Eos % (Auto) 0.6, Baso % (Auto) 0.2, Neut # (Auto) 8.2 H, Lymph # (Auto) 2.0, [place] # (Auto) 0.3, Eos # (Auto) 0.1, Baso # (Auto) 0.0 02/25/19 06:42: Sodium 136, Potassium 4.2, Chloride 100, Carbon Dioxide 26, Anion Gap 14.2, BUN 33 H, Creatinine 1.30 H, Estimated Creat Clear 60, Estimated GFR 40 L, Est GFR ( Amer) 49 L, Glucose 284 H, Calcium 8.5 I & O for Last 24 hours: Intake & Output 02/22/19 02/23/19 02/24/19 02/25/19 11:59 11:59 11:59 11:59 Intake Total 960 / 960 Balance 960 / 960 Weight 226 lb 211 lb 1.3 oz Narrative: Oropharynx clear. JVD not noted but her morbid obesity limits her exam accuracy. Heart rate regular with occasional ectopic beats. Anterior lung holt are clear, abdomen soft and obese. Patient has no ankle edema. She has calf tenderness on the left side. Good distal perfusion. Hospital Course Hospital Course: Patient was admitted overnight. No problems with chest pain. No vital sign instability. Plan will be to discharge home today with resumption of her anticoagulation therapy, I will use Eliquis 5 mg twice daily and I will use this along with Plavix therapy. Cardiology will be consulted to make sure they are aware of this change in her status. Results Labs on day of discharge: Labs from last 24 hours 02/25/19 02/25/19 02/24/19 06:42 06:42 21:05 WBC 10.5 D RBC 3.46 L Hgb 11.3 L Hct 34.2 L MCV 98.7 MCH 32.7 H MCHC 33.2 RDW 14.9 Plt Count 151 MPV 7.9 Neut % (Auto) 78.1 Lymph % (Auto) 18.5 [place] % (Auto) 2.6 Eos % (Auto) 0.6 Baso % (Auto) 0.2 Neut # (Auto) 8.2 H Lymph # (Auto) 2.0 [place] # (Auto) 0.3 Eos # (Auto) 0.1 Baso # (Auto) 0.0 Sodium 136 Potassium 4.2 Chloride 100 Carbon Dioxide 26 Anion Gap 14.2 BUN 33 H Creatinine 1.30 H Estimated Creat Clear 60 Estimated GFR 40 L Est GFR ( Amer) 49 L Glucose 284 H POC Glucose 375 H* Calcium 8.5 Total Bilirubin AST ALT Alkaline Phosphatase Total Protein Albumin Globulin Albumin/Globulin Ratio 02/24/19 08:10 WBC RBC Hgb Hct MCV MCH MCHC RDW Plt Count MPV Neut % (Auto) Lymph % (Auto) [place] % (Auto) Eos % (Auto) Baso % (Auto) Neut # (Auto) Lymph # (Auto) [place] # (Auto) Eos # (Auto) Baso # (Auto) Sodium 136 Potassium 4.5 Chloride 101 Carbon Dioxide 22 Anion Gap 17.5 H BUN 38 H Creatinine 1.28 H Estimated Creat Clear 29 Estimated GFR 41 L Est GFR ( Amer) 50 L Glucose 316 H POC Glucose Calcium 9.2 Total Bilirubin 0.8 AST 24 ALT 27 Alkaline Phosphatase 287 H Total Protein 8.0 Albumin 2.9 L Globulin 5.1 H Albumin/Globulin Ratio 0.6 L DS: Diagnosis - Discharge Diagnosis (1) Deep vein thrombosis (DVT) of left lower extremity Status: Acute (2) Pain of left lower extremity Status: Acute Discharge Plan - Patient Discharge Instructions ACTIVITY: Continue current activity DIET: continue same diet Patient Instructions: Deep Vein Thrombosis - Follow up Plan Follow up with: Raj Salamanca MD [Primary Care Provider] - 03/05/19 Disposition: Home, Self-Long Term Medications: Home Medications Medication Instructions Recorded Confirmed Type nitroglycerin 0.4 mg sublingual 0.4 mg SUBLINGUAL Q5MINP PRN 02/20/17 02/24/19 History tablet Atorvastatin Calcium [Atorvastatin 40 mg PO HS 10/31/17 02/24/19 History 40mg Tab] budesonide-formoterol HFA 160 2 puff IH BID 02/15/18 02/24/19 History mcg-4.5 mcg/actuation aerosol inhaler insulin glargine 100 unit/mL (3 20 unit SQ HS 02/15/18 02/24/19 History mL) subcutaneous pen pyridoxine (vitamin B6) 50 mg 50 mg PO DAILY 02/15/18 02/24/19 History capsule docusate sodium 100 mg capsule 100 mg PO HS #90 cap 04/02/18 02/24/19 Rx lisinopriL [Lisinopril 20mg Tab] 20 mg PO DAILY 04/25/18 02/24/19 History Acetaminophen [Acetaminophen 8 650 mg PO DAILYP PRN 06/10/18 02/24/19 History Hour] Pantoprazole Sodium [Protonix 40mg 40 mg PO DAILY 06/10/18 02/24/19 History tablet] clopidogrel 75 mg tablet 75 mg PO DAILY 06/25/18 02/24/19 History metoprolol tartrate 50 mg tablet 50 mg PO BID #60 tab 06/27/18 02/24/19 Rx Isosorbide Mononitrate [Imdur 60mg 60 mg PO DAILY 02/24/19 02/24/19 History ER tablet] Spironolactone 100 mg PO DAILY 02/24/19 02/24/19 History dilTIAZem HCl [Diltiazem 24Hr ER 120 mg PO DAILY 02/24/19 02/24/19 History (Cd)] hydroCHLOROthiazide 50 mg PO DAILY 02/24/19 02/24/19 History [Hydrochlorothiazide 50mg Tab] Apixaban [Eliquis 5mg tab] 5 mg PO BID #60 tab 02/25/19 Rx Prescriptions/Medication Reconciliation: New Apixaban [Eliquis 5mg tab] 5 mg PO BID #60 tab Continued nitroglycerin 0.4 mg sublingual tablet 0.4 mg SUBLINGUAL Q5MINP PRN PRN Reason: Chest Pain budesonide-formoterol HFA 160 mcg-4.5 mcg/actuation aerosol inhaler 2 puff IH BID insulin glargine 100 unit/mL (3 mL) subcutaneous pen 20 unit SQ HS clopidogrel 75 mg tablet 75 mg PO DAILY metoprolol tartrate 50 mg tablet 50 mg PO BID #60 tab pyridoxine (vitamin B6) 50 mg capsule 50 mg PO DAILY docusate sodium 100 mg capsule 100 mg PO HS #90 cap Acetaminophen [Acetaminophen 8 Hour] 650 mg PO DAILYP PRN PRN Reason: Moderate pain Spironolactone 100 mg PO DAILY Atorvastatin Calcium [Atorvastatin 40mg Tab] 40 mg PO HS lisinopriL [Lisinopril 20mg Tab] 20 mg PO DAILY Pantoprazole Sodium [Protonix 40mg tablet] 40 mg PO DAILY Isosorbide Mononitrate [Imdur 60mg ER tablet] 60 mg PO DAILY hydroCHLOROthiazide [Hydrochlorothiazide 50mg Tab] 50 mg PO DAILY dilTIAZem HCl [Diltiazem 24Hr ER (Cd)] 120 mg PO DAILY - Problem Reconciliation Problems Reviewed?: Yes
--- NOTE | 2019-02-25 10:51 | Consult Report ---
History of Present Illness Consult date: 02/25/19 Requesting physician: Raj Salamanca Chief complaint: DVT Additional Medical History:: 1. Coronary artery disease A. History of ALEYDA 01/2007. B. Non-STEMI with subsequent drug-eluting stenting of the circumflex and left anterior descending arteries, 08/2015 C. NSTEMI, 10/2017 D. [facility] revealing multivessel disease and right renal artery stenosis with recommendation for CABG and consideration for right renal artery stenting after recovery from CABG. E. 3 vessel CABG with DELGADO clip, 11/2017, [place], [place] 2. Atrial fibrillation, chronic A. Xarelto therapy stopped due to recurrent anemia and history of left atrial appendage clip placement at time of CABG in 11/2017 B. Xarelto briefly restarted after right renal artery stenting 06/2018 3. Recurrent anemia A. History of bone marrow biopsy with no evidence of cancer, per patient B. Followed by Dr. Calvert C. History of IV iron therapy and intermittent blood transfusions D. Pancytopenia, 05/2018 4. Diabetes mellitus, treated for >20 yrs, insulin requiring 5. History of peripheral arterial disease A. Carotid U/S, 06/2017, 50-69% LICA, 20-49% LYNSEY. Stable compared with 04/2017 study. 6. Hypertension A. Echocardiogram, 01/2018, ejection fraction 45-55% with mild to moderate apical hypokinesis. Left atrial enlargement at 4.6 cm and a loculated pericardial effusion noted. B. Echo, 05/2018, moderate LAE, mild concentric LVH, EF 50% with abnormal septal motion. Moderate RA and RV enlargement with mildly reduced contractility. Aortic valve thickened but continues to display mobility. Moderate MR, mild TR, RVSP 68 mmHg consistent with moderate pulmonary hypertension. 7. Chronic obstructive pulmonary disease 8. Hyperlipidemia 9. History of IVC filter, 2010 10. Carotid artery stenosis A. CNI, 07/2018, 50-69% LICA, 20-49% LYNSEY. No change from 2016 or 2018. 11. Renal artery stenosis A. BMS to Right renal artery, 06/2018 History of present illness: 73-year-old white female with multiple medical problems, considerable immobility and history of A. fib in the past who recently had her anticoagulation stopped cardiology clinic services. She is been doing well until a couple of days ago when she had sharp left-sided lower leg pain and swelling. Came to the emergency department last night. DVT was diagnosed. Vital signs were stable. Because of her leg pain she was admitted overnight The above per Dr. Salamanca Cardiology consulted for clarification of use of anticoagulation and antiplatelet therapy. Patient had previously been on anticoagulation therapy but it was discontinued due to recurrent anemia and history of left atrial appendage clipping at the time of bypass in 2018. She was evaluated by hematology including a bone marrow biopsy and was told that her bone marrow just would not make enough hemoglobin to keep up with demand. [facility] History Medical History: Reports:: Atherosclerotic Heart Disease, Atrial Fibrillation, Congestive Heart Failure, Chronic Obstructive Pulmonary Disease (COPD), Coronary Artery Disease, Diabetes Mellitus Type 2, Hyperlipidemia, Hypertension, Peripheral Artery Disease Denies:: Cancer, Diabetes Mellitus Type 1, MRSA, Seizures *Have you ever received a pneumonia vaccine?: No *Have you received a flu vaccine this season?: Yes Other Medical History: Reports: Anemia, Arthritis, Cataracts, Hypothyroidism, Sinus Problems, Thyroid Disease Laterality Cases: Left: Total Knee Replacement Other Surgeries: Yes: Angioplasty, Appendectomy, CABG, Cardiac Catheterization, Cholecystectomy, Colonoscopy, Coronary Stent, EGD, Hysterectomy-Total, Open Heart Surgery Amputation: No Fractures: No - *Social History Educational Level: Attended High School Smoking Status: Former smoker # Packs/Day (cigarettes): 1 Alcohol Intake: never Alcohol Intake Frequency:: other Substance Use Type: denies use *Occupational Status:: retired Housing: house Household Members: spouse *Travel in the last 8 weeks: None Family Hx:: Coronary Artery Disease, Heart Attack, Hyperlipidemia, Hypertension Meds Home Medications Medication Instructions Recorded Confirmed Type nitroglycerin 0.4 mg sublingual 0.4 mg SUBLINGUAL Q5MINP PRN 02/20/17 02/24/19 History tablet Atorvastatin Calcium [Atorvastatin 40 mg PO HS 10/31/17 02/24/19 History 40mg Tab] budesonide-formoterol HFA 160 2 puff IH BID 02/15/18 02/24/19 History mcg-4.5 mcg/actuation aerosol inhaler insulin glargine 100 unit/mL (3 20 unit SQ HS 02/15/18 02/24/19 History mL) subcutaneous pen pyridoxine (vitamin B6) 50 mg 50 mg PO DAILY 02/15/18 02/24/19 History capsule docusate sodium 100 mg capsule 100 mg PO HS #90 cap 04/02/18 02/24/19 Rx lisinopriL [Lisinopril 20mg Tab] 20 mg PO DAILY 04/25/18 02/24/19 History Acetaminophen [Acetaminophen 8 650 mg PO DAILYP PRN 06/10/18 02/24/19 History Hour] Pantoprazole Sodium [Protonix 40mg 40 mg PO DAILY 06/10/18 02/24/19 History tablet] clopidogrel 75 mg tablet 75 mg PO DAILY 06/25/18 02/24/19 History metoprolol tartrate 50 mg tablet 50 mg PO BID #60 tab 06/27/18 02/24/19 Rx Isosorbide Mononitrate [Imdur 60mg 60 mg PO DAILY 02/24/19 02/24/19 History ER tablet] Spironolactone 100 mg PO DAILY 02/24/19 02/24/19 History dilTIAZem HCl [Diltiazem 24Hr ER 120 mg PO DAILY 02/24/19 02/24/19 History (Cd)] hydroCHLOROthiazide 50 mg PO DAILY 02/24/19 02/24/19 History [Hydrochlorothiazide 50mg Tab] Apixaban [Eliquis 5mg tab] 5 mg PO BID #60 tab 02/25/19 Rx Allergies Allergy/AdvReac Type Severity Reaction Status Date / Time codeine [CODEINE] Allergy Intermediate I-RASH Verified 08/09/18 09:56 sulfisoxazole Allergy Verified 08/09/18 09:56 Review of Systems - Review of Systems Review of systems:: pertinent systems reviewed and negative unless documented below - *Cardiovascular Denies chest pain - *Respiratory Reports shortness of breath with activity - *Gastrointestinal Denies abdominal pain, Denies nausea, Denies vomiting - *Genitourinary Denies blood in urine - *Musculoskeletal Reports back pain - *Neurologic Denies memory loss, Denies fainting Exam Vital signs and Labs for Last 24 Hours: Temp Pulse Resp BP Pulse Ox 98.5 F 88 18 163/73 H 98 02/25/19 08:00 02/25/19 08:00 02/25/19 08:00 02/25/19 08:00 02/25/19 08:20 Laboratory Results - last 24 hr 02/24/19 21:05: POC Glucose 375 H* 02/25/19 06:42: WBC 10.5 D, RBC 3.46 L, Hgb 11.3 L, Hct 34.2 L, MCV 98.7, MCH 32.7 H, MCHC 33.2, RDW 14.9, Plt Count 151, MPV 7.9, Neut % (Auto) 78.1, Lymph % (Auto) 18.5, [place] % (Auto) 2.6, Eos % (Auto) 0.6, Baso % (Auto) 0.2, Neut # (Auto) 8.2 H, Lymph # (Auto) 2.0, [place] # (Auto) 0.3, Eos # (Auto) 0.1, Baso # (Auto) 0.0 02/25/19 06:42: Sodium 136, Potassium 4.2, Chloride 100, Carbon Dioxide 26, Anion Gap 14.2, BUN 33 H, Creatinine 1.30 H, Estimated Creat Clear 60, Estimated GFR 40 L, Est GFR ( Amer) 49 L, Glucose 284 H, Calcium 8.5 I & O for Last 24 hours: Intake & Output 02/22/19 02/23/19 02/24/19 02/25/19 11:59 11:59 11:59 11:59 Intake Total 960 / 960 Balance 960 / 960 Weight 226 lb 211 lb 1.3 oz - *Routine HEENT Exam Head: Present: normocephalic Eye: Present: EOMI, PERRL ENT: Present: mucous membranes moist - *Routine Neck Exam Present: supple. Absent: JVD, carotid bruit - *Routine Respiratory Exam Present: CTA bilaterally. Absent: accessory muscle use, rales, rhonchi, wheezes - *Routine Cardiovascular Exam Present: irregularly irregular. Absent: murmur, gallop, rubs - *Routine Abdominal Exam Present: soft. Absent: tenderness, distended, guarding - *Routine Extremities Exam Absent: edema, calf tenderness - *Routine Neurological Exam Present: alert, oriented X3, moving all extremities Assessment and Plan (1) Deep vein thrombosis (DVT) of left lower extremity Current visit: Yes Status: Acute Qualifiers: Affected thrombotic vein of extremity: unspecified vein of extremity Chronicity: acute Qualified Code(s): I82.402 - Acute embolism and thrombosis of unspecified deep veins of left lower extremity Category: Medical Code(s): I82.402 - Acute embolism and thrombosis of unspecified deep veins of left lower extremity (2) Pain of left lower extremity Current visit: Yes Status: Acute Category: Medical Code(s): M79.605 - Pain in left leg - Assessment and plan all Dx Assessment and Plan for all problems:: 1. Agree with continuing Plavix 75 mg daily for history of bypass and renal artery stenting in addition to Eliquis 5 mg twice daily for DVT. 2. Cardiac status stable. 3. Blood pressure elevated here but patient states home readings are lower. We will continue to monitor as an outpatient and consider adjusting medications at follow-up visit. 4. We will see the patient back in 1 month in our office or sooner if needed. 5. Patient will call Dr. Calvert's office for follow-up regarding her recurrent anemia
--- NOTE | 2019-02-25 15:42 | Cardiology Report ---
APPROVED REPORT Bilateral Lower Extremity Venous Study for DVT. Carroting Machine Operator: WILSON Indications Lower Extremity Pain: CAD r/o dvt Risk Factors Prior Phlebitis/DVT Vein Imaging CFV (L): compressive, spontaneous, phasic, augmentation SFJ (L): compressive, spontaneous, phasic, augmentation FEM (L): compressive, spontaneous, phasic, augmentation POP (L): Partially Compressible PTV (L): Partially Compressible GSV (L): compressive, spontaneous, phasic, augmentation Findings Acute DVT is visualized in the popliteal vein and posterior tibial vein of the left lower extremity. Partial color flow and partial compressibility reported to RN Conclusion Acute DVT is visualized in the popliteal vein and posterior tibial vein of the left lower extremity. Partial color flow and partial compressibility Electronically signed by : Mervin Rockwell MD 02/25/2019 15:41:49
== END 2019-02-25 12:10 | disposition home or self-care (01) ==
LOC: 2ND 07:48 → ER 07:48 → 2ND 13:24
PROVIDERS: ADMIT Family Medicine; ATTEND Internal Medicine Adolescent Medicine
CPT/HCPCS: 36415; 73502; 80048; 80053; 82962; 83605; 85025; 85610; 85730; 87040; 93971; 96372; 96374; 99284; G0378

== ENCOUNTER → 2019-03-19 10:17 | Outpatient (CLI) | payer MEDICARE, SELFPAY ==
[2019-03-19 13:53] LABS: Basophils % 0.6 % (0.1-2.0); Eosinophils # 0.1 K/mm3 (0.0-0.4); Eosinophils % 1.5 % (0.1-12.0); Hematocrit 39.1 % (37.0-47.0); Hemoglobin 12.6 g/dL (12.2-16.2); Lymphocytes # 2.1 K/mm3 (0.7-4.5); Lymphocytes % 33.4 % (10-50); Mean Corpuscular HGB Conc 32.1 g/dL (31.8-35.4); Mean Corpuscular Hemoglobin 32.5 pg (27.0-31.2); Mean Corpuscular Volume 101.3 fl (81-99); Mean Platelet Volume 9.4 fl (7.4-10.4); Monocytes # 0.2 K/mm3 (0.1-1.0); Monocytes % 3.7 % (1.7-9.3); Neutrophils # 3.8 K/mm3 (1.8-7.8); Neutrophils % 60.8 % (37.0-80.0); Platelet Count 155 K/mm3 (142-424); Red Blood Count 3.86 M/mm3 (4.20-5.40); Red Cell Distribution Width 14.7 % (11.5-17.5); White Blood Count 6.3 K/mm3 (4.8-10.8)
[2019-03-19 17:08] LABS: Ferritin 840 ng/mL (8-388)
[2019-03-20 09:18] LABS: Iron 109 ug/dL (27-139); UIBC 171 ug/dL (118-369)
[2019-03-20 10:49] LABS: Iron Saturation 39 % (15-55)
== END ==
PROVIDERS: PCP Internal Medicine Adolescent Medicine; Visit Provider Internal Medicine Medical Oncology
DX: D64.9 Anemia, unspecified (principal)
CPT/HCPCS: 36415; 82728; 83540; 83550; 85025

== ENCOUNTER → 2019-04-09 10:47 | Outpatient (CLI) | payer MEDICARE, SELFPAY ==
--- NOTE | 2019-04-09 10:49 | CA_ITS ---
APPROVED REPORT EXAM: Comprehensive 2D, Doppler, and color-flow Echocardiogram Ferryboat Captain: Cee Fisher RDCS Ht: 5 ft 6 in Wt: 217lbs BSA: 2.07 BP: 142/67 mmHg Indications: Shortness of Breath, CAD, Hyperlipidemia, Hypertension/HDD,EX SMOKER,AF,CHF,CABG EF 50% ECHO OF 06/18/18 2D Dimensions LVOT 1.82 cm (M/F) 1.5-2.5 M-Mode Dimensions RVDd 3.35 cm (0.9-2.6) LVDd 5.37 cm (3.5-5.7) LVDs 3.67 cm (3.5-5.7) IVSd 1.13 cm (0.6-1.1) PWd 0.93 cm (0.6-1.1) EF (Teich) 59.10% FS 31.70% EDV (Teich) 139.50 mL ESV (Teich) 57.00 mL Aortic Valve LVOT Max 74.00 (70-110 cm/s) LVOT VTI 14.53 cm Mitral Valve MV PHT 80.00 ms Left Ventricle Left atrium is moderately enlarged, left ventricle is normal size, mild concentric left ventricular hypertrophy, visually estimated ejection fraction 50%, inferior basal wall appears to be moderately hypokinetic. Diastolic parameters are inconclusive. Right Ventricle Right atrium and right ventricle moderately enlarged with normal contractility. Aortic Valve Aortic valve is thickened and calcified leaflet chordae display mobility, there is no aortic stenosis or aortic insufficiency. Mitral Valve Mitral valve has mitral annular calcification, leaflets are minimally thickened, there is restriction in the leaflet mobility, however mitral inflow velocity and pressure half-time is not indicated of a significant mitral stenosis, there is mild mitral regurgitation. Tricuspid Valve Tricuspid valve is minimally thickened, there is mild tricuspid regurgitation, calculated right ventricular systolic pressure is 59 mmHg. Pulmonic Valve Pulmonic valve is poorly visualized. Great Vessels Aortic root is normal size. Pericardium No significant pericardial effusion noted. Conclusion 1. Biatrial enlargement, normal left ventricular size, mild concentric left ventricular hypertrophy, visually estimated ejection fraction of 50% with segmental wall motion abnormality described above, diastolic parameters are inconclusive. 2. Moderately enlarged right ventricle with normal contractility. 3. Thickened and calcified aortic valve without Doppler evidence of aortic stenosis aortic insufficiency. 4. Abnormal mitral valve as described above however Doppler is not indicated above significant mitral stenosis, there is mild mitral regurgitation. 5. Mild tricuspid regurgitation, calculated right ventricular systolic pressure is 59 mmHg. 6. No significant pericardial effusion noted. Electronically signed by : Gómez Kunz, 04/10/2019 06:34:50
== END ==
PROVIDERS: PCP Internal Medicine Adolescent Medicine; Visit Provider Internal Medicine Cardiovascular Disease
DX: I10 Essential (primary) hypertension (principal); I25.10 Atherosclerotic heart disease of native coronary artery without angina pectoris; I27.20 Pulmonary hypertension, unspecified; I34.0 Nonrheumatic mitral (valve) insufficiency; I48.20 Chronic atrial fibrillation, unspecified; I65.29 Occlusion and stenosis of unspecified carotid artery; I70.1 Atherosclerosis of renal artery; I82.409 Acute embolism and thrombosis of unspecified deep veins of unspecified lower extremity; I95.9 Hypotension, unspecified; R06.00 Dyspnea, unspecified; Z95.1 Presence of aortocoronary bypass graft; Z98.890 Other specified postprocedural states
CPT/HCPCS: 93306

== ENCOUNTER → 2019-06-25 09:41 | Outpatient (CLI) | payer MEDICARE, SELFPAY ==
[2019-06-25 10:32] LABS: Basophils % 0.4 % (0.1-2.0); Eosinophils # 0.1 K/mm3 (0.0-0.4); Hematocrit 33.4 % (37.0-47.0); Hemoglobin 11.1 g/dL (12.2-16.2); Lymphocytes # 1.6 K/mm3 (0.7-4.5); Lymphocytes % 21.9 % (10-50); Mean Corpuscular HGB Conc 33.2 g/dL (31.8-35.4); Mean Corpuscular Hemoglobin 34.7 pg (27.0-31.2); Mean Corpuscular Volume 104.4 fl (81-99); Mean Platelet Volume 8.8 fl (7.4-10.4); Monocytes # 0.2 K/mm3 (0.1-1.0); Monocytes % 3.1 % (1.7-9.3); Neutrophils # 5.3 K/mm3 (1.8-7.8); Neutrophils % 72.6 % (37.0-80.0); Platelet Count 184 K/mm3 (142-424); Red Cell Distribution Width 14.1 % (11.5-17.5); White Blood Count 7.4 K/mm3 (4.8-10.8)
[2019-06-25 11:03] LABS: Hemoglobin A1C 9.3 % (4.0-6.0)
[2019-06-25 11:24] LABS: Chloride 109 mmol/L (98-107)
[2019-06-25 11:25] LABS: Potassium 4.8 mmoL/L (3.5-5.1); Sodium 139 mmol/L (136-145)
[2019-06-25 11:27] LABS: Alanine Aminotransferase 27 U/L (12-78); Alkaline Phosphatase 175 U/L (38-126); Aspartate Amino Transferase 24 U/L (14-36); Bilirubin,Total 0.5 mg/dl (0.2-1.3); Blood Urea Nitrogen 61 mg/dl (7-17); Estimated Glomerular Filt Rate 28 ml/min (>60); GFR (African American) 33 ML/MIN (>60)
[2019-06-25 11:28] LABS: Albumin Level 3.8 g/dl (3.5-5.0); Albumin/Globulin Ratio 1.2 (1.1-1.8); Anion Gap 17.8 mEq/L (5-15); Calcium 9.5 mg/dl (8.4-10.2); Carbon Dioxide 17 mmol/L (22.0-30.0); Chol/HDL Ratio 2.7 (1-3.5); Cholesterol 147 mg/dl (140-200); Globulin 3.2 g/dL (1.3-3.2); Glucose 293 mg/dl (74-100); HDL Cholesterol 54 mg/dl (40-60); Triglycerides 202 mg/dl (30-150); VLDL Cholesterol 40 mg/dL (0-40)
[2019-06-25 11:31] LABS: Iron 93 ug/dL (37-170)
[2019-06-25 11:39] LABS: Direct LDL Cholesterol 73.69 mg/dL (100-129)
[2019-06-25 11:59] LABS: Thyroid Stimulating Hormone 6.18 uIU/mL (0.465-4.68)
[2019-06-25 12:03] LABS: Ferritin 462 ng/ml (11.1-264)
== END ==
PROVIDERS: PCP Internal Medicine Adolescent Medicine; Visit Provider Internal Medicine Medical Oncology
DX: E03.9 Hypothyroidism, unspecified (principal); E11.9 Type 2 diabetes mellitus without complications; Z79.4 Long term (current) use of insulin
CPT/HCPCS: 36415; 80053; 80061; 82728; 83036; 83540; 84443; 85025

== ENCOUNTER → 2019-10-15 11:45 | Outpatient (CLI) | payer MEDICARE, SELFPAY ==
[2019-10-15 14:39] LABS: Basophils % 0.4 % (0.1-2.0); Eosinophils # 0.1 K/mm3 (0.0-0.4); Eosinophils % 1.8 % (0.1-12.0); Hematocrit 29.9 % (37.0-47.0); Hemoglobin 9.7 g/dL (12.2-16.2); Lymphocytes # 2.6 K/mm3 (0.7-4.5); Lymphocytes % 35.7 % (10-50); Mean Corpuscular HGB Conc 32.3 g/dL (31.8-35.4); Mean Corpuscular Hemoglobin 32.8 pg (27.0-31.2); Mean Corpuscular Volume 101.5 fl (81-99); Mean Platelet Volume 8.1 fl (7.4-10.4); Monocytes # 0.3 K/mm3 (0.1-1.0); Monocytes % 3.7 % (1.7-9.3); Neutrophils # 4.3 K/mm3 (1.8-7.8); Neutrophils % 58.5 % (37.0-80.0); Platelet Count 165 K/mm3 (142-424); Red Blood Count 2.95 M/mm3 (4.20-5.40); Red Cell Distribution Width 14.4 % (11.5-17.5); White Blood Count 7.4 K/mm3 (4.8-10.8)
[2019-10-15 16:40] LABS: Chloride 112 mmol/L (98-107); Potassium 5.2 mmoL/L (3.5-5.1); Sodium 140 mmol/L (136-145)
[2019-10-15 16:42] LABS: Alanine Aminotransferase 25 U/L (12-78); Aspartate Amino Transferase 26 U/L (14-36); Estimated Glomerular Filt Rate 17 ml/min (>60); GFR (African American) 21 ML/MIN (>60)
[2019-10-15 16:43] LABS: Albumin Level 3.6 g/dl (3.5-5.0); Albumin/Globulin Ratio 1.1 (1.1-1.8); Alkaline Phosphatase 186 U/L (38-126); Anion Gap 20.2 mEq/L (5-15); Bilirubin,Total 0.6 mg/dl (0.2-1.3); Calcium 9.8 mg/dl (8.4-10.2); Carbon Dioxide 13 mmol/L (22.0-30.0); Globulin 3.3 g/dL (1.3-3.2); Glucose 225 mg/dl (74-100); Magnesium 1.5 mg/dl (1.6-2.3); Total Protein,Serum 6.9 g/dl (6.3-8.2)
[2019-10-15 17:19] LABS: Thyroid Stimulating Hormone < 0.02 uIU/mL (0.465-4.68)
[2019-10-15 17:55] LABS: Blood Urea Nitrogen 77 mg/dl (7-17)
== END ==
PROVIDERS: Visit Provider Internal Medicine Adolescent Medicine
DX: E03.9 Hypothyroidism, unspecified (principal); I50.20 Unspecified systolic (congestive) heart failure
CPT/HCPCS: 36415; 80053; 83735; 84443; 85025

== ENCOUNTER 2019-10-16 10:23 | Outpatient (CLI) | payer MEDICARE, SELFPAY ==
[2019-10-16 10:40] VITALS: BP 142/68; PULSE 65; RESP 18; TEMP 36.2; O2SAT 100
[2019-10-16 11:15] VITALS: BP 139/67; PULSE 68; RESP 18; O2SAT 99; BMI 37.3
[2019-10-16 11:30] VITALS: BP 141/61; PULSE 67; RESP 18; O2SAT 99
[2019-10-16 11:40] LABS: Chloride 112 mmol/L (98-107); Sodium 137 mmol/L (136-145)
[2019-10-16 11:43] LABS: Carbon Dioxide 14 mmol/L (22.0-30.0); Creatinine Clearance Estimated 28 mL/min (50-200); Estimated Glomerular Filt Rate 16 ml/min (>60); GFR (African American) 19 ML/MIN (>60)
[2019-10-16 11:44] LABS: Blood Urea Nitrogen 79 mg/dl (7-17); Calcium 9.2 mg/dl (8.4-10.2); Glucose 255 mg/dl (74-100)
== END 2019-10-16 11:30 | disposition home or self-care (01) ==
LOC: INF 10:23
PROVIDERS: Visit Provider Internal Medicine Adolescent Medicine
DX: E86.0 Dehydration (principal)
CPT/HCPCS: 36415; 80048; 96360

== ENCOUNTER 2019-10-19 11:00 | Observation (INO) | payer MEDICARE, SELFPAY ==
--- NOTE | 2019-10-19 10:23 | ECG_ITS ---
APPROVED REPORT Exam: Resting ECG HR:91 bpm ECG Measurements Heart Rate 91 AXES QRSd 128 QRS 99 QT 398 T -45 QTc 489 <Conclusion> Atrial fibrillation with premature ventricular or aberrantly conducted complexes Right bundle branch block ST-T wave abnormalities, consider inferolateral ischemia or digitalis effect Abnormal ECG Electronically signed by : Naveen Garay, 10/20/2019 19:55:30
--- NOTE | 2019-10-19 11:02 | XR_ITS ---
PROCEDURE: XR CHEST PORTABLE CLINICAL HISTORY: Chest pain Heart disease COMPARISON: CR CXR2V XR chest 2V from 10/30/2017 CR CXR2V XR chest 2V from 11/03/2017 CR CXR1VP XR chest portable from 04/25/2018 FINDINGS: There is cardiomegaly. There has been a prior median sternotomy with sternotomy wire superiorly. There has been also atrial appendage clipping on the left. No evidence of CHF.. No lobar consolidation or collapse. No acute bony abnormalities. IMPRESSION: Cardiomegaly with postsurgical change, no acute finding Dictated by: Mervin Rockwell MD 10/19/2019 12:07 Mervin Rockwell MD in [place] 10/19/2019 12:07
--- NOTE | 2019-10-19 11:03 | HMH.EDGENADL ---
ED Disposition Clinical Impression: AVEL (acute kidney injury), Uremia Chest pain Qualifiers: Chest pain type: unspecified Qualified Code(s): R07.9 - Chest pain, unspecified Diarrhea Qualifiers: Diarrhea type: unspecified type Qualified Code(s): R19.7 - Diarrhea, unspecified Disposition: Admitted As Inpatient Condition on Discharge: Good Time of Disposition: 14:02 - Critical Care Critical Care Time: No Attestation: On , the high probability of a clinically significant, sudden or life threatening deterioration of the following system(s) required my full and direct attention, intervention and personal management. The time I documented below is in addition to time spent performing reported procedures but includes the following listed in this critical care notation. Medical Decision Making - Medical Records Medical records reviewed: Yes: I reviewed the patient's medical records. MR Comment: 74-year-old female with history of prior SC, COPD, A. fib, congestive heart failure, presents the emergency department with chest pain that was relieved by nitro glycerin. She arrives the ED hemodynamically stable, with reassuring vital signs, and looks well on exam. She denies any chest pain on arrival. We will do a cardiac work-up including EKG and troponin, stool sample given that she has had diarrhea for weeks, patient also appears dehydrated and her creatinine has recently been increased, likely AVEL. Will get labs and further work-up and reassess. On reassessment, patient remains well. Her troponin is unremarkable, EKG showing A. fib with rate of 91, she does have some T wave inversions, will repeat an EKG if she develops more chest pain. She has been chest pain-free while she has been in the ED. Given her history think it would be beneficial for her to come in for further chest pain work-up and also for hydration due to AVEL, she also has anion gap metabolic acidosis. Glucose is not very high, this may be due to uremia. She had a bolus of fluids here in the ER, will get her admitted for further evaluation and treatment. Stable on admission - Kermit Inquiry Pt receiving controlled substance: No Kermit was queried for this patient: No Vital Signs: 10/19/19 11:06 10/19/19 12:00 Temperature 98.7 F Temperature Source Oral Pulse Rate [Right Radial] 84 69 Respiratory Rate 17 Blood Pressure [Right Arm] 124/76 146/50 H Blood Pressure Mean [Right Arm] 92 82 Blood Pressure Source [Right Arm] Automatic Cuff Blood Pressure Position [Right Arm] Sitting 02 Sat by Pulse Oximetry 99 99 Oxygen Delivery Method Room Air - Lab Data Lab Results 10/19/19 11:45: WBC 6.4, RBC 2.88 L, Hgb 9.5 L, Hct 29.0 L, MCV 100.7 H, MCH 33.1 H, MCHC 32.9, RDW 14.3, Plt Count 128 L, MPV 8.1, Neut % (Auto) 66.1, Lymph % (Auto) 27.7, [place] % (Auto) 3.8, Eos % (Auto) 2.1, Baso % (Auto) 0.4, Neut # (Auto) 4.2, Lymph # (Auto) 1.8, [place] # (Auto) 0.3, Eos # (Auto) 0.1, Baso # (Auto) 0.0 10/19/19 11:45: Sodium 137, Potassium 5.0, Chloride 110 H, Carbon Dioxide 12 L, Anion Gap 20.0 H, BUN 77 H, Creatinine 2.30 H, Estimated Creat Clear 16, Estimated GFR 21 L, Est GFR ( Amer) 25 L, Glucose 239 H, Calcium 9.4, Troponin I 0.02 10/19/19 11:45: NT-Pro-B Natriuret Pep 8460 H 10/19/19 11:45: Total Bilirubin 0.6, Direct Bilirubin 0.2, Conjugated Bilirubin 0.0, Indirect Bilirubin 0.4, Unconjugated Bilirubin 0.3, AST 25, ALT 21, Alkaline Phosphatase 185 H, Total Protein 7.2, Albumin 3.7 10/19/19 11:45: SARS-CoV-2 IgG Ab (Rapid) Negative, SARS-CoV-2 IgM Ab (Rapid) Negative 10/19/19 12:45: VBG pH 7.26 L, VBG pCO2 25.5 L, VBG pO2 165.6 H, VBG HCO3 11.3 L, VBG Total CO2 12.0 L, VBG O2 Saturation 98.7 H, VBG Base Excess -15.8 L Result diagrams: 10/19/19 11:45 10/19/19 11:45 Orders (Tests/Meds): ED MEDICATIONS Generic Name Dose Route Start Last Admin Trade Name Freq PRN Reason Stop Dose Admin Sodium Chloride 1,000 mls @ 500 mls/hr 10/19/19 12:30 10/19/19 12:43
[2019-10-19 11:06] VITALS: BP 124/76; PULSE 84; RESP 17; TEMP 37.1; O2SAT 99; BMI 42.7
[2019-10-19 11:52] LABS: Basophils % 0.4 % (0.1-2.0); Eosinophils # 0.1 K/mm3 (0.0-0.4); Eosinophils % 2.1 % (0.1-12.0); Hemoglobin 9.5 g/dL (12.2-16.2); Lymphocytes # 1.8 K/mm3 (0.7-4.5); Lymphocytes % 27.7 % (10-50); Mean Corpuscular HGB Conc 32.9 g/dL (31.8-35.4); Mean Corpuscular Hemoglobin 33.1 pg (27.0-31.2); Mean Corpuscular Volume 100.7 fl (81-99); Mean Platelet Volume 8.1 fl (7.4-10.4); Monocytes # 0.3 K/mm3 (0.1-1.0); Monocytes % 3.8 % (1.7-9.3); Neutrophils # 4.2 K/mm3 (1.8-7.8); Neutrophils % 66.1 % (37.0-80.0); Platelet Count 128 K/mm3 (142-424); Red Blood Count 2.88 M/mm3 (4.20-5.40); Red Cell Distribution Width 14.3 % (11.5-17.5); White Blood Count 6.4 K/mm3 (4.8-10.8)
[2019-10-19 12:00] VITALS: BP 146/50; PULSE 69; O2SAT 99
[2019-10-19 12:02] LABS: Calcium 9.4 mg/dl (8.4-10.2); Carbon Dioxide 12 mmol/L (22.0-30.0); Chloride 110 mmol/L (98-107); Creatinine Clearance Estimated 16 mL/min (50-200); Estimated Glomerular Filt Rate 21 ml/min (>60); GFR (African American) 25 ML/MIN (>60); Glucose 239 mg/dl (74-100); Sodium 137 mmol/L (136-145)
[2019-10-19 12:03] LABS: Alanine Aminotransferase 21 U/L (12-78); Albumin Level 3.7 g/dl (3.5-5.0); Alkaline Phosphatase 185 U/L (38-126); Aspartate Amino Transferase 25 U/L (14-36); Bilirubin,Direct 0.2 mg/dl (0.0-0.4); Bilirubin,Indirect 0.4 mg/dL (0.0-0.9); Bilirubin,Total 0.6 mg/dl (0.2-1.3); Bilirubin,Unconjugated 0.3 mg/dL (0.0-1.1); Total Protein,Serum 7.2 g/dl (6.3-8.2)
[2019-10-19 12:04] LABS: Blood Urea Nitrogen 77 mg/dl (7-17)
--- NOTE | 2019-10-19 12:04 | PC.NURSE ---
critical bun [address] alejandre, awaiting further results.
[2019-10-19 12:12] LABS: NT Pro Brain Natriuretic Pep. 8460 pg/mL (0-125)
[2019-10-19 12:14] LABS: Troponin I 0.02 ng/ml (0.00-0.034)
[2019-10-19 13:09] LABS: VBG Base Excess -15.8 mmol/L (-2.4-2.3); VBG HCO3 11.3 mmol/L (23-30); VBG Oxygen Saturation 98.7 % (50-70); VBG PCO2 25.5 mmol/L (35-51); VBG PH 7.26 mmol/L (7.31-7.41); VBG PO2 165.6 mmol/L (28-40)
[2019-10-19 13:31] LABS: Coronavirus 19 IgG Antibody Negative (Negative); Coronavirus 19 IgM Antibody Negative (Negative)
--- NOTE | 2019-10-19 14:06 | PC.NURSE ---
Report called to Kay DUNNE
[2019-10-19 14:16] VITALS: BP 141/59; PULSE 66; RESP 17; TEMP 36.6; O2SAT 99
[2019-10-19 14:26] VITALS: BP 153/80; PULSE 76; RESP 18; TEMP 36.6; O2SAT 97; BMI 42.7
--- NOTE | 2019-10-19 14:30 | HMH.PHAINT ---
MEDICATION RECONCILIATION COMPLETED ON PATIENT USING EXTERNAL FILL HISTORY FROM PHARMACY AND KAIN REPORT. -RICHIE ALEJANDROD
--- NOTE | 2019-10-19 14:31 | P.CONPHA_ITS ---
[facility] Pharmacy VTE Monitoring - Patient Demographics Admission date: 10/19/19 Report Date: 10/19/19 Time: 14:31 Allergies/Adverse Reactions: Patient Allergies codeine [CODEINE] Allergy (Intermediate, Verified 10/19/19 11:10) I-RASH sulfisoxazole Allergy (Verified 10/19/19 11:10) Height: 1.52 m Weight: 99.337 kg Patient Problems: Current Active Problems (Last Updated 03/28/19 @ 11:12 by Polly Marshall RN) Uremia (Acute) Diarrhea (Acute) Acute kidney injury (Acute) Chest pain (Acute) - VTE Risk Labs: VTE Related Lab Results Hgb 9.5 g/dL (12.2-16.2) L 10/19/19 11:45 Hct 29.0 % (37.0-47.0) L 10/19/19 11:45 Plt Count 128 K/mm3 (142-424) L 10/19/19 11:45 BUN 77 mg/dl (7-17) H 10/19/19 11:45 Creatinine 2.30 mg/dl (0.52-1.04) H 10/19/19 11:45 Estimated Creat Clear 16 mL/min (50-200) 10/19/19 11:45 - Prophylaxis VTE Prophylaxis Ordered?: Yes Types of VTE Prophylaxis: TEDS Knee High Location of Applied Device: Bilateral Lower Extremeties - VTE Diagnosis Confirmed Treatment or plan recommended: Continue Current Treatment
[2019-10-19 15:48] LABS: POC Glucose,Bedside 158 (70-110)
[2019-10-19 16:27] LABS: Troponin I 0.09 ng/ml (0.00-0.034)
[2019-10-19 18:04] LABS: Troponin I 0.13 ng/ml (0.00-0.034)
[2019-10-19 19:00] VITALS: PULSE 70
[2019-10-19 20:00] VITALS: BP 121/78; PULSE 100; PULSE 81; RESP 22; TEMP 36.6; O2SAT 99
[2019-10-19 21:25] LABS: POC Glucose,Bedside 165 (70-110)
[2019-10-19 21:46] LABS: Anion Gap 18.1 mEq/L (5-15); Blood Urea Nitrogen 69 mg/dl (7-17); Calcium 9.6 mg/dl (8.4-10.2); Carbon Dioxide 15 mmol/L (22.0-30.0); Chloride 112 mmol/L (98-107); Creatinine Clearance Estimated 18 mL/min (50-200); Estimated Glomerular Filt Rate 24 ml/min (>60); GFR (African American) 30 ML/MIN (>60); Potassium 5.1 mmoL/L (3.5-5.1); Sodium 140 mmol/L (136-145)
[2019-10-19 21:48] LABS: Glucose 187 mg/dl (74-100)
[2019-10-20] VITALS (7 sets, daily range): BP systolic 120–159; BP diastolic 65–96; PULSE 70–82; RESP 18–22; TEMP 36.7–37.4; O2SAT 97–100; BMI 43.1
[2019-10-20 02:17] LABS: POC Glucose,Bedside 130 (70-110)
--- NOTE | 2019-10-20 02:38 | PC.NURSE ---
Pt has rested well this shift. 2L NC applied @ HS, for comfort. O2 sats remain in upper 90's. (2) hats placed on toilet, one for urine output measurement and the other to collect a stool sample. Pt has had no BM's as of yet, pt placed in contact enteric isolation pending stool sample and stool sample collection due to multiple loose stools during dayshift. Pt was placed under strict I&O's per MD Snow.Pt's at home-meds are locked in drawer and are awaiting to be verified by pharmacy. has remained at bedside this shift. No other acute changes at this time. Will continue to monitor.
[2019-10-20 06:14] LABS: Anion Gap 16.8 mEq/L (5-15); Blood Urea Nitrogen 68 mg/dl (7-17); Calcium 9.6 mg/dl (8.4-10.2); Carbon Dioxide 15 mmol/L (22.0-30.0); Chloride 113 mmol/L (98-107); Creatinine Clearance Estimated 18 mL/min (50-200); Estimated Glomerular Filt Rate 26 ml/min (>60); GFR (African American) 31 ML/MIN (>60); Potassium 4.8 mmoL/L (3.5-5.1); Sodium 140 mmol/L (136-145)
[2019-10-20 06:16] LABS: Glucose 139 mg/dl (74-100)
[2019-10-20 10:22] LABS: POC Glucose,Bedside 186 (70-110)
--- NOTE | 2019-10-20 10:43 | HMH.HP ---
*Admission Date: 10/19/19 *Chief complaint: weakness, chest pain *History of present illness: 74-year-old female with history of prior MA, COPD, A. fib, congestive heart failure, knee disease who presented to the ER yesterday with chest and back pain, and several weeks to a month of diarrhea. States she had been getting more weak over the past week and actually came in for IV fluids the end of the week. Her pain progressed after that episode of fluids and she took a dose of her nitroglycerin for her chest pain which seemed to relieve her symptoms. Upon arrival to the ER she was hemodynamically stable with normal vital signs. Work-up significant for acute kidney injury, dehydration, and slight elevation in troponin. EKG showed A. fib. Admitted to medicine for further management. This morning she states she feels well with no chest pain since prior to admission. Has been monitored on telemetry with no events. Still having some loose stools, one was sent for study this morning. Denies nausea, vomiting, chest pain, syncope, dizziness. Shortness of breath is somewhat improved with fluid resuscitation. Remained hemodynamically stable overnight. Making good urine. Reviewed labs this morning, kidney function continues to improve. Troponin had interval regional climate change analyst the 3 test series but was nominal and she remains asymptomatic. [facility] History I have reviewed the patient's past medical history: Yes Medical History: Reports:: Arrhythmia, Atherosclerotic Heart Disease, Atrial Fibrillation, Carotid Stenosis, Congestive Heart Failure, Chronic Obstructive Pulmonary Disease (COPD), Coronary Artery Disease, Deep Vein Thrombosis, Diabetes Mellitus Type 2, Heart Murmur, Hyperlipidemia, Hypertension, Myocardial Infarction, Peripheral Artery Disease, Valvular Heart Disease Denies:: Cancer, Diabetes Mellitus Type 1, MRSA, Seizures *Have you ever received a pneumonia vaccine?: Yes *Have you received a flu vaccine this season?: Yes Other Medical History: Reports: Anemia, Arthritis, Cataracts, Hypothyroidism, Sinus Problems, Thyroid Disease Laterality Cases: Left: Total Knee Replacement Other Surgeries: Yes: Angioplasty, Appendectomy, CABG, Cardiac Catheterization, Cholecystectomy, Colonoscopy, Coronary Stent, EGD, Hysterectomy-Total, Open Heart Surgery Amputation: No Fractures: No - *Social History Smoking Status: Former smoker # Packs/Day (cigarettes): 1 Alcohol Intake: never Alcohol Intake Frequency:: other Substance Use Type: denies use *Occupational Status:: disabled Housing: house Household Members: spouse *Travel in the last 8 weeks: None Family Hx:: Cancer, Diabetes, Heart Attack, Hyperlipidemia, Hypertension, Kidney Disease Review of Systems - Review of Systems Review of systems:: pertinent systems reviewed and negative unless documented below (14 point review of systems performed, pertinent positives and negatives as per HPI) Meds Home Medications Medication Instructions Recorded Confirmed Type Atorvastatin Calcium [Lipitor 40mg 40 mg PO HS 10/31/17 10/19/19 History Tab] budesonide-formoterol HFA 160 2 puff IH BID 02/15/18 10/19/19 History mcg-4.5 mcg/actuation aerosol inhaler insulin glargine 100 unit/mL (3 24 unit SQ HS 02/15/18 10/19/19 History mL) subcutaneous pen lisinopriL [Lisinopril 20mg Tab] 20 mg PO DAILY 04/25/18 10/19/19 History Acetaminophen [Acetaminophen 8 650 mg PO DAILYP PRN 06/10/18 10/19/19 History Hour] Pantoprazole Sodium [Protonix 40mg 40 mg PO DAILY 06/10/18 10/19/19 History tablet] apixaban 5 mg tablet 5 mg PO BID 03/22/19 10/19/19 History spironolactone 100 mg tablet 100 mg PO DAILY #90 tab 05/09/19 10/19/19 Rx clopidogrel 75 mg tablet 75 mg PO DAILY #30 tab 08/30/19 10/19/19 Rx diltiazem HCl 120 mg 120 mg PO DAILY #90 cap 08/30/19 10/19/19 Rx capsule,extended release 24 hr Canagliflozin [Invokana] 300 mg PO DAILY 10/19/19 10/19/19 History Docusate Sodium 100 mg PO DAILY 10/19/1909/21
[2019-10-20 11:10] LABS: Adenovirus F 40/41, stool Not Detected (NotDetected); Astrovirus Not Detected (NotDetected); Campylobacter Not Detected (NotDetected); Clostridium Difficile A/B, PCR Not Detected (NotDetected); Cryptosporidium Not Detected (NotDetected); Cyclospora Cayetanesis Not Detected (NotDetected); Entamoeba histolytica Not Detected (NotDetected); Enteroaggregative E coli Not Detected (NotDetected); Enteropathogenic E coli Not Detected (NotDetected); Enterotoxigenic E coli Not Detected (NotDetected); Giardia lamblia Not Detected (NotDetected); Norovirus Not Detected (NotDetected); Plesimonas Shigalloides, PCR Not Detected (NotDetected); Rotavirus A Not Detected (NotDetected); Salmonella, PCR Not Detected (NotDetected); Sapovirus Not Detected (NotDetected); Shiga-like toxin E coli Not Detected (NotDetected); Shigella Enterovasive E coli Not Detected (NotDetected); Vibrio Cholerae Not Detected (NotDetected); Vibrio, PCR Not Detected (NotDetected); Yersinia Entercolitica, PCR Not Detected (NotDetected)
[2019-10-20 16:03] LABS: POC Glucose,Bedside 245 (70-110)
--- NOTE | 2019-10-20 16:24 | PC.NURSE ---
pt has done well today. no c/o cp, or sob. reports her diarrhea is better. has ambulated t/o room, tolerates well. vss. will cont. to monitor.
[2019-10-20 22:04] LABS: POC Glucose,Bedside 216 (70-110)
[2019-10-21] VITALS: BP 153/62; PULSE 67; PULSE 70; RESP 20; TEMP 36.9; O2SAT 97
[2019-10-21 02:28] LABS: POC Glucose,Bedside 279 (70-110)
--- NOTE | 2019-10-21 03:22 | PC.NURSE ---
No acute changes noted. Pt has rested well this shift. Has denied any pain. Pt is currently on O2 2L NC with sats in upper 90s. Pt uses O2 2L at home at bedtime. Pt states she has had some soa. Fingersticks this shift were 216 and 279. Medication administered per apr. VSS. No other concerns at this time. Will continue to monitor.
[2019-10-21 04:00] VITALS: BP 149/61; PULSE 70; RESP 20; TEMP 36.6; O2SAT 99
[2019-10-21 05:00] VITALS: BMI 43.4
[2019-10-21 06:08] LABS: Basophils % 0.5 % (0.1-2.0); Eosinophils # 0.1 K/mm3 (0.0-0.4); Eosinophils % 2.4 % (0.1-12.0); Hemoglobin 8.6 g/dL (12.2-16.2); Lymphocytes # 1.9 K/mm3 (0.7-4.5); Lymphocytes % 44.9 % (10-50); Mean Corpuscular HGB Conc 32.2 g/dL (31.8-35.4); Mean Corpuscular Hemoglobin 32.6 pg (27.0-31.2); Mean Corpuscular Volume 101.4 fl (81-99); Mean Platelet Volume 8.1 fl (7.4-10.4); Monocytes # 0.2 K/mm3 (0.1-1.0); Monocytes % 5.2 % (1.7-9.3); Neutrophils % 46.9 % (37.0-80.0); Platelet Count 111 K/mm3 (142-424); Red Blood Count 2.64 M/mm3 (4.20-5.40); Red Cell Distribution Width 14.5 % (11.5-17.5); White Blood Count 4.3 K/mm3 (4.8-10.8)
[2019-10-21 06:10] LABS: Hematocrit 26.8 % (37.0-47.0)
[2019-10-21 06:14] LABS: Chloride 119 mmol/L (98-107)
[2019-10-21 06:15] LABS: Potassium 4.7 mmoL/L (3.5-5.1); Sodium 142 mmol/L (136-145)
[2019-10-21 06:17] LABS: Alanine Aminotransferase 17 U/L (12-78); Albumin Level 3.1 g/dl (3.5-5.0); Alkaline Phosphatase 140 U/L (38-126); Anion Gap 12.7 mEq/L (5-15); Aspartate Amino Transferase 20 U/L (14-36); Bilirubin,Total 0.4 mg/dl (0.2-1.3); Blood Urea Nitrogen 63 mg/dl (7-17); Calcium 9.3 mg/dl (8.4-10.2); Carbon Dioxide 15 mmol/L (22.0-30.0); Creatinine Clearance Estimated 17 mL/min (50-200); Estimated Glomerular Filt Rate 24 ml/min (>60); GFR (African American) 30 ML/MIN (>60); Glucose 85 mg/dl (74-100); Total Protein,Serum 6.1 g/dl (6.3-8.2)
[2019-10-21 06:18] LABS: Magnesium 1.4 mg/dl (1.6-2.3)
--- NOTE | 2019-10-21 06:31 | PC.NURSE ---
Consent obtained for surgery and on chart. Pt left floor with surgery team.
[2019-10-21 08:00] VITALS: BP 178/79; PULSE 72; RESP 18; TEMP 37; O2SAT 98
[2019-10-21 08:38] LABS: POC Glucose,Bedside 155 (70-110)
--- NOTE | 2019-10-21 08:53 | HMH.DCSUM ---
General - General Admission date:: 10/19/19 Discharge date: 10/21/19 HPI HPI: 74-year-old female with history of prior CA, COPD, A. fib, congestive heart failure, knee disease who presented to the ER yesterday with chest and back pain, and several weeks to a month of diarrhea. States she had been getting more weak over the past week and actually came in for IV fluids the end of the week. Her pain progressed after that episode of fluids and she took a dose of her nitroglycerin for her chest pain which seemed to relieve her symptoms. Upon arrival to the ER she was hemodynamically stable with normal vital signs. Work-up significant for acute kidney injury, dehydration, and slight elevation in troponin. EKG showed A. fib. Admitted to medicine for further management. This morning she states she feels well with no chest pain since prior to admission. Has been monitored on telemetry with no events. Still having some loose stools, one was sent for study this morning. Denies nausea, vomiting, chest pain, syncope, dizziness. Shortness of breath is somewhat improved with fluid resuscitation. Remained hemodynamically stable overnight. Making good urine. Reviewed labs this morning, kidney function continues to improve. Troponin had interval meter changes records clerk the 3 test series but was nominal and she remains asymptomatic. Hospital Course Hospital Course: Patient was admitted. Rehydrated. Tolerated fluids well. Had ongoing diarrhea but stool PCR testing was negative. This morning felt great, drinking well, labs stabilized, wished to be discharged home. We will discharge her home, holding her diuretics until her cardiology appointment on Monday. We will give her probiotics for the diarrhea treatment. Follow-up in my office in 1 week. Objective Vital signs: Temp Pulse Resp BP Pulse Ox 98.6 F 72 18 178/79 H 98 10/21/19 08:00 10/21/19 08:00 10/21/19 08:00 10/21/19 08:00 10/21/19 08:00 no acute distress - *Routine HEENT Exam Head: Present: normocephalic Eye: Present: EOMI, PERRL ENT: Present: mucous membranes moist - *Routine Neck Exam Present: supple - *Routine Respiratory Exam Present: CTA bilaterally - *Routine Cardiovascular Exam Present: RRR - *Routine Abdominal Exam Present: soft, normoactive bowel sounds. Absent: tenderness - *Routine Extremities Exam Absent: cyanosis, clubbing, edema - *Routine Skin Exam Present: warm. Absent: rash - Detailed Eye Exam Eyelids: Bilateral normal inspection Results Labs on day of discharge: Labs from last 24 hours 10/21/19 10/21/19 10/21/19 08:30 05:45 05:45 WBC 4.3 L D RBC 2.64 L Hgb 8.6 L Hct 26.8 L MCV 101.4 H MCH 32.6 H MCHC 32.2 RDW 14.5 Plt Count 111 L MPV 8.1 Neut % (Auto) 46.9 Lymph % (Auto) 44.9 [place] % (Auto) 5.2 Eos % (Auto) 2.4 Baso % (Auto) 0.5 Neut # (Auto) 2.0 Lymph # (Auto) 1.9 [place] # (Auto) 0.2 Eos # (Auto) 0.1 Baso # (Auto) 0.0 Sodium 142 Potassium 4.7 Chloride 119 H Carbon Dioxide 15 L Anion Gap 12.7 BUN 63 H Creatinine 2.00 H Estimated Creat Clear 17 Estimated GFR 24 L Est GFR ( Amer) 30 L Glucose 85 POC Glucose 155 H Calcium 9.3 Magnesium 1.4 L Total Bilirubin 0.4 AST 20 ALT 17 Alkaline Phosphatase 140 H Total Protein 6.1 L Albumin 3.1 L Globulin 3.0 Albumin/Globulin Ratio 1.0 L Stl Aeromonas (PCR) Stl C. cayetanensis PCR Stool Rotavirus (PCR) Stl Adenov F 40/41 PCR Stool Astrovirus (PCR) Stool Campylobacter PCR Stl C.difficile Tox PCR Stool Cryptosporidium PCR Stl E.coli Shiga Tox PCR Stool E coli O157 PCR Stl Enterotoxigenic E PCR Stool EPEC (PCR) Stool EAEC (PCR) Stl E. histolytica PCR Stool Giardia Lamblia PCR Stool Salmonella PCR Stool Sapovirus (PCR) Stl P. shigelloides PCR Stl Shigella/EIEC PCR
== END 2019-10-21 10:30 | disposition home or self-care (01) ==
LOC: ER 12:15 → 2ND 14:01
PROVIDERS: Admitting Provider Internal Medicine Adolescent Medicine; Emergency Provider Emergency Medicine; PCP Internal Medicine Adolescent Medicine; Visit Provider Internal Medicine Adolescent Medicine
DX: I21.4 Non-ST elevation (NSTEMI) myocardial infarction (principal); I13.0 Hypertensive heart and chronic kidney disease with heart failure and stage 1 through stage 4 chronic kidney disease, or unspecified chronic kidney disease; N17.9 Acute kidney failure, unspecified; N18.9 Chronic kidney disease, unspecified; I48.20 Chronic atrial fibrillation, unspecified; I25.2 Old myocardial infarction; E03.9 Hypothyroidism, unspecified; E66.01 Morbid (severe) obesity due to excess calories; Z68.41 Body mass index [BMI] 40.0-44.9, adult; Z79.4 Long term (current) use of insulin; Z79.01 Long term (current) use of anticoagulants; Z79.52 Long term (current) use of systemic steroids; Z88.2 Allergy status to sulfonamides; Z88.5 Allergy status to narcotic agent
CPT/HCPCS: 36415; 71045; 80048; 80053; 80076; 82803; 82962; 83735; 83880; 84484; 85025; 86328; 87506; 93005; 96365; 99284; G0378

== ENCOUNTER → 2019-10-30 13:07 | Outpatient (CLI) | payer MEDICARE, SELFPAY ==
[2019-10-30 14:42] LABS: Anion Gap 15.5 mEq/L (5-15); Blood Urea Nitrogen 64 mg/dl (7-17); Calcium 9.5 mg/dl (8.4-10.2); Carbon Dioxide 17 mmol/L (22.0-30.0); Chloride 112 mmol/L (98-107); Estimated Glomerular Filt Rate 28 ml/min (>60); GFR (African American) 33 ML/MIN (>60); Glucose 171 mg/dl (74-100); Potassium 4.5 mmoL/L (3.5-5.1); Sodium 140 mmol/L (136-145)
== END ==
PROVIDERS: Visit Provider Physician Assistant
DX: N17.9 Acute kidney failure, unspecified (principal); N18.9 Chronic kidney disease, unspecified
CPT/HCPCS: 36415; 80048

== ENCOUNTER 2019-11-04 10:58 | Emergency (ER) | payer MEDICARE, SELFPAY ==
[2019-11-04 11:03] VITALS: BP 129/93; PULSE 88; RESP 19; TEMP 36.4; O2SAT 99; BMI 41.0
--- NOTE | 2019-11-04 11:08 | ECG_ITS ---
APPROVED REPORT Exam: Resting ECG HR:88 bpm ECG Measurements Heart Rate 88 AXES QRSd 136 QRS 102 QT 416 T -73 QTc 503 <Conclusion> Atrial fibrillation Right bundle branch block T wave abnormality, consider inferolateral ischemia or digitalis effect Abnormal ECG Electronically signed by : Raj Salamanca, 11/04/2019 17:44:12
--- NOTE | 2019-11-04 11:08 | XR_ITS ---
PROCEDURE: XR CHEST PORTABLE CLINICAL HISTORY: cough COMPARISON: CR CXR2V XR chest 2V from 11/03/2017 CR CXR1VP XR chest portable from 04/25/2018 CR XR CHEST PORTABLE from 10/19/2019 FINDINGS: Prior median sternotomy with left atrial appendage clipping. Borderline cardiomegaly. The lungs are clear without infiltrates, suspicious nodules, or pleural effusions. No acute bony abnormalities. IMPRESSION: No acute findings. Dictated by: Mervin Rockwell MD 11/04/2019 11:32 Mervin Rockwell MD in [facility] 11/04/2019 11:32
--- NOTE | 2019-11-04 11:15 | PC.NURSE ---
Rad at bedside
--- NOTE | 2019-11-04 11:19 | HMH.EDWEAK ---
ED Disposition Clinical Impression: Vasovagal syncope Anemia Qualifiers: Anemia type: due to chronic kidney disease Chronic kidney disease stage: stage 3 (moderate) Qualified Code(s): N18.3 - Chronic kidney disease, stage 3 (moderate); D63.1 - Anemia in chronic kidney disease CHF (congestive heart failure) Qualifiers: Heart failure type: systolic Heart failure chronicity: chronic Qualified Code(s): I50.22 - Chronic systolic (congestive) heart failure Disposition: Home, Self-Care Condition on Discharge: Good Instructions: DI for Syncope in Adults (Fainting) Referrals: PCP,No [Primary Care Provider] - Raj Salamanca MD [Staff Physician] - - Critical Care Critical Care Time: No Attestation: On 11/04/19, the high probability of a clinically significant, sudden or life threatening deterioration of the following system(s) required my full and direct attention, intervention and personal management. The time I documented below is in addition to time spent performing reported procedures but includes the following listed in this critical care notation. Medical Decision Making - Medical Records Medical records reviewed: Yes: I reviewed the patient's medical records. - [place] Inquiry Pt receiving controlled substance: No Vital Signs: 11/04/19 11:03 11/04/19 11:32 11/04/19 12:00 Temperature 97.6 F Temperature Source Oral Pulse Rate [Right Radial] 88 77 78 Respiratory Rate 19 Blood Pressure [Right Arm] 129/93 H 156/64 H 178/83 H Blood Pressure Mean [Right Arm] 105 94 114 Blood Pressure Source [Right Arm] Automatic Cuff Automatic Cuff Blood Pressure Position [Right Arm] Sitting Sitting 02 Sat by Pulse Oximetry 99 100 100 Oxygen Delivery Method Room Air Nasal Cannula Nasal Cannula Oxygen Flow Rate (LPM) 2 2 11/04/19 12:30 Temperature Temperature Source Pulse Rate [Right Radial] 88 Respiratory Rate Blood Pressure [Right Arm] 170/77 H Blood Pressure Mean [Right Arm] 108 Blood Pressure Source [Right Arm] Automatic Cuff Blood Pressure Position [Right Arm] Sitting 02 Sat by Pulse Oximetry 99 Oxygen Delivery Method Nasal Cannula Oxygen Flow Rate (LPM) 2 - Lab Data Lab Results 11/04/19 11:08: Urine Color Yellow, Urine Appearance Clear, Urine pH 5.0, Ur Specific [place] 1.025, Urine Protein 2+, Urine Glucose (UA) Negative, Urine Ketones Negative, Urine Blood 2+, Urine Nitrate Positive, Urine Bilirubin Negative, Urine Urobilinogen 0.2, Ur Leukocyte Esterase Trace 11/04/19 11:15: WBC 5.5, RBC 2.58 L, Hgb 8.3 L, Hct 25.6 L, MCV 98.9, MCH 32.1 H, MCHC 32.5, RDW 14.8, Plt Count 140 L, MPV 8.4, Neut % (Auto) 55.2, Lymph % (Auto) 37.4, [place] % (Auto) 3.8, Eos % (Auto) 3.1, Baso % (Auto) 0.4, Neut # (Auto) 3.0, Lymph # (Auto) 2.1, [place] # (Auto) 0.2, Eos # (Auto) 0.2, Baso # (Auto) 0.0 11/04/19 11:15: Sodium 142, Potassium 4.3, Chloride 111 H, Carbon Dioxide 17 L, Anion Gap 18.3 H, BUN 54 H, Creatinine 1.60 H, Estimated Creat Clear 48, Estimated GFR 32 L, Est GFR ( Amer) 38 L, Glucose 207 H, Calcium 9.3, Total Bilirubin 0.9, AST 57 H, ALT 39, Alkaline Phosphatase 284 H, Troponin I 0.01, NT-Pro-B Natriuret Pep 8900 H, Total Protein 7.1, Albumin 3.7, Globulin 3.4 H, Albumin/Globulin Ratio 1.1, Lipase 58, TSH < 0.02 L 11/04/19 11:15: SARS-CoV-2 IgG Ab (Rapid) Negative, SARS-CoV-2 IgM Ab (Rapid) Negative Result diagrams: 11/04/19 11:15 11/04/19 11:15 Orders (Tests/Meds): ORDERS Category Date Time Status PTT [Activated Partial Thrombo Time] Stat Lab 11/04/19 11:15 Received Prothrombin Time INR Stat Lab 11/04/19 11:15 Received Troponin I Q3H Lab 11/04/19 14:15 Ordered Troponin I Q3H Lab 11/04/19 17:15 Ordered Urinalysis and Microscopic Stat Lab 11/04/19 11:08 Results EKG Request [ECG Request by /Thor] Stat Y 11/04/19 11:08 Ordered - Radiology Data #1 Image(s): Chest Image Reviewed: Yes I reviewed the patient's radiology results mild cardiomegally, no acute changes - CT Data
--- NOTE | 2019-11-04 11:21 | CT_ITS ---
PROCEDURE: CT HEAD/BRAIN WO CON CLINICAL INDICATION: weakness Weakness and syncope COMPARISON: CT HEADWO CT head/brain wo con from 06/10/2018 TECHNIQUE: Axial images obtained. All CT scans at the facility use one or more dose reduction, viz: automated exposure control, ma/kV adjustment per patient size (including targeted exams where dose is matched to indication, i.e. head), or iterative reconstruction technique. FINDINGS: No midline shift, mass effect, intracranial hemorrhage, hydrocephalus, or extra-axial fluid collection is evident. There is an old lacunar infarction a of the head of the caudate on the right. There is generalized atrophy with hypoattenuation of the periventricular white matter consistent with microangiopathic changes. The calvarium has an unremarkable appearance. No mastoid effusion. No sinus air-fluid level. IMPRESSION: No acute intracranial finding Dictated by: Mervin Rockwell MD 11/04/2019 12:27 Mervin Rockwell MD in [facility] 11/04/2019 12:27
[2019-11-04 11:31] LABS: Basophils % 0.4 % (0.1-2.0); Eosinophils # 0.2 K/mm3 (0.0-0.4); Eosinophils % 3.1 % (0.1-12.0); Hematocrit 25.6 % (37.0-47.0); Hemoglobin 8.3 g/dL (12.2-16.2); Lymphocytes # 2.1 K/mm3 (0.7-4.5); Lymphocytes % 37.4 % (10-50); Mean Corpuscular HGB Conc 32.5 g/dL (31.8-35.4); Mean Corpuscular Hemoglobin 32.1 pg (27.0-31.2); Mean Corpuscular Volume 98.9 fl (81-99); Mean Platelet Volume 8.4 fl (7.4-10.4); Monocytes # 0.2 K/mm3 (0.1-1.0); Monocytes % 3.8 % (1.7-9.3); Neutrophils % 55.2 % (37.0-80.0); Platelet Count 140 K/mm3 (142-424); Red Blood Count 2.58 M/mm3 (4.20-5.40); Red Cell Distribution Width 14.8 % (11.5-17.5); White Blood Count 5.5 K/mm3 (4.8-10.8)
[2019-11-04 11:32] VITALS: BP 156/64; PULSE 77; O2SAT 100
[2019-11-04 11:34] LABS: Alanine Aminotransferase 39 U/L (12-78); Albumin Level 3.7 g/dl (3.5-5.0); Albumin/Globulin Ratio 1.1 (1.1-1.8); Alkaline Phosphatase 284 U/L (38-126); Anion Gap 18.3 mEq/L (5-15); Aspartate Amino Transferase 57 U/L (14-36); Bilirubin,Total 0.9 mg/dl (0.2-1.3); Blood Urea Nitrogen 54 mg/dl (7-17); Calcium 9.3 mg/dl (8.4-10.2); Carbon Dioxide 17 mmol/L (22.0-30.0); Chloride 111 mmol/L (98-107); Creatinine Clearance Estimated 48 mL/min (50-200); Estimated Glomerular Filt Rate 32 ml/min (>60); GFR (African American) 38 ML/MIN (>60); Globulin 3.4 g/dL (1.3-3.2); Glucose 207 mg/dl (74-100); Lipase 58 U/L (23-300); Potassium 4.3 mmoL/L (3.5-5.1); Sodium 142 mmol/L (136-145); Total Protein,Serum 7.1 g/dl (6.3-8.2)
[2019-11-04 11:47] LABS: NT Pro Brain Natriuretic Pep. 8900 pg/mL (0-125)
[2019-11-04 11:53] LABS: Coronavirus 19 IgG Antibody Negative (Negative); Coronavirus 19 IgM Antibody Negative (Negative)
--- NOTE | 2019-11-04 11:53 | PC.NURSE ---
pt going for ct
[2019-11-04 11:59] LABS: Troponin I 0.01 ng/ml (0.00-0.034)
[2019-11-04 12:00] VITALS: BP 178/83; PULSE 78; O2SAT 100
[2019-11-04 12:05] LABS: Thyroid Stimulating Hormone < 0.02 uIU/mL (0.465-4.68)
--- NOTE | 2019-11-04 12:08 | PC.NURSE ---
back from ct
[2019-11-04 12:30] VITALS: BP 170/77; PULSE 88; O2SAT 99
[2019-11-04 12:55] LABS: Microscopic, Urine URINE MICROSCOPIC (MICROSCOPIC)
[2019-11-04 12:59] LABS: Appearance,Urine CLEAR (Clear); Bilirubin,Urine Negative (Negative); Blood, Urine 2+ (Negative); Color,Urine YELLOW (Yellow); Glucose,Urine (UA) Negative (Negative); Ketones,Urine Negative (Negative); Leukocyte Esterase,Urine TRACE (Negative); Nitrate,Urine POSITIVE (Negative); Protein,Urine 2+ (Negative); Specific Gravity, Urine 1.025 (1.005-1.030); Urobilinogen,Urine 0.2 EU/dl (0.2)
[2019-11-04 13:39] VITALS: BP 157/95; PULSE 88; RESP 20; TEMP 37.1; O2SAT 98
[2019-11-04 16:55] LABS: Prothrombin Time 11.3 seconds (9.4-11.8)
[2019-11-04 16:56] LABS: Activated Partial Thrombo Time 23.8 seconds (23.6-34.0); INR 1.13 (0.9-1.1)
== END 2019-11-04 13:39 | disposition home or self-care (01) ==
PROVIDERS: Emergency Provider Emergency Medicine
DX: R55 Syncope and collapse (principal); N18.3 Chronic kidney disease, stage 3 (moderate); D63.1 Anemia in chronic kidney disease; I48.20 Chronic atrial fibrillation, unspecified; I25.10 Atherosclerotic heart disease of native coronary artery without angina pectoris; E11.9 Type 2 diabetes mellitus without complications; I10 Essential (primary) hypertension; Z95.1 Presence of aortocoronary bypass graft; J44.9 Chronic obstructive pulmonary disease, unspecified; I50.22 Chronic systolic (congestive) heart failure; Z87.891 Personal history of nicotine dependence; Z88.2 Allergy status to sulfonamides; Z88.6 Allergy status to analgesic agent; Z79.899 Other long term (current) drug therapy
CPT/HCPCS: 70450; 71045; 80053; 81001; 83690; 83880; 84443; 84484; 85025; 85610; 85730; 86328; 93005; 99284

== ENCOUNTER → 2019-11-08 09:45 | Outpatient (CLI) | payer MEDICARE, SELFPAY ==
--- NOTE | 2019-11-08 09:49 | CA_ITS ---
APPROVED REPORT EXAM: Comprehensive 2D, Doppler, and color-flow Echocardiogram [employer] Enrichment Technician: Cee Fisher RDCS Ht: 5 ft 0 in Wt: 220lbs BSA: 1.94 BP: 167/71 mmHg Indications: AF,SOA,CHF,CAD,CABG,ALEXANDER,OBESITY TDS 2D Dimensions LVOT 1.83 cm (M/F) 1.5-2.5 M-Mode Dimensions RVDd 3.37 cm (0.9-2.6) LVDd 5.62 cm (3.5-5.7) LVDs 4.22 cm (3.5-5.7) IVSd 0.98 cm (0.6-1.1) PWd 1.07 cm (0.6-1.1) EF (Teich) 48.70% FS 24.90% EDV (Teich) 154.90 mL ESV (Teich) 79.50 mL Aortic Valve LVOT Max 78.00 (70-110 cm/s) LVOT VTI 15.12 cm Mitral Valve MV PHT 77.00 ms Left Ventricle Left atrium is moderately enlarged, left ventricle is normal size, mild concentric left ventricular hypertrophy, visually estimated ejection fraction 55% with no regional wall motion abnormality. Diastolic parameters are inconclusive. Right Ventricle Right atrium and right ventricle moderately enlarged with normal contractility. Aortic Valve Aortic valve is thickened and calcified leaflet chordae display good mobility, there is no significant aortic stenosis or aortic insufficiency. Mitral Valve Mitral valve leaflets are minimally thickened, there is restriction to leaflet mobility, there is mitral stenosis present which is difficult to quantify from the study, there is mild mitral regurgitation, if clinically indicated transesophageal echocardiogram is recommended. Tricuspid Valve Tricuspid valve is minimally thickened, there is mild tricuspid regurgitation, calculated right ventricular systolic pressure 69 mmHg. Pulmonic Valve Pulmonic valve is poorly visualized. Great Vessels Aortic root is normal size. Pericardium No significant pericardial effusion noted. Conclusion 1. Technically difficult study because of the patient fact in poor acoustic windows 2. Moderate biatrial enlargement, normal left ventricular size, mild concentric left ventricular hypertrophy, visually estimated ejection fraction 55% with no regional wall motion abnormality, diastolic parameters are inconclusive. 3. Moderately enlarged right ventricle with normal contractility. 4. Thickened and calcified aortic valve without significant aortic stenosis or aortic insufficiency. 5. Abnormal mitral valve as described above, there is mitral stenosis present which is difficult to quantify from the study, a transesophageal echocardiogram is recommended 6. Mild tricuspid regurgitation, calculated right ventricular systolic pressure is 69 mmHg. 7. No significant pericardial effusion noted. Electronically signed by : Gómez Kunz, 11/08/2019 14:35:44
--- NOTE | 2019-11-08 10:28 | CT_ITS ---
PROCEDURE: CT CHEST WO CON CLINICAL INDICATION: SOA, CHF chest discomfort, soa no prior COMPARISON: No exams were available for comparison TECHNIQUE: Axial images obtained with sagittal and coronal reformats. All CT scans at the facility use one or more dose reduction, viz: automated exposure control, ma/kV adjustment per patient size (including targeted exams where dose is matched to indication, i.e. head), or iterative reconstruction technique. FINDINGS: HEART AND MEDIASTINAL STRUCTURES: Prior CABG. 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 Minimal ectasia of the ascending aorta measuring up to 3.7 cm. Atherosclerotic changes involve the aorta. There is mild prominence of the main pulmonary artery and right and left main pulmonary artery. There is cardiomegaly with multichamber enlargement. Aortic valve calcification is present. No mediastinal or hilar mass or adenopathy. There is tortuosity of the descending thoracic aorta LUNGS AND PLEURAL SPACES: There is mild diffuse mosaic attenuation of the lungs. This is nonspecific. There is generalized motion artifact which could obscure a nodule. No lobar consolidation or collapse. BONY STRUCTURES: Osteophytosis of the thoracic spine with mild multilevel degenerative change. There is minimal wedge changes of T5 age indeterminate. UPPER ABDOMEN: Unremarkable. ADDITIONAL FINDINGS: No other significant abnormalities. IMPRESSION: 1. Cardiomegaly with multi chamber enlargement. Prior CABG with coronary artery calcifications. Aortic valve calcification also noted. 2. Diffuse mosaic attenuation of the lungs. This is nonspecific and could be seen with small airway disease, air trapping or parenchymal lung disease as well as occlusive vascular disease. Dictated by: Mervin Rockwell MD 11/09/2019 09:33 Mervin Rockwell MD in [facility] 11/09/2019 09:33
== END ==
PROVIDERS: PCP Internal Medicine Adolescent Medicine; Visit Provider Internal Medicine Cardiovascular Disease
DX: I50.9 Heart failure, unspecified (principal); R06.02 Shortness of breath; R07.9 Chest pain, unspecified; I95.9 Hypotension, unspecified
CPT/HCPCS: 71250; 93306

== ENCOUNTER → 2019-11-08 11:48 | Outpatient (CLI) | payer MEDICARE, SELFPAY ==
[2019-11-08 13:49] LABS: Chloride 111 mmol/L (98-107); Potassium 4.5 mmoL/L (3.5-5.1); Sodium 140 mmol/L (136-145)
[2019-11-08 13:52] LABS: Anion Gap 18.5 mEq/L (5-15); Blood Urea Nitrogen 51 mg/dl (7-17); Calcium 8.7 mg/dl (8.4-10.2); Carbon Dioxide 15 mmol/L (22.0-30.0); Estimated Glomerular Filt Rate 26 ml/min (>60); GFR (African American) 31 ML/MIN (>60); Glucose 219 mg/dl (74-100)
[2019-11-08 14:02] LABS: NT Pro Brain Natriuretic Pep. 8330 pg/mL (0-125)
== END ==
PROVIDERS: Visit Provider Internal Medicine Cardiovascular Disease
DX: E11.22 Type 2 diabetes mellitus with diabetic chronic kidney disease (principal); E11.69 Type 2 diabetes mellitus with other specified complication; E66.9 Obesity, unspecified; I42.9 Cardiomyopathy, unspecified; I48.20 Chronic atrial fibrillation, unspecified; I48.91 Unspecified atrial fibrillation; I65.23 Occlusion and stenosis of bilateral carotid arteries; N18.2 Chronic kidney disease, stage 2 (mild); Z79.4 Long term (current) use of insulin; Z95.1 Presence of aortocoronary bypass graft; E66.01 Morbid (severe) obesity due to excess calories; I15.0 Renovascular hypertension; I25.10 Atherosclerotic heart disease of native coronary artery without angina pectoris; I50.9 Heart failure, unspecified; R06.09 Other forms of dyspnea; R60.1 Generalized edema
CPT/HCPCS: 36415; 71250; 80048; 83880; 93306

== ENCOUNTER → 2019-11-14 11:06 | Outpatient (CLI) | payer MEDICARE, SELFPAY ==
[2019-11-14 12:36] LABS: Anion Gap 13.3 mEq/L (5-15); Blood Urea Nitrogen 46 mg/dl (7-17); Calcium 8.9 mg/dl (8.4-10.2); Carbon Dioxide 20 mmol/L (22.0-30.0); Chloride 110 mmol/L (98-107); Estimated Glomerular Filt Rate 26 ml/min (>60); GFR (African American) 31 ML/MIN (>60); Glucose 271 mg/dl (74-100); Potassium 4.3 mmoL/L (3.5-5.1); Sodium 139 mmol/L (136-145)
== END ==
PROVIDERS: Visit Provider Internal Medicine Cardiovascular Disease
DX: R06.00 Dyspnea, unspecified; E11.22 Type 2 diabetes mellitus with diabetic chronic kidney disease; E66.9 Obesity, unspecified; I25.10 Atherosclerotic heart disease of native coronary artery without angina pectoris; I42.9 Cardiomyopathy, unspecified; I65.23 Occlusion and stenosis of bilateral carotid arteries; I48.20 Chronic atrial fibrillation, unspecified; I12.9 Hypertensive chronic kidney disease with stage 1 through stage 4 chronic kidney disease, or unspecified chronic kidney disease; N18.2 Chronic kidney disease, stage 2 (mild); R60.9 Edema, unspecified; Z79.4 Long term (current) use of insulin; Z95.1 Presence of aortocoronary bypass graft; I11.0 Hypertensive heart disease with heart failure
CPT/HCPCS: 36415; 80048

== ENCOUNTER → 2019-11-19 14:19 | Outpatient (CLI) | payer MEDICARE, SELFPAY ==
[2019-11-19 14:53] LABS: Basophils % 0.5 % (0.1-2.0); Eosinophils # 0.1 K/mm3 (0.0-0.4); Eosinophils % 2.1 % (0.1-12.0); Hematocrit 28.1 % (37.0-47.0); Hemoglobin 8.2 g/dL (12.2-16.2); Lymphocytes # 1.8 K/mm3 (0.7-4.5); Lymphocytes % 37.2 % (10-50); Mean Corpuscular HGB Conc 29.2 g/dL (31.8-35.4); Mean Corpuscular Hemoglobin 29.7 pg (27.0-31.2); Mean Platelet Volume 8.2 fl (7.4-10.4); Monocytes # 0.2 K/mm3 (0.1-1.0); Monocytes % 3.2 % (1.7-9.3); Neutrophils # 2.8 K/mm3 (1.8-7.8); Platelet Count 116 K/mm3 (142-424); Red Blood Count 2.75 M/mm3 (4.20-5.40); Red Cell Distribution Width 14.7 % (11.5-17.5); White Blood Count 4.9 K/mm3 (4.8-10.8)
[2019-11-19 16:32] LABS: Iron 49 ug/dL (37-170)
[2019-11-19 16:48] LABS: Total Iron Binding Capacity 274 ug/dL (265-497)
[2019-11-19 17:07] LABS: Ferritin 619 ng/ml (11.1-264)
== END ==
PROVIDERS: Internal Medicine Medical Oncology; Physician Assistant; Visit Provider Internal Medicine Cardiovascular Disease
DX: D64.9 Anemia, unspecified (principal)
CPT/HCPCS: 36415; 82728; 83540; 83550; 85025

== ENCOUNTER → 2019-11-20 13:34 | Outpatient (CLI) | payer MEDICARE, SELFPAY ==
--- NOTE | 2019-11-20 | CA_ITS ---
APPROVED REPORT EXAM: Comprehensive 2D, Doppler, and color-flow Echocardiogram Ems Helicopter Pilot: Marianne Rice CRT Ht: 5 ft 0 in Wt: 220lbs BSA: 1.94 BP: 167/71 mmHg Indications: AF, SOB, CHF, CAD, CABG, OBESITY, TDS ADDITIONAL IMAGES OF THE MV M-Mode Dimensions RVDd 3.41 cm (0.9-2.6) LVDd 6.13 cm (3.5-5.7) LVDs 4.38 cm (3.5-5.7) IVSd 0.61 cm (0.6-1.1) PWd 1.11 cm (0.6-1.1) EF (Teich) 54.10% FS 28.50% EDV (Teich) 189.00 mL ESV (Teich) 86.80 mL LV Diastology E/A Ratio 4.76 Mitral Valve MV A Velocity 31.00 (40-130 cm/s) MV Mean Gr. 4.40 (<2mmHg) MV PHT 81.00 ms Conclusion 1. Limited echocardiogram was performed focus on the mitral valve. 2. The mitral valve leaflets are thickened and calcified, with mild restriction in the leaflet mobility, the mean gradient across valve is 4.6 mmHg, valve area calculated at 2.4 cm??? by pressure half-time, this represents mild mitral stenosis, there is moderate mitral regurgitation. Electronically signed by : Gómez Kunz, 11/21/2019 10:04:43
[2019-11-20 15:20] VITALS: PULSE 84; PULSE 90
== END ==
PROVIDERS: PCP Internal Medicine Adolescent Medicine; Visit Provider Internal Medicine Cardiovascular Disease
DX: J44.9 Chronic obstructive pulmonary disease, unspecified (principal)
CPT/HCPCS: 94060; 94618; 94640; 94726; 94729

== ENCOUNTER → 2019-11-21 15:37 | Outpatient (CLI) | payer MEDICARE, SELFPAY | PROVIDERS: Visit Provider Internal Medicine Medical Oncology | DX: D64.9 Anemia, unspecified (principal) | CPT/HCPCS: 86850 ==

== ENCOUNTER 2019-11-22 08:49 | Outpatient (CLI) | payer MEDICARE, SELFPAY ==
[2019-11-22] VITALS (10 sets, daily range): BP systolic 136–164; BP diastolic 69–93; PULSE 95–105; RESP 18–22; TEMP 36.2–36.5; O2SAT 93; BMI 36.9
--- NOTE | 2019-11-22 09:35 | PC.NURSE ---
0928-BLOOD TRANSFUSION STARTED AT 100 ML/HR AT THIS TIME.
--- NOTE | 2019-11-22 10:46 | PC.NURSE ---
0958-INCREASED RATE TO 150 ML/HR AT THIS TIME.
--- NOTE | 2019-11-22 11:11 | PC.NURSE ---
1028-INCREASED RATE TO 200 ML/HR AT THIS TIME.
[2019-11-22 12:30] LABS: Hemoglobin 9.1 g/dL (12.2-16.2)
== END 2019-11-22 12:20 | disposition home or self-care (01) ==
LOC: INF 08:49
PROVIDERS: Visit Provider Internal Medicine Medical Oncology
DX: D64.9 Anemia, unspecified (principal)
CPT/HCPCS: 36430; 85014; 85018; P9016

== ENCOUNTER 2019-11-27 12:57 | Outpatient (RCR) | payer MEDICARE, SELFPAY | END 2020-06-30 13:18 | disposition home or self-care (01) | LOC: PT 12:57 | PROVIDERS: Visit Provider Internal Medicine Pulmonary Disease | DX: J44.9 Chronic obstructive pulmonary disease, unspecified (principal) ==

== ENCOUNTER 2019-11-28 09:12 | Outpatient (CLI) | payer MEDICARE, SELFPAY ==
[2019-11-28 09:23] VITALS: BMI 36.9
[2019-11-28 09:41] VITALS: BP 157/81; PULSE 100; RESP 20; TEMP 36.4; O2SAT 100
--- NOTE | 2019-11-28 09:42 | PC.NURSE ---
lab staff gray woodruff at to draw labs as ordered per md for epo level.
[2019-11-29 16:11] LABS: Erythropoietin 94.7 mIU/mL (2.6-18.5)
== END 2019-11-28 10:00 | disposition home or self-care (01) ==
LOC: INF 09:12
PROVIDERS: Visit Provider Internal Medicine Medical Oncology
DX: D64.9 Anemia, unspecified (principal); D63.1 Anemia in chronic kidney disease; N18.30 Chronic kidney disease, stage 3 unspecified; I15.0 Renovascular hypertension
CPT/HCPCS: 36415; 82668; 96372; J0885

== ENCOUNTER → 2019-12-04 13:01 | Outpatient (CLI) | payer MEDICARE, SELFPAY ==
[2019-12-04 14:28] LABS: Chloride 108 mmol/L (98-107); Sodium 140 mmol/L (136-145)
[2019-12-04 14:29] LABS: Potassium 3.7 mmoL/L (3.5-5.1)
[2019-12-04 14:31] LABS: Blood Urea Nitrogen 44 mg/dl (7-17); Estimated Glomerular Filt Rate 32 ml/min (>60); GFR (African American) 38 ML/MIN (>60)
[2019-12-04 14:32] LABS: Anion Gap 12.7 mEq/L (5-15); Calcium 8.7 mg/dl (8.4-10.2); Carbon Dioxide 23 mmol/L (22.0-30.0); Glucose 195 mg/dl (74-100)
== END ==
PROVIDERS: Visit Provider Internal Medicine Cardiovascular Disease
DX: E66.9 Obesity, unspecified (principal); I10 Essential (primary) hypertension; I25.10 Atherosclerotic heart disease of native coronary artery without angina pectoris; I42.9 Cardiomyopathy, unspecified; I48.20 Chronic atrial fibrillation, unspecified; I50.9 Heart failure, unspecified; I65.29 Occlusion and stenosis of unspecified carotid artery; R06.00 Dyspnea, unspecified; R60.9 Edema, unspecified; Z95.1 Presence of aortocoronary bypass graft
CPT/HCPCS: 36415; 80048

== ENCOUNTER → 2019-12-06 08:55 | Outpatient (CLI) | payer MEDICARE, SELFPAY ==
--- NOTE | 2019-12-06 08:56 | CA_ITS ---
APPROVED REPORT Club Concierge: WILSON Laterality: Bilateral Study Quality: Adequate Indications: syncope TANIKA Doppler Spectral Velocity Analysis dICA (R) 146.80/26.10 cm/s dICA (L) 119.60/32.20 cm/s Samantha (R) 237.30/36.20 cm/s Samantha (L) 109.40/24.00 cm/s pICA (R) 127.00/35.40 cm/s pICA (L) 108.00/31.10 cm/s dCCA (R) 63.90/17.80 cm/s dCCA (L) 65.70/13.10 cm/s pCCA (R) 53.80/9.10 cm/s pCCA (L) 112.90/20.20 cm/s Vert (R) 84.50/10.10 cm/s Vert (L) 110.50/26.30 cm/s ICA/CCA 3.70 ICA/CCA 1.80 Findings Duplex evaluation demonstrates stenosis of the right proximal internal carotid artery in the range of 50-69% and stenosis of the left proximal internal carotid artery in the range of 20-49% Antegrade flow seen bilateral vertebral arteries. Conclusion Duplex evaluation demonstrates stenosis of the right proximal internal carotid artery in the range of 50-69% and stenosis of the left proximal internal carotid artery in the range of 20-49% Antegrade flow seen bilateral vertebral arteries. Electronically signed by : Mervin Rockwell MD 12/11/2019 17:30:08
== END ==
PROVIDERS: PCP Internal Medicine Adolescent Medicine; Visit Provider Internal Medicine Cardiovascular Disease
DX: I10 Essential (primary) hypertension (principal); I25.10 Atherosclerotic heart disease of native coronary artery without angina pectoris; I27.20 Pulmonary hypertension, unspecified; I34.0 Nonrheumatic mitral (valve) insufficiency; I48.20 Chronic atrial fibrillation, unspecified; I70.1 Atherosclerosis of renal artery; I82.409 Acute embolism and thrombosis of unspecified deep veins of unspecified lower extremity; R06.00 Dyspnea, unspecified; Z95.1 Presence of aortocoronary bypass graft; Z98.890 Other specified postprocedural states; I65.23 Occlusion and stenosis of bilateral carotid arteries
CPT/HCPCS: 93880

== ENCOUNTER 2019-12-13 08:45 | Outpatient (CLI) | payer MEDICARE, SELFPAY ==
[2019-12-13 09:01] VITALS: BMI 36.9
[2019-12-13 09:19] LABS: Hematocrit 33.2 % (37.0-47.0); Hemoglobin 9.7 g/dL (12.2-16.2)
[2019-12-13 09:50] VITALS: BP 133/73; PULSE 95; RESP 20; TEMP 36.1; O2SAT 97
[2019-12-13 10:05] VITALS: BP 133/73; PULSE 95; RESP 20; TEMP 36.1; O2SAT 97
== END 2019-12-13 10:05 | disposition home or self-care (01) ==
LOC: INF 08:59
PROVIDERS: Visit Provider Internal Medicine Medical Oncology
DX: D63.1 Anemia in chronic kidney disease; N18.30 Chronic kidney disease, stage 3 unspecified; I15.0 Renovascular hypertension
CPT/HCPCS: 36415; 85014; 85018; 96372; J0885

== ENCOUNTER → 2019-12-17 10:09 | Outpatient (CLI) | payer MEDICARE, SELFPAY ==
--- NOTE | 2019-12-17 10:12 | MM_ITS ---
PROCEDURE: MM DIG SCREENING MAMM BI W/CAD Referring Doctor: Raj Salamanca Patient Age:74Y CLINICAL INDICATION: SCREENING 74-year-old. No hormones. No new complaints Family history: Sister breast cancer age 70 and niece age 34 COMPARISON: [facility] DIG MAMMO BILAT SCREENING from 05/20/2013 MG MAMMO SCREENING DIGITAL BILAT from 05/28/2014 MG MAMMO SCREENING DIGITAL BILAT from 06/01/2015 MG DMSB DIG MAMM-SCREEN CANDICE W/CAD from 06/20/2016 MG SCBI MM Dig screening mamm BI w/CAD from 07/05/[address] abdomen pelvis wo con from 04/25/2018 MG DIG MAMM-SCREEN CANDICE from 08/29/[address] CHEST WO CON from 11/08/2019 TECHNIQUE: Standard CC and MLO images were obtained. R2 CAD reviewed. Bilateral digital breast tomosynthesis included. Additional nipple profile view both breast in the CC and MLO projections performed FINDINGS: Lower density breast minimal residual fibroglandular elements with moderate diffuse fatty changes. Overall stable architecture with no suspicious new dominant mass No suspicious breast calcifications. Would note multi-vessel small-vessel breast arterial calcifications bilaterally which which do have correlation with coronary artery disease.. With this note the patient has had a previous CABG with extensive coronary artery calcification on as seen on the chest CT study October 2019 Left breast: No new areas of significant concern,. Would recommend follow-up bilateral mammogram in 1 year for ongoing evaluation Tiny asymmetric areas density seen at left breast appear to dissipate axillary CC view as well as tomosynthesis view and-and overall compatible with previous studies with no new areas of significant concern. The MLO and MLO tomosynthesis along with additional left nipple profile view view appear stable. Right breast: No new areas of significant concern. IMPRESSION: Stable mammogram with no significant new findings. No significant change/no malignancy evident radiographically Bilateral follow-up 1 year recommended, and would be encouraged . BI-RAD Category: 2 Benign Finding(s) FOLLOW-UP: 1YR 1 Year Follow-up (A letter has been sent to the patient regarding results of the study.) Dictated by: Jose Palencia MD 12/23/2019 12:16 Jose Palencia MD in [facility] 12/23/2019 12:16
== END ==
PROVIDERS: PCP Internal Medicine Adolescent Medicine; Visit Provider Internal Medicine Adolescent Medicine
DX: Z12.31 Encounter for screening mammogram for malignant neoplasm of breast (principal)
CPT/HCPCS: 77063; 77067

== ENCOUNTER → 2019-12-24 13:01 | Outpatient (CLI) | payer MEDICARE, SELFPAY ==
--- NOTE | 2019-12-24 13:01 | CT_ITS ---
PROCEDURE: CT CHEST WO CON CLINICAL INDICATION: ILD,SOA ON EXERTION COMPARISON: CT CT CHEST WO CON from 11/08/2019 TECHNIQUE: Axial images obtained with sagittal and coronal reformats. All CT scans at the facility use one or more dose reduction, viz: automated exposure control, ma/kV adjustment per patient size (including targeted exams where dose is matched to indication, i.e. head), or iterative reconstruction technique. FINDINGS: There is aberrant origin of the right subclavian artery traversing posterior to the esophagus. Atheromatous calcification involves the aorta and great vessels. There is moderate tortuosity of the descending thoracic aorta. There are few small lymph nodes present within the mediastinum. There has been a prior median sternotomy. There is increased soft tissue density in the right presternal region consistent with postsurgical changes. There is mild offset of the sternal fragments not significantly changed. There is cardiomegaly. No obvious mediastinal or hilar mass. Extensive coronary artery calcification and stents are noted. Aortic valve calcification noted. Lung windows are somewhat hampered by motion artifact. There is mild diffuse ground-glass attenuation of the lungs having a somewhat mosaic appearance. There is a small left effusion with fluid in the left major fissure. No interlobular septal thickening is evident. No evidence of air trapping there are degenerative changes of the thoracic spine. There is mild dilatation of the ascending thoracic aorta the at 3.8 cm. Upper abdominal images show prior cholecystectomy. IMPRESSION: The 1. The there is a faint ground-glass/mosaic attenuation of the lungs. This in part may be related to respiratory motion artifact. This may also be seen with obstructive small airway disease and parenchymal lung disease. No convincing evidence of interstitial lung disease. 2. Postsurgical changes from prior median sternotomy/CABG with cardiomegaly, aberrant origin of the right subclavian artery, mild dilatation of the ascending aorta. 3. Small left pleural effusion with small amount of fluid in the left major fissure. Dictated by: Mervin Rockwell MD 12/31/2019 12:52 Mervin Rockwell MD in [facility] 12/31/2019 12:52
== END ==
PROVIDERS: PCP Internal Medicine Adolescent Medicine; Visit Provider Internal Medicine Pulmonary Disease
DX: R06.00 Dyspnea, unspecified (principal); R94.2 Abnormal results of pulmonary function studies
CPT/HCPCS: 71250

== ENCOUNTER 2019-12-26 12:35 | Outpatient (CLI) | payer MEDICARE, SELFPAY ==
[2019-12-26 12:39] VITALS: BMI 35.3
[2019-12-26 13:02] LABS: Basophils % 0.5 % (0.1-2.0); Eosinophils # 0.1 K/mm3 (0.0-0.4); Eosinophils % 2.3 % (0.1-12.0); Hematocrit 30.8 % (37.0-47.0); Hemoglobin 9.1 g/dL (12.2-16.2); Lymphocytes # 1.9 K/mm3 (0.7-4.5); Mean Corpuscular HGB Conc 29.4 g/dL (31.8-35.4); Mean Corpuscular Hemoglobin 29.9 pg (27.0-31.2); Mean Corpuscular Volume 101.7 fl (81-99); Monocytes # 0.2 K/mm3 (0.1-1.0); Monocytes % 4.1 % (1.7-9.3); Neutrophils # 2.5 K/mm3 (1.8-7.8); Neutrophils % 53.1 % (37.0-80.0); Platelet Count 93 K/mm3 (142-424); Red Blood Count 3.03 M/mm3 (4.20-5.40); Red Cell Distribution Width 16.3 % (11.5-17.5); White Blood Count 4.7 K/mm3 (4.8-10.8)
[2019-12-26 13:30] VITALS: BP 172/71; PULSE 86; RESP 18; TEMP 36.3; O2SAT 98
== END 2019-12-26 13:45 | disposition home or self-care (01) ==
LOC: INF 12:37
PROVIDERS: Visit Provider Internal Medicine Medical Oncology
DX: N18.30 Chronic kidney disease, stage 3 unspecified (principal); D63.1 Anemia in chronic kidney disease
CPT/HCPCS: 36415; 85025; 96372; J0885

== ENCOUNTER 2020-01-08 09:50 | Outpatient (CLI) | payer MEDICARE, SELFPAY ==
[2020-01-08 09:57] VITALS: BMI 42.3
[2020-01-08 10:22] LABS: Hematocrit 30.7 % (37.0-47.0); Hemoglobin 9.4 g/dL (12.2-16.2)
[2020-01-08 10:55] VITALS: BP 146/67; PULSE 102; RESP 20; TEMP 36.2; O2SAT 96
== END 2020-01-08 11:10 | disposition home or self-care (01) ==
LOC: INF 09:50
PROVIDERS: Visit Provider Internal Medicine Medical Oncology
DX: N18.30 Chronic kidney disease, stage 3 unspecified; D63.1 Anemia in chronic kidney disease
CPT/HCPCS: 85014; 85018; 96372; J0885

== ENCOUNTER 2020-01-23 11:39 | Outpatient (CLI) | payer MEDICARE, SELFPAY ==
[2020-01-23 11:40] VITALS: BMI 41.5
[2020-01-23 12:08] LABS: Basophils % 0.6 % (0.1-2.0); Eosinophils # 0.1 K/mm3 (0.0-0.4); Eosinophils % 2.3 % (0.1-12.0); Hematocrit 31.5 % (37.0-47.0); Hemoglobin 9.6 g/dL (12.2-16.2); Lymphocytes # 1.8 K/mm3 (0.7-4.5); Lymphocytes % 31.8 % (10-50); Mean Corpuscular HGB Conc 30.5 g/dL (31.8-35.4); Mean Corpuscular Hemoglobin 32.1 pg (27.0-31.2); Mean Corpuscular Volume 105.1 fl (81-99); Mean Platelet Volume 9.3 fl (7.4-10.4); Monocytes # 0.2 K/mm3 (0.1-1.0); Monocytes % 2.8 % (1.7-9.3); Neutrophils # 3.5 K/mm3 (1.8-7.8); Neutrophils % 62.5 % (37.0-80.0); Platelet Count 108 K/mm3 (142-424); Red Cell Distribution Width 16.9 % (11.5-17.5); White Blood Count 5.6 K/mm3 (4.8-10.8)
[2020-01-23 12:12] LABS: Chloride 109 mmol/L (98-107); Potassium 4.1 mmoL/L (3.5-5.1); Sodium 140 mmol/L (136-145)
[2020-01-23 12:15] LABS: Alanine Aminotransferase 35 U/L (12-78); Albumin Level 4.1 g/dl (3.5-5.0); Albumin/Globulin Ratio 1.1 (1.1-1.8); Alkaline Phosphatase 360 U/L (38-126); Anion Gap 16.1 mEq/L (5-15); Aspartate Amino Transferase 47 U/L (14-36); Bilirubin,Total 2.7 mg/dl (0.2-1.3); Blood Urea Nitrogen 58 mg/dl (7-17); Carbon Dioxide 19 mmol/L (22.0-30.0); Creatinine Clearance Estimated 17 mL/min (50-200); Estimated Glomerular Filt Rate 22 ml/min (>60); GFR (African American) 27 ML/MIN (>60); Globulin 3.7 g/dL (1.3-3.2); Total Protein,Serum 7.8 g/dl (6.3-8.2)
[2020-01-23 12:16] LABS: Calcium 9.8 mg/dl (8.4-10.2); Glucose 182 mg/dl (74-100)
[2020-01-23 12:37] VITALS: BP 166/72; PULSE 91; RESP 20; TEMP 36.4; O2SAT 96
[2020-01-23 13:05] VITALS: BP 169/73; PULSE 90; RESP 18; TEMP 36.6; O2SAT 96
[2020-01-23 13:35] VITALS: BP 167/72; PULSE 92; RESP 18; O2SAT 96
[2020-01-23 14:10] VITALS: BP 168/80; PULSE 96; RESP 18; O2SAT 95
== END 2020-01-23 14:15 | disposition home or self-care (01) ==
LOC: INF 11:39
PROVIDERS: Visit Provider Internal Medicine Medical Oncology
DX: D64.9 Anemia, unspecified (principal); N18.30 Chronic kidney disease, stage 3 unspecified; D63.1 Anemia in chronic kidney disease
CPT/HCPCS: 80053; 82668; 85025; 96360; 96372; J0885

== ENCOUNTER → 2020-01-29 10:35 | Outpatient (CLI) | payer MEDICARE, SELFPAY ==
[2020-01-29 11:39] LABS: Chloride 110 mmol/L (98-107)
[2020-01-29 11:40] LABS: Potassium 3.7 mmoL/L (3.5-5.1); Sodium 141 mmol/L (136-145)
[2020-01-29 11:42] LABS: Alanine Aminotransferase 22 U/L (12-78); Albumin Level 3.6 g/dl (3.5-5.0); Albumin/Globulin Ratio 1.2 (1.1-1.8); Alkaline Phosphatase 276 U/L (38-126); Anion Gap 15.7 mEq/L (5-15); Aspartate Amino Transferase 36 U/L (14-36); Bilirubin,Total 2.5 mg/dl (0.2-1.3); Blood Urea Nitrogen 60 mg/dl (7-17); Carbon Dioxide 19 mmol/L (22.0-30.0); Estimated Glomerular Filt Rate 30 ml/min (>60); GFR (African American) 36 ML/MIN (>60); Total Protein,Serum 6.6 g/dl (6.3-8.2)
[2020-01-29 11:43] LABS: Calcium 9.4 mg/dl (8.4-10.2); Glucose 193 mg/dl (74-100)
== END ==
PROVIDERS: Internal Medicine Adolescent Medicine; Visit Provider Internal Medicine Pulmonary Disease
DX: N18.4 Chronic kidney disease, stage 4 (severe) (principal); E11.9 Type 2 diabetes mellitus without complications; Z79.4 Long term (current) use of insulin
CPT/HCPCS: 36415; 80053; 83036

== ENCOUNTER 2020-02-05 09:44 | Outpatient (CLI) | payer MEDICARE, SELFPAY ==
[2020-02-05 09:47] VITALS: BMI 36.9
--- NOTE | 2020-02-05 10:10 | PC.NURSE ---
lab staff lacey at pt chair side to perform phlebotomy for blood draw/labs. will await results of labs to see if pt is to get procrit today.
[2020-02-05 10:29] LABS: Basophils % 0.5 % (0.1-2.0); Eosinophils # 0.1 K/mm3 (0.0-0.4); Eosinophils % 2.1 % (0.1-12.0); Hematocrit 29.2 % (37.0-47.0); Hemoglobin 9.6 g/dL (12.2-16.2); Lymphocytes # 1.3 K/mm3 (0.7-4.5); Lymphocytes % 30.6 % (10-50); Mean Corpuscular HGB Conc 32.8 g/dL (31.8-35.4); Mean Corpuscular Hemoglobin 33.8 pg (27.0-31.2); Mean Corpuscular Volume 102.8 fl (81-99); Mean Platelet Volume 10.2 fl (7.4-10.4); Monocytes # 0.2 K/mm3 (0.1-1.0); Monocytes % 3.8 % (1.7-9.3); Neutrophils # 2.7 K/mm3 (1.8-7.8); Platelet Count 61 K/mm3 (142-424); Red Blood Count 2.84 M/mm3 (4.20-5.40); Red Cell Distribution Width 17.1 % (11.5-17.5); White Blood Count 4.3 K/mm3 (4.8-10.8)
[2020-02-05 10:45] VITALS: BP 172/51; PULSE 58; RESP 20; TEMP 36.4; O2SAT 98
[2020-02-06 16:53] LABS: Erythropoietin 142.3 mIU/mL (2.6-18.5)
== END 2020-02-05 11:00 | disposition home or self-care (01) ==
LOC: INF 09:45
PROVIDERS: Visit Provider Internal Medicine Medical Oncology
DX: D64.9 Anemia, unspecified (principal); N18.30 Chronic kidney disease, stage 3 unspecified; D63.1 Anemia in chronic kidney disease
CPT/HCPCS: 36415; 82668; 85025; 96372; J0885

== ENCOUNTER → 2020-02-11 13:52 | Outpatient (CLI) | payer MEDICARE, SELFPAY ==
[2020-02-11 14:55] VITALS: PULSE 69; PULSE 72
== END ==
PROVIDERS: PCP Internal Medicine Adolescent Medicine; Visit Provider Internal Medicine Pulmonary Disease
DX: R06.09 Other forms of dyspnea (principal)
CPT/HCPCS: 94060; 94640; 94726; 94729

== ENCOUNTER 2020-02-19 09:44 | Outpatient (CLI) | payer MEDICARE, SELFPAY ==
[2020-02-19 09:45] VITALS: BMI 36.9
--- NOTE | 2020-02-19 10:03 | PC.NURSE ---
slab puller lavell with pt to collect labs.
[2020-02-19 10:15] LABS: Basophils % 0.4 % (0.1-2.0); Eosinophils # 0.1 K/mm3 (0.0-0.4); Eosinophils % 1.8 % (0.1-12.0); Hemoglobin 9.5 g/dL (12.2-16.2); Lymphocytes # 1.1 K/mm3 (0.7-4.5); Lymphocytes % 29.6 % (10-50); Mean Corpuscular HGB Conc 30.7 g/dL (31.8-35.4); Mean Corpuscular Hemoglobin 31.9 pg (27.0-31.2); Mean Corpuscular Volume 103.8 fl (81-99); Mean Platelet Volume 11.6 fl (7.4-10.4); Monocytes # 0.2 K/mm3 (0.1-1.0); Neutrophils # 2.3 K/mm3 (1.8-7.8); Neutrophils % 63.3 % (37.0-80.0); Platelet Count 64 K/mm3 (142-424); Red Blood Count 2.99 M/mm3 (4.20-5.40); Red Cell Distribution Width 16.6 % (11.5-17.5); White Blood Count 3.6 K/mm3 (4.8-10.8)
[2020-02-19 10:19] LABS: Chloride 107 mmol/L (98-107)
[2020-02-19 10:20] LABS: Potassium 4.1 mmoL/L (3.5-5.1); Sodium 140 mmol/L (136-145)
[2020-02-19 10:22] LABS: Alanine Aminotransferase 23 U/L (12-78); Alkaline Phosphatase 316 U/L (38-126); Aspartate Amino Transferase 34 U/L (14-36); Bilirubin,Total 2.5 mg/dl (0.2-1.3); Blood Urea Nitrogen 57 mg/dl (7-17); Creatinine Clearance Estimated 40 mL/min (50-200); Estimated Glomerular Filt Rate 24 ml/min (>60); GFR (African American) 30 ML/MIN (>60)
[2020-02-19 10:23] LABS: Albumin Level 3.6 g/dl (3.5-5.0); Anion Gap 16.1 mEq/L (5-15); Calcium 9.9 mg/dl (8.4-10.2); Carbon Dioxide 21 mmol/L (22.0-30.0); Globulin 3.7 g/dL (1.3-3.2); Glucose 209 mg/dl (74-100); Total Protein,Serum 7.3 g/dl (6.3-8.2)
[2020-02-19 10:45] VITALS: BP 157/83; PULSE 90; RESP 18; TEMP 35.9; O2SAT 95
[2020-02-20 15:18] LABS: Erythropoietin 85.1 mIU/mL (2.6-18.5)
== END 2020-02-19 10:45 | disposition home or self-care (01) ==
LOC: INF 09:44
PROVIDERS: Internal Medicine Adolescent Medicine; Visit Provider Internal Medicine Medical Oncology
DX: D64.9 Anemia, unspecified (principal); N18.30 Chronic kidney disease, stage 3 unspecified; D63.1 Anemia in chronic kidney disease
CPT/HCPCS: 36415; 80053; 82668; 85025; 96372; J0885

== ENCOUNTER → 2020-02-24 08:43 | Outpatient (CLI) | payer MEDICARE, SELFPAY ==
--- NOTE | 2020-02-24 08:49 | FL_ITS ---
PROCEDURE: FL BARIUM SWALLOW CLINICAL INDICATION: DYSPHAGIA COMPARISON: No exams were available for comparison TECHNIQUE: In the upright position the patient was observed to swallow barium in both the AP and lateral view. The cervical esophagus was examined under fluoroscopy with images obtained. The patient was then placed prone in the right anterior oblique position and was observed to swallow barium with Valsalva technique . FLUOROSCOPY TIME: 1 minutes and 5 seconds FINDINGS: The patient did aspirate a small amount of barium with cough reflex noted. There is a small sliding hiatal hernia. No annular constricting lesions are evident. No mass is apparent.. IMPRESSION: There is mild tracheal aspiration. Suggest speech pathology consult with modified barium swallow for further evaluation. Small sliding hiatal hernia. Dictated by: Mervin Rockwell MD 02/25/2020 18:39 Mervin Rockwell MD in [facility] 02/25/2020 18:39
== END ==
PROVIDERS: PCP Internal Medicine Adolescent Medicine; Visit Provider Internal Medicine Adolescent Medicine
DX: R13.10 Dysphagia, unspecified (principal); R11.0 Nausea
CPT/HCPCS: 74220

== ENCOUNTER → 2020-02-27 10:42 | Outpatient (CLI) | payer MEDICARE, SELFPAY ==
--- NOTE | 2020-02-27 10:44 | FL_ITS ---
PROCEDURE: FL BARIUM SWALLOW MODIFIED CLINICAL INDICATION: DYSPHAGIA,UNSPECIFIED COMPARISON: No exams were available for comparison TECHNIQUE: Patient administered varying consistencies of barium contrast, while viewed in lateral position under real-time fluoroscopy with cine recording. FLUOROSCOPY TIME:3 minutes and 40 seconds The study was performed in conjunction with speech pathologist. Please see that report & recommendations. FINDINGS: Patient was given varying consistencies of barium. No aspiration or penetration is evident. There is some stasis within the vallecula a. there was some difficulty with mastication and bolus formation. There was some premature spillage.. IMPRESSION: No aspiration or penetration. Mild stasis with premature spillage Please see speech pathologist report and recommendations. Dictated by: Mervin Rockwell MD 02/28/2020 09:53 Mervin Rockwell MD in [facility] 02/28/2020 09:53
--- NOTE | 2020-02-27 14:13 | HMH.SLMBS2 ---
Speech & Language Evaluation Speech/Language Mod Barium Swallow Start: 02/27/20 13:15 Freq: once Status: Complete Protocol: Document 02/27/20 13:15 STEPHIE (Rec: 02/27/20 13:46 CMAZachary [id number]) General Information General Current Food Consistancy Regular,Thin Liquids Dentition Poor Dentition Oxygen Status Room Air Facial Symmetry Symmetrical Ability to Follow Directions Excellent Communication Ability No Impairment MBS Recommendations Diet Dietary Recommendations Regular,Thin Liquids Treatment/Strategies Strategy/Precaution Recommend Sitting Upright (90 deg), Alternate Liquids/Solids Referrals/Other Recommended Referrals GI Consult Other Recommendations ST recommends GI consult to address patient, gagging almost every morning after waking up before eating or drinking. Patient voiced that phlegm usually comes up when she experiences this. Patient also expressed that she has a hx of reflux and is on a reflux medication. Mod Barium Swallow Impressions Summary and Impressions Oral Phase Impression Minimal Impairment Oral Phase Summary Patient's oral phase is minimally impaired due to poor dentition. Patient exhibited slightly longer mastication during MS and regular food trials. Pharyngeal Phase Impression Mild Impairment Pharyngeal Phase Summary Patient's pharyngeal phase is mildy impaired due to weak base of tongue. Patient exhibited premature spillage on several trials before the swallow to the level of the valleculae. Majority of residue in vallueculae was cleared following thin liquid washes with trace residue remaining for some trials. Speech/Language MBS Assessment/Goals/Plan Assessment Date of Evaluation: 02/27/20 Evaluation Type Initial Certification Assessment/Problems Dysphagia Does Patient Qualify for Service No Qualify/Failure Comment Patient does not qualify for ST services at this time based on the results of today's ev
== END ==
PROVIDERS: PCP Internal Medicine Adolescent Medicine; Visit Provider Internal Medicine Adolescent Medicine
DX: R13.10 Dysphagia, unspecified (principal)
CPT/HCPCS: 70371; 92611

== ENCOUNTER 2020-03-04 09:45 | Outpatient (CLI) | payer MEDICARE, SELFPAY ==
[2020-03-04 09:48] VITALS: BMI 36.9
[2020-03-04 10:23] LABS: Basophils % 0.6 % (0.1-2.0); Eosinophils # 0.1 K/mm3 (0.0-0.4); Eosinophils % 2.6 % (0.1-12.0); Hematocrit 31.9 % (37.0-47.0); Hemoglobin 9.5 g/dL (12.2-16.2); Lymphocytes # 1.5 K/mm3 (0.7-4.5); Lymphocytes % 34.5 % (10-50); Mean Corpuscular HGB Conc 29.9 g/dL (31.8-35.4); Mean Corpuscular Hemoglobin 31.4 pg (27.0-31.2); Mean Corpuscular Volume 105.3 fl (81-99); Mean Platelet Volume 9.8 fl (7.4-10.4); Monocytes # 0.2 K/mm3 (0.1-1.0); Neutrophils # 2.6 K/mm3 (1.8-7.8); Neutrophils % 58.3 % (37.0-80.0); Platelet Count 82 K/mm3 (142-424); Red Blood Count 3.03 M/mm3 (4.20-5.40); White Blood Count 4.4 K/mm3 (4.8-10.8)
[2020-03-04 10:50] VITALS: BP 142/54; PULSE 97; RESP 20; TEMP 36.1; O2SAT 98
[2020-03-06 06:14] LABS: Erythropoietin 68.4 mIU/mL (2.6-18.5)
== END 2020-03-04 10:50 | disposition home or self-care (01) ==
LOC: INF 09:46
PROVIDERS: Visit Provider Internal Medicine Medical Oncology
DX: D64.9 Anemia, unspecified (principal); N18.30 Chronic kidney disease, stage 3 unspecified; D63.1 Anemia in chronic kidney disease
CPT/HCPCS: 36415; 82668; 85025; 96372; J0885

== ENCOUNTER 2020-03-10 11:00 | Outpatient (RCR) | payer MEDICARE, SELFPAY ==
--- NOTE | 2020-03-06 13:39 | HMH.SLDYSPHA ---
Speech & Language Evaluation Speech/Language Dysphagia Evaluation Start: 03/06/20 13:23 Freq: ONCE Status: Active Protocol: Document 03/06/20 13:23 CMAZachary (Rec: 03/06/20 13:39 CMAY [id number]) Dysphagia Assess/Goals/Plan Assessment Date of Evaluation: 03/06/20 Evaluation Type Initial Certification Assessment/Problems Dysphagia Does Patient Qualify for Service Yes Qualify/Failure Comment Patient qualifies for ST services to target diet monitoring and training of swallowing exercises. Recommendations PHYSICIAN CERTIFICATION: The specified therapy services are required, authorized, and reviewed every 30 days. Pt will be seen # times/week 1 for # weeks 4 Diet Recommendations Normal Liquid Type Recommendations Normal/Thin SL Swallow Guidelines Alt bite w/sip thru meal, Standard Aspiration Prec.,Oral Care Education,Oral care pre/ post meals,Reflux precautions Dysphagia Swallow Precautions/Strategies Sitting Upright (90 deg),Small Bites and Sips,Alternate Liquids/Solids Additional Consults Recommended Other Comment ST recommends GI consult based on patient's history of gagging frequently when waking up in the mornings and history of reflux. Plan Anticipate reaching STG in # weeks 2 Anticipate reaching LTG in # weeks 4 Pt/Guardian verbally ack understanding Yes of dx/prognosis/goals G -code Required No STG-Other Comment/Non-Specific Patient will complete 20 trials of lingual and tongue- base retraction exercises to strengthen tongue base as evidenced by ST and patient's verbal report. Exercises include: tongue exercises, swab hold, lucía, and effortful swallow. Chcf Goals Diet Regular with Liquids Thin Liquids Education Instructions provided Education and training provided to patient regarding sitting upright when eating/ drinking, alternating liquids/ solids, taking small bites/ sips, performing oral care pre /post-meals, and oral care
== END 2020-03-10 11:05 | disposition home or self-care (01) ==
LOC: ST 11:00
PROVIDERS: PCP Internal Medicine Adolescent Medicine; Visit Provider Internal Medicine Adolescent Medicine
DX: R13.10 Dysphagia, unspecified (principal)
CPT/HCPCS: 92526; 92610

== ENCOUNTER 2020-03-30 12:46 | Emergency (ER) | payer MEDICARE, SELFPAY ==
[2020-03-30 12:48] VITALS: BP 159/83; PULSE 100; RESP 26; TEMP 36.6; O2SAT 98; BMI 37.7
--- NOTE | 2020-03-30 12:51 | HMH.EDGENADL ---
ED Disposition Clinical Impression: Weight loss Disposition: Home, Self-Care Condition on Discharge: Good Additional Instructions: Expect a phone call from your primary care doctor office to set up referral to gastroenterology. He did not hear from you primary care doctor by please reach out to confirm the referral to the senior sales engineer for further work-up of weight loss. I do believe additional tests are in your best interest to try to determine etiology of weakness and weight loss. If you have any worsening weight loss, weakness, intractable nausea/vomiting, or other new concerning symptoms prior to following up with GI please return back to our emergency department immediately. Referrals: Raj Salamanca MD [Primary Care Provider] - - Critical Care Critical Care Time: No Attestation: On , the high probability of a clinically significant, sudden or life threatening deterioration of the following system(s) required my full and direct attention, intervention and personal management. The time I documented below is in addition to time spent performing reported procedures but includes the following listed in this critical care notation. Medical Decision Making - Medical Records Medical records reviewed: Yes: I reviewed the patient's medical records. - Kermit Inquiry Pt receiving controlled substance: No Vital Signs: 03/30/20 12:48 03/30/20 16:08 Temperature 98 F Temperature Source Oral Pulse Rate [Radial] 100 H 99 H Respiratory Rate 26 H 20 Blood Pressure [Right Arm] 159/83 H 135/70 Blood Pressure Mean [Right Arm] 108 91 Blood Pressure Position [Right Arm] Sitting 02 Sat by Pulse Oximetry 98 98 Oxygen Delivery Method Room Air - Lab Data Lab Results 03/30/20 12:55: Urine Color Yellow, Urine Appearance Clear, Urine pH 5.5, Ur Specific [place] 1.020, Urine Protein Negative, Urine Glucose (UA) Negative, Urine Ketones Negative, Urine Blood Negative, Urine Nitrate Negative, Urine Bilirubin Negative, Urine Urobilinogen 0.2, Ur Leukocyte Esterase Trace, Urine WBC 3-5, Ur Squamous Epith Cells 5-10 03/30/20 14:10: WBC 5.0, RBC 2.81 L, Hgb 9.0 L, Hct 29.0 L, MCV 103.4 H, MCH 31.9 H, MCHC 30.9 L, RDW 15.4, Plt Count 90 L, MPV 9.1, Neut % (Auto) 58.2, Lymph % (Auto) 34.9, [place] % (Auto) 4.4, Eos % (Auto) 2.0, Baso % (Auto) 0.4, Neut # (Auto) 2.9, Lymph # (Auto) 1.7, [place] # (Auto) 0.2, Eos # (Auto) 0.1, Baso # (Auto) 0.0 03/30/20 14:10: Sodium 141, Potassium 4.2, Chloride 109 H, Carbon Dioxide 19 L, Anion Gap 17.2 H, BUN 62 H, Creatinine 1.80 H, Estimated Creat Clear 39, Estimated GFR 28 L, Est GFR ( Amer) 33 L, Glucose 154 H, Calcium 10.2, Total Bilirubin 3.7 H, AST 45 H, ALT 27, Alkaline Phosphatase 382 H, Total Protein 7.7, Albumin 3.8, Globulin 3.9 H, Albumin/Globulin Ratio 1.0 L 03/30/20 14:10: PT 12.9 H, INR 1.27 H 03/30/20 14:10: Lipase 68 Result diagrams: 03/30/20 14:10 03/30/20 14:10 Orders (Tests/Meds): ED MEDICATIONS Generic Name Dose Route Start Last Admin Trade Name Freq PRN Reason Stop Dose Admin Lactated Ringer's 1,000 mls @ 999 mls/hr 03/30/20 16:00 03/30/20 15:53 Lactated Ringer's 1000 Ml Bag IV 03/30/20 17:00 999 mls/hr .Q1H1M RAUL Administration ORDERS Category Date Time Status CT abdomen pelvis wo con Stat Cat Scan 03/30/20 13:19 Taken Medical Decision Narrative: Patient is a 72-year-old female presenting with recent weight loss. She does also appear to be somewhat jaundiced on exam. She was sent over from her PCPs office for work-up in regards to her weight loss. Imaging will be obtained the patient's abdomen/pelvis to ensure no fluid collection underneath area of induration noted to suprapubic/pubic area as well as to ensure no mass or other acute surgical process. Also, basic lab work be obtained to ensure no hematologic or metabolic derangement that could be associated or causing patient's weight loss. Patient does have elevated creatinine 1.8 w
--- NOTE | 2020-03-30 13:11 | XR_ITS ---
PROCEDURE: XR CHEST PORTABLE CLINICAL HISTORY: SOB COMPARISON: CR [id number] XR chest portable from 04/25/2018 CR XR CHEST PORTABLE from 10/19/2019 CR XR CHEST PORTABLE from 11/04/[address] CHEST WO CON from 12/24/2019 FINDINGS: Mild cardiomegaly. Prior median sternotomy. There is a left atrial appendage clip present. The lungs are clear without infiltrates, suspicious nodules, or pleural effusions. No acute bony abnormalities. IMPRESSION: No acute findings. Dictated by: Mervin Rockwell MD 03/30/2020 14:44 Mervin Rockwell MD in [place] 03/30/2020 14:44
--- NOTE | 2020-03-30 13:19 | CT_ITS ---
PROCEDURE: CT ABDOMEN PELVIS WO CON CLINICAL INDICATION: lower abd pain w/concern for SSTI suprapubic area Lower abdominal pain COMPARISON: CT ABDPELWO CT abdomen pelvis wo con from 04/25/2018 TECHNIQUE: Axial images obtained with sagittal and coronal reformats. All CT scans at the facility use one or more dose reduction, viz: automated exposure control, ma/kV adjustment per patient size (including targeted exams where dose is matched to indication, i.e. head), or iterative reconstruction technique. FINDINGS: LOWER THORAX: There is extensive coronary artery calcification. Aortic valve calcification also noted. There has a prior median sternotomy. ABDOMEN & PELVIS: Has been a prior cholecystectomy. There is diffuse vascular calcification. The liver, spleen, adrenal glands, pancreas, and kidneys have an unremarkable appearance. There is a small umbilical hernia which contains fat. Prior appendectomy and hysterectomy. There is colonic diverticulosis but no evidence of diverticulitis. No intestinal obstruction or free air. No pelvic mass or abnormal fluid collection. There is some mild haziness of the abdominal wall fat in the lower pelvic region anteriorly and on the left which could represent mild cellulitis. No abscess apparent. There are scattered subcutaneous areas of calcification within the abdominal wall and both hip regions which may be due to injection granulomas. No acute bony findings. There are mild osteoarthritic changes of the hips. IMPRESSION: No acute abdominal or pelvic findings. Colonic diverticulosis without diverticulitis. Numerous injection granulomas. Minimal haziness of the lower abdominal wall fat anteriorly and on the left which could be related to cellulitis. No obvious abscess. Dictated by: Mervin Rockwell MD 03/31/2020 06:03 Mervin Rockwell MD in [place] 03/31/2020 06:03
--- NOTE | 2020-03-30 13:20 | ECG_ITS ---
APPROVED REPORT Exam: Resting ECG HR:105 bpm ECG Measurements Heart Rate 105 AXES QRSd 142 QRS 106 QT 396 T 267 QTc 523 Conclusion Atrial fibrillation with rapid ventricular response with premature ventricular or aberrantly conducted complexes Right bundle branch block T wave abnormality, consider inferolateral ischemia or digitalis effect Abnormal ECG Electronically signed by : Raj Salamanca, 03/31/2020 07:10:58
[2020-03-30 13:30] LABS: Microscopic, Urine URINE MICROSCOPIC (MICROSCOPIC)
[2020-03-30 13:31] LABS: Appearance,Urine CLEAR (Clear); Bilirubin,Urine Negative (Negative); Blood, Urine Negative (Negative); Color,Urine YELLOW (Yellow); Glucose,Urine (UA) Negative (Negative); Ketones,Urine Negative (Negative); Leukocyte Esterase,Urine TRACE (Negative); Nitrate,Urine Negative (Negative); PH,Urine 5.5 (5.0-8.5); Protein,Urine Negative (Negative); Urobilinogen,Urine 0.2 EU/dl (0.2)
[2020-03-30 14:23] LABS: Basophils % 0.4 % (0.1-2.0); Eosinophils # 0.1 K/mm3 (0.0-0.4); Lymphocytes # 1.7 K/mm3 (0.7-4.5); Lymphocytes % 34.9 % (10-50); Mean Corpuscular HGB Conc 30.9 g/dL (31.8-35.4); Mean Corpuscular Hemoglobin 31.9 pg (27.0-31.2); Mean Corpuscular Volume 103.4 fl (81-99); Mean Platelet Volume 9.1 fl (7.4-10.4); Monocytes # 0.2 K/mm3 (0.1-1.0); Monocytes % 4.4 % (1.7-9.3); Neutrophils # 2.9 K/mm3 (1.8-7.8); Neutrophils % 58.2 % (37.0-80.0); Platelet Count 90 K/mm3 (142-424); Red Blood Count 2.81 M/mm3 (4.20-5.40); Red Cell Distribution Width 15.4 % (11.5-17.5)
[2020-03-30 14:31] LABS: Chloride 109 mmol/L (98-107); Sodium 141 mmol/L (136-145)
[2020-03-30 14:32] LABS: Potassium 4.2 mmoL/L (3.5-5.1)
[2020-03-30 14:34] LABS: Alanine Aminotransferase 27 U/L (12-78); Albumin Level 3.8 g/dl (3.5-5.0); Alkaline Phosphatase 382 U/L (38-126); Anion Gap 17.2 mEq/L (5-15); Aspartate Amino Transferase 45 U/L (14-36); Bilirubin,Total 3.7 mg/dl (0.2-1.3); Blood Urea Nitrogen 62 mg/dl (7-17); Carbon Dioxide 19 mmol/L (22.0-30.0); Creatinine Clearance Estimated 39 mL/min (50-200); Estimated Glomerular Filt Rate 28 ml/min (>60); GFR (African American) 33 ML/MIN (>60); Globulin 3.9 g/dL (1.3-3.2); Total Protein,Serum 7.7 g/dl (6.3-8.2)
[2020-03-30 14:35] LABS: Calcium 10.2 mg/dl (8.4-10.2); Glucose 154 mg/dl (74-100)
[2020-03-30 14:47] LABS: INR 1.27 (0.9-1.1); Prothrombin Time 12.9 seconds (9.4-11.8)
[2020-03-30 16:08] VITALS: BP 135/70; PULSE 99; RESP 20; O2SAT 98
--- NOTE | 2020-03-30 16:23 | PC.NURSE ---
Calling Dr. Snow at this time
[2020-03-30 16:42] LABS: Lipase 68 U/L (23-300)
[2020-03-30 18:08] VITALS: BP 143/92; PULSE 77; RESP 18; TEMP 36.6; O2SAT 94
== END 2020-03-30 18:10 | disposition home or self-care (01) ==
PROVIDERS: Emergency Provider Emergency Medicine; PCP Internal Medicine Adolescent Medicine
DX: Z20.822 Contact with and (suspected) exposure to COVID-19 (principal); R63.4 Abnormal weight loss; N18.30 Chronic kidney disease, stage 3 unspecified; E03.9 Hypothyroidism, unspecified; I10 Essential (primary) hypertension; E11.9 Type 2 diabetes mellitus without complications; E80.6 Other disorders of bilirubin metabolism; J44.9 Chronic obstructive pulmonary disease, unspecified; I48.91 Unspecified atrial fibrillation; I25.2 Old myocardial infarction; E78.5 Hyperlipidemia, unspecified; Z87.891 Personal history of nicotine dependence; Z79.899 Other long term (current) drug therapy; E66.9 Obesity, unspecified; Z68.37 Body mass index [BMI] 37.0-37.9, adult
CPT/HCPCS: 71045; 74176; 80053; 81001; 83690; 85025; 85610; 93005; 96365; 96375; 99283; U0003

== ENCOUNTER 2020-04-17 12:55 | Outpatient (CLI) | payer MEDICARE, SELFPAY ==
[2020-04-17 13:01] VITALS: BMI 40.0
[2020-04-17 13:22] LABS: Basophils % 0.4 % (0.1-2.0); Eosinophils # 0.2 K/mm3 (0.0-0.4); Eosinophils % 3.1 % (0.1-12.0); Hematocrit 28.8 % (37.0-47.0); Lymphocytes # 1.5 K/mm3 (0.7-4.5); Lymphocytes % 32.2 % (10-50); Mean Corpuscular HGB Conc 31.3 g/dL (31.8-35.4); Mean Corpuscular Hemoglobin 32.2 pg (27.0-31.2); Mean Corpuscular Volume 103.1 fl (81-99); Mean Platelet Volume 9.8 fl (7.4-10.4); Monocytes # 0.2 K/mm3 (0.1-1.0); Neutrophils # 2.9 K/mm3 (1.8-7.8); Neutrophils % 59.4 % (37.0-80.0); Platelet Count 81 K/mm3 (142-424); Red Blood Count 2.79 M/mm3 (4.20-5.40); Red Cell Distribution Width 15.2 % (11.5-17.5); White Blood Count 4.8 K/mm3 (4.8-10.8)
[2020-04-17 13:39] LABS: Chloride 109 mmol/L (98-107); Sodium 139 mmol/L (136-145)
[2020-04-17 13:41] LABS: Alanine Aminotransferase 22 U/L (12-78); Aspartate Amino Transferase 46 U/L (14-36); Creatinine Clearance Estimated 28 mL/min (50-200); Estimated Glomerular Filt Rate 17 ml/min (>60); GFR (African American) 21 ML/MIN (>60)
[2020-04-17 13:42] LABS: Albumin Level 3.5 g/dl (3.5-5.0); Albumin/Globulin Ratio 0.9 (1.1-1.8); Alkaline Phosphatase 371 U/L (38-126); Bilirubin,Total 3.9 mg/dl (0.2-1.3); Calcium 9.7 mg/dl (8.4-10.2); Carbon Dioxide 15 mmol/L (22.0-30.0); Globulin 3.7 g/dL (1.3-3.2); Glucose 166 mg/dl (74-100); Total Protein,Serum 7.2 g/dl (6.3-8.2)
[2020-04-17 13:44] LABS: Blood Urea Nitrogen 87 mg/dl (7-17)
[2020-04-17 13:45] VITALS: BP 116/70; PULSE 85; RESP 20; TEMP 36.3; O2SAT 97
--- NOTE | 2020-04-17 16:31 | PC.NURSE ---
1600 - PT BACK FROM ONCOLOGY APPT WITH ORDERS TO INFUSE 1 LITER NS. SAMARA BREWERRN ATTEMPTED 2 IV STICKS WITHOUT SUCCESS. IRVING MANLEYRN ATTEMPTED 2 IV STICKS WITHOUT SUCCESS. CARLOTA THOMAS RN ATTEMPTED 1 IV STICK WITHOUT SUCCESS. THAO GARCIA RN ATTEMPTED 3 STICKS USING ULTRASOUND WITHOUT SUCCESS. DR HOPPER NOTIFIED OF SITUATION. IT WAS RECOMMENDED THAT PT GO TO ED FOR IV INSERTION AND FLUIDS WITH FURTHER WORK UP. REPORT CALLED TO ED NURSE AND PT'S TRANSPORTED PT TO ED.
== END 2020-04-17 16:25 | disposition still patient (30) ==
LOC: INF 12:58
PROVIDERS: Visit Provider Internal Medicine Medical Oncology
DX: E86.0 Dehydration (principal)
CPT/HCPCS: 36415; 80053; 85025; 96372; J0885

== ENCOUNTER 2020-04-17 16:28 | Emergency (ER) | payer MEDICARE, SELFPAY ==
[2020-04-17 16:29] VITALS: BP 173/57; PULSE 100; RESP 18; TEMP 36.6; O2SAT 97; BMI 34.2
--- NOTE | 2020-04-17 16:42 | HMH.EDGENADL ---
ED Disposition Clinical Impression: Dehydration Disposition: Home, Self-Care Condition on Discharge: Good Referrals: Raj Salamanca MD [Primary Care Provider] - 3 days Time of Disposition: 19:38 - Critical Care Critical Care Time: No Attestation: On 04/17/20, the high probability of a clinically significant, sudden or life threatening deterioration of the following system(s) required my full and direct attention, intervention and personal management. The time I documented below is in addition to time spent performing reported procedures but includes the following listed in this critical care notation. Medical Decision Making - Kermit Inquiry Pt receiving controlled substance: No Vital Signs: 04/17/20 16:29 04/17/20 17:29 04/17/20 17:30 Temperature 97.8 F Temperature Source Oral Pulse Rate [Left Radial] 100 H 93 H 96 H Respiratory Rate 18 18 Blood Pressure [Right Arm] 173/57 H 134/49 L Blood Pressure Mean [Right Arm] 95 77 Blood Pressure Source [Right Arm] Automatic Cuff Automatic Cuff Blood Pressure Position [Right Arm] Sitting Sitting 02 Sat by Pulse Oximetry 97 100 98 Oxygen Delivery Method Room Air Room Air Room Air 04/17/20 18:00 04/17/20 18:30 Temperature Temperature Source Pulse Rate [Left Radial] 105 H 91 H Respiratory Rate 18 18 Blood Pressure [Right Arm] 133/52 L 158/57 H Blood Pressure Mean [Right Arm] 79 90 Blood Pressure Source [Right Arm] Automatic Cuff Blood Pressure Position [Right Arm] Sitting 02 Sat by Pulse Oximetry 99 98 Oxygen Delivery Method Room Air Room Air Orders (Tests/Meds): ED MEDICATIONS Generic Name Dose Route Start Last Admin Trade Name [place] PRN Reason Stop Dose Admin Sodium Chloride 1,000 mls @ 999 mls/hr 04/17/20 17:00 04/17/20 17:00 Sod Chlor 0.9% 1000ml Bag IV 04/17/20 18:00 999 mls/hr .Q1H1M RAUL Administration Medical Decision Narrative: 74yo F sent for a liter of normal saline IV. Patient is completed this. Per documentation from her outpatient visit, this is all that was requested. Patient is appropriate and stable for discharge home from that standpoint. She is to maintain her follow-up as directed. General Adult HPI - General Stated complaint: sent from infusion for iv /dehydrated Time Seen by Provider: 04/17/20 16:42 Mode of Arrival: Wheelchair Source of Information: Patient - History of Present Illness HPI narrative: 74yo F with complex medical history is sent to the emergency department from the infusion center after they were unable to obtain IV access. Per documentation from the infusion center, the patient was to receive 1 L normal saline and then be discharged home. - Related Data Home Medications Medication Instructions Recorded Confirmed Atorvastatin Calcium [Lipitor 40mg 40 mg PO DAILY 10/31/17 04/17/20 Tab] insulin glargine 100 unit/mL (3 24 unit SQ HS 02/15/18 04/17/20 mL) subcutaneous pen Acetaminophen [Acetaminophen 8 650 mg PO DAILYP PRN 06/10/18 04/17/20 Hour] Pantoprazole Sodium [Protonix 40mg 40 mg PO DAILY 06/10/18 04/17/20 tablet] apixaban 5 mg tablet 5 mg PO BID 03/22/19 04/17/20 Docusate Sodium 100 mg PO DAILY 10/19/19 04/17/20 Levothyroxine Sodium 25 mcg PO DAILY 10/19/19 04/17/20 [Levothyroxine 25mcg (0.025mg) Tab] L. Acidophilus/Strept/LA P-Chato 1 each PO DAILY 11/22/19 04/17/20 [Coleen-Q Probiotic Capsule] Isosorbide Mononitrate [Imdur 60mg 30 mg PO DAILY 11/28/19 04/17/20 ER tablet] metoprolol succinate 50 mg 50 mg PO QHS tab 01/30/20 04/17/20 tablet,extended release 24 hr Clopidogrel Bisulfate [Plavix] See Rx Instructions .ROUTE .COMPLEX 03/30/20 04/17/20 Furosemide [Furosemide 20mg Tab*] See Rx Instructions .ROUTE .COMPLEX 03/30/20 04/17/20 Budesonide/Formoterol Fumarate 2 puffs IH BID 04/17/20 04/17/20 [Symbicort 160-4.5 Mcg Inhaler] Previous Rx's Medication Instructions Recorded albuterol sulfate 90 mcg/actuation 1 inh INHAL
[2020-04-17 17:29] VITALS: BP 134/49; PULSE 93; O2SAT 100
[2020-04-17 17:30] VITALS: PULSE 96; RESP 18; O2SAT 98
[2020-04-17 18:00] VITALS: BP 133/52; PULSE 105; RESP 18; O2SAT 99
[2020-04-17 18:30] VITALS: BP 158/57; PULSE 91; RESP 18; O2SAT 98
[2020-04-17 19:42] VITALS: BP 112/73; PULSE 81; RESP 16; TEMP 36.8; O2SAT 98
== END 2020-04-17 19:45 | disposition home or self-care (01) ==
PROVIDERS: Emergency Provider Family Medicine; PCP Internal Medicine Adolescent Medicine
DX: E86.0 Dehydration (principal); I25.10 Atherosclerotic heart disease of native coronary artery without angina pectoris; I48.20 Chronic atrial fibrillation, unspecified; I50.9 Heart failure, unspecified; J44.9 Chronic obstructive pulmonary disease, unspecified; E11.9 Type 2 diabetes mellitus without complications; R01.1 Cardiac murmur, unspecified; E03.9 Hypothyroidism, unspecified; I10 Essential (primary) hypertension; I25.2 Old myocardial infarction; Z87.891 Personal history of nicotine dependence; Z79.899 Other long term (current) drug therapy; Z88.2 Allergy status to sulfonamides; Z88.5 Allergy status to narcotic agent; D64.9 Anemia, unspecified; N18.30 Chronic kidney disease, stage 3 unspecified; D63.1 Anemia in chronic kidney disease
CPT/HCPCS: 36415; 80053; 85025; 96365; 96372; 99282; J0885

== ENCOUNTER 2020-04-29 09:18 | Outpatient (CLI) | payer MEDICARE, SELFPAY ==
[2020-04-29 09:21] VITALS: BMI 35.3
--- NOTE | 2020-04-29 09:41 | PC.NURSE ---
lab staff Lela at chairside to draw labs.
[2020-04-29 09:51] LABS: Basophils % 0.3 % (0.1-2.0); Eosinophils # 0.1 K/mm3 (0.0-0.4); Eosinophils % 2.6 % (0.1-12.0); Hematocrit 28.2 % (37.0-47.0); Hemoglobin 8.5 g/dL (12.2-16.2); Lymphocytes # 1.3 K/mm3 (0.7-4.5); Lymphocytes % 27.9 % (10-50); Mean Corpuscular Hemoglobin 31.9 pg (27.0-31.2); Mean Corpuscular Volume 106.4 fl (81-99); Mean Platelet Volume 10.5 fl (7.4-10.4); Monocytes # 0.2 K/mm3 (0.1-1.0); Monocytes % 4.9 % (1.7-9.3); Neutrophils % 64.2 % (37.0-80.0); Platelet Count 55 K/mm3 (142-424); Red Blood Count 2.65 M/mm3 (4.20-5.40); Red Cell Distribution Width 15.5 % (11.5-17.5); White Blood Count 4.7 K/mm3 (4.8-10.8)
[2020-04-29 10:29] VITALS: BP 138/81; PULSE 102; RESP 20; TEMP 36.3; O2SAT 100
== END 2020-04-29 10:50 | disposition home or self-care (01) ==
LOC: INF 09:18
PROVIDERS: Visit Provider Internal Medicine Medical Oncology
DX: D64.9 Anemia, unspecified (principal); N18.30 Chronic kidney disease, stage 3 unspecified; D63.1 Anemia in chronic kidney disease
CPT/HCPCS: 36415; 85025; 96372; J0885

== ENCOUNTER → 2020-05-02 08:28 | Outpatient (CLI) | payer MEDICARE, SELFPAY ==
[2020-05-02 11:33] LABS: Coronavirus 19 IgG Antibody Positive (Negative)
[2020-05-02 11:34] LABS: Coronavirus 19 IgM Antibody Positive (Negative)
[2020-05-02 12:17] LABS: Chloride 112 mmol/L (98-107)
[2020-05-02 12:18] LABS: Potassium 4.1 mmoL/L (3.5-5.1); Sodium 141 mmol/L (136-145)
[2020-05-02 12:20] LABS: Alanine Aminotransferase 18 U/L (12-78); Aspartate Amino Transferase 36 U/L (14-36); Blood Urea Nitrogen 52 mg/dl (7-17); Estimated Glomerular Filt Rate 34 ml/min (>60); GFR (African American) 41 ML/MIN (>60)
[2020-05-02 12:21] LABS: Albumin Level 3.1 g/dl (3.5-5.0); Albumin/Globulin Ratio 0.9 (1.1-1.8); Alkaline Phosphatase 378 U/L (38-126); Anion Gap 15.1 mEq/L (5-15); Bilirubin,Total 3.5 mg/dl (0.2-1.3); Calcium 9.4 mg/dl (8.4-10.2); Carbon Dioxide 18 mmol/L (22.0-30.0); Globulin 3.5 g/dL (1.3-3.2); Glucose 165 mg/dl (74-100); Total Protein,Serum 6.6 g/dl (6.3-8.2)
== END ==
PROVIDERS: Internal Medicine Cardiovascular Disease; Visit Provider Internal Medicine Gastroenterology
DX: D64.9 Anemia, unspecified (principal); E11.69 Type 2 diabetes mellitus with other specified complication; E66.9 Obesity, unspecified; I25.10 Atherosclerotic heart disease of native coronary artery without angina pectoris; I48.91 Unspecified atrial fibrillation; Z95.1 Presence of aortocoronary bypass graft
CPT/HCPCS: 36415; 80053; 86328

== ENCOUNTER → 2020-05-02 12:31 | Outpatient (CLI) | payer MEDICARE, SELFPAY | PROVIDERS: PCP Internal Medicine Adolescent Medicine; Visit Provider Internal Medicine Gastroenterology | DX: Z01.818 Encounter for other preprocedural examination (principal); Z20.822 Contact with and (suspected) exposure to COVID-19; Z13.810 Encounter for screening for upper gastrointestinal disorder; R13.10 Dysphagia, unspecified | CPT/HCPCS: 36415; 80053; 86328; U0003 ==

== ENCOUNTER 2020-05-04 10:02 | Day surgery (SDC) | payer MEDICARE, SELFPAY ==
[2020-04-30 11:06] VITALS: BMI 34.5
[2020-05-04] VITALS (8 sets, daily range): BP systolic 126–161; BP diastolic 56–84; PULSE 101–135; RESP 18; TEMP 36.2–36.3; O2SAT 97–100
[2020-05-04 11:20] LABS: POC Glucose,Bedside 84 (70-110)
--- NOTE | 2020-05-04 12:18 | HMH.ANESCL ---
[facility] Anesthesia Checklist - Patient Identification Patient Identification: Arm Band - Structural Data Admitted From: Home Planned Operative Procedure/s: egd Consent for Planned Operative Procedure(s) Verified: Yes Verified Documents: Surgical Consent, History and Physical - NPO Status Verified Time NPO: 00:00 - Additional verifications Anesthesia Reactions: No - Airway Assessment C-Spine Mobility Assessed: Yes (mp2) TMJ Mobility Assessed: Yes Dentition: Edentulous - Neurological Assessment Level of Consciousness: Awake, Alert - Anesthesia Plan Anesthesia Risk discussed: Yes Anesthesia Plan: Verified ASA Class: IV Anesthesia Type: MAC [facility] History I have reviewed the patient's past medical history: Yes Medical History: Reports:: Arrhythmia, Atherosclerotic Heart Disease, Atrial Fibrillation, Cardiomyopathy, Carotid Stenosis, Congestive Heart Failure, Chronic Obstructive Pulmonary Disease (COPD), Coronary Artery Disease, Deep Vein Thrombosis, Diabetes Mellitus Type 1, Diabetes Mellitus Type 2, Heart Murmur, Hyperlipidemia, Hypertension, Myocardial Infarction, Peripheral Artery Disease, Renal Disease, Valvular Heart Disease Denies:: Cancer, MRSA, Seizures *Have you ever received a pneumonia vaccine?: No *Have you received a flu vaccine this season?: Yes Other Medical History: Reports: Anemia, Arthritis, Cataracts, Hypothyroidism, Sinus Problems, Thyroid Disease Anesthesia experience/problems:: nac Laterality Cases: Left: Total Knee Replacement Other Surgeries: Yes: Angioplasty, Appendectomy, CABG, Cardiac Catheterization, Cardiac Surgery, Cholecystectomy, Colonoscopy, Coronary Stent, EGD, Hysterectomy-Total, Open Heart Surgery Amputation: No Fractures: No - *Social History Last grade of school completed: High school graduate Smoking Status: Former smoker # Packs/Day (cigarettes): 1 Alcohol Intake: never Alcohol Intake Frequency:: other Substance Use Type: denies use *Occupational Status:: retired Housing: house Household Members: spouse *Travel in the last 8 weeks: None Family Hx:: Cancer, Diabetes, Heart Attack, Hyperlipidemia, Hypertension, Kidney Disease
--- NOTE | 2020-05-04 12:30 | HMH.PROC ---
[facility] Procedure Note Procedure Note:: Upper Endoscopy Procedure Report: Esophagogastroduodenoscopy with cold biopsies and TTS balloon dilation Endoscopost: Elvis Paul II, MD Referring Physician: Raj Salamanca M.D. Date of Procedure: May 04, 2020 Equipment: Olympus GIF 190 standard upper endoscope Sedation: MAC sedation Indications: Mrs. Mcmahon is a 74-year-old female with gagging and some choking with dysphagia. She has lost more than 80 pounds in the last year. She reports no heartburn or reflux. She has had some recent belching. She reports some early satiety. She has had some epigastric and right upper quadrant discomfort and nausea. She does state that she has had regular bowel function but will have some intermittent diarrhea. The patient has had prior cholecystectomy and appendectomy. The patient does have a history of coronary artery disease. Her recent labs did show alkaline phosphatase of 316 and total bilirubin of 2.5. The patient was in the emergency department earlier last month and had labs showing alkaline phosphatase 382 and total bilirubin 3.7. Her hemoglobin and hematocrit were 9.0 and 29.0. The patient had a CT scan (reportedly noncontrast) which showed normal pancreas and liver without masses. Procedure: Prior to the procedure, a history and physical exam was performed, and patient's medications and allergies were reviewed. The risks, benefits and alternatives of the sedation and procedure were discussed with the patient. All questions were answered and informed consent was obtained. The patient was brought to the procedure room. Patient identification and proposed procedure were verified by the physician and the nurse. The patient was placed in a left lateral decubitus position and the scope was passed under direct vision. Throughout the procedure, the patient's blood pressure, pulse, and oxygen saturations were monitored continuously. The upper GI endoscopy was accomplished without difficulty. The patient tolerated the procedure well. Findings: The scope was passed directly into the upper esophagus and advanced to the third portion of the duodenum. The post bulbar duodenum and duodenal bulb were normal with normal mucosa and conniventes. The scope was withdrawn through a normal duodenal bulb and pylorus into the stomach. There was minimal reactive gastropathy of the antrum and some mild chronic gastritis of the body and fundus of the stomach. Upon retroflexion there was a very small sliding 1 to 2 cm hiatal hernia. Cold biopsies were taken along the lesser curvature to rule out H. pylori. The scope was then withdrawn into the esophagus. There was no evidence of reflux esophagitis or Blair's. There was no Schatzki's ring. There were tertiary contractions and evidence of moderate esophageal dysmotility. The entire esophagus was dilated to 60 [place]/20 mm. There was some resistance at the cricopharyngeus. The remainder of the esophageal mucosa was normal. Impression: 1. Nonerosive GERD with moderate esophageal dysmotility status post dilation to 20 mm 2. Mild chronic gastritis Plan: The endoscopic findings do not match the patient's symptomatology with abdominal pain, profound weight loss, moderate anemia and elevated liver chemistries. I would like to review CT scan and perhaps do contrast CT scan today. I will also obtain Hemoccult testing and determine whether she needs colonoscopy. I will discuss the findings with the patient and family.
--- NOTE | 2020-05-04 13:24 | US_ITS ---
PROCEDURE: US ABDOMEN LIMITED CLINICAL INDICATION: ABDOMINAL PAIN Jaundice, prior gallbladder surgery, vomiting COMPARISON: CT CT ABDOMEN PELVIS WO CON from 03/30/2020 FINDINGS: PANCREAS: Unremarkable. No obvious mass or abnormal fluid collection. No ductal dilatation LIVER: No focal liver lesions demonstrated. Homogeneous echogenicity. No intrahepatic biliary ductal dilatation evident. There is appropriate direction of blood flow within a non dilated portal vein RIGHT KIDNEY: Unremarkable. Normal size and echogenicity. No hydronephrosis GALLBLADDER: Prior cholecystectomy. Common bile duct is normal at 3 mm. IMPRESSION: Prior cholecystectomy. No biliary dilatation Dictated by: Mervin Rockwell MD 05/04/2020 15:54 Mervin Rockwell MD in [place] 05/04/2020 15:54
[2020-05-04 14:38] LABS: Iron 44 ug/dL (37-170)
[2020-05-04 14:48] LABS: Total Iron Binding Capacity 203 ug/dL (265-497)
[2020-05-04 15:16] LABS: Ferritin 967 ng/ml (11.1-264)
[2020-05-06 11:19] LABS: Occult Blood,Stool Positive (Negative)
[2020-05-06 11:20] LABS: Occult Blood,Stool Positive (Negative)
[2020-05-06 11:20] LABS: Occult Blood,Stool Negative (Negative)
[2020-05-06 11:35] LABS: Hep A Ab, IgM Negative (Negative); Hepatitis B Core Antibody IgM Negative (Negative); Hepatitis B Surface Antigen Negative (Negative)
[2020-05-06 16:40] LABS: Angiotensin Converting Enzyme 45 U/L (14-82); Hepatitis C Antibody <0.1 s/co ratio (0.0-0.9)
[2020-05-06 18:47] LABS: IgG, Subclass 1 637 mg/dL (248-810); IgG, Subclass 2 441 mg/dL (130-555); IgG, Subclass 3 182 mg/dL (15-102); Immunoglobulin G, Qn 1289 mg/dL (586-1602)
[2020-05-06 22:29] LABS: IgG, Subclass 4 10 mg/dL (2-96)
[2020-05-07 19:43] LABS: Actin (Smooth Muscle) Antibody 10 Units (0-19); Mitochondrial (M2) Antibody <20.0 Units (0.0-20.0)
[2020-05-08 00:07] LABS: ALT (SGPT) P5P 17 IU/L (0-40); AST (SGOT) P5P 34 IU/L (0-40); Alpha 2-Macroglobulins, Qn 240 mg/dL (110-276); Apolipoprotein A-1 86 mg/dL (116-209); Bilirubin, Total 3.1 mg/dL (0.0-1.2); Cholesterol, Total 102 mg/dL (100-199); Fibrosis Score 0.86 (0.00-0.21); GGT 129 IU/L (0-60); Glucose 72 mg/dL (65-99); Haptoglobin 241 mg/dL (42-346); Steatosis Score 0.77 (0.00-0.30); Triglycerides 107 mg/dL (0-149)
== END 2020-05-04 14:00 | disposition home or self-care (01) ==
PROVIDERS: PCP Internal Medicine Adolescent Medicine; Visit Provider Internal Medicine Gastroenterology
PROC: 0DJ08ZZ Inspection of Upper Intestinal Tract, Via Natural or Artificial Opening Endoscopic (ICD-10-PCS; CPT 43235; principal; 2020-05-04 11:30)
DX: K21.9 Gastro-esophageal reflux disease without esophagitis (principal); K22.4 Dyskinesia of esophagus; K29.50 Unspecified chronic gastritis without bleeding; E10.9 Type 1 diabetes mellitus without complications; E11.9 Type 2 diabetes mellitus without complications; E78.5 Hyperlipidemia, unspecified; I25.2 Old myocardial infarction; I25.10 Atherosclerotic heart disease of native coronary artery without angina pectoris; N28.9 Disorder of kidney and ureter, unspecified; I11.0 Hypertensive heart disease with heart failure; I50.9 Heart failure, unspecified; R10.11 Right upper quadrant pain; I73.9 Peripheral vascular disease, unspecified
CPT/HCPCS: 43239; 43249; 36415; 76705; 80074; 82164; 82272; 82728; 82784; 82787; 82962; 83540; 83550; 86255; 86256; 88305; C1726; G0328

== ENCOUNTER → 2020-05-07 09:28 | Outpatient (CLI) | payer MEDICARE, SELFPAY | PROVIDERS: PCP Internal Medicine Adolescent Medicine; Referring Provider Internal Medicine Cardiovascular Disease; Visit Provider Internal Medicine Medical Oncology | DX: Z20.822 Contact with and (suspected) exposure to COVID-19 (principal) | CPT/HCPCS: U0003 ==

== ENCOUNTER 2020-05-07 10:03 | Day surgery (SDC) | payer MEDICARE, SELFPAY ==
[2020-05-07 10:32] VITALS: BP 175/81; PULSE 89; RESP 20; TEMP 36.1; O2SAT 96; BMI 33.7
[2020-05-07 11:55] VITALS: BP 181/85; PULSE 117; RESP 18; TEMP 36.1; O2SAT 100
[2020-05-07 12:14] LABS: Basophils % 0.4 % (0.1-2.0); Eosinophils # 0.1 K/mm3 (0.0-0.4); Eosinophils % 2.5 % (0.1-12.0); Hematocrit 27.6 % (37.0-47.0); Hemoglobin 8.4 g/dL (12.2-16.2); Lymphocytes # 1.2 K/mm3 (0.7-4.5); Lymphocytes % 22.6 % (10-50); Mean Corpuscular HGB Conc 30.3 g/dL (31.8-35.4); Mean Corpuscular Hemoglobin 32.1 pg (27.0-31.2); Mean Corpuscular Volume 105.9 fl (81-99); Mean Platelet Volume 9.7 fl (7.4-10.4); Monocytes # 0.2 K/mm3 (0.1-1.0); Monocytes % 4.1 % (1.7-9.3); Neutrophils # 3.6 K/mm3 (1.8-7.8); Neutrophils % 70.3 % (37.0-80.0); Platelet Count 71 K/mm3 (142-424); White Blood Count 5.1 K/mm3 (4.8-10.8)
[2020-05-07 12:41] LABS: Lactate Dehydrogenase 173 U/L (313-618)
--- NOTE | 2020-05-07 15:04 | HMH.OPNOTE ---
Date of procedure: 05/07/20 Surgeon:: Tati Calvert MD Anesthesia: local Operative findings:: none Operative note:: attempted bone marrow bx however pt was moving. decided to stop procedure and plan to schedule under sedation. Condition: stable Disposition: same day Complications:: pt not able to tolerate procedure due to discomfort
[2020-05-08 11:30] LABS: POC Glucose,Bedside 99 (70-110)
[2020-05-08 13:01] LABS: Haptoglobin 224 mg/dL (42-346)
== END 2020-05-07 12:15 | disposition home or self-care (01) ==
LOC: OUTP 10:04
PROVIDERS: PCP Internal Medicine Adolescent Medicine; Visit Provider Internal Medicine Medical Oncology
PROC: (CPT 38221; principal; 2020-05-07 11:30)
DX: D64.9 Anemia, unspecified (principal); E11.9 Type 2 diabetes mellitus without complications; I42.9 Cardiomyopathy, unspecified; I11.0 Hypertensive heart disease with heart failure; I50.9 Heart failure, unspecified; Z79.899 Other long term (current) drug therapy; I49.9 Cardiac arrhythmia, unspecified; I25.10 Atherosclerotic heart disease of native coronary artery without angina pectoris; I48.91 Unspecified atrial fibrillation; Z88.6 Allergy status to analgesic agent; Z88.2 Allergy status to sulfonamides; Z79.4 Long term (current) use of insulin
CPT/HCPCS: 38221; 82962; 83010; 83615; 85025; U0003

== ENCOUNTER 2020-05-13 09:36 | Outpatient (CLI) | payer MEDICARE, SELFPAY ==
[2020-05-13 09:40] VITALS: BMI 30.1
[2020-05-13 10:11] LABS: Basophils % 0.5 % (0.1-2.0); Eosinophils # 0.1 K/mm3 (0.0-0.4); Eosinophils % 2.7 % (0.1-12.0); Hematocrit 26.3 % (37.0-47.0); Lymphocytes % 26.1 % (10-50); Mean Corpuscular HGB Conc 30.4 g/dL (31.8-35.4); Mean Corpuscular Hemoglobin 32.6 pg (27.0-31.2); Mean Corpuscular Volume 107.4 fl (81-99); Monocytes # 0.2 K/mm3 (0.1-1.0); Monocytes % 4.6 % (1.7-9.3); Neutrophils # 2.6 K/mm3 (1.8-7.8); Neutrophils % 66.2 % (37.0-80.0); Platelet Count 64 K/mm3 (142-424); Red Blood Count 2.45 M/mm3 (4.20-5.40); White Blood Count 3.9 K/mm3 (4.8-10.8)
[2020-05-13 10:35] VITALS: BP 147/97; PULSE 104; RESP 18
--- NOTE | 2020-05-13 13:01 | PC.NURSE ---
121Anais VAUGHN FROM LAB AUDI BLOOD TO TYPE AND CROSSMATCH FOR 1 UNIT PRBC'S TO BE TRANSFUSED TOMORROW.
[2020-05-15 14:00] LABS: Erythropoietin 181.1 mIU/mL (2.6-18.5)
== END 2020-05-13 12:45 | disposition home or self-care (01) ==
LOC: INF 09:36
PROVIDERS: Visit Provider Internal Medicine Medical Oncology
DX: D64.9 Anemia, unspecified (principal); N18.30 Chronic kidney disease, stage 3 unspecified; D63.1 Anemia in chronic kidney disease
CPT/HCPCS: 36415; 82668; 85025; 86850; 96372; J0885

== ENCOUNTER 2020-05-14 09:06 | Outpatient (CLI) | payer MEDICARE, SELFPAY ==
[2020-05-14] VITALS (12 sets, daily range): BP systolic 114–166; BP diastolic 55–98; PULSE 93–106; RESP 20–107; TEMP 36.1–36.6; O2SAT 95–96; BMI 36.9
[2020-05-14 13:08] LABS: Hemoglobin 8.5 g/dL (12.2-16.2)
== END 2020-05-14 12:52 | disposition home or self-care (01) ==
LOC: INF 09:06
PROVIDERS: Visit Provider Internal Medicine Adolescent Medicine
DX: D64.9 Anemia, unspecified (principal)
CPT/HCPCS: 36430; 85014; 85018; P9016

== ENCOUNTER → 2020-05-22 09:45 | Outpatient (CLI) | payer MEDICARE, SELFPAY | PROVIDERS: PCP Internal Medicine Adolescent Medicine; Visit Provider Internal Medicine Medical Oncology | DX: Z01.818 Encounter for other preprocedural examination (principal); Z20.822 Contact with and (suspected) exposure to COVID-19; U07.1 COVID-19 | CPT/HCPCS: U0003 ==

== ENCOUNTER 2020-06-03 08:30 | Outpatient (CLI) | payer MEDICARE, SELFPAY ==
[2020-06-03 08:39] VITALS: BMI 30.1
[2020-06-03 09:10] LABS: Hematocrit 27.8 % (37.0-47.0); Hemoglobin 8.5 g/dL (12.2-16.2)
[2020-06-03 09:45] VITALS: BP 158/65; PULSE 104; RESP 18; TEMP 36.2; O2SAT 98
== END 2020-06-03 10:00 | disposition home or self-care (01) ==
LOC: INF 08:37
PROVIDERS: Visit Provider Internal Medicine Medical Oncology
DX: D64.9 Anemia, unspecified (principal); N18.30 Chronic kidney disease, stage 3 unspecified; D63.1 Anemia in chronic kidney disease
CPT/HCPCS: 85014; 85018; 96372; J0885

== ENCOUNTER 2020-06-17 08:43 | Outpatient (CLI) | payer MEDICARE, SELFPAY ==
[2020-06-17 08:45] VITALS: BMI 32.4
[2020-06-17 08:58] LABS: Basophils % 0.5 % (0.1-2.0); Eosinophils # 0.1 K/mm3 (0.0-0.4); Eosinophils % 2.7 % (0.1-12.0); Hemoglobin 9.6 g/dL (12.2-16.2); Lymphocytes % 29.6 % (10-50); Mean Corpuscular HGB Conc 30.1 g/dL (31.8-35.4); Mean Corpuscular Hemoglobin 32.9 pg (27.0-31.2); Mean Corpuscular Volume 109.4 fl (81-99); Mean Platelet Volume 9.9 fl (7.4-10.4); Monocytes # 0.2 K/mm3 (0.1-1.0); Monocytes % 5.1 % (1.7-9.3); Neutrophils % 62.1 % (37.0-80.0); Red Blood Count 2.93 M/mm3 (4.20-5.40); Red Cell Distribution Width 19.1 % (11.5-17.5); White Blood Count 3.2 K/mm3 (4.8-10.8)
[2020-06-17 09:04] LABS: Platelet Count 44 K/mm3 (142-424)
[2020-06-17 09:47] VITALS: BP 149/79; PULSE 99; RESP 18; TEMP 36.3; O2SAT 95
== END 2020-06-17 09:51 | disposition home or self-care (01) ==
LOC: INF 08:43
PROVIDERS: Visit Provider Internal Medicine Medical Oncology
DX: N28.9 Disorder of kidney and ureter, unspecified (principal); D64.9 Anemia, unspecified; N18.30 Chronic kidney disease, stage 3 unspecified; D63.1 Anemia in chronic kidney disease; I15.0 Renovascular hypertension
CPT/HCPCS: 36415; 85025; 96372; J0885

== ENCOUNTER 2020-06-19 11:38 | Day surgery (SDC) | payer MEDICARE, SELFPAY ==
[2020-06-01 11:51] VITALS: BMI 34.0
[2020-06-19 13:26] VITALS: BP 185/90; PULSE 139; RESP 22; TEMP 36.6; O2SAT 93
[2020-06-19 13:43] LABS: POC Glucose,Bedside 87 (70-110)
[2020-06-19 14:16] VITALS: O2SAT 96
--- NOTE | 2020-06-19 14:39 | HMH.PROC ---
[facility] Procedure Note Procedure Note:: Colonoscopy Procedure Report: Colonoscopy with cold snare polypectomy Endoscopist: Elvis Paul II, MD Referring physician: Raj Salamanca M.D. Date of Procedure: June 19, 2020 Equipment: Olympus 190 variable stiffness pediatric colonoscope Sedation: MAC sedation Indication: Mrs. Mcmahon is a 75-year-old female who is here for diagnostic colonoscopy secondary to anemia. Her ultrasound of the liver showed homogeneous echogenicity. She had a noncontrast CAT scan. 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 She was markedly anemic. Her last colonoscopy was more than 10 years ago. She has regular bowel function. She reports no melena, hematochezia or bright red blood per rectum. She reports no family history of colon cancer. Procedure: Prior to the procedure, a history and physical exam was performed, and patient's medications and allergies were reviewed. The risks, benefits and alternatives of the sedation and procedure were discussed with the patient. All questions were answered and informed consent was obtained. The patient was brought to the procedure room. Patient identification and proposed procedure were verified by the physician and the nurse. The patient was placed in a left lateral decubitus position and the scope was passed under direct vision. Throughout the procedure, the patient's blood pressure, pulse, and oxygen saturations were monitored continuously. The colonoscopy was accomplished without difficulty. The patient tolerated the procedure well. Findings: On digital rectal examination there was normal rectal tone. There were no external hemorrhoids. The colonoscope was introduced through the anal canal to the rectum and advanced to the cecum. The ileocecal valve and appendiceal orifice were identified. The scope was advanced a short distance into the ileum which appeared grossly normal. The scope was then withdrawn into the colon. The cecum, ascending and transverse colon and mucosa were grossly normal. There was a single 4 mm polyp in the descending colon removed via cold snare polypectomy. There were scattered diverticuli throughout the descending and sigmoid colon (LEFT colon). The rectum itself was normal. Upon retroflexion within the rectum there were grade 2-3 internal hemorrhoids. The preparation was good throughout with [place] Preparation Score of 8 out of 9. The cecal time was 12 minutes. Impression: 1. Diminutive descending colon polyp 2. Left-sided diverticulosis 3. Grade 2-3 internal hemorrhoids Plan: I do suspect right-sided heart failure with cardiac cirrhosis. I would like for her to have imaging and possibly repeat ultrasound. She does have possible ascites at this point. I will discuss care with family today.
[2020-06-19 14:40] VITALS: BP 161/77; PULSE 107; RESP 18; TEMP 36.4; O2SAT 97
--- NOTE | 2020-06-19 14:45 | P.PN_ITS ---
[facility] Anesthesia Checklist - Structural Data Admitted From: Home Planned Operative Procedure/s: colonoscopy Consent for Planned Operative Procedure(s) Verified: Yes - Additional verifications Anesthesia Reactions: No - Airway Assessment C-Spine Mobility Assessed: Yes TMJ Mobility Assessed: Yes Dentition: Poor Dentition - Neurological Assessment Level of Consciousness: Awake, Alert, Appropriate - Anesthesia Plan Anesthesia Risk discussed: Yes Anesthesia Plan: Verified ASA Class: III Anesthesia Type: MAC [facility] History I have reviewed the patient's past medical history: Yes Medical History: Reports:: Arrhythmia, Atherosclerotic Heart Disease, Atrial Fibrillation, Cardiomyopathy, Carotid Stenosis, Congestive Heart Failure, Chronic Obstructive Pulmonary Disease (COPD), Coronary Artery Disease, Deep Vein Thrombosis, Diabetes Mellitus Type 2, Heart Murmur, Hyperlipidemia, Hypertension, Myocardial Infarction, Peripheral Artery Disease, Renal Disease, Valvular Heart Disease Denies:: Cancer, Diabetes Mellitus Type 1, Internal Pacemaker, MRSA, Seizures *Have you ever received a pneumonia vaccine?: No *Have you received a flu vaccine this season?: Yes Other Medical History: Reports: Anemia, Arthritis, Cataracts, Hypothyroidism, Sinus Problems, Thyroid Disease Anesthesia experience/problems:: none Other Surgeries: Yes: Angioplasty, Appendectomy, CABG, Cardiac Catheterization, Cardiac Surgery, Cholecystectomy, Colonoscopy, Coronary Stent, EGD, Hysterectomy-Total, Open Heart Surgery. No: Pacemaker Amputation: No Fractures: No - *Social History Last grade of school completed: 11th or 12th Smoking Status: Former smoker # Packs/Day (cigarettes): 1 Alcohol Intake: never Alcohol Intake Frequency:: other Substance Use Type: denies use *Occupational Status:: retired Housing: house Household Members: spouse *Travel in the last 8 weeks: None Family Hx:: Cancer, Diabetes, Heart Attack, Hypertension, Kidney Disease
[2020-06-19 14:50] VITALS: BP 173/88; PULSE 129; RESP 18; O2SAT 100
[2020-06-19 15:16] VITALS: BP 130/80; PULSE 106; RESP 18; O2SAT 96
== END 2020-06-19 15:19 | disposition home or self-care (01) ==
LOC: OUTP 11:42
PROVIDERS: PCP Internal Medicine Adolescent Medicine; Visit Provider Internal Medicine Gastroenterology
PROC: 0DJD8ZZ Inspection of Lower Intestinal Tract, Via Natural or Artificial Opening Endoscopic (ICD-10-PCS; CPT 45378; principal; 2020-06-19 13:00)
DX: K63.5 Polyp of colon (principal); K57.30 Diverticulosis of large intestine without perforation or abscess without bleeding; K64.1 Second degree hemorrhoids; D64.9 Anemia, unspecified; I25.10 Atherosclerotic heart disease of native coronary artery without angina pectoris; I48.91 Unspecified atrial fibrillation; I11.0 Hypertensive heart disease with heart failure; I50.9 Heart failure, unspecified; E78.5 Hyperlipidemia, unspecified; I73.9 Peripheral vascular disease, unspecified; N18.9 Chronic kidney disease, unspecified; J44.9 Chronic obstructive pulmonary disease, unspecified
CPT/HCPCS: 45385; 82962; 88305

== ENCOUNTER → 2020-06-22 08:42 | Outpatient (CLI) | payer MEDICARE, SELFPAY ==
[2020-07-01 09:31] LABS: Occult Blood,Stool Negative (Negative)
== END ==
PROVIDERS: Visit Provider Internal Medicine Gastroenterology
DX: D64.9 Anemia, unspecified (principal)
CPT/HCPCS: 82272; G0328

== ENCOUNTER → 2020-06-23 20:05 | Outpatient (CLI) | payer MEDICARE, SELFPAY ==
[2020-07-01 09:31] LABS: Occult Blood,Stool Negative (Negative)
== END ==
PROVIDERS: Visit Provider Internal Medicine Gastroenterology
DX: D64.9 Anemia, unspecified (principal)
CPT/HCPCS: 82272; G0328

== ENCOUNTER → 2020-06-24 18:30 | Outpatient (CLI) | payer MEDICARE, SELFPAY ==
[2020-07-01 09:31] LABS: Occult Blood,Stool Negative (Negative)
== END ==
PROVIDERS: Visit Provider Internal Medicine Gastroenterology
DX: D64.9 Anemia, unspecified (principal)
CPT/HCPCS: 82272; G0328

== ENCOUNTER 2020-07-01 08:40 | Outpatient (CLI) | payer MEDICARE, SELFPAY ==
[2020-07-01 08:52] VITALS: BMI 32.4
[2020-07-01 09:11] LABS: Hematocrit 28.6 % (37.0-47.0); Hemoglobin 8.6 g/dL (12.2-16.2)
[2020-07-01 09:55] VITALS: BP 143/68; PULSE 81; RESP 17; TEMP 36.3; O2SAT 96
== END 2020-07-01 09:58 | disposition home or self-care (01) ==
LOC: INF 08:44
PROVIDERS: Visit Provider Internal Medicine Medical Oncology
DX: D64.9 Anemia, unspecified (principal); N18.30 Chronic kidney disease, stage 3 unspecified; D63.1 Anemia in chronic kidney disease; I15.0 Renovascular hypertension; I70.1 Atherosclerosis of renal artery; I50.32 Chronic diastolic (congestive) heart failure; E83.10 Disorder of iron metabolism, unspecified
CPT/HCPCS: 85014; 85018; 96372; J0885

== ENCOUNTER → 2020-07-10 09:55 | Outpatient (CLI) | payer MEDICARE, SELFPAY ==
[2020-07-10 10:39] LABS: Basophils % 0.4 % (0.1-2.0); Eosinophils # 0.1 K/mm3 (0.0-0.4); Eosinophils % 2.7 % (0.1-12.0); Hematocrit 30.6 % (37.0-47.0); Hemoglobin 9.5 g/dL (12.2-16.2); Lymphocytes # 1.3 K/mm3 (0.7-4.5); Lymphocytes % 27.9 % (10-50); Mean Corpuscular Hemoglobin 34.9 pg (27.0-31.2); Mean Corpuscular Volume 112.6 fl (81-99); Mean Platelet Volume 11.3 fl (7.4-10.4); Monocytes # 0.2 K/mm3 (0.1-1.0); Monocytes % 4.1 % (1.7-9.3); Neutrophils # 2.9 K/mm3 (1.8-7.8); Neutrophils % 64.8 % (37.0-80.0); Platelet Count 52 K/mm3 (142-424); Red Blood Count 2.72 M/mm3 (4.20-5.40); White Blood Count 4.5 K/mm3 (4.8-10.8)
[2020-07-10 12:05] LABS: Chloride 108 mmol/L (98-107); Potassium 4.1 mmoL/L (3.5-5.1); Sodium 139 mmol/L (136-145)
[2020-07-10 12:08] LABS: Anion Gap 18.1 mEq/L (5-15); Blood Urea Nitrogen 66 mg/dl (7-17); Carbon Dioxide 17 mmol/L (22.0-30.0); Estimated Glomerular Filt Rate 26 ml/min (>60); GFR (African American) 31 ML/MIN (>60); Glucose 155 mg/dl (74-100)
[2020-07-10 12:08] LABS: Chloride 109 mmol/L (98-107); Potassium 4.3 mmoL/L (3.5-5.1); Sodium 141 mmol/L (136-145)
[2020-07-10 12:11] LABS: Alanine Aminotransferase 16 U/L (12-78); Albumin Level 3.5 g/dl (3.5-5.0); Alkaline Phosphatase 435 U/L (38-126); Anion Gap 18.3 mEq/L (5-15); Aspartate Amino Transferase 38 U/L (14-36); Bilirubin,Total 10.3 mg/dl (0.2-1.3); Blood Urea Nitrogen 67 mg/dl (7-17); Carbon Dioxide 18 mmol/L (22.0-30.0); Estimated Glomerular Filt Rate 26 ml/min (>60); GFR (African American) 31 ML/MIN (>60); Globulin 3.5 g/dL (1.3-3.2)
[2020-07-10 12:12] LABS: Calcium 8.9 mg/dl (8.4-10.2); Glucose 154 mg/dl (74-100)
[2020-07-10 12:19] LABS: NT Pro Brain Natriuretic Pep. 33900 pg/mL (0-125)
== END ==
PROVIDERS: Nurse Practitioner Family; Visit Provider Internal Medicine Cardiovascular Disease
DX: E11.8 Type 2 diabetes mellitus with unspecified complications (principal); E66.9 Obesity, unspecified; G62.9 Polyneuropathy, unspecified; I25.10 Atherosclerotic heart disease of native coronary artery without angina pectoris; L57.0 Actinic keratosis; L60.3 Nail dystrophy; L60.8 Other nail disorders; Z79.4 Long term (current) use of insulin; Z95.1 Presence of aortocoronary bypass graft; R06.09 Other forms of dyspnea; Z68.33 Body mass index [BMI] 33.0-33.9, adult
CPT/HCPCS: 36415; 80048; 80053; 83880; 85025